=== PATIENT | female | born 1975 | race Caucasian/White ===

== ENCOUNTER → 2022-09-03 13:35 | Outpatient (POV) | payer MEDICAID, SELFPAY ==
[2022-09-03 14:10] VITALS: BP 132/81; PULSE 92; RESP 18; O2SAT 96; BMI 32.5
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
== END | disposition home or self-care (01) ==
PROVIDERS: PCP Nurse Practitioner Family; Visit Provider Nurse Practitioner Family
DX: M51.36 Other intervertebral disc degeneration, lumbar region (principal); M47.816 Spondylosis without myelopathy or radiculopathy, lumbar region; M25.551 Pain in right hip; M25.552 Pain in left hip; M25.572 Pain in left ankle and joints of left foot
CPT/HCPCS: 99202; G0463

== ENCOUNTER 2022-09-11 14:29 | Day surgery (SDC) | payer MEDICAID, SELFPAY ==
[2022-09-11 14:50] VITALS: BP 161/99; PULSE 88; RESP 20; TEMP 36.8; O2SAT 97; BMI 33.6
[2022-09-11 15:02] VITALS: BP 147/92; BP 177/106; PULSE 93; PULSE 96; RESP 18; RESP 20; O2SAT 98
--- NOTE | 2022-09-11 15:27 | EXP.PAIN.PRO ---
Procedure Date: 09/11/22 Time: 15:15 Anesthesiologist:: Hunter Arriaga CRNA Complications:: None Pre-procedure Diagnosis:: Chronic left ankle pain following ORIF. Post-procedure Diagnosis:: Same. Indications for Procedure:: This patient is a very pleasant 47-year-old female that comes our clinic today for sympathetic nerve block lumbar left 4 5. 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 Patient has chronic left ankle pain. She describes it as constant, sharp, stabbing. Patient does take gabapentin. Procedure Details:: Procedure: Lumbar epidural steroid injection under fluoroscopy Informed consent was obtained and the risks and benefits of the procedure were explained to the patient. The patient was taken to the procedure room and noninvasive monitors placed, including noninvasive blood pressure cuff and pulse oximeter. The back was viewed using C-arm Fluoroscopy and prepped using Chloraprep as a cleansing solution and the L4-L5 interspace was palpated. Skin and subcutaneous tissues were anesthetized using lidocaine 1.5% and a 25-gauge needle. After this, an 18-gauge Touhy epidural needle was placed into the L4-L5 interspace and advanced using fluoroscopic guidance and loss of resistance to air until the epidural space was encountered. After confirmation of needle placement in the epidural space, with dye, a solution containing 1% lidocaine, 3 mL and Depo-Medrol 40 mg were incrementally injected into the lumbar epidural space. The patient tolerated the procedure well with no complications. The patient was observed in the Pain Clinic and then discharged home neurologically intact. Plan and Disposition:: Patient was discharged without incident.
== END 2022-09-11 15:15 | disposition home or self-care (01) ==
LOC: SC.PAINP 14:39
PROVIDERS: PCP Nurse Practitioner Family; Visit Provider Nurse Anesthetist, Certified Registered
DX: M25.572 Pain in left ankle and joints of left foot (principal); M51.36 Other intervertebral disc degeneration, lumbar region; M47.816 Spondylosis without myelopathy or radiculopathy, lumbar region; M25.551 Pain in right hip; M25.552 Pain in left hip
CPT/HCPCS: 62323; J1030

== ENCOUNTER → 2022-10-06 13:47 | Outpatient (POV) | payer MEDICAID, SELFPAY ==
[2022-10-06 14:01] VITALS: BP 140/99; PULSE 104; RESP 20; BMI 32.6
--- NOTE | 2022-10-06 14:06 | A.OFFVIS_ITS ---
[facility] Pain Management SOAP Note Subjective:: Patient is a pleasant 47-year-old female who presents today following a lumbar epidural steroid injection at L4-L5 on 09/11/2022. We are currently treating the patient for low back pain, bilateral hip pain, left ankle pain, degenerative disc disease of lumbar spine with lumbar radiculopathy symptoms, lumbar facet arthropathy. Today she rates her pain a 7 out of 10. Patient states that following this epidural injection she did get approximately 70% relief however it only lasted 3 days. Patient denies any new trauma or injury. Patient denies any change location or type of pain she experiences. Patient was previously prescribed tizanidine 4 mg at night and states this did seem to provide additional improvement. She is requesting a refill at today's visit. Patient is currently prescribed gabapentin 300 mg 3 times a day from Dr. Rica Monterroso's office. Patient denies any side effects from this medication. Patient states she is scheduled to go to this month for her neurosurgery consult. Her Ender is [id number]. It is been reviewed and appropriate. Review of Systems: General: No recent weight changes, no fever, no sleep disturbances Respiratory: No cough, no shortness of air, no recurring pulmonary infections Cardiovascular/peripheral vascular: No chest pain, no palpitations, no edema, no shortness of breath Gastrointestinal: No new onset incontinence, normal bowel movements reported Genitourinary: No new onset incontinence Musculoskeletal: Low back pain, left ankle pain Psychiatric: [Normal mood/affect] Neurological: [Denies weakness in extremities], [denies balance issues] Objective:: Physical Exam: General: Alert and oriented x3, no acute distress, pleasant and cooperative Lungs: Respirations even and unlabored, symmetrical chest expansion Eyes: PERRL Musculoskeletal: Flexion and extension of lumbar [spine] somewhat guarded secondary to pain, [antalgic gait noted] Neurological: Speech clear, no gross sensory deficit Assessment:: Degenerative disc disease of lumbar spine with lumbar radiculopathy symptoms, lumbar facet arthropathy, low back pain, bilateral hip pain, left ankle pain Plan:: Patient continues to experience significant pain in her low back as well as her left ankle. I will refill the patient's tizanidine 4 mg at bedtime and provide a 1 month supply of this medication. I will also prescribe the patient a compounding cream at today's visit. Patient will return to clinic in 1 month for reevaluation of symptoms, medication refill and follow-up. Patient has been instructed to contact the clinic with any concerns before the next appointment. Dr. Bernard has reviewed this note and agrees with this plan of care. This note was dictated using voice recognition software and make contain errors or omissions. [facility] Disclaimer: The information contained in this section may have been updated after the patient was seen, as this information can be updated by other users. Medical History Chronic pain Endometriosis HLD (hyperlipidemia) HTN (hypertension) Tubal Surgical History H/O removal of cyst History of ankle surgery Family History (Updated 09/11/22 @ 15:04 by Yesy Vazquez RN) Other No significant family history Social History (Updated 09/11/22 @ 15:05 by Yesy Vazquez RN) Smoking Status: Current every day smoker alcohol intake: never current occupational status: other Travel in the last 8 weeks: None
== END | disposition home or self-care (01) ==
PROVIDERS: PCP Nurse Practitioner Family; Visit Provider Nurse Practitioner Family
DX: M51.16 Intervertebral disc disorders with radiculopathy, lumbar region (principal); M47.26 Other spondylosis with radiculopathy, lumbar region; M25.551 Pain in right hip; M25.552 Pain in left hip; M79.672 Pain in left foot; F17.210 Nicotine dependence, cigarettes, uncomplicated
CPT/HCPCS: 99212; G0463

== ENCOUNTER → 2022-11-05 13:38 | Outpatient (POV) | payer MEDICAID, SELFPAY ==
[2022-11-05 13:50] VITALS: BP 140/101; PULSE 111; RESP 19; O2SAT 96; BMI 32.5
--- NOTE | 2022-11-05 14:02 | EXP.PAIN.SOA ---
[facility] Pain Management SOAP Note Subjective:: Patient is a pleasant 47-year-old female who presents today for follow-up. We are currently treating the patient for low back pain, bilateral hip pain, left ankle pain, degenerative disc disease of lumbar spine with lumbar radiculopathy symptoms, lumbar facet arthropathy. Today the patient rates her pain a 9 out of 10. Patient continues to state her pain is primarily in her low back with radiating symptoms into her legs and left ankle pain. Patient states her pain seems to have changed and moved higher up on her lumbar spine. Patient denies any new trauma or injury. She describes this as a achy, throbbing sensation that is worse with increased activity or range of motion. Patient states she has not had imaging of her lumbar spine for probably over a year. Patient states occasionally she does have worsening anxiety related to the closed-end spaces of the MRI machine. Patient has had multiple injections in the past with her last lumbar epidural providing 70% relief however only lasting 3 days. Patient is currently prescribed tizanidine 4 mg at night and states this does provide significant improvement however she has been out of this medicine for a little bit. She is requesting a refill at today's visit. Patient states she also did go to the neurosurgeon at who was not recommending any surgery but exercise. Patient is currently managed with gabapentin 300 mg 3 times a day from her primary care doctor and compounding cream from our office. Patient denies any side effects from these medications. Her Ender is [id number]. Its been reviewed and appropriate. Review of Systems: General: No recent weight changes, no fever, no sleep disturbances Respiratory: No cough, no shortness of air, no recurring pulmonary infections Cardiovascular/peripheral vascular: No chest pain, no palpitations, no edema, no shortness of breath Gastrointestinal: No new onset incontinence, normal bowel movements reported Genitourinary: No new onset incontinence Musculoskeletal: Low back pain Psychiatric: [Normal mood/affect] Neurological: [Denies weakness in extremities], [denies balance issues] Objective:: Physical Exam: General: Alert and oriented x3, no acute distress, pleasant and cooperative Lungs: Respirations even and unlabored, symmetrical chest expansion Eyes: PERRL Musculoskeletal: Flexion and extension of lumbar [spine] somewhat guarded secondary to pain, [antalgic gait noted] Neurological: Speech clear, no gross sensory deficit ORT score updated with minimal risk of 1 Assessment:: Degenerative disc disease of lumbar spine with lumbar radiculopathy symptoms, lumbar facet arthropathy, low back pain, bilateral hip pain, left ankle pain Plan:: Patient continues to experience significant pain in her low back with radiating symptoms into her lower extremities. Patient did have limited range of motion of her lumbar spine. Due to the patient stating that she feels like her back pain has changed in location I have discussed ordering updated imaging to see if there are any changes from her prior MRI. I will refill the patient's tizanidine 4 mg at bedtime and provide a 3-month supply of this medication. We will schedule the patient for a CT without contrast of her lumbar spine and she will follow-up in clinic afterwards for reevaluation of symptoms and plan of care. Patient has been instructed to contact the clinic with any concerns before the next appointment. Dr. Bernard has reviewed this note and agrees with this plan of care. This note was dictated using voice recognition software and make contain errors or omissions. [facility] Disclaimer: The information contained in this section may have been updated after the patient was seen, as this information can be updated by other users. Medical History Chronic pain Endometriosis HLD (hyperlipidemia) HTN (hypertension) Tubal pregna
== END | disposition home or self-care (01) ==
PROVIDERS: PCP Nurse Practitioner Family; Visit Provider Nurse Practitioner Family
DX: M51.16 Intervertebral disc disorders with radiculopathy, lumbar region (principal); M47.26 Other spondylosis with radiculopathy, lumbar region; M25.551 Pain in right hip; M25.552 Pain in left hip; M25.572 Pain in left ankle and joints of left foot
CPT/HCPCS: 99212; G0463

== ENCOUNTER → 2022-11-27 10:02 | Outpatient (POV) | payer MEDICAID, SELFPAY ==
[2022-11-27 10:10] VITALS: BP 138/98; PULSE 113; RESP 19; O2SAT 97; BMI 32.3
--- NOTE | 2022-11-27 11:18 | EXP.PAIN.SOA ---
[facility] Pain Management SOAP Note Subjective:: This patient is a very pleasant 47-year-old female returns our clinic today after being denied CT scan lumbar spine. Patient complaining today of low back pain that she describes as constant, dull, aching. She also complains of bilateral hip and leg radicular symptoms at times. Patient rates her pain 7/10. Patient received lumbar epidural steroid injection on 09/11/2022. She reports some significant relief 80 to 90% lasting 2 to 3 weeks after this injection. However, after this time her symptoms returned in their entirety. Patient has difficulty with standing for any length of time. Ambulating for any length of time. Sitting for any length of time. She has difficulty with flexion, extension, left and right rotation. Upon examination she has some midline low lumbar point tenderness. No tenderness off the midline left or right. We have also treated the patient in the past regarding CRPS symptoms of her left ankle secondary to multiple surgeries at the site. However, she does report the gabapentin 3 mg 1 p.o. 3 times daily from her PCP does help with that significantly. Patient reports having physical therapy in the past which made her symptoms worse. She continues taking NSAIDs as well as acetaminophen at times. Also takes gabapentin 300 mg 1 p.o. 3 times daily. She reports the gabapentin does help with pain in her lower legs. Essentially, she has not had much success with conservative treatments. I recommend repeating the lumbar epidural steroid injection at the L4-5 level. She wishes to proceed. Objective:: Patient is awake alert [place] x3. In no acute distress. Flexion-extension lumbar spine somewhat guarded secondary to pain. Deep tendon reflexes upper lower extremities normal. Motor strength upper and lower extremities normal. There is no gross sensory deficit. Gait is normal Assessment:: Degenerative disc disease lumbar spine multilevels. Lumbar radiculopathy. Multilevel lumbar disc bulge. Plan:: Discussed in detail with the patient regarding repeating the lumbar epidural steroid injection. She wishes to proceed. [facility] Disclaimer: The information contained in this section may have been updated after the patient was seen, as this information can be updated by other users. Medical History Chronic pain Endometriosis HLD (hyperlipidemia) HTN (hypertension) Tubal Surgical History H/O removal of cyst History of ankle surgery Family History (Updated 09/11/22 @ 15:04 by Yesy Vazquez RN) Other No significant family history Social History (Updated 09/11/22 @ 15:05 by Yesy Vazquez RN) Smoking Status: Current every day smoker alcohol intake: never substance use type: denies use current occupational status: disabled Travel in the last 8 weeks: None
--- NOTE | 2022-11-27 11:34 | EXP.PAIN.SOA ---
[facility] Pain Management SOAP Note Subjective:: This patient is a pleasant 41-year-old [facility] Disclaimer: The information contained in this section may have been updated after the patient was seen, as this information can be updated by other users. Medical History Chronic pain Endometriosis HLD (hyperlipidemia) HTN (hypertension) Tubal Surgical History H/O removal of cyst History of ankle surgery Family History (Updated 09/11/22 @ 15:04 by Yesy Vazquez RN) Other No significant family history Social History (Updated 11/27/22 @ 11:23 by Hunter Arriaga CRNA) Smoking Status: Current every day smoker alcohol intake: never substance use type: denies use current occupational status: disabled Travel in the last 8 weeks: None
== END ==
PROVIDERS: PCP Nurse Practitioner Family; Visit Provider Nurse Anesthetist, Certified Registered
DX: M51.16 Intervertebral disc disorders with radiculopathy, lumbar region (principal)
CPT/HCPCS: 99212; G0463

== ENCOUNTER → 2022-12-15 08:44 | Outpatient (POV) | payer MEDICAID, SELFPAY ==
[2022-12-15 09:08] VITALS: BP 141/98; PULSE 82; RESP 20; TEMP 36.2; O2SAT 95; BMI 32.3
--- NOTE | 2022-12-15 09:43 | A.OFFVIS_ITS ---
[facility] Pain Management SOAP Note Subjective:: This patient is a very pleasant 47-year-old female that comes our clinic today for follow-up visit following denial from insurance regarding lumbar epidural steroid injection. Patient has a continuous low back pain she describes as constant, dull, aching. She rates pain 8/10. Patient also complained of bilateral hip and leg radicular symptoms. She has documented degenerative disc lumbar spine multilevels. Multilevel lumbar disc bulge. She describes her bilateral hip and leg radicular symptoms to the feet at times. Patient has tried physical therapy in the past. Patient reports physical therapy increased her pain significantly. She has tried health care facility administrator with a similar result. She also participates in home exercise program including stretches. Patient takes NSAIDs when able. Essentially, patient has tried and failed multiple conservative treatments. Objective:: Patient is awake alert [place] x3. In no acute distress. Flexion-extension lumbar spine guarded secondary to pain. Deep tendon reflexes upper and lower ex tremities normal. Motor strength upper and lower extremities normal. There is no gross sensory deficit. Gait is normal. Assessment:: Degenerative disc disease lumbar spine multilevels. Lumbar radiculopathy. Lumbar disc bulge multilevel Plan:: We will plan lumbar epidural steroid injection at the L4-5 level. [facility] Disclaimer: The information contained in this section may have been updated after the patient was seen, as this information can be updated by other users. Medical History Chronic pain Endometriosis HLD (hyperlipidemia) HTN (hypertension) Tubal Surgical History H/O removal of cyst History of ankle surgery Family History (Updated 09/11/22 @ 15:04 by Yesy Vazquez RN) Other No significant family history Social History (Updated 11/27/22 @ 11:23 by Hunter Arriaga CRNA) Smoking Status: Current every day smoker alcohol intake: never substance use type: denies use current occupational status: other Travel in the last 8 weeks: None
== END ==
PROVIDERS: PCP Nurse Practitioner Family; Visit Provider Nurse Anesthetist, Certified Registered
DX: M51.16 Intervertebral disc disorders with radiculopathy, lumbar region (principal); Z72.0 Tobacco use
CPT/HCPCS: 99212; G0463

== ENCOUNTER 2022-12-29 11:35 | Day surgery (SDC) | payer MEDICAID, SELFPAY ==
[2022-12-29 11:46] VITALS: BP 158/110; PULSE 103; RESP 18; TEMP 36.7; O2SAT 95; BMI 32.3
[2022-12-29 11:54] VITALS: BP 176/100; PULSE 103; RESP 19; O2SAT 97
[2022-12-29 11:55] VITALS: BP 176/100; PULSE 103; RESP 18; O2SAT 97
[2022-12-29 12:00] VITALS: BP 161/91; PULSE 97; RESP 18; O2SAT 95
--- NOTE | 2022-12-29 12:00 | P.PCN_ITS ---
Procedure Date: 12/29/22 Time: 11:40 Anesthesiologist:: Hunter Arriaga CRNA Complications:: None Pre-procedure Diagnosis:: Degenerative disc disease lumbar spine multilevels. Lumbar radiculopathy Post-procedure Diagnosis:: Same. Indications for Procedure:: Is a very pleasant 47-year-old female that comes our clinic today for lumbar epidural steroid injection at the L4-5 level. Patient had a previous lumbar epidural steroid injection with minimal relief. Patient reports 3 days of signi ficant relief however, following 3 days it began to wear off quickly. She complains of low back pain as well as bilateral hip and leg radicular symptoms. She rates her pain 05/03 Procedure Details:: Procedure: Lumbar epidural steroid injection under fluoroscopy Informed consent was obtained and the risks and benefits of the procedure were explained to the patient. The patient was taken to the procedure room and noninvasive monitors placed, including noninvasive blood pressure cuff and pulse oximeter. The back was viewed using C-arm Fluoroscopy and prepped using Chloraprep as a cleansing solution and the L4-L5 interspace was palpated. Skin and subcutaneous tissues were anesthetized using lidocaine 1.5% and a 25-gauge needle. After this, an 18-gauge Touhy epidural needle was placed into the L4-L5 interspace and advanced using fluoroscopic guidance and loss of resistance to air until the epidural space was encountered. After confirmation of needle placement in the epidural space, with dye, a solution containing normal saline, 3 mL and Depo-Medrol 80 mg were incrementally injected into the lumbar epidural space. The patient tolerated the procedure well with no complications. The patient was observed in the Pain Clinic and then discharged home neurologically intact. Plan and Disposition:: Patient was discharged without incident.
== END 2022-12-29 12:00 | disposition home or self-care (01) ==
PROVIDERS: PCP Nurse Practitioner Family; Visit Provider Nurse Anesthetist, Certified Registered
DX: M51.16 Intervertebral disc disorders with radiculopathy, lumbar region (principal); Z72.0 Tobacco use
CPT/HCPCS: 62323; J1040

== ENCOUNTER → 2023-01-18 10:23 | Outpatient (POV) | payer MEDICAID, SELFPAY ==
[2023-01-18 10:44] VITALS: BP 146/85; PULSE 86; RESP 18; O2SAT 98; BMI 32.3
--- NOTE | 2023-01-18 10:48 | EXP.PAIN.SOA ---
[facility] Pain Management SOAP Note Subjective:: Patient is a pleasant 47-year-old female who presents today for follow-up of lumbar epidural steroid injection at L4-L5 on 12/29/2022.? We are currently treating the patient for low back pain, bilateral hip pain, left ankle pain, degenerative disc disease of lumbar spine with lumbar radiculopathy symptoms, lumbar facet arthropathy.? Today the patient rates her pain a 9 out of 10.? She states she did have more than 50% relief following this injection however it only lasted approximately 1 week. Patient states she was able to increase her activity with decreased pain symptoms and did feel that her function was improved. She is back to her baseline during today's visit. Patient denies any new trauma or injury.? She describes this as a achy, throbbing sensation that is worse with increased activity and does cause decreased range of motion.? She does state her pain interferes with her ability to perform activities of daily living such as cooking and cleaning. Patient is currently prescribed tizanidine 4 mg at night and is requesting a refill.? She has been to neurosurgeon at who was not recommending any surgery.? Patient is currently managed with gabapentin 300 mg 3 times a day from her primary care doctor and compounding cream from our office.? Patient denies any side effects from these medications.? Her Ender is [id number]. Its been reviewed and appropriate. Review of Systems: General: No recent weight changes, no fever, no sleep disturbances Respiratory: No cough, no shortness of air, no recurring pulmonary infections Cardiovascular/peripheral vascular: No chest pain, no palpitations,? no edema, no shortness of breath Gastrointestinal: No new onset incontinence, normal bowel movements reported Genitourinary: No new onset incontinence Musculoskeletal: Low back pain Psychiatric: [Normal mood/affect] Neurological: [Denies weakness in extremities], [denies balance issues] Objective:: Physical Exam: General: Alert and oriented x3, no acute distress, pleasant and cooperative Lungs: Respirations even and unlabored, symmetrical chest expansion Eyes: PERRL Musculoskeletal: Flexion and extension of lumbar [spine] somewhat guarded secondary to pain, [antalgic gait noted] Neurological: Speech clear, no gross sensory deficit [facility] Lumbar spine MRI 07/07/2022 Findings:Conus is seen at approximately L1 level.? Schmorl's node involving superior endplate of L1 with mild compression deformity and endplate change.? Contrast-enhancement of the superior aspect of L1 extending into anterior aspect of T12-L1 disc.? Overall appearance is stable.? There is contrast enhancement on the left of the L2-3 facets and surrounding soft tissue.? There is also contrast enhancement in the adjacent to the L5 spinous process.? There is contrast enhancement in the left sacral sachin, medial left iliac bone and adjacent to the left sacroiliac joint in this region.? T12-L1: There is no disc protrusion no significant canal stenosis or neuroforaminal narrowing seen.? L1-2 there is facet arthropathy.? No significant canal stenosis or neuroforaminal narrowing.? L2-3 facet arthropathy with mild left neuroforaminal narrowing.? L3-4: There is an annular disc bulge with facet arthropathy and mild left neuroforaminal narrowing.? L4-5: There is annual disc bulge with facet arthropathy and mild bilateral neuroforaminal narrowing.? L5-S1 there is an annual disc bulge with facet arthropathy and mild left neuroforaminal narrowing. Impression: Stable abnormal appearance to T12-L1 with contrast enhancement as compared to prior exam.? Since this is stable as Schmorl's node with reactive endplate changes is favored but and indolent discitis/osteomyelitis is not excluded.? Additional follow-up MRI may be helpful.? Several areas of contrast-enhancement as described of uncertain etiology may be degenerative or inflammatory.? There may also be evaluated at the ti
== END | disposition home or self-care (01) ==
PROVIDERS: PCP Nurse Practitioner Family; Visit Provider Nurse Practitioner Family
DX: M51.16 Intervertebral disc disorders with radiculopathy, lumbar region (principal); M47.26 Other spondylosis with radiculopathy, lumbar region; M25.551 Pain in right hip; M25.552 Pain in left hip; M25.572 Pain in left ankle and joints of left foot
CPT/HCPCS: 99212; G0463

== ENCOUNTER → 2023-02-03 13:22 | Outpatient (POV) | payer MEDICAID, SELFPAY ==
[2023-02-03 13:59] VITALS: BP 126/91; PULSE 105; RESP 20; BMI 35.6
--- NOTE | 2023-02-03 14:20 | EXP.PAIN.SOA ---
[facility] Pain Management SOAP Note Subjective:: Patient is a pleasant 47-year-old female who presents today for follow-up of lumbar epidural denial. We are currently treating the patient for low back pain, bilateral hip pain, left ankle pain, degenerative disc disease of lumbar spine with lumbar radiculopathy symptoms, lumbar facet arthropathy. Today she rates her pain a 9 out of 10. Patient denies any new trauma or injury. She does state that since her last visit she has experienced more low back pain along the right side that goes into her buttocks and posterior thigh. She does states she has some numbness with this. She states that she cannot tolerate prolonged sitting, standing, walking due to her pain. Previously she was prescribed tizanidine 4 mg at night and she states it has helped. She is requesting a refill at today's visit. She has been to neurosurgery at who stated she was not a surgical candidate. Patient is managed with gabapentin 300 mg 3 times a day from her primary care doctor. Patient denies any side effects from this medication. We have also prescribed compounding cream. Her Ender is [id number]. Its been reviewed and appropriate. Review of Systems: General: No recent weight changes, no fever, no sleep disturbances Respiratory: No cough, no shortness of air, no recurring pulmonary infections Cardiovascular/peripheral vascular: No chest pain, no palpitations, no edema, no shortness of breath Gastrointestinal: No new onset incontinence, normal bowel movements reported Genitourinary: No new onset incontinence Musculoskeletal: Low back pain, right buttocks pain, right thigh pain Psychiatric: [Normal mood/affect] Neurological: [Denies weakness in extremities], [denies balance issues] Objective:: Physical Exam: General: Alert and oriented x3, no acute distress, pleasant and cooperative Lungs: Respirations even and unlabored, symmetrical chest expansion Eyes: PERRL Musculoskeletal: Flexion and extension of lumbar [spine] somewhat guarded secondary to pain, [antalgic gait noted] point tenderness noted at right SI with positive right Emeterio's, Gabbie's, Gaenslen's, compression and distraction exam Neurological: Speech clear, no gross sensory deficit Assessment:: Low back pain, bilateral hip pain, left ankle pain, degenerative disc disease of lumbar spine with lumbar radiculopathy symptoms, lumbar facet arthropathy, sacroiliitis Plan:: Patient is experiencing pain in her low back along the right side with radiating symptoms into her buttocks and thigh. Pain did range of motion of her lumbar spine along with point tenderness at her right SI with a positive right Emeterio's, Gabbie's, Gaenslen's, compression and distraction exam. I have discussed with the patient that she may benefit from a right SI injection in the future. I will order the patient prednisone 20 mg twice daily for 5 days and send in a refill on her tizanidine 4 mg at bedtime with a 1 month supply. I will also order physical therapy at today's visit along with x-rays of her right SI and right hip. Patient will follow-up in our office in 1 month for reevaluation of symptoms and plan of care. Patient has been instructed to contact the clinic with any concerns before the next appointment. Dr. Bernard has reviewed this note and agrees with this plan of care. This note was dictated using voice recognition software and make contain errors or omissions. [facility] Disclaimer: The information contained in this section may have been updated after the patient was seen, as this information can be updated by other users. Medical History Chronic pain Endometriosis HLD (hyperlipidemia) HTN (hypertension) Tubal Surgical History H/O removal of cyst History of ankle surgery Family History Other No significa
== END | disposition home or self-care (01) ==
PROVIDERS: Visit Provider Nurse Practitioner Family
DX: M51.16 Intervertebral disc disorders with radiculopathy, lumbar region (principal); M47.26 Other spondylosis with radiculopathy, lumbar region; M46.1 Sacroiliitis, not elsewhere classified; M25.551 Pain in right hip; M25.552 Pain in left hip
CPT/HCPCS: 99212; G0463

== ENCOUNTER → 2023-02-03 14:14 | Outpatient (CLI) | payer MEDICAID, SELFPAY ==
--- NOTE | 2023-02-03 14:21 | XR_ITS ---
FINAL REPORT CLINICAL HISTORY: Sacroiliac pain COMPARISON: None FINDINGS: SACROILIAC JOINTS SERIES Two views were obtained. There is no acute fracture or dislocation. Mild degenerative change with mild irregularity of the bilateral SI joints. The visualized bony structures are well aligned. No soft tissue abnormality is seen. IMPRESSION: Degenerative change with no acute bony abnormality. Reviewed, Interpreted and Dictated by Domingo Hale III, MD Transcribed by Anayeli Santana Authenticated and . [facility]
--- NOTE | 2023-02-03 14:21 | XR_ITS ---
FINAL REPORT CLINICAL HISTORY: Right hip pain COMPARISON: None FINDINGS: RIGHT HIP Two views of the right hip with an AP view of the pelvis demonstrate no acute fracture or dislocation. There is mild degenerative change of the right hip. The visualized bony structures are well aligned. No soft tissue abnormality is seen. IMPRESSION: Degenerative change with no acute bony abnormality. Reviewed, Interpreted and Dictated by Domingo Hale III, MD Transcribed by Anayeli Santana Authenticated and [facility]
== END ==
PROVIDERS: PCP Nurse Practitioner Family; Visit Provider Nurse Practitioner Family
DX: M54.50 Low back pain, unspecified (principal); M53.3 Sacrococcygeal disorders, not elsewhere classified
CPT/HCPCS: 72202; 73502

== ENCOUNTER → 2023-02-17 14:46 | Outpatient (POV) | payer MEDICAID, SELFPAY ==
--- NOTE | 2023-02-17 14:53 | EXP.PAIN.SOA ---
[place] Pain Management SOAP Note Subjective:: Patient is a pleasant 47-year-old female who presents today for follow-up of x-ray imaging of her SI joints and right hip.? We are currently treating the patient for low back pain, bilateral hip pain, left ankle pain, degenerative disc disease of lumbar spine with lumbar radiculopathy symptoms, lumbar facet arthropathy, sacroiliitis.? Today she rates her pain a 8 out of 10.? Patient denies any new trauma or injury.? She states she continues to have pain in her low back and buttocks along with her right hip. She does believe this is more related to arthritis. She cannot tolerate prolonged sitting, standing, walking due to her pain.? She does state that she is scheduled to start physical therapy on February 24. P patient has started taking the tizanidine 4 mg at bedtime and states it is doing well. She states she does not need any refills at this time. In the past she went to neurosurgery at who stated she was not a surgical candidate.? She is managed with gabapentin 300 mg 3 times a day from her primary care doctor.? Patient denies any side effects from this medication. Her Ender is [id number].? Its been reviewed and appropriate. Review of Systems: General: No recent weight changes, no fever, no sleep disturbances Respiratory: No cough, no shortness of air, no recurring pulmonary infections Cardiovascular/peripheral vascular: No chest pain, no palpitations,? no edema, no shortness of breath Gastrointestinal: No new onset incontinence, normal bowel movements reported Genitourinary: No new onset incontinence Musculoskeletal: Low back pain, right buttocks pain, right hip pain Psychiatric: [Normal mood/affect] Neurological: [Denies weakness in extremities], [denies balance issues] Objective:: Physical Exam: General: Alert and oriented x3, no acute distress, pleasant and cooperative Lungs: Respirations even and unlabored, symmetrical chest expansion Eyes: PERRL Musculoskeletal: Flexion and extension of lumbar [spine] somewhat guarded secondary to pain, [antalgic gait noted] Neurological: Speech clear, no gross sensory deficit FINAL REPORT CLINICAL HISTORY: Sacroiliac pain COMPARISON: None FINDINGS: SACROILIAC JOINTS SERIES? Two views were obtained.? There is no acute fracture or dislocation.? Mild degenerative change with mild irregularity of the bilateral SI joints.? The visualized bony structures are well aligned. No soft tissue abnormality is seen. IMPRESSION: Degenerative change with no acute bony abnormality. Reviewed, Interpreted and Dictated by Domingo Hale III, MD Transcribed by Anayeli Santana Authenticated and [facility] FINAL REPORT CLINICAL HISTORY: Right hip pain COMPARISON: None FINDINGS: RIGHT HIP? Two views of the right hip with an AP view of the pelvis demonstrate no acute fracture or dislocation.? There is mild degenerative change of the right hip.? The visualized bony structures are well aligned. No soft tissue abnormality is seen. IMPRESSION: Degenerative change with no acute bony abnormality. Reviewed, Interpreted and Dictated by Domingo Hale III, MD Transcribed by Anayeli Santana Authenticated and [facility] Assessment:: Degenerative disc disease of lumbar spine with lumbar radiculopathy symptoms, lumbar facet arthropathy, low back pain, bilateral hip pain, left ankle pain sacroiliitis Plan:: Patient continues to experience significant pain in her low back with limited range of motion. I have discussed with the patient that she may benefit from meloxicam daily to help with arthritis symptoms. Patient does state that she already has this medication from a previous orthopedic doctor however she did not try it. I have counseled the patient that if she does try this medication to take it with food to minim
[2023-02-17 14:55] VITALS: BP 122/91; PULSE 94; RESP 20; BMI 35.7
== END ==
PROVIDERS: PCP Nurse Practitioner Family; Visit Provider Nurse Practitioner Family
DX: M51.16 Intervertebral disc disorders with radiculopathy, lumbar region (principal); M47.26 Other spondylosis with radiculopathy, lumbar region; M25.551 Pain in right hip; M25.552 Pain in left hip; M25.572 Pain in left ankle and joints of left foot; M46.1 Sacroiliitis, not elsewhere classified
CPT/HCPCS: 99212; G0463

== ENCOUNTER → 2023-03-18 14:07 | Outpatient (POV) | payer MEDICAID, SELFPAY ==
--- NOTE | 2023-03-18 14:14 | EXP.PAIN.SOA ---
[facility] Pain Management SOAP Note Subjective:: Patient is a pleasant 47-year-old female who presents today for follow-up of x-ray imaging of her SI joints and right hip.? We are currently treating the patient for low back pain, bilateral hip pain, left ankle pain, degenerative disc disease of lumbar spine with lumbar radiculopathy symptoms, lumbar facet arthropathy, sacroiliitis.? Today she rates her pain a 8 out of 10.? Patient denies any new trauma or injury.? She states her pain continues around her low back and right hip and still thinks it is related to arthritis. She cannot tolerate prolonged sitting, standing, walking due to her pain.? She has started physical therapy since the beginning of February and states she has not noticed any additional improvement however she has not noticed any worsening pain either. She was prescribed meloxicam at her last visit however she states she has still not tried this medication. She does take tizanidine at bedtime and states it does help additionally. She is managed with gabapentin 300 mg 3 times a day from her primary care doctor.? Patient denies any side effects from this medication. Her Ender is [id number].? Its been reviewed and appropriate. Review of Systems: General: No recent weight changes, no fever, no sleep disturbances Respiratory: No cough, no shortness of air, no recurring pulmonary infections Cardiovascular/peripheral vascular: No chest pain, no palpitations,? no edema, no shortness of breath Gastrointestinal: No new onset incontinence, normal bowel movements reported Genitourinary: No new onset incontinence Musculoskeletal: Low back pain,right hip pain Psychiatric: [Normal mood/affect] Neurological: [Denies weakness in extremities], [denies balance issues] Objective:: Physical Exam: General: Alert and oriented x3, no acute distress, pleasant and cooperative Lungs: Respirations even and unlabored, symmetrical chest expansion Eyes: PERRL Musculoskeletal: Flexion and extension of right hip somewhat guarded secondary to pain, [antalgic gait noted] Neurological: Speech clear, no gross sensory deficit Assessment:: Low back pain, bilateral hip pain, left ankle pain, degenerative disc disease of lumbar spine with lumbar radiculopathy symptoms, lumbar facet arthropathy, sacroiliitis Plan:: Patient is experiencing significant pain in her right hip with limited range of motion. I have discussed with the patient that she may benefit from a right hip intra-articular injection. Risk and benefits were discussed with the patient and she would like to proceed forward with this plan of care. Patient does not need any refills on her tizanidine at this time. Patient will be scheduled for a right intra-articular hip injection. Patient has been instructed to contact the clinic with any concerns before the next appointment. Dr. Bernard has reviewed this note and agrees with this plan of care. This note was dictated using voice recognition software and make contain errors or omissions. [facility] Disclaimer: The information contained in this section may have been updated after the patient was seen, as this information can be updated by other users. Medical History Chronic pain Endometriosis HLD (hyperlipidemia) HTN (hypertension) Tubal Surgical History H/O removal of cyst History of ankle surgery Family History Other No significant family history Social History Smoking Status: Current every day smoker alcohol intake: never substance use type: denies use current occupational status: other Travel in the last 8 weeks: None
[2023-03-18 14:16] VITALS: BP 135/95; PULSE 107; RESP 20; O2SAT 97; BMI 35.7
== END ==
PROVIDERS: PCP Nurse Practitioner Family; Visit Provider Nurse Practitioner Family
DX: M51.16 Intervertebral disc disorders with radiculopathy, lumbar region (principal); M47.26 Other spondylosis with radiculopathy, lumbar region; M46.1 Sacroiliitis, not elsewhere classified; M25.551 Pain in right hip; M25.552 Pain in left hip; M25.572 Pain in left ankle and joints of left foot
CPT/HCPCS: 99212; G0463

== ENCOUNTER 2023-03-30 10:42 | Day surgery (SDC) | payer MEDICAID, SELFPAY ==
[2023-03-30 10:51] VITALS: BP 135/94; PULSE 94; RESP 18; TEMP 36.6; O2SAT 97; BMI 35.7
[2023-03-30 11:00] VITALS: BP 139/91; PULSE 96; RESP 18; O2SAT 97
--- NOTE | 2023-03-30 11:03 | EXP.PAIN.PRO ---
Procedure Date: 03/30/23 Time: 10:50 Anesthesiologist:: Hunter Arriaga CRNA Complications:: None Pre-procedure Diagnosis:: Osteoarthritis right hip. Chronic right hip pain. Post-procedure Diagnosis:: Same. Indications for Procedure:: Very pleasant 47-year-old female comes our clinic today for intra-articular right hip injection. Patient has anterior hip pain she describes as constant, dull, aching. Patient has difficulty transitioning from sitting to standing. She has difficulty with abduction. Procedure Details:: Details of the procedure were explained to the patient. The patient was taken to procedure room placed in the supine position. The area over the right hip was cleaned using chlorhexidine as a cleansing solution. Using fluoroscopy guidance a 3 and half inch 22-gauge spinal needle was used to access the right hip joint without difficulty. After negative aspiration 3 cc of 1% lidocaine +3 cc of 0.25% Marcaine and 40 mg of Depo-Medrol was injected. Needle was withdrawn. Band-Aid applied. Patient tolerated procedure without difficulty. There are no complications. Plan and Disposition:: Patient was discharged without incident.
== END 2023-03-30 11:00 | disposition home or self-care (01) ==
PROVIDERS: PCP Nurse Practitioner Family; Visit Provider Nurse Anesthetist, Certified Registered
DX: M16.11 Unilateral primary osteoarthritis, right hip (principal); M25.551 Pain in right hip; G89.29 Other chronic pain
CPT/HCPCS: 20610; 77002; J1040

== ENCOUNTER → 2023-04-14 13:02 | Outpatient (POV) | payer MEDICAID, SELFPAY ==
--- NOTE | 2023-04-14 13:07 | EXP.PAIN.SOA ---
[facility] Pain Management SOAP Note Subjective:: Patient is a pleasant 48-year-old female who presents today for follow-up of right hip intra-articular injection on 03/30/2023. We are currently treating the patient for degenerative disc disease of lumbar spine with lumbar radiculopathy symptoms, lumbar facet arthropathy, low back pain, sacroiliitis, bilateral hip pain, left ankle pain. Today she states that she has had 80 to 90% improvement with this last injection however it only lasted approximately 6 days. Patient does rate her pain today an 8 out of 10 and states she is back to her baseline. Patient does state that her pain in her hip continues to be an achy sensation that is worse with increased activity. It does affect her ability to perform activities of daily living such as cooking and cleaning or even simple ambulation. Patient is interested in repeating her injection. Patient is currently managed with gabapentin 300 mg 3 times a day from her primary care doctor. Patient denies any side effects from this medication and is requesting that we take over this prescription if possible. Patient does state that she sees our office more frequently than she sees her primary care doctor. Patient is currently prescribed tizanidine 4 mg at bedtime and has been in the past prescribed meloxicam 15 mg a day. Patient is requesting refills of the both of these medications. Her Ender is [id number]. Its been reviewed and appropriate. Review of Systems: General: No recent weight changes, no fever, no sleep disturbances Respiratory: No cough, no shortness of air, no recurring pulmonary infections Cardiovascular/peripheral vascular: No chest pain, no palpitations, no edema, no shortness of breath Gastrointestinal: No new onset incontinence, normal bowel movements reported Genitourinary: No new onset incontinence Musculoskeletal: Right hip pain Psychiatric: [Normal mood/affect] Neurological: [Denies weakness in extremities], [denies balance issues] Objective:: Physical Exam: General: Alert and oriented x3, no acute distress, pleasant and cooperative Lungs: Respirations even and unlabored, symmetrical chest expansion Eyes: PERRL Musculoskeletal: Flexion and extension of right hip somewhat guarded secondary to pain, [antalgic gait noted] Neurological: Speech clear, no gross sensory deficit Assessment:: Degenerative disc disease of lumbar spine with lumbar radiculopathy symptoms, lumbar facet arthropathy, low back pain, sacroiliitis, bilateral hip pain, left ankle pain Plan:: Patient continues to experience significant pain in her right hip however she has gotten 80 to 90% improvement with her last intra-articular hip injection. Patient did have limited range of motion during today's exam and I have recommended that we repeat her prior injection. Risk and benefits were discussed with the patient and she would like to proceed forward with this plan of care. I will send in refills of her meloxicam 15 mg a day and tizanidine 4 mg changing it to twice daily and provide a 1 month supply of these medications. I have discussed with the patient that she needs to contact her primary care doctor and have them send over something in writing to let us know if they want us to take over her gabapentin 300 mg 3 times a day prescription. We will discuss this at her future visits. I have also discussed with the patient that it may be beneficial to get additional updated imaging such as an MRI of her right hip as well as send her for referral to an orthopedic doctor for possible surgical intervention. Patient will be scheduled for a right hip intra-articular injection. Patient has been instructed to contact the clinic with any concerns before the next appointment. Dr. Bernard has reviewed this note and agrees with this plan of care. This note was dictated using voice recognition software and make contain errors or omissions. [facility] Disclaimer: The information contained in this section may
[2023-04-14 13:13] VITALS: BP 139/93; PULSE 108; RESP 18; O2SAT 97; BMI 35.7
== END | disposition home or self-care (01) ==
PROVIDERS: PCP Nurse Practitioner Family; Visit Provider Nurse Practitioner Family
DX: M51.16 Intervertebral disc disorders with radiculopathy, lumbar region (principal); M47.26 Other spondylosis with radiculopathy, lumbar region; M46.1 Sacroiliitis, not elsewhere classified; M25.551 Pain in right hip; M25.552 Pain in left hip; M25.572 Pain in left ankle and joints of left foot
CPT/HCPCS: 99212; G0463

== ENCOUNTER 2023-05-04 10:24 | Day surgery (SDC) | payer MEDICAID, SELFPAY ==
[2023-05-04 10:36] VITALS: BP 125/78; PULSE 104; RESP 18; TEMP 36.6; O2SAT 96; BMI 36.3
[2023-05-04 10:42] VITALS: BP 157/100; PULSE 105; RESP 19; O2SAT 97
[2023-05-04 10:43] VITALS: BP 157/100; PULSE 105; RESP 18; O2SAT 97
[2023-05-04 10:48] VITALS: BP 121/85; PULSE 103; RESP 18; O2SAT 96
--- NOTE | 2023-05-04 10:50 | EXP.PAIN.PRO ---
Procedure Date: 05/04/23 Time: 10:40 Anesthesiologist:: Hunter Arriaga CRNA Complications:: None Pre-procedure Diagnosis:: Osteoarthritis right hip. Chronic right hip pain. Post-procedure Diagnosis:: Same. Indications for Procedure:: Patient is a very pleasant 48-year-old female that comes our clinic today for right intra-articular hip injection. Patient had the right hip injected in the recent past. She reports 6 days of complete relief. After which time the pain did return. She describes her right hip pain as constant, dull, aching. She rates pain 7/10. We will try a second injection to the right hip joint. Procedure Details:: Details of the procedure were explained to the patient. The patient was taken to procedure room placed in the supine position. The area over the right hip was cleaned using chlorhexidine as a cleansing solution. Using fluoroscopy guidance a 3 and half inch 22-gauge spinal needle was used to access the right hip joint without difficulty. After negative aspiration 3 cc of 1% lidocaine +3 cc of 0.25% Marcaine and 40 mg of Depo-Medrol was injected. Needle was withdrawn. Band-Aid applied. Patient tolerated procedure without difficulty. There are no complications. Plan and Disposition:: Patient was discharged without incident.
== END 2023-05-04 10:48 | disposition home or self-care (01) ==
PROVIDERS: PCP Nurse Practitioner Family; Visit Provider Nurse Anesthetist, Certified Registered
DX: M16.11 Unilateral primary osteoarthritis, right hip (principal); M25.551 Pain in right hip; G89.29 Other chronic pain
CPT/HCPCS: 20610; 77002; J1040

== ENCOUNTER → 2023-05-19 13:21 | Outpatient (POV) | payer MEDICAID, SELFPAY ==
[2023-05-19 13:28] VITALS: BP 135/92; PULSE 92; RESP 20; BMI 25.1
--- NOTE | 2023-05-19 13:55 | EXP.PAIN.SOA ---
[facility] Pain Management SOAP Note Subjective:: Patient is a pleasant 48-year-old female who presents today for follow-up of right intra-articular hip injection on 05/04/2023. We are currently treating the patient for degenerative disc disease of the lumbar spine with lumbar radiculopathy symptoms, lumbar facet arthropathy, low back pain, sacroiliitis, bilateral hip pain, left ankle pain. Today she rates her pain a 7 out of 10. Patient denies any new trauma or injury. Patient denies any change to location or type of pain she experiences. She does state that she has had at least 90% improvement following her hip injection and that her pain today is more involving her low back. Patient does describe this as a achy, throbbing sensation that is worse with increased activity. She does state that currently it is still tolerable and she does not feel like she needs an injection at this time. She does state that her hip pain has improved and that she has had much less pain in that area. She states she has been able to increase her activity. She did previously have a hip injection that did give upwards of 90% improvement however it only lasted 6 days. She states she is very impressed that this is still continuing to provide relief at this time. Patient is currently managed with gabapentin 300 mg 3 times a day from her primary care doctor. She is also prescribed tizanidine 4 mg at bedtime and meloxicam 15 mg a day from our office. At this time she states she does not need refills. Her Ender is [id number]. Its been reviewed and appropriate. Review of Systems: General: No recent weight changes, no fever, no sleep disturbances Respiratory: No cough, no shortness of air, no recurring pulmonary infections Cardiovascular/peripheral vascular: No chest pain, no palpitations, no edema, no shortness of breath Gastrointestinal: No new onset incontinence, normal bowel movements reported Genitourinary: No new onset incontinence Musculoskeletal: Low back pain Psychiatric: [Normal mood/affect] Neurological: [Denies weakness in extremities], [denies balance issues] Objective:: Physical Exam: General: Alert and oriented x3, no acute distress, pleasant and cooperative Lungs: Respirations even and unlabored, symmetrical chest expansion Eyes: PERRL Musculoskeletal: Flexion and extension of lumbar [spine] somewhat guarded secondary to pain, [antalgic gait noted] Neurological: Speech clear, no gross sensory deficit Assessment:: Degenerative disc disease of lumbar spine with lumbar radiculopathy symptoms, lumbar facet arthropathy, low back pain, sacroiliitis, bilateral hip pain, left ankle pain Plan:: Patient has had significant improvement following her right hip injection and does not require any additional injective therapy at this time. Patient will return to clinic in 1 month for reevaluation of symptoms and plan of care. Patient has been instructed to contact the clinic with any concerns before the next appointment. Dr. Bernard has reviewed this note and agrees with this plan of care. This note was dictated using voice recognition software and make contain errors or omissions. [facility] Disclaimer: The information contained in this section may have been updated after the patient was seen, as this information can be updated by other users. Medical History Chronic pain Endometriosis HLD (hyperlipidemia) HTN (hypertension) Tubal Surgical History H/O removal of cyst History of ankle surgery Family History Other No significant family history Social History Smoking Status: Current every day smoker alcohol intake: never substance use type: denies use current occupational status: other Travel in the last 8 weeks: None
== END ==
PROVIDERS: PCP Nurse Practitioner Family; Visit Provider Nurse Practitioner Family
DX: M51.16 Intervertebral disc disorders with radiculopathy, lumbar region (principal); M47.26 Other spondylosis with radiculopathy, lumbar region; M46.1 Sacroiliitis, not elsewhere classified; M25.552 Pain in left hip; M25.551 Pain in right hip; M25.572 Pain in left ankle and joints of left foot
CPT/HCPCS: 99212; G0463

== ENCOUNTER → 2023-06-17 14:31 | Outpatient (POV) | payer MEDICAID, SELFPAY ==
--- NOTE | 2023-06-17 14:32 | EXP.PAIN.SOA ---
[facility] Pain Management SOAP Note Subjective:: Patient is a pleasant 48-year-old female who presents today for 1 month follow-up. We are currently treating the patient for degenerative disc disease of the lumbar spine with lumbar radiculopathy symptoms, lumbar facet arthropathy, low back pain, sacroiliitis, bilateral hip pain, left ankle pain. Today she rates her pain a 8 out of 10. She denies any new trauma or injury or any change location or type of pain she experiences. She states her pain is more prominent all along her low back and describes it as an aching, throbbing sensation that is worse with certain activities such as bending, twisting or lifting. She states the pain does make it difficult to perform activities of daily living such as cooking or cleaning. Patient denies having any radiating symptoms into her legs. She also states that her hip is back to its previous baseline. Patient had a right hip intra-articular injection in April that did provide at least 90% improvement. She does state that the pain however is more tolerable than what it was and its not as bad. She is currently managed with gabapentin 300 mg 3 times a day from her primary care doctor. She is also prescribed tizanidine 4 mg twice daily and meloxicam 15 mg a day from our office. She denies any side effects from this medication. She states that she does not not need refills on the meloxicam however the tizanidine she does. Her Ender is [id number]. Its been reviewed and appropriate. Review of Systems: General: No recent weight changes, no fever, no sleep disturbances Respiratory: No cough, no shortness of air, no recurring pulmonary infections Cardiovascular/peripheral vascular: No chest pain, no palpitations, no edema, no shortness of breath Gastrointestinal: No new onset incontinence, normal bowel movements reported Genitourinary: No new onset incontinence Musculoskeletal: Low back pain Psychiatric: [Normal mood/affect] Neurological: [Denies weakness in extremities], [denies balance issues] Objective:: Physical Exam: General: Alert and oriented x3, no acute distress, pleasant and cooperative Lungs: Respirations even and unlabored, symmetrical chest expansion Eyes: PERRL Musculoskeletal: Flexion and extension of lumbar [spine] somewhat guarded secondary to pain, [antalgic gait noted] positive Kemps test Neurological: Speech clear, no gross sensory deficit Assessment:: Degenerative disc disease of lumbar spine with lumbar radiculopathy symptoms, lumbar facet arthropathy, lumbar spondylosis, low back pain, sacroiliitis, bilateral hip pain, left ankle pain Plan:: Patient is experiencing worsening pain in her low back with limited range of motion. Patient did have a positive Kemps test during today's visit. I have discussed with the patient that she may benefit from a medial branch block of her lumbar spine. Risk and benefits were explained to the patient and she would like to proceed forward with this plan of care. I will send in refills of her tizanidine 4 mg twice daily and provide a 2-month supply of this medication. Patient will be scheduled for a lumbar medial branch block bilaterally L4-L5 and L5-S1. Patient has been instructed to contact the clinic with any concerns before the next appointment. Dr. Bernard has reviewed this note and agrees with this plan of care. This note was dictated using voice recognition software and make contain errors or omissions. [facility] Disclaimer: The information contained in this section may have been updated after the patient was seen, as this information can be updated by other users. Medical History Chronic pain Endometriosis HLD (hyperlipidemia) HTN (hypertension) Tubal Surgical History H/O removal of cyst History of ankle surgery Family History (Reviewed 05/04/23 @ 10:36 by Manan Gonzales
[2023-06-17 14:46] VITALS: BP 119/89; PULSE 91; RESP 18; O2SAT 96; BMI 36.3
== END | disposition home or self-care (01) ==
PROVIDERS: Visit Provider Nurse Practitioner Family
DX: M51.16 Intervertebral disc disorders with radiculopathy, lumbar region (principal); M47.26 Other spondylosis with radiculopathy, lumbar region; M46.1 Sacroiliitis, not elsewhere classified; M25.551 Pain in right hip; M25.552 Pain in left hip; M25.572 Pain in left ankle and joints of left foot
CPT/HCPCS: 99212; G0463

== ENCOUNTER → 2023-07-22 14:30 | Outpatient (POV) | payer MEDICAID, SELFPAY ==
--- NOTE | 2023-07-22 14:45 | EXP.PAIN.SOA ---
[facility] Pain Management SOAP Note Subjective:: Patient is a pleasant 48-year-old female who presents today for follow-up of lumbar medial branch block denial and medication refill. We are currently treating the patient for degenerative disc disease of lumbar spine with lumbar radiculopathy symptoms, lumbar facet arthropathy, lumbar spondylosis, sacroiliitis, bilateral hip pain, left ankle pain. Today she rates her pain an 8 out of 10. Patient denies any new trauma or injury. She states she continues to have pain in her low back that is made worse with certain movements such as bending, twisting or lifting. She does state this is an aching, throbbing sensation that is worse with increased activity and does affect her ability perform activities of daily living. Patient denies any symptoms radiating into her legs. Patient's denial was based off of not having at least 6 weeks of physical therapy. Patient did go to physical therapy approximately 4 months ago for several visits however she was not making any improvement and was released by physical therapy. Patient has continued to do at home exercising and stretching for longer than 12 weeks with minimal relief. Patient has tried oral medications such as Tylenol and ibuprofen along with heat and ice and topicals with minimal relief. Patient is currently managed with tizanidine 4 mg twice a day meloxicam 15 mg daily from our office. She does state that these medications do help some. She does not need refills on her tizanidine however she does on her meloxicam today. She is also prescribed gabapentin 300 mg 3 times a day from an outside provider. Her Ender is [id number]. Its been reviewed and appropriate. Review of Systems: General: No recent weight changes, no fever, no sleep disturbances Respiratory: No cough, no shortness of air, no recurring pulmonary infections Cardiovascular/peripheral vascular: No chest pain, no palpitations, no edema, no shortness of breath Gastrointestinal: No new onset incontinence, normal bowel movements reported Genitourinary: No new onset incontinence Musculoskeletal: Low back pain Psychiatric: [Normal mood/affect] Neurological: [Denies weakness in extremities], [denies balance issues] Objective:: Physical Exam: General: Alert and oriented x3, no acute distress, pleasant and cooperative Lungs: Respirations even and unlabored, symmetrical chest expansion Eyes: PERRL Musculoskeletal: Flexion and extension of lumbar [spine] somewhat guarded secondary to pain, [antalgic gait noted] positive Kemps test Neurological: Speech clear, no gross sensory deficit Assessment:: Degenerative disc disease of lumbar spine with lumbar radiculopathy symptoms, lumbar facet arthropathy, lumbar spondylosis, sacroiliitis, bilateral hip pain, left ankle pain Plan:: Patient continues to experience significant pain in her low back with limited range of motion. Patient did have a positive Kemps test again during today's visit. I have discussed with the patient that I do believe she would still benefit from a lumbar medial branch block. Risk and benefits were discussed with the patient and she would like to proceed forward with this plan of care. Patient is not on any blood thinners. Patient has tried and failed conservative therapy such as oral medications, heat and ice, topicals, recent physical therapy that she was released from due to not having any change to her symptoms or improvement, and at home exercising and stretching for longer than 12 weeks. I will also refill the patient's meloxicam 15 mg daily and provide a 3-month supply of this medication. Patient will be resubmitted to insurance for the lumbar medial branch block bilaterally L4-L5 and L5-S1. Patient has been instructed to contact the clinic with any concerns before the next appointment. Dr. Bernard has reviewed this note and agrees with this plan of care. This note was dictated using voice recognition software and make contain errors or omission
[2023-07-22 14:55] VITALS: BP 123/85; PULSE 92; RESP 18; O2SAT 94; BMI 35.7
== END | disposition home or self-care (01) ==
PROVIDERS: PCP Nurse Practitioner Family; Visit Provider Nurse Practitioner Family
DX: M51.16 Intervertebral disc disorders with radiculopathy, lumbar region (principal); M47.26 Other spondylosis with radiculopathy, lumbar region; M46.1 Sacroiliitis, not elsewhere classified; M25.551 Pain in right hip; M25.552 Pain in left hip; M25.572 Pain in left ankle and joints of left foot
CPT/HCPCS: 99212; G0463

== ENCOUNTER 2023-08-10 10:40 | Day surgery (SDC) | payer MEDICAID, SELFPAY ==
[2023-08-10 10:49] VITALS: BP 154/103; PULSE 90
[2023-08-10 10:52] VITALS: BP 161/104; PULSE 101; RESP 20; TEMP 36.5; O2SAT 94; BMI 35.7
--- NOTE | 2023-08-10 11:33 | P.PCN_ITS ---
Procedure Date: 08/10/23 Time: 11:20 Anesthesiologist:: Hunter Arriaga CRNA Complications:: None Pre-procedure Diagnosis:: Degenerative disc lumbar spine multilevels. Lumbar radiculopathy. Lumbar spondylosis. Lumbar facet arthropathy. Post-procedure Diagnosis:: Same. Indications for Procedure:: Very pleasant 48-year-old female comes our clinic today for medial branch blocks/facet injection bilaterally L4-5, L5-S1. Patient reports low back pain she describes as constant, dull, aching. Patient has difficulty standing and or sitting for any length of time. Patient has difficulty with flexion, extension, left and right rotation. She rates her pain 8/10. Procedure Details:: Informed consent was obtained and the risk and benefits of the procedure was explained to the patient. Patient was taken to the procedure room where noninvasive monitors were placed, including noninvasive blood pressure cuff as well as pulse oximeter. The area over the lumbar spine was cleansed using chlorhexidine as a cleansing solution. I anesthetized the skin and subcutaneous tissues with 1% Lidocaine. I placed 22-gauge spinal needles into the facet joint/ medial branches of L4-L5, and L5-S1 bilaterally. Needle placement was confirmed with fluoroscopy. After confirmation of needle placement, each site was injected with 1 mL of 1% lidocaine and 0.25 % Marcaine and 10 mg of Depo- Medrol. A total of 80 mg of depo medrol was used for bilateral medial branch blocks of L4-L5, and L5-S1 bilaterally. Patient tolerated the procedure without difficulty. There were no complications. Plan and Disposition:: Patient was discharged without incident.
[2023-08-10 11:43] VITALS: BP 181/98; PULSE 98; RESP 18; O2SAT 98
[2023-08-10 11:45] VITALS: BP 181/98; PULSE 98; RESP 18; O2SAT 98
== END 2023-08-10 11:50 | disposition home or self-care (01) ==
PROVIDERS: PCP Nurse Practitioner Family; Visit Provider Nurse Anesthetist, Certified Registered
DX: M47.896 Other spondylosis, lumbar region (principal); M51.16 Intervertebral disc disorders with radiculopathy, lumbar region
CPT/HCPCS: 64493; 64494; J1040

== ENCOUNTER → 2023-09-03 10:32 | Outpatient (POV) | payer MEDICAID, SELFPAY ==
--- NOTE | 2023-09-03 11:11 | A.OFFVIS_ITS ---
[facility] Pain Management SOAP Note Subjective:: This patient is a very pleasant 48-year-old female comes our clinic today for follow-up visit after receiving medial branch blocks/facet injections lumbar L4- 5, L5-S1 bilaterally. Patient reports 80 to 90% improvement terms of her overall low back pain lasting 2 to 3 days. After which time her pain has returned for the most part. Patient describes her low back pain as constant, dull, aching. Patient has increased pain with flexion, extension, left and right rotation. Patient has degenerative disc lumbar spine multiple levels. With lumbar radiculopathy symptoms. Lumbar spondylosis. Multilevel lumbar facet arthropathy. She rates her pain 6/10 today. Patient reports tizanidine 4 mg 1 p.o. nightly has helped with sleep. Objective:: Patient is awake alert [place] x3. In no acute distress. Flexion-extension cervical lumbar spine guarded secondary to pain. Deep tendon reflexes upper and lower extremities normal. Motor strength upper lower extremities normal. There is no gross sensory deficit. Gait is normal. Assessment:: Degenerative disc lumbar spine multilevels. Lumbar radiculopathy. Lumbar spondylosis. Lumbar multi facet arthropathy Plan:: I will schedule the patient for repeat L4-5, L5-S1 bilateral medial branch block/facet injection. I briefly discussed with the patient regarding lumbar facet ablation. Answered her questions. She wishes to proceed with the second round of medial branch blocks/facet blocks L4-5, L5-S1. [facility] Disclaimer: The information contained in this section may have been updated after the patient was seen, as this information can be updated by other users. Medical History Chronic pain Endometriosis HLD (hyperlipidemia) HTN (hypertension) Tubal Surgical History H/O removal of cyst History of ankle surgery Family History Other No significant family history Social History (Updated 08/10/23 @ 10:52 by Rupal Hinojosa RN) Smoking Status: Current every day smoker alcohol intake: never substance use type: denies use current occupational status: other Travel in the last 8 weeks: None
[2023-09-03 11:22] VITALS: BP 151/99; PULSE 85; RESP 18; O2SAT 94; BMI 35.7
== END | disposition home or self-care (01) ==
PROVIDERS: Visit Provider Nurse Anesthetist, Certified Registered
DX: M51.16 Intervertebral disc disorders with radiculopathy, lumbar region (principal); M47.896 Other spondylosis, lumbar region
CPT/HCPCS: 99212; G0463

== ENCOUNTER 2023-10-12 10:09 | Day surgery (SDC) | payer MEDICAID, SELFPAY ==
[2023-10-12 10:18] VITALS: BP 131/89; PULSE 98; RESP 18; TEMP 36.4; O2SAT 96; BMI 36.3
[2023-10-12 10:23] VITALS: BP 160/100; PULSE 96; RESP 18; O2SAT 94
[2023-10-12 10:24] VITALS: BP 160/100; PULSE 104; RESP 18; O2SAT 94
--- NOTE | 2023-10-12 10:29 | P.PCN_ITS ---
Procedure Date: 10/12/23 Time: 10:20 Anesthesiologist:: Hunter Arriaga CRNA Complications:: None Pre-procedure Diagnosis:: Degenerative disc lumbar spine multilevels. Lumbar radiculopathy. Lumbar spondylosis. Multilevel lumbar facet arthropathy. Post-procedure Diagnosis:: Same. Indications for Procedure:: Patient is a pleasant 48-year-old female comes our clinic today for lumbar medial branch block L4-5, L5-S1 bilaterally. Patient reports low back pain that she describes as constant, dull, aching. Also bilateral hip radicular symptoms. She rates her pain 7/10. Patient reports having difficulty with flexion, extension, left and right rotation. Procedure Details:: Informed consent was obtained and the risk and benefits of the procedure was explained to the patient. Patient was taken to the procedure room where noninvasive monitors were placed, including noninvasive blood pressure cuff as well as pulse oximeter. The area over the lumbar spine was cleansed using chlorhexidine as a cleansing solution. I anesthetized the skin and subcutaneous tissues with 1% Lidocaine. I placed 22-gauge spinal needles into the facet joint/ medial branches of L4-L5, and L5-S1] bilaterally. Needle placement was confirmed with fluoroscopy. After confirmation of needle placement, each site was injected with 1 mL of 1% lidocaine and 0.25 % Marcaine and 10 mg of Depo- Medrol. A total of 80 mg of depo medrol was used for bilateral medial branch blocks of L4-L5, and L5-S1] bilaterally. Patient tolerated the procedure without difficulty. There were no complications. Plan and Disposition:: Patient was discharged without incident.
[2023-10-12 10:32] VITALS: BP 149/90; PULSE 91; O2SAT 96
== END 2023-10-12 10:30 | disposition home or self-care (01) ==
PROVIDERS: PCP Nurse Practitioner Family; Visit Provider Nurse Anesthetist, Certified Registered
DX: M47.896 Other spondylosis, lumbar region (principal); M51.16 Intervertebral disc disorders with radiculopathy, lumbar region
CPT/HCPCS: 64493; 64494; J1040

== ENCOUNTER → 2023-11-08 10:26 | Outpatient (POV) | payer MEDICAID, SELFPAY ==
--- NOTE | 2023-11-08 10:42 | A.OFFVIS_ITS ---
[facility] Pain Management SOAP Note Subjective:: Patient is a pleasant 48-year-old female who presents today for follow-up of her second lumbar medial branch block bilaterally L4-L5 and L5-S1 on 10/12/2023. We are currently treating the patient for degenerative disc disease of lumbar spine with lumbar radiculopathy symptoms, lumbar spondylosis, lumbar facet arthropathy. Today she rates her pain an 8 out of 10. Patient denies any new trauma or injury. Patient states that she did have at least 60% improvement following this injection lasting 5 days. Patient's previous block did provide approximately 80 to 90% improvement lasting 2 to 3 days. Patient does state that she is back to her baseline. She states her pain is all in her back and does not radiate into her legs. She does state this is a constant dull aching sensation that is worse with certain movements such as bending, twisting or lifting. Patient would like to proceed forward with the lumbar ablation. Patient is currently on tizanidine 4 mg twice daily. Patient is also managed with gabapentin 300 mg 3 times daily and meloxicam 15 mg daily. She does state that she uses Tylenol arthritis as needed. She denies any side effects from these medications.. Her Ender has been reviewed and is appropriate. Review of Systems: General: No recent weight changes, no fever, no sleep disturbances Respiratory: No cough, no shortness of air, no recurring pulmonary infections Cardiovascular/peripheral vascular: No chest pain, no palpitations, no edema, no shortness of breath Gastrointestinal: No new onset incontinence, normal bowel movements reported Genitourinary: No new onset incontinence Musculoskeletal: Low back pain Psychiatric: [Normal mood/affect] Neurological: [Denies weakness in extremities], [denies balance issues] Objective:: Physical Exam: General: Alert and oriented x3, no acute distress, pleasant and cooperative Lungs: Respirations even and unlabored, symmetrical chest expansion Eyes: PERRL Musculoskeletal: Flexion and extension of lumbar [spine] somewhat guarded secondary to pain, [antalgic gait noted] positive Kemps test Neurological: Speech clear, no gross sensory deficit FINAL REPORT CLINICAL HISTORY: LOW BACK PAIN COMPARISON: None FINDINGS: 5 views of the lumbar spine were obtained. There is no evidence of fracture or dislocation. The vertebral alignment is normal. There are degenerative changes present in the lower lumbar spine, with facet osteoarthropathy at the L4-5 and L5-S1 levels, and mild leftward curvature. There is a chronic appearing deformity of the T12 and L1 level, with slight resultant kyphosis, that may be congenital in origin or may have resulted from prior injury. No paraspinous soft tissue abnormalities identified. IMPRESSION: Degenerative change L4-5 and L5-S1. Chronic appearing deformity of the T12 and L1 levels, with slight resultant kyphosis, that may be congenital in origin or have resulted from prior injury. Reviewed, Interpreted and Dictated by Domingo Hale III, MD Transcribed by Clare Mcneil Authenticated and [facility] Assessment:: Degenerative disc disease of lumbar spine with lumbar radiculopathy symptoms, lumbar spondylosis, lumbar facet arthropathy Plan:: Patient is experiencing significant pain in her low back with limited range of motion and a positive Kemps test. Patient did have 2 successful lumbar medial branch blocks of upwards of 80 to 90% improvement. I have discussed with the patient that she may benefit from a lumbar rfa. Risk and benefits were discussed with the patient and she would like to wait at this time. Patient states it has been a little while since she has had updated imaging. I will ord er x-ray and MRI without contrast of her lumbar spine. I will refill the patient's tizanidine 4 mg twice daily and meloxicam 15 mg daily. I have gone back over the restrictions regarding the meloxicam not to take any other NSAIDs while taking this medication but she can use acetaminophen products. Patient will return to clinic in 1 month for reevaluation of symptoms and plan of care. Patient has been instructed to contact the clinic with any concerns before the next appointment. Dr. Bernard has reviewed this note and agrees with this plan of care. This note was dictated using voice recognition software and make contain errors or omissions. [facility] Disclaimer: The information contained in this section may have been updated after the patient was seen, as this information can be updated by other users. Medical History Chronic pain Endometriosis HLD (hyperlipidemia) HTN (hypertension) Tubal Surgical History H/O removal of cyst History of ankle surgery Family History Other No significant family history Social History (Updated 10/12/23 @ 10:19 by Rupal Hinojosa RN) Smoking Status: Current every day smoker alcohol intake: never substance use type: denies use current occupational status: other Travel in the last 8 weeks: None
[2023-11-08 11:28] VITALS: BP 147/103; PULSE 81; RESP 18; O2SAT 96; BMI 35.2
== END | disposition home or self-care (01) ==
PROVIDERS: Visit Provider Nurse Practitioner Family
DX: M51.16 Intervertebral disc disorders with radiculopathy, lumbar region (principal); M47.26 Other spondylosis with radiculopathy, lumbar region
CPT/HCPCS: 99212; G0463

== ENCOUNTER 2023-11-08 10:57 | Outpatient (CLI) | payer MEDICAID, SELFPAY ==
--- NOTE | 2023-11-08 11:03 | XR_ITS ---
FINAL REPORT CLINICAL HISTORY: LOW BACK PAIN COMPARISON: None FINDINGS: 5 views of the lumbar spine were obtained. There is no evidence of fracture or dislocation. The vertebral alignment is normal. There are degenerative changes present in the lower lumbar spine, with facet osteoarthropathy at the L4-5 and L5-S1 levels, and mild leftward curvature. There is a chronic appearing deformity of the T12 and L1 level, with slight resultant kyphosis, that may be congenital in origin or may have resulted from prior injury. No paraspinous soft tissue abnormalities identified. IMPRESSION: Degenerative change L4-5 and L5-S1. Chronic appearing deformity of the T12 and L1 levels, with slight resultant kyphosis, that may be congenital in origin or have resulted from prior injury. Reviewed, Interpreted and Dictated by Domingo Hale III, MD Transcribed by Clare Mcneil Authenticated and [facility]
== END 2023-11-08 23:59 ==
LOC: RAD 11:00
PROVIDERS: PCP Family Medicine; Visit Provider Nurse Practitioner Family
DX: M51.16 Intervertebral disc disorders with radiculopathy, lumbar region (principal)
CPT/HCPCS: 72110

== ENCOUNTER 2023-12-03 09:00 | Outpatient (CLI) | payer MEDICAID, SELFPAY | END 2023-12-03 23:59 | LOC: RAD 09:01 | PROVIDERS: PCP Family Medicine; Visit Provider Nurse Practitioner Family | DX: M54.50 Low back pain, unspecified (principal) ==

== ENCOUNTER → 2023-12-09 13:34 | Outpatient (POV) | payer MEDICAID, SELFPAY ==
--- NOTE | 2023-12-09 14:23 | EXP.PAIN.SOA ---
[facility] Pain Management SOAP Note Subjective:: Patient is a pleasant 48-year-old female who presents today for follow-up of lumbar x-rays. We are currently treating the patient for degenerative disc disease of lumbar spine with lumbar radiculopathy symptoms, lumbar facet arthropathy, lumbar spondylosis. Today she rates her pain a 10 out of 10. Patient denies any new trauma or injury. Patient does state that she has started to have worsening pain they are in her low back. Patient denies that this is a new pain. She states that the last lumbar medial branch block has officially worn off. Patient has had 2 diagnostic lumbar medial branch blocks with the first 1 providing 80 to 90% relief and the second 1 providing at least 60% relief. She states that these did help make her more functional on a day-to-day basis however they were very short-lived and only lasted temporarily. Patient is interested in proceeding forward with the lumbar ablation. Patient does state when she went for her lumbar MRI she was unable to tolerate the positioning and could not complete this imaging. Patient is currently managed with tizanidine 4 mg twice a day and meloxicam 15 mg daily from our office and gabapentin 300 mg 3 times a day from an outside provider. Patient denies any side effects from these medications and states they do help. She states she only takes her meloxicam as needed. Patient is requesting refills on her tizanidine. Her Ender has been reviewed and is appropriate. Review of Systems: General: No recent weight changes, no fever, no sleep disturbances Respiratory: No cough, no shortness of air, no recurring pulmonary infections Cardiovascular/peripheral vascular: No chest pain, no palpitations, no edema, no shortness of breath Gastrointestinal: No new onset incontinence, normal bowel movements reported Genitourinary: No new onset incontinence Musculoskeletal: Low back pain Psychiatric: [Normal mood/affect] Neurological: [Denies weakness in extremities], [denies balance issues] Objective:: Physical Exam: General: Alert and oriented x3, no acute distress, pleasant and cooperative Lungs: Respirations even and unlabored, symmetrical chest expansion Eyes: PERRL Musculoskeletal: Flexion and extension of lumbar [spine] somewhat guarded secondary to pain, [antalgic gait noted] positive Kemps test Neurological: Speech clear, no gross sensory deficit Assessment:: Degenerative disc disease of lumbar spine with lumbar radiculopathy symptoms, lumbar facet arthropathy, lumbar spondylosis Plan:: Patient is experiencing worsening pain in her low back with limited range of motion and a positive Kemps test. Patient has had 2 successful diagnostic medial branch blocks that did provide upwards of 90% relief. I have discussed with the patient that she may benefit from the lumbar RFA. Risk and benefits were discussed with the patient and she would like to proceed forward with this plan of care. Patient is not on any blood thinners. I will also send in a refill of her tizanidine 4 mg twice a day and provide a 1 month supply of this medication. I have discussed with the patient that we will see whether or not if her MRI approval is still within date and we can send in a one-time dose of medication to help allow her to withstand the positioning for the MRI. We will follow-up with this at future visits. Patient will be scheduled for a lumbar RFA bilaterally L4-L5 and L5-S1 under fluoroscopy. Patient has been instructed to contact the clinic with any concerns before the next appointment. Dr. Bernard has reviewed this note and agrees with this plan of care. This note was dictated using voice recognition software and make contain errors or omissions. [facility] Disclaimer: The information contained in this section may have been updated after the patient was seen, as this information can be updated by other users. Medical History Chronic pain Endometriosis HLD (hyperlipidemia) HTN (hypertension) Tubal Surgical History H/O removal of cyst History of ankle surgery Family History Other No significant family history Social History (Updated 10/12/23 @ 10:19 by Rupal Hinojosa RN) Smoking Status: Current every day smoker alcohol intake: never substance use type: denies use current occupational status: other Travel in the last 8 weeks: None
[2023-12-09 14:35] VITALS: BP 138/88; PULSE 91; RESP 18; O2SAT 95; BMI 36.3
== END | disposition home or self-care (01) ==
PROVIDERS: PCP Family Medicine; Visit Provider Nurse Practitioner Family
DX: M51.16 Intervertebral disc disorders with radiculopathy, lumbar region (principal); M47.26 Other spondylosis with radiculopathy, lumbar region
CPT/HCPCS: 99212; G0463

== ENCOUNTER 2023-12-28 10:26 | Day surgery (SDC) | payer MEDICAID, SELFPAY ==
[2023-12-28 11:06] VITALS: BP 126/78; PULSE 91; RESP 18; TEMP 36.6; O2SAT 95; BMI 36.3
[2023-12-28 11:45] VITALS: BP 143/93; PULSE 88; RESP 18; O2SAT 95
--- NOTE | 2023-12-28 12:07 | P.PCN_ITS ---
Procedure Date: 12/28/23 Time: 11:20 Anesthesiologist:: Hunter Arriaga CRNA Complications:: None Pre-procedure Diagnosis:: Degenerative disc lumbar spine multilevels. Lumbar radiculopathy. Lumbar spondylosis. Multilevel lumbar facet arthropathy. Post-procedure Diagnosis:: Same. Indications for Procedure:: Patient is a very pleasant 48-year-old female comes our clinic today for lumbar radiofrequency ablation L4-5, L5-S1. Patient has significant improvement terms of her overall low back pain with previous blocks at the same levels. She rates her pain today 6/10. Procedure Details:: Informed consent was obtained and the risk and benefits of the procedure was explained to the patient. Patient was placed prone on the procedure table. The patient was prepped and draped in sterile fashion. C-arm fluoroscopy was used to view the lumbar spine. The skin and subcutaneous tissues were anesthetized using lidocaine. I placed 20-gauge RF needles into the facet joints of L3-L4, L4-L5 and L5-S1 on the left side. We underwent sensory stimulation. There is good sensory stimulation at 0.8 V. We underwent motor stimulation. There is no motor stimulation at 2 V. We then anesthetized these levels with lidocaine and Depo- Medrol. I used a total of 40 mg Depo-Medrol for all 3 levels. I then burned all 3 levels of L3-L4, L4-5 and L5-S1 on the left side for 4 minutes at 80 ?C. Patient tolerated the procedure well with no complication. Plan and Disposition:: Patient was discharged without incident.
[2023-12-28] MEDS: BUPIVACAINE 0.25% 10ML INJ 25 MG IJ (14:26)
[2023-12-28] MEDS: methylPREDNISolone ACETATE 80MG/ML VIAL 80 MG (14:27)
[2023-12-28] MEDS: LIDOCAINE 1% 5ML PF VIAL 15 ML (14:27)
== END 2023-12-28 11:45 | disposition home or self-care (01) ==
LOC: SC.PAINP 10:28
PROVIDERS: PCP Family Medicine; Visit Provider Nurse Anesthetist, Certified Registered
DX: M47.816 Spondylosis without myelopathy or radiculopathy, lumbar region (principal); M51.16 Intervertebral disc disorders with radiculopathy, lumbar region
CPT/HCPCS: 64635; 64636; J1040

== ENCOUNTER 2024-01-12 11:35 | Outpatient (POV) | payer MEDICAID, SELFPAY ==
[2024-01-12 11:43] VITALS: BP 149/100; PULSE 88; RESP 18; O2SAT 95; BMI 36.3
--- NOTE | 2024-01-12 11:52 | A.OFFVIS_ITS ---
[facility] Pain Management SOAP Note Subjective:: Patient is a pleasant 48-year-old female who presents today for follow-up of lumbar RFA on 12/28/2023. Patient states her pain today is a 9 out of 10. She denies any new injury or trauma. She does state that she had 2 weeks of improvement at at least 80% however she feels like she is going back towards her baseline today. She states she is having more severe pain that is an aching, throbbing sensation into her right hip around her low back and does go into her buttocks. Patient denies any radiating symptoms into her lower extremities. She does state the pain interferes with her ability perform activities of daily living such as cooking or cleaning. She states that frequently she has to change positions due to the worsening pain. She is interested in any help we may be able to provide. She is prescribed tizanidine 4 mg and meloxicam 15 mg daily from our office and gabapentin from an outside provider. She is requesting refills. Patient did previously try and do a lumbar MRI but was unable to tolerate the prolonged positioning due to her worsening pain. Her Ender has been reviewed and is appropriate. Review of Systems: General: No recent weight changes, no fever, no sleep disturbances Respiratory: No cough, no shortness of air, no recurring pulmonary infections Cardiovascular/peripheral vascular: No chest pain, no palpitations, no edema, no shortness of breath Gastrointestinal: No new onset incontinence, normal bowel movements reported Genitourinary: No new onset incontinence Musculoskeletal: Low back pain, right buttocks pain, right hip pain Psychiatric: [Normal mood/affect] Neurological: [Denies weakness in extremities], [denies balance issues] Objective:: Physical Exam: General: Alert and oriented x3, no acute distress, pleasant and cooperative Lungs: Respirations even and unlabored, symmetrical chest expansion Eyes: PERRL Musculoskeletal: Flexion and extension of lumbar [spine] somewhat guarded secondary to pain, [antalgic gait noted] point tenderness along right SI with positive right Emeterio's, Gabbie's, Gaenslen's, compression and distraction exam Neurological: Speech clear, no gross sensory deficit Plan:: Patient is experiencing worsening pain in her right hip and into her buttocks. Patient did have extreme point tenderness along her right SI and a positive right Emeterio's, Gabbie's, Gaenslen's, compression and distraction exam. I discussed with patient that she may benefit from a right SI injection. Risk and benefits were discussed with patient and she would like to proceed forward with this plan of care. I have counseled the patient as well due to her continued pain in her low back I would like to reorder the MRI without contrast of her lumbar spine and I will send in a one-time dose of diazepam 2 mg to be given prior to this procedure to help with the prolonged positioning and pain. Patient is agreeable to this plan of care. I will refill the patient's tizanidine and meloxicam and provide a 3-month supply of these medications. Patient will be scheduled for right SI injection under fluoroscopy. Patient does also mention that she has a family history of severe osteoporosis and denies having any recent DEXA scan. I will go ahead and order this additional testing at today's visit for evaluation. Patient has been instructed to contact the clinic with any concerns before the next appointment. Dr. Bernard has reviewed this note and agrees with this plan of care. This note was dictated using voice recognition software and make contain errors or omissions. [facility] Disclaimer: The information contained in this section may have been updated after the patient was seen, as this information can be updated by other users. Medical History Tubal Chronic pain Endometriosis HLD (hyperlipidemia) HTN (hypertension) Surgical History History of ankle surgery H/O removal of cyst Family History Other No significant family history Social History Smoking Status: Current every day smoker alcohol intake: never substance use type: denies use current occupational status: other Travel in the last 8 weeks: None
== END 2024-01-12 23:59 | disposition home or self-care (01) ==
PROVIDERS: Visit Provider Nurse Practitioner Family
DX: M46.1 Sacroiliitis, not elsewhere classified (principal); M25.551 Pain in right hip; M79.18 Myalgia, other site; M54.50 Low back pain, unspecified
CPT/HCPCS: 99212; G0463

== ENCOUNTER 2024-01-27 16:52 | Outpatient (CLI) | payer MEDICAID, SELFPAY | END 2024-01-27 23:59 | LOC: RAD 16:52 | PROVIDERS: PCP Family Medicine; Visit Provider Nurse Practitioner Family | DX: M54.50 Low back pain, unspecified (principal) ==

== ENCOUNTER 2024-02-01 09:56 | Day surgery (SDC) | payer MEDICAID, SELFPAY ==
[2024-02-01 10:20] VITALS: BP 149/87; BP 160/80; PULSE 74; PULSE 94; PULSE 99; RESP 16; RESP 19; TEMP 36.5; O2SAT 100; O2SAT 95; BMI 36.3
[2024-02-01] MEDS: methylPREDNISolone ACETATE 80MG/ML VIAL 80 MG (10:20)
[2024-02-01] MEDS: LIDOCAINE 1% 5ML PF VIAL 5 ML (10:20)
[2024-02-01] MEDS: BUPIVACAINE 0.25% 10ML INJ 25 MG IJ (10:20)
[2024-02-01 10:27] VITALS: BP 137/88; PULSE 84; RESP 18; O2SAT 100
--- NOTE | 2024-02-01 10:34 | EXP.PAIN.PRO ---
Procedure Date: 02/01/24 Time: 10:20 Anesthesiologist:: Hunter Arriaga CRNA Complications:: None Pre-procedure Diagnosis:: Right sacroiliitis. Post-procedure Diagnosis:: Same. Indications for Procedure:: Patient is a very pleasant 48-year-old female comes our clinic today for right sacroiliac joint injection. She has had previous injections at the same site with significant improvement. She rates her pain today 7/10. Patient reports low lumbar back pain off the midline to the right. Right posterior hip pain. Pain intensifies with ambulation and or sitting for any length of time. She also reports difficulty transitioning from sitting to standing. Procedure Details:: Procedure: Right sacroliliac joint injection under fluoroscopy Informed consent was obtained and the risk and benefits of the procedure were explained to the patient.~ The patient was taken to the procedure room and noninvasive monitors were placed including noninvasive blood pressure cuff and pulse oximeter.~ The patient was placed prone on the procedure table.~ The~ right hip was cleansed using Betadine as a cleansing solution.~ C-arm fluorosocpy was used to view the right SI joint.~ The skin and subcutaneous tissues were anesthetized using Lidocaine 1.5% and a 25-gauge needle.~ After this, a 22-gauge spinal needle was inserted under fluoroscopic guidance into the inferior aspect of the right SI joint.~ Omnipaque dye was injected and a good spread was seen throughout the joint.~ After this, approximately 5 mL of bupivacaine 0.25% and Depo-Medrol 40 mg was incrementally injected into the sacroiliac joint.~ The patient tolerated the procedure well with no complications.~ The patient was observed in the Pain Clinic, then discharged home neurologically intact.~ Plan and Disposition:: Patient was discharged without incident.
== END 2024-02-01 10:27 | disposition home or self-care (01) ==
PROVIDERS: PCP Family Medicine; Visit Provider Nurse Anesthetist, Certified Registered
DX: M46.1 Sacroiliitis, not elsewhere classified (principal)
CPT/HCPCS: 27096; G0260; J1010

== ENCOUNTER 2024-02-16 15:22 | Outpatient (POV) | payer MEDICAID, SELFPAY ==
[2024-02-16 15:29] VITALS: BP 167/88; PULSE 118; RESP 16; O2SAT 96; BMI 36.3
--- NOTE | 2024-02-16 15:40 | A.OFFVIS_ITS ---
[facility] Pain Management SOAP Note Subjective:: Patient is a pleasant 48-year-old female who presents today for follow-up right SI injection on 02/01/2024. Today she rates her pain a 8 out of 10. Patient does state that she has had 80% improvement following this injection and feels like it still helping. Patient does state a lot of her pain today is more her chronic back pain and not necessarily in her hips. Patient denies any new trauma or injury. She does state that she did attempt to try and do the MRI imaging however she still could not tolerate the positioning due to the curvature of her spine. Patient does state that she did go ahead and cancel her DEXA scan as well due to the fear that it would require her to lay flat. Justice armenta does state that her primary care provider has told her to be on vitamin D and that she has started taking a medicine with vitamin C and D in combination. Patient at her last visit was given a 3-month supply of her tizanidine 4 mg and meloxicam 15 mg daily from our office. She does not need refills until March. Patient is on gabapentin from an outside provider. Her Ender has been reviewed and is appropriate. Review of Systems: General: No recent weight changes, no fever, no sleep disturbances Respiratory: No cough, no shortness of air, no recurring pulmonary infections Cardiovascular/peripheral vascular: No chest pain, no palpitations, no edema, no shortness of breath Gastrointestinal: No new onset incontinence, normal bowel movements reported Genitourinary: No new onset incontinence Musculoskeletal: Chronic low back pain Psychiatric: [Normal mood/affect] Neurological: [Denies weakness in extremities], [denies balance issues] Objective:: Physical Exam: General: Alert and oriented x3, no acute distress, pleasant and cooperative Lungs: Respirations even and unlabored, symmetrical chest expansion Eyes: PERRL Musculoskeletal: Flexion and extension of lumbar [spine] somewhat guarded secondary to pain, [antalgic gait noted] Neurological: Speech clear, no gross sensory deficit Assessment:: Degenerative disc disease of lumbar spine with lumbar radiculopathy symptoms, right-sided sacroiliitis Plan:: Patient has had significant improvement following her right SI injection and does not require any additional injection therapy at this time. I have discussed with the patient that we will follow-up with her in 2 months for ree valuation of symptoms and medication refill. Patient has been instructed to contact the clinic with any concerns before the next appointment. Dr. Bernard has reviewed this note and agrees with this plan of care. This note was dictated using voice recognition software and make contain errors or omissions. [facility] Disclaimer: The information contained in this section may have been updated after the patient was seen, as this information can be updated by other users. Medical History Tubal Chronic pain Endometriosis HLD (hyperlipidemia) HTN (hypertension) Surgical History History of ankle surgery H/O removal of cyst Family History Other No significant family history Social History Smoking Status: Current every day smoker alcohol intake: never substance use type: denies use current occupational status: other Travel in the last 8 weeks: None
== END 2024-02-16 23:59 | disposition home or self-care (01) ==
LOC: SC.PAIN 15:22
PROVIDERS: Visit Provider Nurse Practitioner Family
DX: M51.16 Intervertebral disc disorders with radiculopathy, lumbar region (principal); M46.1 Sacroiliitis, not elsewhere classified
CPT/HCPCS: 99212; G0463

== ENCOUNTER 2024-04-17 13:25 | Outpatient (POV) | payer MEDICAID, SELFPAY ==
[2024-04-17 13:30] VITALS: BP 127/91; PULSE 86; RESP 18; TEMP 36.6; O2SAT 98; BMI 35.9
--- NOTE | 2024-04-17 13:52 | EXP.PAIN.SOA ---
[facility] Pain Management SOAP Note Subjective:: Patient is a pleasant 49-year-old female who presents today for medication refill and follow-up. Today she rates her pain a 9 out of 10. Patient states her pain is throughout the her low back and right hip however she does have a little bit of pain on the left as well. Patient denies any new trauma or injury. She does describe this as an aching, throbbing sensation that does not radiate down into her legs. Patient does state that it has been a while since her last injection and that she is interested in repeat injection because these do help provide increased function with decreased pain. Patient states that her pain now is interfering with her ability perform activities of daily living such as cooking and cleaning. Patient is currently managed with tizanidine 4 mg and meloxicam 15 mg daily from our office. She denies any side effects from these medications. She does state that she is scheduled to see Dr. Kiko Dee tomorrow regarding her left ankle. She states she continues to have chronic pain in this area as well. Her Ender has been reviewed and is appropriate. Review of Systems: General: No recent weight changes, no fever, no sleep disturbances Respiratory: No cough, no shortness of air, no recurring pulmonary infections Cardiovascular/peripheral vascular: No chest pain, no palpitations, no edema, no shortness of breath Gastrointestinal: No new onset incontinence, normal bowel movements reported Genitourinary: No new onset incontinence Musculoskeletal: Low back pain, bilateral hip pain Psychiatric: [Normal mood/affect] Neurological: [Denies weakness in extremities], [denies balance issues] Objective:: Physical Exam: General: Alert and oriented x3, no acute distress, pleasant and cooperative Lungs: Respirations even and unlabored, symmetrical chest expansion Eyes: PERRL Musculoskeletal: Flexion and extension of lumbar [spine] somewhat guarded secondary to pain, [antalgic gait noted] point tenderness along bilateral SIs with positive bilateral Emeterio's, Gabbie's, Gaenslen's, compression and distraction exam Neurological: Speech clear, no gross sensory deficit Assessment:: Degenerative disc disease of lumbar spine with lumbar radiculopathy symptoms, sacroiliitis Plan:: Patient is experiencing worsening pain in her bilateral hips and low back with limited range of motion. Patient did have point tenderness along her bilateral SIs with positive bilateral Emeterio's, Gabbie's, Gaenslen's, compression and distraction exam. Patient has had previous right SI injection with her last one at the beginning of January that provided 80% relief and has worked up until the last week or so. Patient did have improved function with decreased pain following these injections. I have reviewed over the risk and benefits of repeat SI injection and she would like to proceed forward with this plan of care. I will also refill the patient's tizanidine and meloxicam and provide a 3-month supply of these medications. Patient will be scheduled for bilateral SI injections under fluoroscopy. Patient has tried and failed conservative treatment including continued at home stretching exercise between injections. Patient has been instructed to contact the clinic with any concerns before the next appointment. Dr. Bernard has reviewed this note and agrees with this plan of care. This note was dictated using voice recognition software and make contain errors or omissions. [facility] Disclaimer: The information contained in this section may have been updated after the patient was seen, as this information can be updated by other users. Medical History Tubal Chronic pain Endometriosis HLD (hyperlipidemia) HTN (hypertension) Surgical History History of ankle surgery H/O removal of cyst Family History Other No significant family history Social History Smoking Status: Current every day smoker alcohol intake: never substance use type: denies use current occupational status: other Travel in the last 8 weeks: None
== END 2024-04-17 23:59 | disposition home or self-care (01) ==
PROVIDERS: Visit Provider Nurse Practitioner Family
DX: M46.1 Sacroiliitis, not elsewhere classified (principal); M51.36 Other intervertebral disc degeneration, lumbar region; M54.16 Radiculopathy, lumbar region
CPT/HCPCS: 99212; G0463

== ENCOUNTER 2024-05-09 10:29 | Day surgery (SDC) | payer MEDICAID, SELFPAY ==
--- OUTSIDE RECORDS SUMMARY | 2024-05-09 10:32 | XMS_ITS | Summary of Care ---
Author Name Unknown Organization [facility] Address [address] [place] [address]- Encounter 01/10/20 - 01/22/20 [facility] [address] [place] [address] Encounter Diagnosis Trimalleolar Fracture of Left Ankle s/p Open Reduction with Internal Fixation NWB LLE(Discharge Diagnosis) - 01/10/20 Discharge Disposition: Discharged to Home or Self Care Attending Physician: Maco Sadler M.D. Admitting Physician: Maco Sadler M.D. Allergies, Adverse Reactions, Alerts Substance Reaction Severity Status penicillin Active sulfa drugs Rash Active Medications [facility] oral capsule 1 cap, Cap, Oral, Daily, 15 cap, 0 Refill(s), Dispense: 15 day, Stop date 02/06/20 7:58:00 EDT, Route to Pharmacy Electronically, [facility] Start Date: 01/22/20 Stop Date: 02/06/20 Status: Ordered cyclobenzaprine 10 mg oral tablet 10 mg = 1 tab, Tab, Oral, BID PRN, 42 tab, 0 Refill(s), Dispense: 21 day, Spasm, Stop date 207:57:00 EDT, Route to Pharmacy Electronically, [facility] Start Date: 01/22/20 Stop Date: 02/12/20 Status: Ordered docusate sodium 100 mg oral capsule 100 mg = 1 cap, Cap, Oral, Daily, 30 cap, 0 Refill(s), Route to Pharmacy Electronically, [facility] Start Date: 01/22/20 Status: Ordered Lexapro 10 mg oral tablet 10 mg = 1 tab, Tab, Oral, Daily, 30 tab, 0 Refill(s), Route to Pharmacy Electronically, [facility] Start Date: 01/22/20 Stop Date: 02/21/20 Status: Ordered Lovenox 40 mg/0.4 mL injectable solution 40 mg = 0.4 mL, Soln-Inj, Subcutaneous, Daily, 8.4 mL, 0 Refill(s), Dispense: 21 day, Stop date 02/12/20 7:58:00 EDT, Route to Pharmacy Electronically, [facility] Start Date: 01/22/20 Stop Date: 02/12/20 Status: Ordered metFORMIN 500 mg oral tablet 500 mg = 1 tab, Tab, Oral, BIDmeals, 60 tab, 0 Refill(s), Route to Pharmacy Electronically, [facility] Start Date: 01/22/20 Status: Ordered oxyCODONE 5 mg oral tablet 5 mg = 1 tab, Tab, Oral, TID PRN, 60 tab, 0 Refill(s), Dispense: 20 day, PAIN (Scale 7-10), Stop date 02/11/20 7:58:00 EDT, Route to Pharmacy Electronically, [facility] Start Date: 01/22/20 Stop Date: 02/11/20 Status: Ordered spironolactone 100 mg oral tablet 100 mg = 1 tab, Tab, Oral, Daily, 30 tab, 0 Refill(s), Route to Pharmacy Electronically, [facility] Start Date: 01/22/20 Status: Ordered Xanax 0.25 mg oral tablet 0.25 mg = 1 tab, Tab, Oral, BID PRN, 28 tab, 0 Refill(s), Dispense: 14 day, Anxiety, Stop date 02/05/20 7:57:00 EDT, Route to Pharmacy Electronically, [facility] Start Date: 01/22/20 Stop Date: 02/05/20 Status: Ordered Problem List Condition Effective Dates Status Health Status Inform ant Impaired mobility(Confirmed) Active Self -care deficit(Confirmed) Active Results Laboratory List Name Date Automated Diff [facility] 01/18/20 Basic Metabolic Panel [facility] 01/18/20 Complete Blood Count w/Auto Diff [facility] 12/24 04/13 Automated Diff [facility] 01/15/20 Basic Metabolic Panel [facility] 01/15/20 Complete Blood Count w/Auto Diff [facility] 12/24 01/11 Urinalysis Complete w/Rflx Culture [facility] Automated Diff [facility] 01/11/20 Basic Metabolic Panel [facility] 01/11/20 Complete Blood Count w/Auto Diff [facility] 12/23 07/14 LABORATORY Most recent to oldest [Reference Range]: 1 2 3 4 WBC HSL [4.5-11.5 x10(3)/mcL] 12.2 x10(3)/mcL *HI* (01/18/20 7:12 AM) 12.6 x10(3)/mcL *HI* (01/15/20 6:40 AM) 12.2 x10(3)/mcL *HI* (01/11/20 6:54 AM) RBC HSL [3.70-5.20 x10(6)/mcL] 4.63 x10(6)/mcL (01/18/20 7:12 AM) 4.40 x10(6)/mcL (01/15/20 6:40 AM) 4.52 x10(6)/mcL (01/11/20 6:54 AM) Hemoglobin HSL [12.0-15.7 gm/dL] 14.7 gm/dL (01/18/20 7:12 AM) 14.0 gm/dL (01/15/20 6:40 AM) 14.3 gm/dL (01/11/20 6:54 AM) Hematocrit HSL [35.0-46.0 %] 47.4 % *HI* (01/18/20 7:12 AM) 45.1 % (01/15/20 6:40 AM) 46.2 % *HI* (01/11/20 6:54 AM) MCV HSL [78.6-102.2 fL] 102.4 fL *HI* (01/18/20 7:12 AM) 102.5 fL *HI* (01/15/20 6:40 AM) 102.2 fL (01/11/20 6:54 AM) MCH HSL [26.0-34.0 pg] 31.7 pg (01/18/20 7:12 AM) 31.8 pg (01/15/20 6:40 AM) 31.6 pg (01/11/20 6:54 AM) MCHC HSL [31.8-35.1 gm/dL] 31.0 gm/dL *LOW* (01/18/20 7:12 AM) 31.0 gm/dL *LOW* (01/15/20 6:40 AM) 31.0 gm/dL *LOW* (01/11/20 6:54 AM) Platelet HSL [150-450 x10(3)/mcL] 443 x10(3)/mcL (01/18/20 7:12 AM) 400 x10(3)/mcL (01/15/20 6:40 AM) 395 x10(3)/mcL (01/11/20 6:54 AM) RDW-CV% HSL [11.7-14.4 %] 13.0 % (01/18/20 7:12 AM) 13.0 % (01/15/20 6:40 AM) 13.0 % (01/11/20 6:54 AM) RDW-SD HSL [36.4-46.3 fL] 48.6 fL *HI* (01/18/20 7:12 AM) 48.6 fL *HI* (01/18/20 7:12 AM) 48.3 fL *HI* (01/15/20 6:40 AM) 48.3 fL *HI* (01/15/20 6:40 AM) MPV HSL 10.6 *NA* (01/18/20 7:12 AM) 10.5 *NA* (01/15/20 6:40 AM) 10.3 *NA* (01/11/20 6:54 AM) Neutrophil Auto HSL [39.6-77.8 %] 62.7 % (01/18/20 7:12 AM) 60.5 % (01/15/20 6:40 AM) 56.6 % (01/11/20 6:54 AM) Lymphocyte Auto HSL [17.5-52.8 %] 24.1 % (01/18/20 7:12 AM) 26.1 % (01/15/20 6:40 AM) 29.3 % (01/11/20 6:54 AM) Monocyte Auto HSL [3.0-10.4 %] 10.5 % *HI* (01/18/20 7:12 AM) 11.1 % *HI* (01/15/20 6:40 AM) 11.0 % *HI* (3/19/20 6:54 AM) Eosinophil Auto HSL [0.0-7.0 %] 1.5 % (01/18/20 7:12 AM) 1.0 % (01/15/20 6:40 AM) 2.0 % (01/11/20 6:54 AM) Basophil Auto HSL [0.0-0.9 %] 0.6 % (01/18/20 7:12 AM) 0.6 % (01/15/20 6:40 AM) 0.5 % (01/11/20 6:54 AM) Immature Gran Auto HSL [0.0-0.5 %] 0.6 % *HI* (01/18/20 7:12 AM) 0.7 % *HI* (01/15/20 6:40 AM) 0.6 % *HI* (01/11/20 6:54 AM) Neutrophil Absolute HSL [1.60-6.90 x10(3)/mcL] 7.67 x10(3)/mcL *HI* (01/18/20 7:12 AM) 7.65 x10(3)/mcL *HI* (01/15/20 6:40 AM) 6.89 x10(3)/mcL (01/11/20 6:54 AM) Lymphocyte Absolute HSL [0.9-2.8 x10(3)/mcL] 2.9 x10(3)/mcL *HI* (01/18/20 7:12 AM) 3.3 x10(3)/mcL *HI* (01/15/20 6:40 AM) 3.6 x10(3)/mcL *HI* (01/11/20 6:54 AM) Monocyte Absolute HSL [<=1.00 x10(3)/mcL] 1.28 x10(3)/mcL *HI* (01/18/20 7:12 AM) 1.41 x10(3)/mcL *HI* (01/15/20 6:40 AM) 1.34 x10(3)/mcL *HI* (01/11/20 6:54 AM) Eosinophil Absolute HSL [0.00-0.40 x10(3)/mcL] 0.18 x10(3)/mcL (01/18/20 7:12 AM) 0.13 x10(3)/mcL (01/15/20 6:40 AM) 0.24 x10(3)/mcL (01/11/20 6:54 AM) Basophil Absolute HSL [0.00-0.05 x10(3)/mcL] 0.07 x10(3)/mcL *HI* (01/18/20 7:12 AM) 0.07 x10(3)/mcL *HI* (01/15/20 6:40 AM) 0.06 x10(3)/mcL *HI* (01/11/20 6:54 AM) Immature Gran Absolute HSL [0.00-0.04 x10(3)/mcL] 0.07 x10(3)/mcL *HI* (01/18/20 7:12 AM) 0.09 x10(3)/mcL *HI* (01/15/20 6:40 AM) 0.07 x10(3)/mcL *HI* (01/11/20 6:54 AM) Color UR HSL [yellow] red *ABN* (01/11/20 1:30 PM) Appearance UR HSL sl.cloudy *NA* (01/11/20 1:30 PM) Specific [place] UR HSL [1.010-1.040] 1.010 (01/11/20 1:30 PM) pH UR HSL [5] 5 (01/11/20 1:30 PM) Glucose UR HSL norm *NA* (01/11/20 1:30 PM) Bilirubin UR HSL neg *NA* (01/11/20 1:30 PM) Ketones UR HSL [Neg] 5 *ABN* (01/11/20 1:30 PM) Blood UR HSL [Neg unit/L] 250 unit/L *ABN* (01/11/20 1:30 PM) Protein UR HSL [Neg mg/dL] 100 mg/dL *ABN* (01/11/20 1:30 PM) Urobilinogen UR HSL norm *NA* (01/11/20 1:30 PM) Nitrite UR HSL pos *NA* (01/11/20 1:30 PM) Leukocyte Esterase UR HSL [Neg mg/dL] 100 mg/dL *ABN* (01/11/20 1:30 PM) Squamous Epithelials UR HSL None Seen *NA* (01/11/20 1:30 PM) Bacteria UR HSL 1+ /HPF *ABN* (01/11/20 1:30 PM) WBC UR HSL [None Seen] None Seen (01/11/20 1:30 PM) RBC UR HSL [None Seen] >100 *ABN* (01/11/20 1:30 PM) Specimen Source UR HSL Clean Catch (01/11/20 1:30 PM) Estimated Creatinine Clearance 91.21 mL/min (01/18/20 9:51 AM) 89.78 mL/min (01/15/20 8:53 AM) 83.28 mL/min (01/11/20 10:59 AM) Creatinine Level 0.63 mg/dL (01/18/20 7:12 AM) 0.64 mg/dL (01/15/20 6:40 AM) 0.69 mg/dL (01/11/20 6:54 AM) Sodium HSL [138-146 mmol/L] 139 mmol/L (01/18/20 7:12 AM) 138 mmol/L (01/15/20 6:40 AM) 138 mmol/L (01/11/20 6:54 AM) Potassium HSL [3.6-5.1 mmol/L] 3.5 mmol/L *LOW* (01/18/20 7:12 AM) 3.7 mmol/L (01/15/20 6:40 AM) 3.8 mmol/L (01/11/20 6:54 AM) Chloride HSL [101-111 mmol/L] 100 mmol/L *LOW* (01/18/20 7:12 AM) 102 mmol/L (01/15/20 6:40 AM) 101 mmol/L (01/11/20 6:54 AM) Carbon Dioxide HSL [22.0-32.0 mmol/L] 28.0 mmol/L (01/18/20 7:12 AM) 29.0 mmol/L (01/15/20 6:40 AM) 28.0 mmol/L (01/11/20 6:54 AM) Anion Gap HSL [8-16 mmol/L] 14 mmol/L (01/18/20 7:12 AM) 11 mmol/L (01/15/20 6:40 AM) 13 mmol/L (01/11/20 6:54 AM) Glucose HSL [74-118 mg/dL] 92 mg/dL (01/18/20 7:12 AM) 87 mg/dL (01/15/20 6:40 AM) 111 mg/dL (01/11/20 6:54 AM) BUN HSL [8.0-26.0 mg/dL] 11.0 mg/dL (01/18/20 7:12 AM) 13.0 mg/dL (01/15/20 6:40 AM) 11.0 mg/dL (01/11/20 6:54 AM) Creatinine HSL [0.44-1.00 mg/dL] 0.63 mg/dL (01/18/20 7:12 AM) 0.64 mg/dL (01/15/20 6:40 AM) 0.69 mg/dL (01/11/20 6:54 AM) eGFR-AA HSL 206 *NA* (01/18/20 7:12 AM) 202 *NA* (01/15/20 6:40 AM) 185 *NA* (01/11/20 6:54 AM) eGFR-Non AA HSL 170 *NA* (01/18/20 7:12 AM) 167 *NA* (01/15/20 6:40 AM) 153 *NA* (01/11/20 6:54 AM) BUN/Creat Ratio HSL [5.0-20.0 ratio] 17.5 ratio (01/18/20 7:12 AM) 20.3 ratio *HI* (01/15/20 6:40 AM) 15.9 ratio (01/11/20 6:54 AM) Calcium Total HSL [8.9-10.3 mg/dL] 9.3 mg/dL (01/18/20 7:12 AM) 8.9 mg/dL (01/15/20 6:40 AM) 9.0 mg/dL (01/11/20 6:54 AM) Orders for Microbiology Reports Name Date Culture Urine HSL 01/12/20 Microbiology Reports TEST:Culture Urine HSL STATUS:Auth (Verified) BODY SITE: SOURCE:Urine, Clean Catch COLLECTED DATE/TIME:01/11/20 1:30 PM FINAL REPORT Dresher count: 50,000 - 100,000 cfu/ml Mixed maricruz (multiple species present) Recommend recollectionif clinically indicated Vital Signs Most recent to oldest [Reference Range]: 1 2 3 Temperature Oral F [96.4-99.1 DegF] 98.4 DegF (01/22/20 10:00 AM) 98.3 DegF (01/21/20 7:14 PM) 98 DegF (01/21/20 6:32 AM) Apical Heart Rate [60-100 bpm] 114 bpm *HI* (01/22/20 10:58 AM) Peripheral Pulse Rate [60-100 bpm] 125 bpm *HI* (01/22/20 10:00 AM) 100 bpm (01/21/20 7:14 PM) 98 bpm (01/21/20 6:32 AM) Respiratory Rate [14-20 br/min] 20 br/min (01/22/20 10:00 AM) 20 br/min (01/21/20 7:14 PM) 18 br/min (01/21/20 6:32 AM) Blood Pressure [90-140/60-90 mmHg] 129/79mmHg (01/22/20 10:10 AM) 120/77mmHg (01/22/20 10:00 AM) 135/84mmHg (01/21/20 7:14 PM) Extremity used to obtain blood pressure Left Arm (01/21/20 6:32 AM) Right Arm (01/20/20 5:28 AM) Right Arm (01/19/20 7:03 PM) Cuff Size. Extra Long (01/21/20 6:32 AM) Medium (01/20/20 5:28 AM) Medium (01/19/20 7:03 PM) Temperature Oral 36.6 DegC 1 (01/20/20 5:28 AM) 36.4 DegC 2 (01/19/20 6:30 AM) 36.5 DegC 3 (01/18/20 5:52 AM) 1Result Comment: Charted by SYSTEM secondary to charting of Temperature Oral F in [employer]. Rule: CARETRACKER_CALCULATIONS 2Result Comment: Charted by SYSTEM secondary to charting of Temperature Oral F in [employer]. Rule: CARETRACKER_CALCULATIONS 3Result Comment: Charted by SYSTEM secondary to charting of Temperature Oral F in [employer]. Rule: CARETRACKER_CALCULATIONS
[2024-05-09 10:45] VITALS: BP 119/89; PULSE 91; RESP 18; TEMP 36.8; O2SAT 97; BMI 36.3
[2024-05-09] MEDS: methylPREDNISolone ACETATE 80MG/ML VIAL 80 MG (10:49)
[2024-05-09] MEDS: BUPIVACAINE 0.25% 10ML INJ 25 MG IJ (10:49)
[2024-05-09] MEDS: LIDOCAINE 1% 5ML PF VIAL 5 ML (10:50)
[2024-05-09 10:53] VITALS: BP 141/86; PULSE 88; RESP 18; O2SAT 98
--- NOTE | 2024-05-09 10:57 | P.PCN_ITS ---
Procedure Date: 05/09/24 Time: 10:40 Anesthesiologist:: Hunter Arriaga CRNA Complications:: None Pre-procedure Diagnosis:: Bilateral sacroiliitis. Post-procedure Diagnosis:: Same Indications for Procedure:: Patient is a pleasant 49-year-old female comes to clinic today for bilateral sacroiliac joint injections cortisone. Patient describes low back pain as constant, dull, aching. Upon examination patient has extreme point tenderness over the bilateral sacroiliac joints. Patient rates her pain 8/10. Procedure Details:: Procedure: Bilateral sacroiliac joint injections under fluoroscopy Informed consent was obtained and the risks and benefits of the procedure were explained to the patient.~ The patient was taken to the procedure room and noninvasive monitors were placed including a noninvasive blood pressure cuff and pulse oximeter.~ The patient was placed prone on the procedure table. Both hips were cleansed using Betadine as a cleansing solution. C-arm fluoroscopy was used to view the right sacroiliac joint.~ The skin and subcutaneous tissues were anesthetized using lidocaine 1.5% and a 25-gauge needle.~ After this, a 22-gauge spinal needle was inserted under fluoroscopic guidance into the inferior aspect of the right sacroiliac joint.~ Omnipaque dye was injected and good spread was seen throughout the joint.~ After this, approximately 5 mL of bupivacaine, 0.25% and Depo-Medrol, 40 mg was incrementally injected into the right sacroiliac joint. We then moved to the left sacroiliac joint.~ The skin and subcutaneous tissues were anesthetized using lidocaine 1.5% and a 25-gauge needle.~ After this, a 22- gauge spinal needle was inserted under fluoroscopic guidance into the inferior aspect of the left sacroiliac joint.~ Omnipaque dye was injected and good spread was seen throughout the joint. After this, approximately 5 mL of bupivacaine, 0.25% and Depo-Medrol, 40 mg was incrementally injected into the left sacroiliac joint.~ The patient tolerated the procedure well with no complications. The patient was observed in the Pain Clinic and then was discharged home neurologically intact. Plan and Disposition:: Patient was discharged without incident.
== END 2024-05-09 10:55 | disposition home or self-care (01) ==
PROVIDERS: PCP Nurse Practitioner Family; Visit Provider Nurse Anesthetist, Certified Registered
DX: M46.1 Sacroiliitis, not elsewhere classified (principal)
CPT/HCPCS: 27096; G0260; J1010

== ENCOUNTER 2024-05-25 13:56 | Outpatient (POV) | payer MEDICAID, SELFPAY ==
[2024-05-25 14:25] VITALS: BP 144/99; PULSE 102; RESP 16; O2SAT 96; BMI 36.3
--- NOTE | 2024-05-25 14:42 | EXP.PAIN.SOA ---
[facility] Disclaimer: The information contained in this section may have been updated after the patient was seen, as this information can be updated by other users. Medical History (Updated 05/25/24 @ 14:44 by Jennifer Dee APRN) Tubal Chronic pain Endometriosis HLD (hyperlipidemia) HTN (hypertension) Surgical History History of ankle surgery H/O removal of cyst Family History Other No significant family history Social History Smoking Status: Current every day smoker alcohol intake: never substance use type: denies use current occupational status: unemployed Travel in the last 8 weeks: None PM Subjective & Objective Subjective Subjective:: Patient is a pleasant 49-year-old female who presents today for follow-up of bilateral SI injections on 05/09/2024. Today she rates her pain an 8 out of 10. Patient denies any new trauma or injury. She does state that these injections did help significantly of upwards of 80% however only lasted about 6 days. Today she states that she still is experiencing pain in her bilateral hips and feels like it just keeps going between the 2 areas. Patient does state that the pain remains fairly constant and does have tenderness along her hips with just touching. Patient is currently managed with tizanidine 4 mg twice a day and meloxicam 15 mg daily from our office. She denies any side effects from this medication. Patient states she is unsure if she needs any refills. She is prescribed gabapentin from an outside provider. Her Ender has been reviewed and is appropriate. Review of Systems: General: No recent weight changes, no fever, no sleep disturbances Respiratory: No cough, no shortness of air, no recurring pulmonary infections Cardiovascular/peripheral vascular: No chest pain, no palpitations, no edema, no shortness of breath Gastrointestinal: No new onset incontinence, normal bowel movements reported Genitourinary: No new onset incontinence Musculoskeletal: Bilateral hip pain Psychiatric: [Normal mood/affect] Neurological: [Denies weakness in extremities], [denies balance issues] Pain at rest (0-10 scale): 8 Objective Objective:: Physical Exam: General: Alert and oriented x3, no acute distress, pleasant and cooperative Lungs: Respirations even and unlabored, symmetrical chest expansion Eyes: PERRL Musculoskeletal: Flexion and extension of lumbar [spine] somewhat guarded secondary to pain, [antalgic gait noted] point tenderness along bilateral greater trochanteric bursa's Neurological: Speech clear, no gross sensory deficit Has patient had previous pain injection?: Yes Percent improvement in pain since last injection: 80% Conservative treatment options previously tried: NSAIDS Length of treatment: Longer than 6 weeks and Home exercise plan Length of treatment: Longer than 6 weeks Meds Home Medications and Allergies Home Medications ?Medication ?Instructions ?Recorded ?Confirmed ?Type gabapentin 300 mg capsule 300 mg PO TID Pain 09/03/22 05/25/24 History hydroxyzine HCl 25 mg tablet 50 mg PO DAILY . 09/03/22 05/25/24 History metformin 500 mg tablet 500 mg PO BID PCOS 09/03/22 05/25/24 History sertraline 50 mg tablet 50 mg PO DAILY MOOD 09/03/22 05/25/24 History spironolactone 100 mg tablet 100 mg PO DAILY Fluid 09/03/22 05/25/24 History diazepam 2 mg tablet 2 mg PO ONCE pain #1 tab 01/13/24 05/25/24 Rx meloxicam 15 mg tablet 15 mg PO DAILY Pain #30 tabs 04/17/24 05/25/24 Rx tizanidine 4 mg tablet (Zanaflex) 4 mg PO BID spasms #60 tabs 04/17/24 05/25/24 Rx New Prescriptions to Start Prescriptions: Allergies Allergy/AdvReac Type Severity Reaction Status Date / Time Penicillins Allergy Verified 02/01/24 10:21 Sulfa (Sulfonamide Allergy Verified 02/01/24 10:21 Antibiotics) Assessment and Plan *Assessment and plan (1) Greater trochanteric bursitis of both hips: Status: Acute Category: Medical Code(s): M70.61 - Trochanteric bursitis, right hip; M70.62 - Trochanteric bursitis, left hip Plan Patient is having worsening pain into her bilateral hips with point tenderness along her greater trochanteric bursa's. I did discuss with the patient in future she may benefit from bursa injections. We will follow-up with her regarding this at future visits. I will order the patient a compounded cream. Patient's tizanidine and meloxicam prescriptions will be verified that she does not need refills at this time. She will return to clinic in 1 month for reevaluation of symptoms and plan of care. Patient has been instructed to contact the clinic with any concerns before the next appointment. Dr. Bernard has reviewed this note and agrees with this plan of care. This note was dictated using voice recognition software and make contain errors or omissions. All injections are used with Lidocaine or Bupivacaine and Depo Medrol.
== END 2024-05-25 23:59 | disposition home or self-care (01) ==
PROVIDERS: PCP Family Medicine; Visit Provider Nurse Practitioner Family
DX: M70.61 Trochanteric bursitis, right hip (principal); M70.62 Trochanteric bursitis, left hip; F17.210 Nicotine dependence, cigarettes, uncomplicated; Z79.899 Other long term (current) drug therapy
CPT/HCPCS: 99212; G0463

== ENCOUNTER 2024-07-27 10:24 | Outpatient (POV) | payer MEDICAID, SELFPAY ==
[2024-07-27 10:42] VITALS: BP 135/86; PULSE 101; RESP 16; O2SAT 95; BMI 35.7
--- NOTE | 2024-07-27 10:43 | EXP.PAIN.SOA ---
[facility] Disclaimer: The information contained in this section may have been updated after the patient was seen, as this information can be updated by other users. Medical History (Updated 05/25/24 @ 14:44 by Jennifer Dee APRN) Tubal Chronic pain Endometriosis HLD (hyperlipidemia) HTN (hypertension) Surgical History History of ankle surgery H/O removal of cyst Family History Other No significant family history Social History Smoking Status: Current every day smoker alcohol intake: never substance use type: denies use current occupational status: unemployed Travel in the last 8 weeks: None PM Subjective & Objective Subjective Subjective:: Patient is a pleasant 49-year-old female who presents today for follow-up. Today she rates her pain a 9 out of 10. She denies any new trauma or injury. She does feel like she is having a lot more pain in her bilateral hips. Patient did also have this pain at her last visit and we did discuss possible injections. She does state today that she would like to proceed forward with those. She states she is having more more difficulty sleeping due to the pain. Patient is a side sleeper and states she frequently flips [id number] due to not being able to sleep for prolonged period on 1 hip versus the other due to the pain. She states it does affect her ability perform activities of daily living such as cooking and cleaning. Patient is currently managed with tizanidine 4 mg twice a day and meloxicam 15 mg daily from our office as well as gabapentin from her PCP. She denies any side effects from this medication and states she does not need refills. Her Ender has been reviewed and is appropriate. Review of Systems: General: No recent weight changes, no fever, no sleep disturbances Respiratory: No cough, no shortness of air, no recurring pulmonary infections Cardiovascular/peripheral vascular: No chest pain, no palpitations, no edema, no shortness of breath Gastrointestinal: No new onset incontinence, normal bowel movements reported Genitourinary: No new onset incontinence Musculoskeletal: Bilateral hip pain Psychiatric: [Normal mood/affect] Neurological: [Denies weakness in extremities], [denies balance issues] Pain at rest (0-10 scale): 9 Objective Objective:: Physical Exam: General: Alert and oriented x3, no acute distress, pleasant and cooperative Lungs: Respirations even and unlabored, symmetrical chest expansion Eyes: PERRL Musculoskeletal: Flexion and extension of lumbar [spine] somewhat guarded secondary to pain, [antalgic gait noted] point tenderness along bilateral greater trochanteric bursa's Neurological: Speech clear, no gross sensory deficit Has patient had previous pain injection?: No Conservative treatment options previously tried: Home exercise plan Length of treatment: Longer than 12 weeks Meds Home Medications and Allergies Home Medications ?Medication ?Instructions ?Recorded ?Confirmed ?Type gabapentin 300 mg capsule 300 mg PO TID Pain 09/03/22 07/27/24 History hydroxyzine HCl 25 mg tablet 50 mg PO DAILY . 09/03/22 07/27/24 History metformin 500 mg tablet 500 mg PO BID PCOS 09/03/22 07/27/24 History sertraline 50 mg tablet 50 mg PO DAILY MOOD 09/03/22 07/27/24 History spironolactone 100 mg tablet 100 mg PO DAILY Fluid 09/03/22 07/27/24 History diazepam 2 mg tablet 2 mg PO ONCE pain #1 tab 01/13/24 07/27/24 Rx meloxicam 15 mg tablet 15 mg PO DAILY Pain #30 tabs 04/17/24 07/27/24 Rx tizanidine 4 mg tablet (Zanaflex) 4 mg PO BID spasms #60 tabs 07/05/24 07/27/24 Rx New Prescriptions to Start Prescriptions: Allergies Allergy/AdvReac Type Severity Reaction Status Date / Time Penicillins Allergy Verified 02/01/24 10:21 Sulfa (Sulfonamide Allergy Verified 02/01/24 10:21 Antibiotics) Assessment and Plan *Assessment and plan (1) Greater trochanteric bursitis of both hips: Status: Acute Category: Medical Code(s): M70.61 - Trochanteric bursitis, right hip; M70.62 - Trochanteric bursitis, left hip Plan Patient continues to have significant pain along her bilateral hips with point tenderness along her bilateral greater trochanteric bursa's. I did discuss over the risk and benefits of the bursa injections and she would like to proceed forward with this plan of care. Patient has tried and failed conservative therapy including continued at home stretching exercise for longer than 12 weeks. Patient will be scheduled for bilateral greater trochanteric bursa injections under fluoroscopy. Patient has been instructed to contact the clinic with any concerns before the next appointment. Dr. Bernard has reviewed this note and agrees with this plan of care. This note was dictated using voice recognition software and make contain errors or omissions. All injections are used with Lidocaine or Bupivacaine and Depo Medrol.
== END 2024-07-27 23:59 | disposition home or self-care (01) ==
LOC: SC.PAIN 10:25
PROVIDERS: PCP Nurse Practitioner Family; Visit Provider Nurse Practitioner Family
DX: M70.62 Trochanteric bursitis, left hip (principal); M70.61 Trochanteric bursitis, right hip; F17.210 Nicotine dependence, cigarettes, uncomplicated; Z73.89 Other problems related to life management difficulty
CPT/HCPCS: 99212; G0463

== ENCOUNTER 2024-08-22 11:39 | Day surgery (SDC) | payer MEDICAID, SELFPAY ==
[2024-08-22 11:54] VITALS: BMI 35.9
[2024-08-22] MEDS: BUPIVACAINE 0.25% 10ML INJ 25 MG IJ (12:16)
[2024-08-22] MEDS: LIDOCAINE 1% 5ML PF VIAL 5 ML (12:16)
[2024-08-22] MEDS: methylPREDNISolone ACETATE 80MG/ML VIAL 80 MG (12:16)
[2024-08-22 12:17] VITALS: BP 146/90; PULSE 99; RESP 18; O2SAT 97
[2024-08-22 12:20] VITALS: BP 146/90; PULSE 99; RESP 18; O2SAT 97
[2024-08-22 12:28] VITALS: BP 151/109; PULSE 96; RESP 16; O2SAT 97
--- NOTE | 2024-08-22 12:31 | P.PCN_ITS ---
Procedure Date: 08/22/24 Time: 12:15 Anesthesiologist:: Hunter Arriaga CRNA Complications:: None Pre-procedure Diagnosis:: Bilateral trochanteric bursitis. Post-procedure Diagnosis:: Same. Indications for Procedure:: Patient is a very pleasant 49-year-old female who comes our clinic today for bilateral trochanteric bursa injections of cortisone and local anesthetic. Patient describes lateral hip pain bilaterally as sharp, stabbing, dull, constant. She reports having extreme difficulty lying on her left or right side when attempting to sleep. Upon examination she has extreme point tenderness over the bilateral trochanteric bursa. She rates her pain 8/10. Procedure Details:: Procedure: Bilateral trochanteric bursa joint injections under fluoroscopy Informed consent was obtained and the risks and benefits of the procedure were explained to the patient.~ The patient was taken to the procedure room and noninvasive monitors were placed including a noninvasive blood pressure cuff and pulse oximeter.~ The patient was placed prone on the procedure table. Both hips were cleansed using Betadine as a cleansing solution. C-arm fluoroscopy was used to view the right trochanteric bursa joint.~ The skin and subcutaneous tissues were anesthetized using lidocaine 1.5% and a 25-gauge needle.~ After this, a 22- gauge spinal needle was inserted under fluoroscopic guidance into the inferior aspect of the right trochanteric bursa.~ Omnipaque dye was injected and good spread was seen throughout the joint.~ After this, approximately 5 mL of bupivacaine, 0.25% and Depo-Medrol, 40 mg was incrementally injected into the right sacroiliac joint. We then moved to the left trochanteric bursa joint.~ The skin and subcutaneous tissues were anesthetized using lidocaine 1.5% and a 25-gauge needle.~ After this, a 22-gauge spinal needle was inserted under fluoroscopic guidance into the inferior aspect of the left trochanteric bursa joint.~ Omnipaque dye was injected and good spread was seen throughout the joint. After this, approximately 5 mL of bupivacaine, 0.25% and Depo-Medrol, 40 mg was incrementally injected into the left sacroiliac joint.~ The patient tolerated the procedure well with no complications. The patient was observed in the Pain Clinic and then was discharged home neurologically intact. Plan and Disposition:: Patient was discharged without incident.
== END 2024-08-22 12:28 | disposition home or self-care (01) ==
LOC: SC.PAINP 11:40
PROVIDERS: PCP Nurse Practitioner Family; Visit Provider Nurse Anesthetist, Certified Registered
DX: M70.61 Trochanteric bursitis, right hip (principal); M70.62 Trochanteric bursitis, left hip
CPT/HCPCS: 20610; J1010

== ENCOUNTER 2024-09-28 11:27 | Outpatient (POV) | payer MEDICAID, SELFPAY ==
--- NOTE | 2024-09-28 12:06 | A.OFFVIS_ITS ---
[facility] Disclaimer: The information contained in this section may have been updated after the patient was seen, as this information can be updated by other users. Medical History Tubal Chronic pain Endometriosis HLD (hyperlipidemia) HTN (hypertension) Surgical History History of ankle surgery H/O removal of cyst Family History Other No significant family history Social History Smoking Status: Current every day smoker alcohol intake: never substance use type: denies use current occupational status: other Travel in the last 8 weeks: None PM Subjective & Objective Subjective Subjective:: Patient is a pleasant 49-year-old female who presents today for follow-up of bilateral trochanteric bursa injections on 08/22/2024. She does rate her pain today an 8 out of 10. She does state that she did have at least 60% improvement following this injection however it only lasted 1 week. Patient does states she is back to her baseline. Patient denies any new trauma or injury or falls. Patient is currently managed with tizanidine 4 mg twice a day and meloxicam 15 mg daily from our office and gabapentin from her PCP. She denies any side effects from these medications. Her Ender has been reviewed and is ap propriate. Review of Systems: General: No recent weight changes, no fever, no sleep disturbances Respiratory: No cough, no shortness of air, no recurring pulmonary infections Cardiovascular/peripheral vascular: No chest pain, no palpitations, no edema, no shortness of breath Gastrointestinal: No new onset incontinence, normal bowel movements reported Genitourinary: No new onset incontinence Musculoskeletal: Low back pain, hip pain Psychiatric: [Normal mood/affect] Neurological: [Denies weakness in extremities], [denies balance issues] Pain at rest (0-10 scale): 8 Objective Objective:: Physical Exam: General: Alert and oriented x3, no acute distress, pleasant and cooperative Lungs: Respirations even and unlabored, symmetrical chest expansion Eyes: PERRL Musculoskeletal: Flexion and extension of lumbar [spine] somewhat guarded secondary to pain, [antalgic gait noted] Neurological: Speech clear, no gross sensory deficit Has patient had previous pain injection?: Yes Percent improvement in pain since last injection: 60% Conservative treatment options previously tried: Home exercise plan Length of treatment: Longer than 6 weeks Meds Home Medications and Allergies Home Medications ?Medication ?Instructions ?Recorded ?Confirmed ?Type gabapentin 300 mg capsule 300 mg PO TID Pain 09/03/22 08/22/24 History hydroxyzine HCl 25 mg tablet 50 mg PO DAILY . 09/03/22 08/22/24 History metformin 500 mg tablet 500 mg PO BID PCOS 09/03/22 08/22/24 History sertraline 50 mg tablet 50 mg PO DAILY MOOD 09/03/22 08/22/24 History spironolactone 100 mg tablet 100 mg PO DAILY Fluid 09/03/22 08/22/24 History diazepam 2 mg tablet 2 mg PO ONCE pain #1 tab 01/13/24 08/22/24 Rx meloxicam 15 mg tablet 15 mg PO DAILY Pain #30 tabs 04/17/24 08/22/24 Rx tizanidine 4 mg tablet (Zanaflex) 4 mg PO BID spasms #60 tabs 07/05/24 08/22/24 Rx New Prescriptions to Start Prescriptions: Allergies Allergy/AdvReac Type Severity Reaction Status Date / Time Penicillins Allergy Verified 02/01/24 10:21 Sulfa (Sulfonamide Allergy Verified 02/01/24 10:21 Antibiotics) Assessment and Plan *Assessment and plan (1) Greater trochanteric bursitis of both hips: Status: Acute Category: Medical Code(s): M70.61 - Trochanteric bursitis, right hip; M70.62 - Trochanteric bursitis, left hip (2) Facet arthropathy, lumbar: Status: Acute Category: Medical Code(s): M47.816 - Spondylosis without myelopathy or radiculopathy, lumbar region (3) Degenerative joint disease (DJD) of lumbar spine: Status: Acute Category: Medical Code(s): M47.816 - Spondylosis without myelopathy or radiculopathy, lumbar region Plan I will refill the patient's meloxicam and tizanidine and provide a 3-month supply of this medication. Patient will return to clinic in 3 months for reevaluation of symptoms and plan of care. Patient has been instructed to contact the clinic with any concerns before the next appointment. Dr. Bernard has reviewed this note and agrees with this plan of care. This note was dictated using voice recognition software and make contain errors or omissions. All injections are used with Lidocaine or Bupivacaine and Depo Medrol.
[2024-09-28 12:16] VITALS: BP 129/76; PULSE 103; RESP 18; O2SAT 95; BMI 35.9
== END 2024-09-28 23:59 | disposition home or self-care (01) ==
PROVIDERS: PCP Nurse Practitioner Family; Visit Provider Nurse Practitioner Family
DX: M70.62 Trochanteric bursitis, left hip (principal); M70.61 Trochanteric bursitis, right hip; M47.816 Spondylosis without myelopathy or radiculopathy, lumbar region; F17.210 Nicotine dependence, cigarettes, uncomplicated
CPT/HCPCS: 99212; G0463

== ENCOUNTER 2024-12-06 09:32 | Outpatient (POV) | payer MEDICAID, SELFPAY ==
[2024-12-06 09:48] VITALS: BP 130/89; PULSE 98; RESP 16; O2SAT 94; BMI 34.3
--- NOTE | 2024-12-06 09:50 | A.OFFVIS_ITS ---
[facility] Disclaimer: The information contained in this section may have been updated after the patient was seen, as this information can be updated by other users. Medical History (Updated 12/06/24 @ 09:51 by Jennifer Dee APRN) Tubal Chronic pain Endometriosis HLD (hyperlipidemia) HTN (hypertension) Surgical History History of ankle surgery H/O removal of cyst Family History Other No significant family history Social History Smoking Status: Current every day smoker alcohol intake: never substance use type: denies use current occupational status: other Travel in the last 8 weeks: None PM Subjective & Objective Subjective Subjective:: Patient is a pleasant 49-year-old female who presents today for worsening pain in her low back and hips. She does rated a 9 out of 10. Patient denies any new fall or injury. She states that she is just having a worsening aching, throbbing sensation into her low back and hip area that does go around into her buttocks. Patient denies any radiating symptoms to her legs. She does state the pain is interfering with her ability perform activities of daily living such as cooking and cleaning. Patient is interested in additional injection therapy as this has provided significant improved function. Patient is also managed with 4 mg tizanidine twice a day and meloxicam 15 mg daily. She is requesting refills on the tizanidine. Patient is prescribed gabapentin from her PCP. Her Ender has been reviewed and is appropriate. Review of Systems: General: No recent weight changes, no fever, no sleep disturbances Respiratory: No cough, no shortness of air, no recurring pulmonary infections Cardiovascular/peripheral vascular: No chest pain, no palpitations, no edema, no shortness of breath Gastrointestinal: No new onset incontinence, normal bowel movements reported Genitourinary: No new onset incontinence Musculoskeletal: Low back pain, bilateral hip pain Psychiatric: [Normal mood/affect] Neurological: [Denies weakness in extremities], [denies balance issues] Pain at rest (0-10 scale): 9 Objective Objective:: Physical Exam: General: Alert and oriented x3, no acute distress, pleasant and cooperative Lungs: Respirations even and unlabored, symmetrical chest expansion Eyes: PERRL Musculoskeletal: Flexion and extension of lumbar [spine] somewhat guarded secondary to pain, [antalgic gait noted] point tenderness along bilateral SIs with positive bilateral Emeterio's, Gabbie's, Gaenslen's, compression and distraction exam Neurological: Speech clear, no gross sensory deficit Has patient had previous pain injection?: No Conservative treatment options previously tried: Home exercise plan Length of treatment: Longer than 12 weeks Meds Home Medications and Allergies Home Medications ?Medication ?Instructions ?Recorded ?Confirmed ?Type gabapentin 300 mg capsule 300 mg PO TID Pain 09/03/22 09/28/24 History hydroxyzine HCl 25 mg tablet 50 mg PO DAILY . 09/03/22 09/28/24 History metformin 500 mg tablet 500 mg PO BID PCOS 09/03/22 09/28/24 History sertraline 50 mg tablet 50 mg PO DAILY MOOD 09/03/22 09/28/24 History spironolactone 100 mg tablet 100 mg PO DAILY Fluid 09/03/22 09/28/24 History diazepam 2 mg tablet 2 mg PO ONCE pain #1 tab 01/13/24 09/28/24 Rx meloxicam 15 mg tablet 15 mg PO DAILY Pain #30 tabs 09/28/24 Rx tizanidine 4 mg tablet (Zanaflex) 4 mg PO BID spasms #60 tabs 09/28/24 Rx New Prescriptions to Start Prescriptions: Allergies Allergy/AdvReac Type Severity Reaction Status Date / Time Penicillins Allergy Verified 02/01/24 10:21 Sulfa (Sulfonamide Allergy Verified 02/01/24 10:21 Antibiotics) Assessment and Plan *Assessment and plan (1) Bilateral sacroiliitis: Status: Acute Category: Medical Code(s): M46.1 - Sacroiliitis, not elsewhere classified Plan Patient is experiencing worsening pain along the low back and bilateral hips. They did have limited range of motion of the lumbar spine along with point tenderness along bilateral SI joints and a positive bilateral Emeterio's, Gabbie's, Gaenslen's, compression and distraction exam. I did discuss with the patient that I do believe they would benefit from bilateral SI injections. Risk and benefits were discussed with the patient and they would like to proceed forward with this option. Patient has tried and failed conservative therapy including continued at home stretching exercise for longer than 12 weeks. Patient has had this pain for longer than 6 months however has more of a flareup. More recently. Patient does have a longstanding history of prior SI injections with her last 1 in April 2024. This injection did provide 80% improvement and has allowed her to have increased function without requiring additional injections in her SI joints until now. Patient will be scheduled for bilateral SI injections under fluoroscopy. I will also refill her tizanidine and send in a 90-day supply. Patient has been instructed to contact the clinic with any concerns before the next appointment. Dr. Bernard has reviewed this note and agrees with this plan of care. This note was dictated using voice recognition software and make contain errors or omissions. All injections are used with Lidocaine or Bupivacaine and Depo Medrol.
== END 2024-12-06 23:59 | disposition home or self-care (01) ==
PROVIDERS: PCP Nurse Practitioner Family; Visit Provider Nurse Practitioner Family
DX: M46.1 Sacroiliitis, not elsewhere classified (principal); F17.200 Nicotine dependence, unspecified, uncomplicated; Z73.89 Other problems related to life management difficulty
CPT/HCPCS: 99212; G0463

== ENCOUNTER 2025-01-02 10:57 | Day surgery (SDC) | payer MEDICAID, SELFPAY ==
[2025-01-02 10:59] VITALS: BP 138/96; PULSE 86; RESP 16; TEMP 36.8; O2SAT 95; BMI 36.3
[2025-01-02 11:28] VITALS: BP 133/98; PULSE 67; RESP 16; O2SAT 96
--- NOTE | 2025-01-02 11:54 | P.PCN_ITS ---
Procedure Date: 01/02/25 Time: 11:30 Anesthesiologist:: Hunter Arriaga CRNA Complications:: None Pre-procedure Diagnosis:: Bilateral sacroiliitis Post-procedure Diagnosis:: Same Indications for Procedure:: Patient is a very pleasant 49-year-old female who comes our clinic today for bilateral sacroiliac joint injections cortisone local anesthetic. Patient describes low lumbar back pain as constant, dull, aching. Patient describes bilateral posterior hip pain. Also, pain transitioning from sitting to standing. She rates her pain 7/10. Procedure Details:: Procedure: Bilateral sacroiliac joint injections under fluoroscopy Informed consent was obtained and the risks and benefits of the procedure were explained to the patient.~ The patient was taken to the procedure room and noninvasive monitors were placed including a noninvasive blood pressure cuff and pulse oximeter.~ The patient was placed prone on the procedure table. Both hips were cleansed using Betadine as a cleansing solution. C-arm fluoroscopy was used to view the right sacroiliac joint.~ The skin and subcutaneous tissues were anesthetized using lidocaine 1.5% and a 25-gauge needle.~ After this, a 22-gauge spinal needle was inserted under fluoroscopic guidance into the inferior aspect of the right sacroiliac joint.~ Omnipaque dye was injected and good spread was seen throughout the joint.~ After this, approximately 5 mL of bupivacaine, 0.25% and Depo-Medrol, 40 mg was incrementally injected into the right sacroiliac joint. We then moved to the left sacroiliac joint.~ The skin and subcutaneous tissues were anesthetized using lidocaine 1.5% and a 25-gauge needle.~ After this, a 22- gauge spinal needle was inserted under fluoroscopic guidance into the inferior aspect of the left sacroiliac joint.~ Omnipaque dye was injected and good spread was seen throughout the joint. After this, approximately 5 mL of bupivacaine, 0.25% and Depo-Medrol, 40 mg was incrementally injected into the left sacroiliac joint.~ The patient tolerated the procedure well with no complications. The patient was observed in the Pain Clinic and then was discharged home neurologically intact. Plan and Disposition:: Patient was discharged without incident.
[2025-01-02] MEDS: BUPIVACAINE 0.25% 10ML INJ 25 MG IJ (13:07)
[2025-01-02] MEDS: LIDOCAINE 1% 5ML PF VIAL 5 ML (13:09)
[2025-01-02] MEDS: methylPREDNISolone ACETATE 80MG/ML VIAL 80 MG (13:09)
== END 2025-01-02 11:28 | disposition home or self-care (01) ==
LOC: SC.PAINP 10:58
PROVIDERS: PCP Nurse Practitioner Family; Visit Provider Nurse Anesthetist, Certified Registered
DX: M46.1 Sacroiliitis, not elsewhere classified (principal)
CPT/HCPCS: 27096; G0260; J1010

== ENCOUNTER 2025-01-25 13:19 | Outpatient (POV) | payer MEDICAID, SELFPAY ==
--- NOTE | 2025-01-25 14:09 | XR_ITS ---
FINAL REPORT CLINICAL HISTORY: Chronic low back pain COMPARISON: 11/08/2023 FINDINGS: Three views of the lumbosacral spine were obtained. No fracture is identified. There is exaggeration of the lumbar lordosis. There is focal kyphosis at the T12-L1 level with partial ankylosis of the anterior disc space, similar to the prior study. IMPRESSION: No fracture or significant degenerative change. Stable abnormal curvature as above. Reviewed, Interpreted and Dictated by Tyesha Alba MD Transcribed by Anayeli Santana Authenticated and [facility]
--- NOTE | 2025-01-25 14:33 | A.OFFVIS_ITS ---
[facility] Disclaimer: The information contained in this section may have been updated after the patient was seen, as this information can be updated by other users. Medical History (Updated 01/25/25 @ 14:36 by Jennifer Dee APRN) Tubal Chronic pain Endometriosis HLD (hyperlipidemia) HTN (hypertension) Surgical History History of ankle surgery H/O removal of cyst Family History Other No significant family history Social History Smoking Status: Current every day smoker alcohol intake: never substance use type: denies use current occupational status: other Travel in the last 8 weeks: None PM Subjective & Objective Subjective Subjective:: Patient is a pleasant 49-year-old female who presents today for follow-up of bilateral SI injections on 01/02/2025. She does rate her pain today a 9 out of 10. Patient states that she has not had any new injuries or falls. She has had 80% relief following this injection but it only lasted 6 days. Patient states that some of her pain today is more related to around her mid back. She states that yesterday she felt like a knot was even present but she did apply some cream and it did ease down. Patient does continue to have just chronic pain all over in her back and that the injections have been helpful but often are very temporary. Patient has saw a orthospine doctor in the past with Dr. Johnson however he was stating there was no additional surgical intervention that could be done. Patient does state that she continues to have the chronic pain and is unsure specifically what is going on. We have attempted to do multiple MRIs however due to the positioning and the curvature of her back she is not able to complete these. Patient states the pain is constant and does interfere with her ability perform activities of daily living such as cooking and cleaning. Patient is currently managed with tizanidine 4 mg twice a day and meloxicam 15 mg daily. She denies any side effects from these medications. She is prescribed gabapentin from her PCP. Her Ender has been reviewed and is appropriate. Review of Systems: General: No recent weight changes, no fever, no sleep disturbances Respiratory: No cough, no shortness of air, no recurring pulmonary infections Cardiovascular/peripheral vascular: No chest pain, no palpitations, no edema, no shortness of breath Gastrointestinal: No new onset incontinence, normal bowel movements reported Genitourinary: No new onset incontinence Musculoskeletal: Chronic back pain Psychiatric: [Normal mood/affect] Neurological: [Denies weakness in extremities], [denies balance issues] Pain at rest (0-10 scale): 9 Objective Objective:: Physical Exam: General: Alert and oriented x3, no acute distress, pleasant and cooperative Lungs: Respirations even and unlabored, symmetrical chest expansion Eyes: PERRL Musculoskeletal: Flexion and extension of lumbar [spine] somewhat guarded secondary to pain, [antalgic gait noted] Neurological: Speech clear, no gross sensory deficit Has patient had previous pain injection?: Yes Percent improvement in pain since last injection: 80% Conservative treatment options previously tried: Home exercise plan Length of treatment: Longer than 12 weeks Meds Home Medications and Allergies Home Medications ?Medication ?Instructions ?Recorded ?Confirmed ?Type gabapentin 300 mg capsule 300 mg PO TID Pain 09/03/22 01/02/25 History hydroxyzine HCl 25 mg tablet 50 mg PO DAILY . 09/03/22 01/02/25 History metformin 500 mg tablet 500 mg PO BID PCOS 09/03/22 01/02/25 History sertraline 50 mg tablet 50 mg PO DAILY MOOD 09/03/22 01/02/25 History spironolactone 100 mg tablet 100 mg PO DAILY Fluid 09/03/22 01/02/25 History diazepam 2 mg tablet 2 mg PO ONCE pain #1 tab 01/13/24 01/02/25 Rx meloxicam 15 mg tablet 15 mg PO DAILY Pain #30 tabs 09/28/24 01/02/25 Rx tizanidine 4 mg tablet (Zanaflex) 4 mg PO BID spasms #180 tabs 12/06/24 01/02/25 Rx New Prescriptions to Start Prescriptions: Allergies Allergy/AdvReac Type Severity Reaction Status Date / Time Penicillins Allergy Verified 02/01/24 10:21 Sulfa (Sulfonamide Allergy Verified 02/01/24 10:21 Antibiotics) Assessment and Plan *Assessment and plan (1) Chronic back pain: Status: Acute Category: Medical Code(s): M54.9 - Dorsalgia, unspecified; G89.29 - Other chronic pain (2) Degenerative joint disease (DJD) of lumbar spine: Status: Acute Category: Medical Code(s): M47.816 - Spondylosis without myelopathy or radiculopathy, lumbar region (3) Bilateral sacroiliitis: Status: Acute Category: Medical Code(s): M46.1 - Sacroiliitis, not elsewhere classified Plan Patient did have significant improvement following her SI injections however it was still very temporary. I did discuss with the patient due to her chronic back pain that she may be a beneficial candidate of a intrathecal pain pump trial. Risk and benefits and educational handouts were given during today's visit. She would like to proceed forward with this plan of care. I will order the patient a psychological evaluation and if she is deemed an appropriate candidate we will proceed forward with the trial at a later date. I will also order updated x-ray with CT without contrast to follow. We did discuss that we will plan on sending a referral to [facility] once we complete the CT to see additional options. Patient agrees with this plan of care. Patient will return to clinic in 1 month. Patient has been instructed to contact the clinic with any concerns before the next appointment. Dr. Bernard has reviewed this note and agrees with this plan of care. This note was dictated using voice recognition software and make contain errors or omissions. All injections are used with Lidocaine, Bupivacaine and Depo Medrol. Occasionally urine drug screen is needed to verify patient's compliance with our office pain contract. This is ordered based off specific treatments related to chronic pain with the potential to abuse certain medications.
[2025-01-25 14:44] VITALS: BP 164/87; PULSE 88; RESP 18; O2SAT 95; BMI 38.0
== END 2025-01-25 23:59 | disposition home or self-care (01) ==
PROVIDERS: PCP Nurse Practitioner Family; Visit Provider Nurse Practitioner Family
DX: M47.816 Spondylosis without myelopathy or radiculopathy, lumbar region (principal); M54.9 Dorsalgia, unspecified; G89.29 Other chronic pain; M46.1 Sacroiliitis, not elsewhere classified; F17.200 Nicotine dependence, unspecified, uncomplicated; Z73.89 Other problems related to life management difficulty
CPT/HCPCS: 72100; 99212; G0463

== ENCOUNTER 2025-02-21 10:46 | Outpatient (CLI) | payer MEDICAID, SELFPAY ==
--- NOTE | 2025-02-21 10:50 | CT_ITS ---
FINAL REPORT TECHNIQUE: Axial images were obtained of the lumbar spine by computed tomography. Coronal and sagittal reconstruction process performed. This study was performed with techniques to keep radiation doses as low as reasonably achievable (ALARA). Individualized dose reduction techniques using automated exposure control or adjustment of mA and/or kV according to the patient's size were employed. CLINICAL HISTORY: BACK PAIN, c/o low back pain COMPARISON: None FINDINGS: CT LUMBAR SPINE: There is moderate loss of height of the superior endplate of L1, with approximately 50% compression of the L1 vertebral body. There is an indentation in the superior endplate, that has an appearance suggestive of a Schmorl's node. There is loss of height produces accentuation of the thoracolumbar kyphosis. There is another small indentation into the inferior endplate of the T11 vertebral body. Disc spaces are well-preserved. There is no malalignment. Moderate facet hypertrophy is noted at the L5-S1 level. IMPRESSION: Moderate loss of height of the superior endplate of L1, with approximately 50% compression of the L1 vertebral body. This results in accentuation of the thoracolumbar kyphosis. Moderate facet hypertrophy of the L5-S1 level. Reviewed, Interpreted and Dictated by Jovi Quintero MD Transcribed by Clare Mcneil Authenticated and [facility]
--- OUTSIDE RECORDS SUMMARY | 2025-02-21 10:50 | XMS_ITS | Data Portability ---
Author Organization [facility] telehealth Address [address] [place] [address] Assessment Encounter Date Assessment Date Assessment LastModified by Organization Details LastModified Time 07/27/2024 07/27/2024 49 yo presents for having symptoms of menopause. Symptoms include hot flashes and night sweats. She has a history of PCOS and endometriosis. She states that the last month she had 2 cycles, and before that she didn't have a cycle for two months. She reports that when she has her periods she has clotting. She states that she has osteoporosis in her back. She also has hypertension, and currently takes medication for it. ULS reveals transmural anterior fibroid on the uterus. Both ovaries are normal in location, small in size, and mildly polycystic in appearance. No tenderness is noted. Hard stool was seen in the colon. Spec exam reveals vaginal discharge, culture was collected. It is suspected that pt has IBS-C. Dietary restrictions were discussed with pt. HRT was discussed. Pt states that she is interested in starting hormones. HRT and A1C BW will be done today. Transdermal cream dosage will be designed based on BW results. Pt will receive DEXA scan referral. She will RTC for HRT f/u, and will continue refills with Lesly over telehealth. [email or web address] Not available 07/27/2024 13:51:02 Plan of Treatment Reminders Order Date Submit Date Provider Last Modified By Organization Details Last Modified Time Details Appointments None recorde d. Lab HbA1c (hemogl obin A1c), blood 024 07/27/20 24 [facility]), [address] [place], [address], 5 05:00:37 lh + FSH, serum 07/27/20 [facility] ([facility]), [address] [place], [address], 4 02:29:36 estradi ol, serum 07/27/20 [facility] ([facility]), [address] [place] [address], [address], 4 02:29:36 dhea-darling lfate, serum 07/27/20 24 [facility] ([facility]), [address] [place] [address], [address], 4 02:29:36 testost erone, total, serum 07/27/20 [facility] ([facility]), [address] [place] [address], [address], 4 02:29:35 Referral None recorde d. Procedures None recorde d. Surgeries None recorde d. Imaging None recorde d. Medication Orders None recorde d. Patient TargetsNo targets recorded. Patient InstructionsNo instructions recorded. Reason for Referral None Reported. Results Created Date Observation Date Name Description Value Unit Range Abnormal Flag Note LastModifiedBy Organization Detail LastModifiedTime 07/27/20 24 07/28/2024 FSH AND LH luteinizing hormone 24.60 mIU/m L LH Refer ence Range Men: 1.7 - 8.6 Women : Folli cular phase 2.4 - 12.6 Ovula tion phase 14.0 - 95.6 Lutea l phase 1.0 - 11.4 Postm enopa use 7.7 - 58.5 Not Available [facility] ([facility]) [address], [place], [address], 08/01/2024 07:22:49 07/27/20 24 07/28/2024 FSH AND LH FSH 36.90 mIU/m L FSH Refer ence Range Men: 1.5 - 12.4 Women : Folli cular phase 3.5 - 12.5 Ovula tion phase 4.7 - 21.5 Lutea l phase 1.7 - 7.7 Postm enopa use 25.8 - 134.8 Not Available [facility] ([facility]) [address] [place] [address] [address], [place], [address], 08/01/2024 07:22:49 07/27/20 24 07/28/2024 TESTO STERO NE TOTAL testosterone total SEE BELOW NG/dL 8.00-4 8.00 The resul t is outsi de of the repor table range for this metho dolog y. Pleas e refer to Testo stero ne , Total by LC/MS for the resul t. Not Available [facility]) [address] [place] [address] [address], [place], [address], 08/01/2024 07:22:49 07/27/20 24 08/01/2024 TESTO STERO NE, TOTAL BY LC/MS testosterone , total by lc/MS 18.9 NG/dL 5.0-55 .0 Preme nopau fran 5-55 ng/dL (Grea ter than 18 years ) Postm enopa usal 6-30 ng/dL This test was devel oped and its perfo rmanc e jon cteri stics were deter mined by [facility]. It has not been clear ed or appro [place] by the FDA. The labor atory is regul ated under CLIA as quali fied to perfo rm high- compl exity testi ng. This test is used for clini so purpo ses and shoul d not be regar ded as inves tigat ional or for resea rc. Not Available [facility] ([facility]) [address] [place] [address], [place], [address], 08/01/2024 07:22:50 07/27/20 24 07/28/2024 ESTRA DIOL estradiol 13 pg/mL Estra diol Refer ence Range Healt hy women Folli cular phase 12.4 - 233 Ovula tion phase 41.0 - 398 Lutea l phase 22.3 - 341 Postm enopa use <5 - 138 Healt hy pregn ant women 1st trime ster 154 - 3243 2nd trime ster 1561 - 36331 3rd trime ster 8525 - >3000 0 Not Available [facility] ([facility]) [address] [place] [address] [address], [place], [address], 08/01/2024 07:22:50 07/27/20 24 08/01/2024 ESTRA DIOL test cancelled Test Cancel led Speci men not recei [place] in lab Not Available [email or web address] ([facility]) [address] [place] [address] [address], [place], [address], 08/01/2024 07:22:50 07/27/20 24 07/28/2024 DHEA- SULFA TE DHEA-sulfate 95 ug/dL 35-256 Not Available [facility] ([facility]) [facility], [place], [address], 08/01/2024 07:22:51 Result Notes None recorded. Procedures Surgical History Date Name Laterality Status Provider Name and Address Organization Details Recorded Time 07/27/20 24 Non-OB ULS completed Capri Nelson MD [address], [place], [address], [facility] 07/27/2024 13:38:06 10/25/19 23 Colonoscopy completed [facility] 07/27/2024 13:05:05 10/25/19 20 procedure on ankle completed [facility] 07/27/2024 13:11:44 10/25/19 16 Date of Last Pap Smear completed [facility] 07/27/2024 13:04:56 10/25/19 16 Date of Last Mammogram completed [facility] 07/27/2024 13:05:00 10/25/19 00 right salpingectomy completed [facility] 07/27/2024 13:11:04 Laparoscopy completed [facility] 07/27/2024 13:10:36 Imaging Results None recorded. Procedure Notes None recorded. Medical Equipment None Reported. Allergies Allergen ID Allergen Name Allergen Category Reaction Reaction Severity Criticality Documentation Date Start Date Code Code System Note Provider Name and Address Organization Details Recorded Time 5449 Substance with sulfonami de structure and antibacte rial mechanism of action (substanc e) medicatio n Not available Not available Not available 07/27/2024 [address] 8003 SNOMED [facility] 4 13:02:58 Medications Name Sig Start Date Stop Date Status Note LastModified by Organization Details LastModified Time atorvastatin 20 mg tablet Take 1 tablet every day by oral route. active Not Available Not Available No t Available metoprolol succinate ER 50 mg tablet,extende d release 24 hr Take 1 tablet every day by oral route. active Not Available Not Available No t Available meloxicam 15 mg tablet Take 1 tablet every day by oral route. active Not Available Not Available No t Available sertraline 100 mg tablet Take 1 tablet every day by oral route. active Not Available Not Available No t Available gabapentin 300 mg capsule Take 1 capsule 3 times a day by oral route. active Not Available Not Available No t Available tizanidine 4 mg capsule Take 1 capsule every 6 hours by oral route. active Not Available Not Available No t Available loperamide active Not Available Not Av ailable Not Available Vitamin D3 active Not Available Not Av ailable Not Available Vitals Date Recorded Body weight Body mass index (BMI) Body height Systolic blood pressure Diastolic blood pressure Provider Name and Address Organization Details Last Updated DateTime 07/27/2024 49710.47 g 36.2 kg/m2 149.86 cm 130 mm[Hg] 80 mm[Hg] [facility] 13:10:04 Social History Question Answer Notes LastModified by Organizat ion Details LastModified Time Tobacco Smoking Status Current Every Day Smoker 1 pack a day [facility] 07/27/2024 13:05:58 What Is Your Level Of Alcohol Consumption? Heavy [email or web address] Information not available 07/27/2024 Do You Or Have You Ever Used E-cigarettes Or Vape? Former User Of Electronic Cigarettes [email or web address] Information not available 07/27/2024 What Is Your Relationship Status? [email or web address] Information not available 07/27/2024 Are You Sexually Active? No Information not available 07/27/2024 Do You Use Any Illicit Or Recreational Drugs? No [email or web address] Information not available 07/27/2024 Do You Or Have You Ever Used Any Other Forms Of Tobacco Or Nicotine? Yes Information not available 07/27/2024 Sex: Female Functional Status None recorded. Mental Status None recorded. Family History Nothing Reported. Medical History No medical history recorded. Gynecological History Statement/Question Response Abnormal Pap N Date of Last Mammogram 10/25/2015 Are your periods regular? N HPV Vaccine N Date of Last Pap Smear 10/25/2015 Age at Menarche 16 Colonoscopy 10/25/2022 Hormone Replacement Therapy N Obstetrics History GPAL:G 1 P 0 0 1 0 Type Value Living 0 Ectopics 1 Total 1 Past Encounters Encounter ID Performer Location Encounter Start Date Encounter Closed Date Diagnosis/Indication Diagnosis SNOMED-CT Code Diagnosis ICD10 Code Diagnosis Note [id number] MD CAPRI De Santiago MD [address] [address] 07/27/2024 12:45:22 07/27/2024 13:51:50 Menopausal symptom 81570332 N95.1 Dyspareunia 79940393 N94 .19 Subserous leiomyoma of uterus 42753561 D25.2 Vaginal discharge 813084 006 N89.8 High hemog lobin A1c level 269721078 R73.09 Irritable bowel syndrome characterized by constipation 285623393 K58.1 Health Concerns Section Related Observation LastModified by Organization Detai ls LastModified Time None Recorded Concern Status LastModified by Organization Details LastModified Time None Recorded Advance Directives Directive None Recorded Payers Encounter Date Sequence Insurance Name Policy Number Policy Mcgill Covered Member ID Mcgill Member ID Guarantor Name 07/27/2024 1 [facility] Marie Short [id number] Marie Kaycee Short Notes Date Note Type Note Provider Name and Address Organization Details Recorded Time 07/27/2024 text/html Pt is here for having symptoms of menopause. Symptoms include hot flashes and night sweats. She has a history of PCOS and endometriosis. She states that the last month she had 2 cycles, and before that she didn't have a cycle for two months. She reports that when she has her periods she has clotting. Capri Nelson MD [address] [facility] [address], [place], [address], [facility] 07/27/2024 13:51:22 OBGyn Episode No OBEpisode recorded.
--- OUTSIDE RECORDS SUMMARY | 2025-02-21 10:51 | XMS_ITS | Data Portability ---
Author Organization [facility] [place] [facility] ADMIN Address [address] [place] [address] Assessment No assessment recorded. Plan of Treatment Reminders Order Date Submit Date Provider Last Modified By Organization Details Last Modified Time Details Appointments FOLLOW UP 30 2024 12:00P M ANSHUL GONZALEZ NP Not available Not available Not available Lab gabapenti n, quantitat mickey, urine 2024 025 [facility] (Laboratory), [address] [place], [address], 01/24/2025 16:17:32 drug screen, urine 2024 025 [email or web address] [facility] (Laboratory), [address] [place], [address], 01/25/2025 07:37:52 vitamin D, 25-hydrox y, total, serum 2023 024 [email or web address] [facility] (Laboratory), [place], [address], 08/30/2024 14:17:03 CMP, serum or plasma 2023 024 [facility] (Laboratory), [address] [place], [address], 06/30/2024 14:19:24 CBC w/ auto diff 2023 024 [facility] (Laboratory), [address] [place], [address], 06/30/2024 13:20:55 TSH, serum or plasma 2023 024 [facility] (Laboratory), [address] [place], [address], 06/30/2024 14:18:22 lipid panel, serum 2023 024 [facility] (Laboratory), [address] [place], [address], 06/30/2024 14:19:27 vitamin B12 + folate, serum or blood [email or web address] (Laboratory), [address] [place], [address], 08/30/2024 14:17:48 gastroint estinal pathogens panel, PCR, stool [address] (Laboratory), [address] [place], [address], 06/28/2024 07:36:56 Referral physical therapist referral 2023 024 [place] [id number] [facility] [address] [place] [address], [address], 10/09/2024 11:48:08 physical therapist referral 2023 024 [place] [id number] [facility] [address] [place] [address], [address], 10/09/2024 11:48:07 physical therapist referral 2023 024 [place] [address] [facility] [address] [place] [address], [address], 10/09/2024 11:48:06 Procedures None recorded. Surgeries None recorded. Imaging DEXA [email or web address] [place] [address] Centralized Scheduling, [address] [place], [address], 09/25/2024 10:01:05 MAMMO, screening , digital, bilateral [address] Centralized Scheduling, [address] [place], [address], 07/14/2024 07:23:42 XR, toe(s), 2 or more view [address] Centralized Scheduling, [address] [place], [address], 04/19/2024 07:31:01 XR, foot, 2 view [address] Centralized Scheduling, [address] [place], [address], 04/26/2024 07:30:52 Medication Orders gabapenti n 300 mg capsule 2024 025 [facility], [address] [place] [address], [address], 01/18/2025 15:44:13 metoprolo l succinate ER 50 mg tablet,ex tended release 24 hr 2023 024 [facility], [address] [place], [address], 09/11/2024 12:27:44 gabapenti n 300 mg capsule 2023 024 [facility], [address] [place] [address], [address], 06/30/2024 11:52:33 sertralin e 100 mg tablet 2023 024 [facility], [address] [place], [address], 06/14/2024 09:50:12 Patient TargetsNo targets recorded. Patient InstructionsNo instructions recorded. Reason for Referral Physical Therapist Referral for Pain of bilateral hip joints Referring Physician: Anshul Gonzalez [facility], Encounter Date: 09/08/2024 Physical Therapist Referral for Low back pain Referring Physician: Anshul Gonzalez [facility], Encounter Date: 09/08/2024 Physical Therapist Referral for Thoracic back pain Referring Physician: Anshul Gonzalez [facility], Encounter Date: 09/08/2024 Results Created Date Observation Date Name Description Value Unit Range Abnormal Flag Note LastModifiedBy Organization Detail LastModifiedTime 03/28/20 24 03/28/2024 GABAP ENTIN , URINE note Unles s other schneider noted testi ng perfo rmed at: [facility] [address] [place] [address] [phone] Jan rossi MD CLIA: [id number] Not Available [facility] (Lab Registration) [address] [place], [address], 03/30/2024 11:19:36 03/28/20 24 03/30/2024 GABAP ENTIN , URINE gabapentin, urine 110.3 ug/mL Perfo rmed at: [facility] [address] [place], [place] [id number] Lab Direc tor: Janina moran [facility] , Phone : [phone] Not Available [facility] (Lab Registration) [address] [place], [address], 03/30/2024 11:19:36 03/28/20 24 03/28/2024 drug scree n, urine Amphetamines : negati ve Not Available [place] [address] [place], [address], 03/28/2024 11:05:20 03/28/20 24 03/28/2024 drug scree n, urine Cannabinoids : negati ve Not Available [place] [address] [place], [address], 03/28/2024 11:05:20 03/28/20 24 03/28/2024 drug scree n, urine Cocaine: negati ve Not Available [address] [place], [address], 03/28/2024 11:05:20 03/28/20 24 03/28/2024 drug scree n, urine Opiates: negati ve Not Available [address] [place], [address], 03/28/2024 11:05:20 03/28/20 24 03/28/2024 drug scree n, urine Phenocyclidi ne: negati ve Not Available [address] [place], [address], 03/28/2024 11:05:20 03/28/20 24 03/28/2024 drug scree n, urine Barbiturates : negati ve Not Available [address] [place], [address], 03/28/2024 11:05:20 03/28/20 24 03/28/2024 drug scree n, urine Benzodiazepi luan: negati ve Not Available [address] [place], [address], 03/28/2024 11:05:20 03/28/20 24 03/28/2024 drug scree n, urine Ethanol: negati ve Not Available [address] [place], [address], 03/28/2024 11:05:20 03/28/20 24 03/28/2024 drug scree n, urine Hallucinogen s: negati ve Not Available [address] [place], [address], 03/28/2024 11:05:20 03/28/20 24 03/28/2024 drug scree n, urine Inhalants: negati ve Not Available [address] [place], [address], 03/28/2024 11:05:20 03/28/20 24 03/28/2024 drug scree n, urine Anabolic Steroids: negati ve Not Available [address] [place], [address], 03/28/2024 11:05:20 03/28/20 24 03/28/2024 drug scree n, urine Other: negati ve Not Available [address] [place], [address], 03/28/2024 11:05:20 06/30/20 24 06/30/2024 CBC AUTO W DIFF WBC 10.1 10 4.5-11 .5 Not Available [facility] (Lab Registration) [address] [place], [address], 06/30/2024 13:20:55 06/30/20 24 06/30/2024 CBC AUTO W DIFF RBC 3.95 10 4.25-5 .57 low Not Available [facility] (Lab Registration) [address] [place], [address], 06/30/2024 13:20:55 06/30/20 24 06/30/2024 CBC AUTO W DIFF HGB 14.1 g/dL 12.0-1 5.7 Not Available [facility] (Lab Registration) [address] [place], [address], 06/30/2024 13:20:55 06/30/20 24 06/30/2024 CBC AUTO W DIFF HCT 42.0 % 36.0-4 7.0 Not Available [facility] (Lab Registration) [address] [place], [address], 06/30/2024 13:20:55 06/30/20 24 06/30/2024 CBC AUTO W DIFF MCV 106.3 fL 80-95 high Not Available [facility] (Lab Registration) [address] [place], [address], 06/30/2024 13:20:55 06/30/20 24 06/30/2024 CBC AUTO W DIFF MCH 35.7 pg 27.0-3 4.0 high Not Available [facility] (Lab Registration) [address] [place], [address], 06/30/2024 13:20:55 06/30/20 24 06/30/2024 CBC AUTO W DIFF MCHC 33.6 g/dL 32.0-3 6.0 Not Available [facility] (Lab Registration) [address] [place], [address], 06/30/2024 13:20:55 06/30/20 24 06/30/2024 CBC AUTO W DIFF platelet count 253 10 150-45 0 Not Available [facility] (Lab Registration) [address] [place], [address], 06/30/2024 13:20:55 06/30/20 24 06/30/2024 CBC AUTO W DIFF RDW 13.6 % 12.3-1 5.1 Not Available [facility] (Lab Registration) [address] [place], [address], 06/30/2024 13:20:55 06/30/20 24 06/30/2024 CBC AUTO W DIFF MPV 10.4 fL 7.4-10 .4 Not Available [facility] (Lab Registration) [address] [place], [address], 06/30/2024 13:20:55 06/30/20 24 06/30/2024 CBC AUTO W DIFF granulocyte% 68.7 % 40-75 Not Available [facility] (Lab Registration) [address] [place], [address], 06/30/2024 13:20:55 06/30/20 24 06/30/2024 CBC AUTO W DIFF lymphocyte% 21.4 % 15-57 Not Available [facility] (Lab Registration) [address] [place], [address], 06/30/2024 13:20:55 06/30/20 24 06/30/2024 CBC AUTO W DIFF monocyte% 7.7 % 4.0-12 .0 Not Available [facility] (Lab Registration) [address] [place], [address], 06/30/2024 13:20:55 06/30/20 24 06/30/2024 CBC AUTO W DIFF eosinophil% 1.1 % 0.0-4. 0 Not Available [facility] (Lab Registration) [address] [place], [address], 06/30/2024 13:20:55 06/30/20 24 06/30/2024 CBC AUTO W DIFF basophil% 0.5 % 0.0-1. 0 Not Available [facility] (Lab Registration) [address] [place], [address], 06/30/2024 13:20:55 06/30/20 24 06/30/2024 CBC AUTO W DIFF immature granulocytes % 0.6 % 0.0-0. 8 Not Available [facility] (Lab Registration) [address] [place], [address], 06/30/2024 13:20:55 06/30/20 24 06/30/2024 CBC AUTO W DIFF granulocyte# 6.95 10 Not Available [facility] (Lab Registration) [address] [place], [address], 06/30/2024 13:20:55 06/30/20 24 06/30/2024 CBC AUTO W DIFF lymphocyte# 2.17 10 Not Available [facility] (Lab Registration) [address] [place], [address], 06/30/2024 13:20:55 06/30/20 24 06/30/2024 CBC AUTO W DIFF monocyte# 0.78 10 Not Available [facility] (Lab Registration) [address] [place], [address], 06/30/2024 13:20:55 06/30/20 24 06/30/2024 CBC AUTO W DIFF eosinophil# 0.11 10 Not Available [facility] (Lab Registration) [address] [place], [address], 06/30/2024 13:20:55 06/30/20 24 06/30/2024 CBC AUTO W DIFF basophil# 0.05 10 Not Available [facility] (Lab Registration) [address] [place], [address], 06/30/2024 13:20:55 06/30/20 24 06/30/2024 CBC AUTO W DIFF immature granulocytes # 0.06 10 Not Available [facility] (Lab Registration) [address] [place], [address], 06/30/2024 13:20:55 06/30/20 24 06/30/2024 CBC AUTO W DIFF manual differential NO Not Available [facility] (Lab Registration) [address] [place], [address], 06/30/2024 13:20:55 06/30/20 24 06/30/2024 CBC AUTO W DIFF note Unles s other schneider noted testi ng perfo rmed at: [facility] [address] [place] [address] [phone] Jan rossi MD CLIA: [id number] Not Available [facility] (Lab Registration) [address] [place], [address], 06/30/2024 13:20:55 06/30/20 24 06/30/2024 THYRO ID STIMU LATIN G HORMO NE thyroid stimulating hormone 1.08 mIU/m L 0.34-4 .80 Not Available [facility] (Lab Registration) [address] [place], [address], 06/30/2024 14:18:22 06/30/20 24 06/30/2024 THYRO ID STIMU LATIN G HORMO NE note Moshe s other schneider noted testi ng perfo rmed at: [facility] [address] [place] [address] [phone] Jan rossi MD CLIA: [id number] Not Available [facility] (Lab Registration) [address], [place], [address], 06/30/2024 14:18:22 06/30/20 24 06/30/2024 VITAM IN D TOTAL (D2+D 3) vitamin D25 (D2+D3) 22.6 NG/mL 30-100 low Not Available [facility] (Lab Registration) [address] [place], [address], 06/30/2024 14:18:24 06/30/20 24 06/30/2024 VITAM IN D TOTAL (D2+D 3) note Moshe rossi other schneider noted testi ng perfo rmed at: [facility] [address] [place] [address] [phone] Jan rossi MD CLIA: [id number] Not Available [facility] (Lab Registration) [address] [place], [address], 06/30/2024 14:18:24 06/30/20 24 06/30/2024 VITAM IN B12 vitamin B12 222 pg/mL 193-98 6 Not Available [facility] (Lab Registration) [address] [place], [address], 06/30/2024 14:18:25 06/30/20 24 06/30/2024 VITAM IN B12 folate (folic acid), serum 11.7 NG/mL 8.6-58 .9 Not Available [facility] (Lab Registration) [address] [place], [address], 06/30/2024 14:18:25 06/30/20 24 06/30/2024 VITAM IN B12 note Unles s other schneider noted testi ng perfo rmed at: [facility] [address] [place] [address] [phone] Jan rossi MD CLIA: [id number] Not Available [facility] (Lab Registration) [address] [place], [address], 06/30/2024 14:18:25 06/30/20 24 06/30/2024 COMP METAB OLIC PANEL sodium 139 mmol/ L 136-14 5 Not Available [facility] (Lab Registration) [address] [place], [address], 06/30/2024 14:19:24 06/30/20 24 06/30/2024 COMP METAB OLIC PANEL potassium 4.2 mmol/ L 3.5-5. 1 Not Available [facility] (Lab Registration) [address] [place], [address], 06/30/2024 14:19:24 06/30/20 24 06/30/2024 COMP METAB OLIC PANEL chloride 102 mmol/ L 98-107 Not Available [facility] (Lab Registration) [address] [place], [address], 06/30/2024 14:19:24 06/30/20 24 06/30/2024 COMP METAB OLIC PANEL carbon dioxide 29 mmol/ L 21-32 Not Available [facility] (Lab Registration) [address] [place], [address], 06/30/2024 14:19:24 06/30/20 24 06/30/2024 COMP METAB OLIC PANEL anion gap 8.0 Not Available [facility] (Lab Registration) [address] [place], [address], 06/30/2024 14:19:24 06/30/20 24 06/30/2024 COMP METAB OLIC PANEL glucose 103 mg/dL 70-110 Not Available [facility] (Lab Registration) [address] [place], [address], 06/30/2024 14:19:24 06/30/20 24 06/30/2024 COMP METAB OLIC PANEL blood urea nitrogen 9 mg/dL 7-18 Not Available [facility] (Lab Registration) [address] [place], [address], 06/30/2024 14:19:24 06/30/20 24 06/30/2024 COMP METAB OLIC PANEL creatinine 0.7 mg/dL 0.6-1. 0 Not Available [facility] (Lab Registration) [address] [place], [address], 06/30/2024 14:19:24 06/30/20 24 06/30/2024 COMP METAB OLIC PANEL BUN/creatini ne ratio 12.9 ratio 9-21 Not Available [facility] (Lab Registration) [address] [place], [address], 06/30/2024 14:19:24 06/30/20 24 06/30/2024 COMP METAB OLIC PANEL estimated glom filtration rate 107 mL/mi n >60- Not Available [facility] (Lab Registration) [address] [place], [address], 06/30/2024 14:19:24 06/30/20 24 06/30/2024 COMP METAB OLIC PANEL total protein 7.2 g/dL 6.4-8. 2 Not Available [facility] (Lab Registration) [address] [place], [address], 06/30/2024 14:19:24 06/30/20 24 06/30/2024 COMP METAB OLIC PANEL albumin 3.3 g/dL 3.4-5. 0 low Not Available [facility] (Lab Registration) [address] [place], [address], 06/30/2024 14:19:24 06/30/20 24 06/30/2024 COMP METAB OLIC PANEL calcium 9.0 mg/dL 8.5-10 .1 Not Available [facility] (Lab Registration) [address] [place], [address], 06/30/2024 14:19:24 06/30/20 24 06/30/2024 COMP METAB OLIC PANEL corrected calcium 9.6 mg/dL 8.5-10 .1 Not Available [facility] (Lab Registration) [address] [place], [address], 06/30/2024 14:19:24 06/30/20 24 06/30/2024 COMP METAB OLIC PANEL bilirubin total 0.4 mg/dL 0.4-1. 5 Not Available [facility] (Lab Registration) [address] [place], [address], 06/30/2024 14:19:24 06/30/20 24 06/30/2024 COMP METAB OLIC PANEL AST (SGOT) 32 U/L 15-37 Not Available [facility] (Lab Registration) [address] [place], [address], 06/30/2024 14:19:24 06/30/20 24 06/30/2024 COMP METAB OLIC PANEL ALT (SGPT) 42 U/L 12-78 Not Available [facility] (Lab Registration) [address] [place], [address], 06/30/2024 14:19:24 06/30/20 24 06/30/2024 COMP METAB OLIC PANEL alk phosphatase 84 U/L 50-120 Not Available [facility] (Lab Registration) [address] [place], [address], 06/30/2024 14:19:24 06/30/20 24 06/30/2024 COMP METAB OLIC PANEL note Unles s other schneider noted testi ng perfo rmed at: [facility] [address] [place] [address] [phone] Jan rossi MD CLIA: [id number] Not Available [facility] (Lab Registration) [address] [place], [address], 06/30/2024 14:19:24 06/30/20 24 06/30/2024 LIPID PANEL triglyceride 223 mg/dL 20-200 high The Natio nal [employer] t[employer] am (NCEP ) has set the follo wing guide lines for Fasti ng Trigl yceri chavez: LEEANN L: <150 mg/dL BORDE RLINE HIGH: 150 - 199 mg/dL HIGH: 200 - 499 mg/dL VERY HIGH: > or =500 mg/dL Not Available [facility] (Lab Registration) [address] [place], [address], 06/30/2024 14:19:27 06/30/20 24 06/30/2024 LIPID PANEL cholesterol 178 mg/dL 0-200 The Natio nal [employer]ca t[employer]gr am (NCEP ) has set the follo wing guide lines for Fasti ng Khushboo stero l: CONRAD ABLE: <200 mg/dL BORDE RLINE HIGH: 200 - 239 mg/dL HIGH: > or =240 mg/dL Not Available [facility] (Lab Registration) [address] [place], [address], 06/30/2024 14:19:27 06/30/20 24 06/30/2024 LIPID PANEL HDL cholesterol 67 mg/dL 60- The Natio nal [employer] l [employer]ca t[employer]gr am (NCEP ) has set the follo wing guide lines for Fasti ng HDL Khushboo stero l: LOW HDL: <40 mg/dL LEEANN L: 40 - 60 mg/dL CONRAD ABLE: >60 mg/dL Not Available [facility] (Lab Registration) [address] [place], [address], 06/30/2024 14:19:27 06/30/20 24 06/30/2024 LIPID PANEL LDL calculated 66 mg/dL 100- low The Natio nal [employer]ca t[employer]gr am (NCEP ) has set the follo wing guide lines for Fasti ng LDL Khushboo stero l: OPTIM AL: < 100 mg/dL LOW RISK: 100 - 129 mg/dL BORDE RLINE HIGH: 130 - 159 mg/dL HIGH: 160 - 189 mg/dL VERY HIGH: > or = 190 mg/dL Not Available [facility] (Lab Registration) [address], [place], [address], 06/30/2024 14:19:27 06/30/20 24 06/30/2024 LIPID PANEL chol/HDL ratio 3 ratio -5 Not Available [facility] (Lab Registration) [address], [place], [address], 06/30/2024 14:19:27 06/30/20 24 06/30/2024 LIPID PANEL note Unles s other schneider noted testi ng perfo rmed at: [facility] [address] [place] [address] [phone] Jan rossi MD CLIA: [id number] Not Available [facility] (Lab Registration) [address], [place], [address], 06/30/2024 14:19:27 09/27/20 24 09/27/2024 GASTR OINTE LEILA L PANEL BY PCR specimen consistency NON-FO RMED STL Not Available [facility] (Lab Registration) [address], [place], [address], 09/27/2024 11:51:59 09/27/20 24 09/27/2024 GASTR OINTE LEILA L PANEL BY PCR campylobacte r NOT DETECT ED not detect ed Not Available [facility] (Lab Registration) [address], [place], [address], 09/27/2024 11:51:59 09/27/20 24 09/27/2024 GASTR OINTE LEILA L PANEL BY PCR clostridium diff. toxin A/B NOT DETECT ED not detect ed Not Available [facility] (Lab Registration) [address], [place], [address], 09/27/2024 11:51:59 09/27/20 24 09/27/2024 GASTR OINTE LEILA L PANEL BY PCR plesiomonas shigelloides NOT DETECT ED not detect ed Not Available [facility] (Lab Registration) [address], [place], [address], 09/27/2024 11:51:59 09/27/20 24 09/27/2024 GASTR OINTE LEILA L PANEL BY PCR salmonella NOT DETECT ED not detect ed Not Available [facility] (Lab Registration) [address], [place], [address], 09/27/2024 11:51:59 09/27/20 24 09/27/2024 GASTR OINTE LEILA L PANEL BY PCR vibrio NOT DETECT ED not detect ed Not Available [facility] (Lab Registration) [address], [place], [address], 09/27/2024 11:51:59 09/27/20 24 09/27/2024 GASTR OINTE LEILA L PANEL BY PCR vibrio cholerae NOT DETECT ED not detect ed Not Available [facility] (Lab Registration) [address], [place], [address], 09/27/2024 11:51:59 09/27/20 24 09/27/2024 GASTR OINTE LEILA L PANEL BY PCR yersinia enterocoliti ca NOT DETECT ED not detect ed Not Available [facility] (Lab Registration) [address], [place], [address], 09/27/2024 11:51:59 09/27/20 24 09/27/2024 GASTR OINTE LEILA L PANEL BY PCR enteroaggreg ative E. coli NOT DETECT ED not detect ed Not Available [facility] (Lab Registration) [address] [place], [address], 09/27/2024 11:51:59 09/27/20 24 09/27/2024 GASTR OINTE LEILA L PANEL BY PCR enteropathog enic E. coli NOT DETECT ED not detect ed Not Available [facility] (Lab Registration) [address], [place], [address], 09/27/2024 11:51:59 09/27/20 24 09/27/2024 GASTR OINTE LEILA L PANEL BY PCR enterotoxige terence E. coli NOT DETECT ED not detect ed Not Available [facility] (Lab Registration) [address], [place], [address], 09/27/2024 11:51:59 09/27/20 24 09/27/2024 GASTR OINTE LEILA L PANEL BY PCR shiga-like toxin-produc E coli NOT DETECT ED not detect ed Not Available [facility] (Lab Registration) [address], [place], [address], 09/27/2024 11:51:59 09/27/20 24 09/27/2024 GASTR OINTE LEILA L PANEL BY PCR E. coli 0157 NOT APPLIC ABLE not detect ed Not Available [facility] (Lab Registration) [address], [place], [address], 09/27/2024 11:51:59 09/27/20 24 09/27/2024 GASTR OINTE LEILA L PANEL BY PCR shigella/ent eroinvasive E coli NOT DETECT ED not detect ed Not Available [facility] (Lab Registration) [address], [place], [address], 09/27/2024 11:51:59 09/27/20 24 09/27/2024 GASTR OINTE LEILA L PANEL BY PCR cryptosporid ium NOT DETECT ED not detect ed Not Available [facility] (Lab Registration) [address], [place], [address], 09/27/2024 11:51:59 09/27/20 24 09/27/2024 GASTR OINTE LEILA L PANEL BY PCR cyclospora cayetanensis NOT DETECT ED not detect ed Not Available [facility] (Lab Registration) [address], [place], [address], 09/27/2024 11:51:59 09/27/20 24 09/27/2024 GASTR OINTE LEILA L PANEL BY PCR entamoeba histolytica NOT DETECT ED not detect ed Not Available [facility] (Lab Registration) [address], [place], [address], 09/27/2024 11:51:59 09/27/20 24 09/27/2024 GASTR OINTE LEILA L PANEL BY PCR giardia lamblia NOT DETECT ED not detect ed Not Available [facility] (Lab Registration) [address], [place], [address], 09/27/2024 11:51:59 09/27/20 24 09/27/2024 GASTR OINTE LEILA L PANEL BY PCR adenovirus F 40/41 NOT DETECT ED not detect ed Not Available [facility] (Lab Registration) [address], [place], [address], 09/27/2024 11:51:59 09/27/20 24 09/27/2024 GASTR OINTE LEILA L PANEL BY PCR astrovirus NOT DETECT ED not detect ed Not Available [facility] [facility] (Lab Registration) [address], [place], [address], 09/27/2024 11:51:59 09/27/20 24 09/27/2024 GASTR OINTE LEILA L PANEL BY PCR norovirus GI/gii DETECT ED not detect ed delta If a posit mickey Norov irus resul t is incon siste nt with clini so prese ntati on, the posit mickey Norov irus resul t shoul d be confi rmed using anoth er metho d. It has been deter mined the overa ll risk of false posit mickey Norov irus repor shanice by the BIOFI RE GI Panel may be misty us for patie nts at great est risk. False posit mickey resul ts are typic ally assoc iated with unnec essar y treat ment and reduc ed likel ihood of ident ifyin g the true cause of the patie nt's disea se. Not Available [facility] (Lab Registration) [address], [place], [address], 09/27/2024 11:51:59 09/27/20 24 09/27/2024 GASTR OINTE LEILA L PANEL BY PCR rotavirus A NOT DETECT ED not detect ed Not Available [facility] (Lab Registration) [address] [place], [address], 09/27/2024 11:51:59 09/27/20 24 09/27/2024 GASTR OINTE LEILA L PANEL BY PCR sapovirus NOT DETECT ED not detect ed Not Available [facility] (Lab Registration) [address] [place], [address], 09/27/2024 11:51:59 09/27/20 24 09/27/2024 GASTR OINTE LEILA L PANEL BY PCR note Unles s other schneider noted testi ng perfo rmed at: [facility] [address] [place] [address] [phone] Jan rossi MD CLIA: [id number] Not Available [facility] (Lab Registration) [address] [place], [address], 09/27/2024 11:51:59 01/19/20 25 01/18/2025 URINE DRUG SCREE N - EXL MAX amphetamine/ metamphetami ne NEGATI VE negati ve Not Available [facility] (Lab Registration) [address] [place], [address], 01/18/2025 16:08:46 01/19/20 25 01/18/2025 URINE DRUG SCREE N - EXL MAX barbiturates NEGATI VE negati ve Not Available [facility] (Lab Registration) [address] [place], [address], 01/18/2025 16:08:46 01/19/20 25 01/18/2025 URINE DRUG SCREE N - EXL MAX benzodiazeph alexandra NEGATI VE negati ve Not Available [facility] (Lab Registration) [address] [place], [address], 01/18/2025 16:08:46 01/19/20 25 01/18/2025 URINE DRUG SCREE N - EXL MAX buprenophine NEGATI VE negati ve Not Available [facility] (Lab Registration) [address] [place], [address], 01/18/2025 16:08:46 01/19/20 25 01/18/2025 URINE DRUG SCREE N - EXL MAX cocaine metabolite NEGATI VE negati ve Not Available [facility] (Lab Registration) [address] [place], [address], 01/18/2025 16:08:46 01/19/20 25 01/18/2025 URINE DRUG SCREE N - EXL MAX methadone NEGATI VE negati ve Not Available [facility] (Lab Registration) [address] [place], [address], 01/18/2025 16:08:46 01/19/20 25 01/18/2025 URINE DRUG SCREE N - EXL MAX opiates NEGATI VE negati ve Not Available [facility] (Lab Registration) [address] [place], [address], 01/18/2025 16:08:46 01/19/20 25 01/18/2025 URINE DRUG SCREE N - EXL MAX oxycodone NEGATI VE negati ve Not Available [facility] (Lab Registration) [address] [place], [address], 01/18/2025 16:08:46 01/19/20 25 01/18/2025 URINE DRUG SCREE N - EXL MAX cannabinoids NEGATI VE negati ve Not Available [facility] (Lab Registration) [address] [place], [address], 01/18/2025 16:08:46 01/19/20 25 01/18/2025 URINE DRUG SCREE N - EXL MAX pcp NEGATI VE negati ve Not Available [facility] (Lab Registration) [address] [place], [address], 01/18/2025 16:08:46 01/19/20 25 01/18/2025 URINE DRUG SCREE N - EXL MAX fentanyl, urine NEGATI VE negati ve Not Available [facility] (Lab Registration) [address], [address], 01/18/2025 16:08:46 01/19/20 25 01/18/2025 URINE DRUG SCREE N - EXL MAX tricyclic antidepressa nts NEGATI VE negati ve Not Available [facility] (Lab Registration) [address] [place], [address], 01/18/2025 16:08:46 01/19/20 25 01/18/2025 URINE DRUG SCREE N - EXL MAX internal control PASS PASS Not Available [facility] (Lab Registration) [address] [place], [address], 01/18/2025 16:08:46 01/19/20 25 01/18/2025 URINE DRUG SCREE N - EXL MAX note Unles s other schneider noted testi ng perfo rmed at: [facility] [address] [place] [address] [phone] Jan rossi MD CLIA: [id number] Not Available [facility] (Lab Registration) [address] [place], [address], 01/18/2025 16:08:46 01/19/20 25 01/18/2025 GABAP ENTIN , URINE note Unles s other schneider noted testi ng perfo rmed at: [facility] [place] [address] [phone] Jan rossi MD CLIA: [id number] Not Available [facility] (Lab Registration) [address] [place], [address], 01/24/2025 16:17:32 01/19/20 25 01/24/2025 GABAP ENTIN , URINE gabapentin, urine >800.0 ug/mL Perfo rmed at: [facility] [address] [address] Lab Direc tor: Janina Domo moran [facility] , Phone : [phone] Not Available [facility] (Lab Registration) [address] [place], [address], 01/24/2025 16:17:32 04/13/20 24 04/13/2024 XR, foot, 3 or more view [facility] 9 [facility] [place] [address] Phone: Fax: Name: KAYLEE KIRK Exam Date: : [birth year] Age 49 years Gender : F Access ion: [id number] Physic pito: AMBURG EY, TAFFAN Y Facili ty: [facility] Facili ty HSV: Outpat ient Exam: FOOT LT 3V LEFT FOOT HISTOR Y: Foot pain FINDIN GS: Three views show no eviden ce of an acute, displa luis carlos fractu re or disloc ation of the visual ized bony lulú ecture . There are degene rative change s which are greate st near the ankle. IMPRES LEO: No acute bony abnorm ality Films review ed , interp reted and dictat ed by Dr.Pop shaw Transc ribed by Severo Richmond PA-C. Dictat ed By: IRWIN LORENZ Transc ribed By: IRWIN LORENZ Transc ribed On: 1:21 PM Electr onical ly signed by: IRWIN LORENZ Thank you for referr ing KAYLEE KIRK A to [facility]. Legall y authen ticate d by POPE IRWIN Benoit DO 04-13 13:21: 28 CC'ed Logic: Orderi ng Provid er: AMBURG EY TAFFAN Y CC Provid er: IRMA ERICKSON Attend ing Provid er: AMBURG EY TAFFAN Y Referr ing Provid er: AMBURG EY TAFFAN Y Admitt ing Provid er: AMBURG EY TAFFAN Y [email or web address] [facility] (Radiology) [address] [place], [address], 04/13/2024 16:50:01 04/13/20 24 04/13/2024 toe(s ) [facility] [place] [address] Phone: Fax: Name: ANNIEKATICHRISTOS Wray Exam Date: : [birth year] Age 49 years Gender : F Access ion: [id number] Physic pito: AMBURG EY, TAFFAN Y Facili ty: [facility] Facili ty HSV: Outpat ient Exam: TOE(S) 3 VIEWS LT LEFT TOES HISTOR Y:Toe pain FINDIN GS: 2 views show no eviden ce of an acute, displa luis carlos fractu re or disloc ation of the visual ized bony lulú ecture . The joint spaces appear normal . IMPRES LEO: No acute bony abnorm ality Films review ed , interp reted and dictat ed by Dr.Pop shaw Transc ribed by Severo Richmond PA-C. Dictat ed By: IRWIN LORENZ Transc ribed By: IRWIN LORENZ Transc ribed On: 1:21 PM Electr onical ly signed by: IRWIN LORENZ Thank you for referr ing [facility] Legall y authen ticate d by POPE IRWIN Benoit DO 04-13 13:21: 49 CC'ed Logic: Orderi ng Provid er: AMBURG EY TAFFAN Y CC Provid er: IRMA DRE Attend ing Provid er: AMBURG EY TAFFAN Y Referr ing Provid er: AMBURG EY TAFFAN Y Admitt ing Provid er: AMBURG EY TAFFAN Y [email or web address] [facility] (Radiology) [address] [place], [address], 04/13/2024 16:50:01 09/14/20 24 09/14/2024 [facility] 9 [place] [address] Phone: Fax: Name: KAYLEE KIRK Exam Date: 2023 : [birth year] Age 49 years Gender : F Access ion: [id number] Physic pito: AMBURG EY, TAFFAN Y Facili ty: [facility] Facili ty HSV: Outpat ient Exam: DE DEXA AXIAL EXAMIN ATION: DUAL X-RAY ABSORP TIOMET RY (DXA) FOR BONE MINERA L DENSIT Y. CLINIC AL INDICA TION: 49 years old, Female . Unknow n menopa use status . Z13.82 0. TECHNI QUE: An axial (e.g., hips, spine) and/or append icular (e.g., radius ) exam was perfor med, as approp riate, using [employer] y densit ometer . Images are obtain ed for bone minera l densit y measur ement and are not obtain ed for diagno stic purpos es. [id number] 1 COMPAR JAKE: None. FINDIN GS: Scan qualit y: Good. LUMBAR SPINE (L1-L4 ): BMD (in g/cm*2 ): 1.712. Z-scor e: 4.1. LEFT FEMORA L NECK: BMD (in g/cm*2 ): 0.969. Z-scor e: -0.2. LEFT TOTAL HIP: BMD (in g/cm*2 ): 0.951. Z-scor e: -0.4. RIGHT FEMORA L NECK: BMD (in g/cm*2 ): 0.899. Z-scor e: -0.7. RIGHT TOTAL HIP: BMD (in g/cm*2 ): 0.927. Z-scor e: -0.6. FRAX 10-YEA R PROBAB ILITY OF FRACTU RE: 10-yea r fractu re risk is perfor med using the [facility] elmarcy FRAX calcul ator based on patien t-repo rted risk factor s. Major osteop orotic fractu re: 3.0%. Hip fractu re: 0.3%. IMPRES LEO: Bone minera l densit y is within expect ed range for age. RECOMM ENDATI ONS: 1. All patien ts should optimi ze their calciu m and vitami n D intake . 2. Patien ts with diagno sis of osteop orosis or at high risk for fractu re should have regula r bone minera l densit y tests. For patien ts eligib le for Medica re, routin e testin g is allowe d once every 2 years. The testin g freque ncy can be increa sed to one year for patien ts who have rapidl y progre ssing diseas e, those who are receiv ing or discon tinuin g medica l therap y to restor e bone mass or have additi onal risk factor s. Electr onical ly signed by: Otoniel Sadler DO 2023 03:54 PM EST RP Workst ation: [id number] Legall y authen ticate d by GILL HUSSEIN DO 2023-10 14:11: 37 Dictat ed By: Otoniel Sadler Transc ribed By: Transc ribed On: 2023 2:11 PM Electr onical ly signed by: Otoniel Sadler 2023 Thank you for referr KAYLEE Mishra to [facility] Legall y authen ticate d by GILL HUSSEIN DO 2023-10 14:11: 37 CC'ed Logic: Orderi ng Provid er: AMBURG EY TAFFAN Y CC Provid er: AM[facility] EY TAFFAN Y Attend ing Provid er: AMBURG EY TAFFAN Y Referr ing Provid er: AMBURG EY TAFFAN Y Admitt ing Provid er: AMBURG EY TAFFAN Y [email or web address] [facility] (Radiology) [address] [place], [address], 09/15/2024 15:22:35 01/27/20 25 01/25/2025 XR, lumba r spine No observ ation record ed. [facility] [address], [place], [address], 01/28/2025 13:21:32 Result Notes None recorded. Problems Name Problem SNOMED Code Status Onset Date Resolution Date Notes Provider Name and Address Organization Details Recorded Time Essential hypertensi on 54981967 Active 2022 Not Available [facility] 15:39:14 Diarrhea of presumed infectious origin 40645178 Active 2022 Ajith Vigil null, [place] - [facility] - [place] & [place] 4 11:04:16 Chronic pain 81797971 Active 2022 Ajith Vigil null, [place] - [facility] - [place] & [place] 4 11:04:13 Irritable bowel syndrome 36422565 Active 2022 Ajith Vigil null, [place] - [facility] - [place] & [place] 4 11:04:21 Mixed anxiety and depressive disorder 965743787 Active 2022 Ajith Vigil [place], [place] - [facility] - [place] & [place] 4 11:04:23 Osteoarthr itis of multiple joints 061279684 Active 2022 Ajith Vigil [place], [place] - [facility] - [place] & [place] 4 11:04:25 Hyperglyce belkis 47969772 Active 2023 Ajith Vigil null, [place] - [facility] - [place] & [place] 4 11:04:18 Vitamin D deficiency 74247344 Active 2023 Ajith Vigil null, [place] - [facility] - [place] & [place] 4 11:04:29 Taking high risk medication 4855409414494 07 Active 2023 Ajith Vigil null, [place] - [facility] & [place] 11:04:27 Problem Notes None recorded. Procedures Surgical History Date Name Laterality Status Provider Name and Address Organization Details Recorded Time 08/28/20 24 Most Recent Bone Density completed Di Leónsimon [place] - [facility] & [place] 01/18/2025 15:20:51 07/21/20 23 Colonoscopy completed Estephania Mark [place] - [facility] & [place] 07/23/2023 16:12:35 07/17/20 23 Date of Last Colonoscopy completed Aspen Urbina [place] - [facility] & [place] 09/28/2023 06:54:12 12/24/19 20 arthroplasty of left ankle completed Mayra Thomason [place] - [facility] & [place] 05/31/2024 14:24:23 excision of cyst completed Mayra Calix [place] - [facility] & [place] 05/31/2024 14:22:36 Imaging Results Imaging Date Name Status LastModified by Organiz ation Details LastModified Time 04/13/2024 XR, foot, 3 or more view completed [email or web address] (Radiology) [address] [place], [address], 04/13/2024 16:50:01 04/13/2024 toe(s) 3 views lt completed [email or web address] (Radiology) [address] [place], [address], 04/13/2024 16:50:01 09/14/2024 DEXA, axial skeleton completed [email or web address] (Radiology) [place], [address], 09/15/2024 15:22:35 01/25/2025 XR, lumbar spine completed [facility] [address], [place], [address], 01/28/2025 13:21:32 Procedure Notes None recorded. Medical Equipment None Reported. Allergies Allergen ID Allergen Name Allergen Category Reaction Reaction Severity Criticality Documentation Date Start Date Code Code System Note Provider Name and Address Organization Details Recorded Time 38880 Substance with sulfonami de structure and antibacte rial mechanism of action (substanc e) medicatio n hives moderate Not available 01/25/2023 69343 8003 SNOMED Ajith monet [place] [facility] & [place] 3 12:13:51 86125 penicilli n G Not available Not available Not available Not available 07/29/2023 7980 RxNorm Aspen monet [place] [facility] & [place] 3 08:40:54 Medications Name Sig Start Date Stop Date Status Note LastModified by Organization Details LastModified Time Prescriptio n - Renewal active Not Available Not Available Not Available amantadine HCl 100 mg tablet 06/14 completed Not Available Not Available Not Available cyclobenzap rine 10 mg tablet 09/30 completed Not Available Not Available Not Available metformin 500 mg tablet 03/28 completed Not Available Not Available Not Available atorvastati n 20 mg tablet TAKE 1 TABLET BY MOUTH ONCE DAILY active Not Available Not Available No t Available atorvastati n 10 mg tablet 03/28 completed Not Available Not Available Not Available ibuprofen 800 mg tablet 06/14 completed Not Available Not Available Not Available tizanidine 4 mg tablet TAKE 1 TABLET BY MOUTH TWICE DAILY FOR SPASMS active Not Available Not Available No t Available metoprolol succinate ER 50 mg tablet,exte nded release 24 hr Take 1 tablet every day by oral route for 90 days. 2023 active Not Available Not Available Not Avai lable meloxicam 15 mg tablet TAKE 1 TABLET BY MOUTH ONCE DAILY FOR PAIN active Not Available Not Available No t Available prednisone 20 mg tablet TAKE 3 TABLETS BY MOUTH ONCE DAILY FOR 7 DAYS, THEN TAKE 2 TABLETS ONCE DAILY FOR 7 DAYS, THEN TAKE 1 TABLET ONCE DAILY FOR 7 DAYS 01/18 completed Not Available Not Available Not Available spironolact one 100 mg tablet TAKE 1 TABLET BY MOUTH ONCE DAILY 06/30 completed Not Available Not Available Not Available sertraline 100 mg tablet TAKE 1 TABLET BY MOUTH ONCE DAILY FOR 90 DAYS active Not Available Not Available No t Available Kenalog 40 mg/mL suspension for injection Take 40 mg by injection route. 11/17 completed Not Available Not Available Not Available cyclopentol ate 1 % eye drops 04/04 completed Not Available Not Available Not Available meloxicam 7.5 mg tablet 03/28 completed Not Available Not Available Not Available prednisolon e acetate 1 % eye drops,suspe nsion INSTILL ONE DROP INTO BOTH EYES FOUR TIMES A DAY FOR 7 DAYS, THEN TAPER TO ONE DROP TWICE A DAY FOR 7 DAYS 09/30 completed Not Available Not Available Not Available diazepam 2 mg tablet 03/28 completed Not Available Not Available Not Available Gentle Laxative (bisacodyl) 5 mg tablet,ricarda yed release TAKE 2 TABLETS BY MOUTH DIRECTED FOR 1 DAY FOR BOWEL PREP 08/25 completed Not Available Not Available Not Available nicotine 21 mg/24 hr daily transdermal patch APPLY 1 PATCH TOPICALLY DIRECTED ONCE DAILY 06/30 completed Not Available Not Available Not Available gabapentin 300 mg capsule TAKE 1 CAPSULE BY MOUTH THREE TIMES DAILY active Not Available Not Available No t Available hydroxyzine HCl 25 mg tablet 03/28 completed Not Available Not Available Not Available dexamethaso ne sodium phosphate 4 mg/mL injection solution Inject 1 mL twice a day by intramusc ular route. 11/17 completed Not Available Not Available Not Available polyethylen e glycol 3350 17 gram/dose oral powder MIX 10 CAPFULS IN 32 OUNCES OF GATORADE AND DRINK AT 4PM THE DAY BEFORE PROCEDURE , THEN REPEAT AT 4AM ON THE MORNING OF THE PROCEDURE 09/30 completed Not Available Not Available Not Available methylpredn isolone 4 mg tablets in a dose pack Take 1 dose pk every day by oral route for 6 days. 01/25 completed Not Available Not Available Not Available cefdinir 300 mg capsule Take 1 capsule every 12 hours by oral route for 10 days. 01/25 completed Not Available Not Available Not Available sertraline 50 mg tablet TAKE 1 TABLET BY MOUTH ONCE DAILY 06/30 completed Not Available Not Available Not Available dicyclomine 10 mg capsule TAKE 1 CAPSULE BY MOUTH THREE TIMES DAILY 09/30 completed Not Available Not Available Not Available diazepam 5 mg tablet TAKE ONE TABLET BY MOUTH 30 MINUTES PRIOR TO MRI REPEAT NEEDED 01/25 completed Not Available Not Available Not Available Durezol 0.05 % eye drops INSTILL 1 DROP INTO LEFT EYE 4 TIMES DAILY FOR 7 DAYS THEN 1 THREE TIMES DAILY FOR 7 DAYS THEN 1 TWICE DAILY FOR 7 DAYS THEN 1 ONCE DAILY FOR 7 DAYS THEN STOP 09/30 completed Not Available Not Available Not Available Vitals Date Recorded Body height Body mass index (BMI) Body weight Body temperature Oxygen saturation Oxygen saturation in Arterial blood by Pulse oximetry Heart rate Respiratory rate Systolic blood pressure Diastolic blood pressure Provider Name and Address Organization Details Last Updated DateTime 4 149.86 cm 36 kg/m2 21647.4 4 g 97.9 [degF] 98 % 98 % 89 /min 18 /min 133 mm[Hg] 87 mm[Hg] Yossi Herrera greg CALDERON [facility] & [place] 4 15:19:45 Date Recorded Body height Body mass index (BMI) Body weight Body temperature Oxygen saturation Oxygen saturation in Arterial blood by Pulse oximetry Heart rate Respiratory rate Systolic blood pressure Diastolic blood pressure Provider Name and Address Organization Details Last Updated DateTime 4 149.86 cm 35.5 kg/m2 32979.2 6 g 97.2 [degF] 97 % 97 % 89 /min 18 /min 148 mm[Hg] 102 mm[Hg] Ajith CALDERON [facility] 4 09:45:51 Date Recorded Body height Body mass index (BMI) Body weight Body temperature Oxygen saturation Oxygen saturation in Arterial blood by Pulse oximetry Heart rate Respiratory rate Systolic blood pressure Diastolic blood pressure Provider Name and Address Organization Details Last Updated DateTime 4 149.86 cm 34.9 kg/m2 51918.4 8 g 98.1 [degF] 97 % 97 % 74 /min 18 /min 128 mm[Hg] 84 mm[Hg] Ajith CALDERON [facility] & [place] 4 11:37:57 Date Recorded Body height Body mass index (BMI) Body weight Body temperature Oxygen saturation Oxygen saturation in Arterial blood by Pulse oximetry Heart rate Respiratory rate Systolic blood pressure Diastolic blood pressure Provider Name and Address Organization Details Last Updated DateTime 4 149.86 cm 36.4 kg/m2 00118.6 3 g 98.1 [degF] 98 % 98 % 91 /min 18 /min 127 mm[Hg] 87 mm[Hg] Ajith Vigil [facility] & [place] 4 15:34:54 Date Recorded Body height Body mass index (BMI) Body weight Body temperature Oxygen saturation Oxygen saturation in Arterial blood by Pulse oximetry Heart rate Respiratory rate Systolic blood pressure Diastolic blood pressure Provider Name and Address Organization Details Last Updated DateTime 5 149.86 cm 38.1 kg/m2 72659.5 2 g 98.4 [degF] 98 % 98 % 101 /min 16 /min 141 mm[Hg] 88 mm[Hg] Di Hoyos [facility] & [place] 5 15:20:27 Social History Question Answer Notes LastModified by Organizat ion Details LastModified Time Tobacco Smoking Status Current Every Day Smoker Aspen monet, [facility] & [place] 07/29/2023 08:30:16 Do You Have An Advance Directive? No [email or web address] Information not available 07/29/2023 What Is Your Level Of Alcohol Consumption? Moderate [email or web address] Information not available 07/29/2023 If You Are , What Was Your Level Of Alcohol Consumption Prior To ? Occasional [email or web address] Information not available 03/28/2024 Do You Wear A Helmet When Biking? Yes [email or web address] Information not available 03/28/2024 Are You Blind Or Do You Have Difficulty Seeing? No [email or web address] Information not available 07/29/2023 What Is Your Level Of Caffeine Consumption? None [email or web address] Information not available 03/28/2024 In The 14 Days Before Symptom Onset, Have You Had Close Contact With A Laboratory-confir med COVID-19 While That Case Was Ill? No [email or web address] Information not available 03/28/2024 In The 14 Days Before Symptom Onset, Have You Had Close Contact With A Person Who Is Under Investigation For COVID-19 While That Person Was Ill? No [email or web address] Information not available 03/28/2024 Have You Been To An Area Known To Be High Risk For COVID-19? No [email or web address] Information not available 03/28/2024 Are You Currently Employed? No Information not available 03/28/2024 Are You Deaf Or Do You Have Serious Difficulty Hearing? No [email or web address] Information not available 03/28/2024 What Type Of Diet Are You Following? REGULAR [email or web address] Information not available 04/12/2024 Have You Processed Blood Or Body Fluids From An Ebola Virus Disease Patient Without Appropriate PPE? No [email or web address] Information not available 03/28/2024 Do You Reside In Or Have You Traveled To An Area Where Ebola Virus Transmission Is Active? No [email or web address] Information not available 03/28/2024 Have There Been Any Changes To Your Family Or Social Situation? No [email or web address] Information no t available 09/08/2024 What Is The Fluoride Status Of Your Home? Unknown [email or web address] Information not available 03/28/2024 Are There Any Guns Present In Your Home? No [email or web address] Information not available 03/28/2024 Have You Recently Or Are You Planning To Travel To An Area With Zika Virus? No [email or web address] Information not available 03/28/2024 Do You Use Insect Repellent Routinely? Yes [email or web address] Information not available 03/28/2024 Do You Feel Safe At Home? Yes [email or web address] Information not available 03/28/2024 Do You Have A Medical Power Of Sliver Lapper? No [email or web address] Information not available 03/28/2024 What Was The Date Of Your Most Recent Tobacco Screening? 11/23/2024 [email or web address] Information not available 01/18/2025 Do You Have Any Pets? No Information not available 03/28/2024 Do You Use Your Seat Belt Or Car Seat Routinely? Yes Information not available 03/28/2024 Do You Have Smoke And Carbon Monoxide Detectors In Your Home? Yes [email or web address] Information not available 03/28/2024 Are You Passively Exposed To Smoke? No [email or web address] Information no t available 07/29/2023 Do You Or Have You Ever Used Smokeless Tobacco? Never Used Smokeless Tobacco [email or web address] Information not available 09/28/2023 How Much Tobacco Do You Smoke? 1 PPD [email or web address] Information not available 07/29/2023 Do You Feel Stressed (tense, Restless, Nervous, Or Anxious, Or Unable To Sleep At Night)? [id number] [email or web address] Information not available 07/29/2023 Do You Use Any Illicit Or Recreational Drugs? No [email or web address] Information not available 07/29/2023 Do You Use Sunscreen Routinely? Yes [email or web address] Information not available 03/28/2024 Has Tobacco Cessation Counseling Been Provided? No [email or web address] Information not available 03/28/2024 How Many Years Have You Smoked Tobacco? 29 Information not available 05/31/2024 Are You Currently In School? No [email or web address] Information not available 03/28/2024 Do You Or Have You Ever Used Any Other Forms Of Tobacco Or Nicotine? No [email or web address] Information not available 03/28/2024 Sex: Female Functional Status Question Answer Note LastModified by Organizat ion Details LastModified Time Do you have difficulty walking or climbing stairs? No Information not available 03/28/2024 Do you have transportation difficulties? No [email or web address] Information not available 03/28/2024 Are you able to walk? YESWOREST Information not available 03/28/2024 Do you have difficulty doing errands alone? No [email or web address] Information not available 03/28/2024 Are you able to care for yourself? Yes [email or web address] Information n ot available 03/28/2024 Do you have difficulty dressing or bathing? No [email or web address] Information not available 03/28/2024 What is your exercise level? Occasional Information not available 05/31/2024 Mental Status Question Answer Note LastModified by Organization D etails LastModified Time Do you have difficulty concentrating, remembering or making decisions? No [email or web address] Information no t available 03/28/2024 Family History Relationship Description Onset Age of this Age Resolved Age Notes LastModified by Organization Details LastModified Time Father Disorder of endocrine system pt. added direct ly (11/16) CHART_MERGE Not available 04/23/2023 15:39:14 Father Myocardial infarction pt. added direct ly (11/16) CHART_MERGE Not available 04/23/2023 15:39:14 Father Heart disease pt. added direct ly (11/16) CHART_MERGE Not available 04/23/2023 15:39:14 Father Hypertensive disorder pt. added direct ly (11/16) CHART_MERGE Not available 04/23/2023 15:39:14 Father Sleep disorder pt. added direct ly (11/16) CHART_MERGE Not available 04/23/2023 15:39:14 Father Cerebrovascu lar accident [email or web address] Not available 04/2024 14:30:35 Father Hyperlipidem ia [email or web address] Not available 01/18 15:02:19 Father Diabetes mellitus [email or web address] Not available 01/18 15:02:19 Mother Osteoporosis pt. added direct ly (11/16) CHART_MERGE Not available 04/23/2023 15:39:14 Mother Sleep disorder pt. added direct ly (11/16) CHART_MERGE Not available 04/23/2023 15:39:14 Mother Adenomatous polyp of colon [email or web address] Not available 01/18 15:02:19 Mother Asthma [email or web address] Not available 01/18/2025 15:02:19 Sister Malignant tumor of colon [email or web address] Not available 01/18 15:02:19 Maternal Grandmother Myocardial infarction [email or web address] Not available 05/31 14:25:53 Maternal Grandmother Heart disease [email or web address] Not available 2023 14:29:26 Paternal Grandmother Hypertensive disorder [email or web address] Not available 2023 14:29:35 Medical History Condition Response Anxiety Disorder Y Other Y Obesity Y Vision or Eye Problems Y Arthritis Y Back Problems Y Depression Y GI Problems Y Acne Y Osteoporosis/Osteopenia Y Endometriosis Y High Cholesterol Y Spine Problems Y Psychiatric/Mental Health Condition Y Hypertension Y Gynecological History Statement/Question Response Abnormal Pap N Flow Heavy Date of Last Colonoscopy 07/17/2023 Most Recent Bone Density 08/28/2024 Date of LMP 10/11/2024 Sexually Active? N Menses Monthly Y Duration of Flow (days) 6 Current Control Method None Age at Menarche 14 Obstetrics History GPAL:G 0 P 0 0 0 0 Immunizations Vaccine Type Date Status Note Provider Nam e and Address Organization Details Recorded Time COVID-19, mRNA, LNP-S, PF, 30 mcg/0.3 mL dose 07/02/2021 siva monet [place] - [facility] - [place] 07/29/2023 08:29:46 COVID-19, mRNA, LNP-S, PF, 30 mcg/0.3 mL dose 07/23/2021 completed [facility] - [facility] - [place] 07/29/2023 08:29:46 Past Encounters Encounter ID Performer Location Encounter Start Date Encounter Closed Date Diagnosis/Indication Diagnosis SNOMED-CT Code Diagnosis ICD10 Code Diagnosis Note [id number] Rica [place]N [facility] [address] [address] 08/10/2022 14:01:33 08/10/2022 16:46:14 Pain of right shoulder joint [id number] 0878062 M25.511 kenalog and decadron given in clinic todayice and heat therapymon itor for worsening symptomsfo llow up in 2 weeks if no improvemen t in symptoms Neuropathy 912670661 G62 .9 [id number] [facility] [address] [address] 11/17/2022 11:27:24 11/17/2022 14:03:43 Acute otitis media with effusion 379508257 H65.191 J01.00 R05.1 take medication medication as prescribed increase water intaketyle nol PRNmonitor for worsening symptoms [id number] [facility] [address] [address] 01/25/2023 12:06:31 01/25/2023 12:30:31 Pain of toe of left foot 9767616289 39675 M79.675 S90.122A ordering xrayice therapyele vate Neuropathy 362636165 G62 .9 UDS today and Ender reviewed. [id number] Rica Monterroso APRN [facility] [address] [facility] [place] [address] 04/20/2023 10:31:13 04/23/2023 09:41:26 Diarrhea 38020528 R19.7 Z80.0 encouraged to keep a food diary to avoid triggering foodsincre ase water intaketake dicyclomin e as prescribed monitor for worsening symptomsfo llow up PRNreferra l made for colonoscop y blood drawn in the right AC by Kisha Buck CMA, patient tolerated well. Chronic pain syndrome 37 7312712 G89.4 M41.9 M19.072 paperwork filled out for antoni martell appts with pain management monitor for worsening symptoms Essential hypertension 90116758 I10 Prediabetes 771788496 R7 3.03 Endocrine/ metabolic screening 323330302 Z13.228 Hyperlipid emia screening 717408209 Z13.220 [id number] Radha Frost NP [facility] [address] [address] 06/30/2023 12:26:32 06/30/2023 13:10:10 Diarrhea of presumed infectious origin 20407377 A09 Hx of diarrhea with worsening symptoms over the past 1 year. Currently averages 7 bowel movements per day, worse after eating. Recently prescribed dicyclomin e however this caused increased abdominal pain therefore patient discontinu ed. Recommend x-ray abdomen KUB to rule out underlying stool burden. Recommend stool studies to further evaluate. No prior colonoscop y. Recommend colonoscop y with random colon biopsies to rule out underlying colitis, polyps, other. Pt is scheduled for Colon 07/21 @ 10:30 AM Family his tory of cancer of colon 932482638 Z80.0 Patient's sister diagnosed colon cancer in her 50's. recommend colonoscop y to rule out colorectal cancer, polyps, other. Family his tory of polyp of colon 516923126 Z83.71 patient's mother with history multiple colon polyps. Plan for colonoscop y as above. [id number] Radha Frost NP [facility] [address] [address] 08/25/2023 12:54:58 08/25/2023 13:31:16 History of polyp of colon 878013178 Z86.010 Multiple polyps resected on colonoscop y 07/21/2023 pathology consistent with tubulovill ous adenoma, tubular adenoma as well as serrated adenoma negative for high grade dysplasia. 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 Family his tory of cancer of colon 860448028 Z80.0 Patient's sister diagnosed colon cancer in her 50's. Irritable bowel syndrome 73326816 K58.9 Continues to experience multiple episodes of diarrhea daily with urgency and episodes of incontinen ce. Worse after eating. Stool studies completed 07/07/2023 positive for norovirus. Colonoscop y negative random colon biopsies 07/21/2023 . Abdominal x-ray 06/30/23 noted moderate retained stool. Patient did feel better following bowel preparatio n for colonoscop y. Recommend trial of Linzess 72 mcg, 145 mcg 290 mcg for treatment of constipati on overflow diarrhea. Samples 8 days each provided patient clinic today. Will send prescripti on based on response to simple medication . [id number] Dre Malone MD [address] [place] [address] 09/30/2023 11:30:54 09/30/2023 12:18:59 Chronic pain 08779650 G89.29 Ender reviewed. Patient is seen. We will continue gabapentin t.i.d. return to clinic in 3 months. continue management with pain management for back and ankle issues. We will refill gabapentin . See back in 3 months. Essential hypertension 11265545 I10 Check blood work blood pressure by my check 136/86. Continue present meds. Osteoarthr itis of multiple joints 118119840 M15.9 Patient is seen by pain management . She would like rheumatolo gy opinion about her arthritis. Patient does have significan t kyphosis of her spine. Mixed anxi ety and depressive disorder 907263264 F41.8 Patient's symptoms are stable continue present meds. [id number] Dre Malone MD [address] [place] [address] 12/30/2023 11:31:44 12/30/2023 12:14:38 Taking high risk medication 6841759652 28381 Z91.89 general urine drug screen is negative. Gabapentin screen sent to the lab. Prescribe gabapentin . Ender reviewed.S ee back in 3 months. Hyperlipidemia 88964066 E78.5 Patient is back on atorvastat in we will check labs. Refill atorvastat in Essential hypertension 64843466 I10 Check blood work blood pressure by my check 136/86. Continue present meds. Vitamin D deficiency 347 92923 E55.9 patient is taking over-the-c ounter supplement we will recheck level. Hyperglycemia 08804515 R 73.9 Patient does have history of elevated blood sugar. She has been on metformin in the past. Check hemoglobin A1c today. Chronic pain 91269178 G8 9.29 Ender reviewed patient just had ablation done we will refill gabapentin . [id number] Dre Malone MD [address] [place] [address] 03/28/2024 10:54:46 03/29/2024 09:07:06 Long-term drug therapy 003651786 Z79.899 urine drug screen negative. urine sent testing Essential hypertension 11768342 I10 patient is self referred to Cardiology elevations in blood pressure. She would she is scheduled for stress testing she be treated cardiology pressure Mixed anxi ety and depressive disorder 549677566 F41.8 Patient's symptoms are stable continue present meds. continue present meds refills Osteoarthr itis of multiple joints 921594246 M15.9 symptoms are controlled no changes Hyperlipidemia 53320347 E78.5 recent blood work showed total cholestero l 189, LDL 111 continue present meds no side effects Chronic pain 99093039 G8 9.29 aspirin available patient is due refill prescripti on [id number] Floyd Robles MD [address] [place] [address] 04/05/2024 11:00:31 04/05/2024 11:15:00 Injury of head 83041493 S09.90XA patient has been told to monitor her injury. There appears to be no focal neurologic al deficit. Swelling has largely resolved. [id number] ANSHUL GONZALEZ NP [address] [place] [address] 04/12/2024 15:09:12 04/13/2024 08:21:07 Injury of great toe 359395183 S99.922A RICEawaiti ng xraysf/u if symptoms persist or worsen [id number] ANSHUL GONZALEZ NP [address] [place] [address] 06/30/2024 11:27:24 06/30/2024 12:23:38 Adult health examination 990938718 Z00.00 Patient presented to office today for their Annual Wellness Visit. Education was provided on healthy nutrition, including a diet rich in fruits and vegetables , minimizing simple carbohydra haleigh, salt, and saturated fats. Encouraged regular cardiovasc ular exercise such as walking at least 30 minutes daily, 5 times per week. Emphasized preventive health measures and educated pt on fall prevention and community- based lifestyle interventi ons to help reduce health risks and promote healthy living. Screening for malignant neoplasm of breast 493620777 Z12.39 Mixed hyperlipidemia 267 658349 E78.2 Continue statin therapy, reinforced healthy lifestyle Essential hypertension 65331907 I10 educated on goal of less than 130/90advi sed low sodium diet, healthy lifestyle including exercise as ablecontin ue current medication regimenER if any symptoms such as chest pain, shortness of breath Vitamin D deficiency 347 41210 E55.9 Neuropathy 834237895 G62 .9 risk versus benefit discussed, refill provided todayneeds updated CSAUDS completed March4review frances turk [id number] Floyd Roblse MD [facility] [address] [place] [address] 06/14/2024 09:27:53 06/15/2024 08:13:43 Mixed anxiety and depressive disorder 987374846 F41.8 denies SI/HIincre ase Sertraline from 50 to100 mgpatient will make appointmen t with PTIverchao gil seeking help if thoughts to arise Diarrhea 25255261 R19.7 recommend GI panelbland dietavoid triggershy geoff [id number] ANSHUL GONZALEZ, JARED [facility] [address] [place] [address] 09/08/2024 15:23:54 09/08/2024 16:01:02 Essential hypertension 15954697 I10 educated on goal of less than 130/90advi sed low sodium diet, healthy lifestyle including exercise as ablecontin ue current medication regimen, controlled , refill providedER if any symptoms such as chest pain, shortness of breath Screening for osteoporosis 846407778 Z13.820 Pain of mu ltiple joints 45529440 M25.50 orders placed for physical therapy, continue with pain management as recommende d, see what other options are available for her. Pain of bi lateral hip joints 2518007703 9862165 M25.551 M25.552 Low back pain 566923046 M54.50 Normal bowel and bladder function Thoracic back pain 89766 8004 M54.6 [id number] Floyd Robles MD [facility] [address] [place] [address] 01/18/2025 15:02:02 01/18/2025 15:27:09 Long-term current use of drug therapy 466162739 Z79.899 Neuropathy 319058695 G62 .9 patient has a long history of neuropathy . Will refill her gabapentin . Health Concerns Section Related Observation LastModified by Organization Detai ls LastModified Time None Recorded Concern Status LastModified by Organization Details LastModified Time None Recorded Advance Directives Directive N: Payers Encounter Date Sequence Insurance Name Policy Number Policy Mcgill Covered Member ID Mcgill Member ID Guarantor Name 04/12/2024 1 [employer] [place] ([place] Q$G Marie Short [id number] Marie Short 06/14/2024 1 [employer] [place]$G Marie Short [id number] Marie Short 06/30/2024 1 [employer] [place]$G Marie Short [id number] Marie Short 09/08/2024 1 [employer] [place]$G Marie Short [id number] Marie Short 01/18/2025 1 [employer] [place] Q$G Marie Short [id number] Marie Short Notes Date Note Type Note Provider Name and Address Organization Details Recorded Time 04/12/2024 text/html 49-year-old joann rg who presents with left great toe bruising, injury. She dropped frozen pork chops on her foot on Wednesday. Has used ice. Continues to be symptomatic. Has blood underneath toenail but also draining at out where skin meets the toenail. Denies any throbbing, swelling. ANSHUL GONZALEZ NP [address] [facility], [place], [address], [place] [facility] - [place] 04/12/2024 15:43:08 06/14/2024 text/html 49-year-old femarvind rg who presents with complaints of depression. She has been on sertraline 50 mg for several years. She denies any SI/HI. This has depression around finances and normal life stuff. Also complains of constantly having to go to the bathroom for bowel movements, will go up to 15 times per day. Just this morning she has already gone for times, always very soft, loose liquidy and has to de la rosa to the bathroom when it comes. Initially started approximately 1 year ago after her colonoscopy but no improvement. Denies any blood in stool or abdominal pain. Reports she has not worked in 3 years due to 1st having an ankle fracture requiring 2 surgeries. Also chronic back pain. She is seeing pain clinic for injections. ANSHUL GONZALEZ NP [address] [place], [address], [facility] & [place] 06/14/2024 09:55:00 06/30/2024 text/html Patient presents for annual visit.Any falls, fractures surgeries: deniesSpecialist: deniesColonoscopy: 2021 Had 7 polyps removedAnxiety/Depr ession screening: controlled with current sertraline therapy. Denies any SI/HI.Mammogram: NeedsImmunizations: declines vaccines todaysmokes a half a pack per day, occasional alcohol use, daily caffeine use.History of hyperlipidemia. Currently on statin therapy without side effect.History of hypertension. Currently on metoprolol therapy denies any chest pain, shortness of breath, swelling.History of multiple joint pain and neuropathy. Currently on tizanidine, meloxicam and gabapentin therapy. ANSHUL GONZALEZ NP [address] [place], [address], [facility] & [place] 07/03/2024 12:54:05 09/08/2024 text/html 49-year-old fema arcenio who presents for follow-up. Needs refill on her metoprolol today. Also requests to have DEXA scan completed.followed by pain management in [place], multiple injections, spine, hips, without improvement,helps for 3 days then pain returns; seen by Dr. Johnson as well and not much more he could do For her chronic pain. Wishes to have physical therapy. Denies any changes in bowel or bladder habits ANSHUL GONZALEZ NP [address] [facility], [place], [address], [facility] & [place] 09/12/2024 16:11:24 01/18/2025 text/html Patient presents today for medication follow-up. She denies any new issues Floyd Robles MD [address] [place] [address], [place], [address], [facility] - [place] - [place] & [place] 01/18/2025 15:44:19 OBGyn Episode No OBEpisode recorded.
== END 2025-02-21 23:59 | disposition home or self-care (01) ==
LOC: RAD 10:47
PROVIDERS: PCP Nurse Practitioner Family; Visit Provider Nurse Practitioner Family
DX: M54.9 Dorsalgia, unspecified (principal)
CPT/HCPCS: 72131

== ENCOUNTER 2025-02-22 14:30 | Outpatient (POV) | payer MEDICAID, SELFPAY ==
--- OUTSIDE RECORDS SUMMARY | 2025-02-22 14:32 | XMS_ITS | Data Portability ---
Author Organization [facility] telehealth Address [address] [place] [address] Assessment Encounter Date Assessment Date Assessment LastModified [...] obin A1c), blood 024 07/27/20 24 [facility]O [facility]), [address] [place], [address], 5 05:00:37 lh + FSH, serum 07/27/20 [facility] ([facility]), [address] [place], [address], 4 02:29:36 estradi ol, serum 07/27/20 [facility] ([facility]), [address] [place] [address], [address], 4 02:29:36 dhea-darling lfate, serum 07/27/20 24 [facility] ([facility]), [address] [place] [address], [address], 4 02:29:36 testost erone, total, serum 07/27/20 [facility] ([facility]), [address] [place] [address], [address], 4 02:29:35 Referral None recorde d. Procedures [...] enopa use 7.7 - 58.[address] [facility] ([facility]) [address] [facility] [address], [place], [address], 08/01/2024 07:22:49 07/27/20 24 07/28/2024 FSH AND LH FSH 36.90 mIU/m L FSH Refer ence Range Men: 1.5 - 12.4 Women : Folli cular phase 3.5 - 12.5 Ovula tion phase 4.7 - 21.5 Lutea l phase 1.7 - 7.7 Postm enopa use 25.8 - 134.8 Not Available [facility] ([facility]) [address] [place] [address] [address], [place], [address], 08/01/2024 07:22:49 07/27/20 24 07/28/2024 TESTO STERO NE TOTAL testosterone total SEE BELOW NG/dL 8.00-4 8.00 The resul t is outsi de of the repor table range for this metho dolog y. Pleas e refer to Testo stero ne , Total by LC/MS for the resul t. Not Available [facility] ([facility]) [address] [place] [address] [address], [place], [address], 08/01/2024 07:22:49 07/27/20 24 08/01/2024 TESTO STERO [...] ional or for resea rc. Not Available [facility] ([facility]) [address] [place] [address], [place], [address], 08/01/2024 07:22:50 07/27/20 24 07/28/2024 ESTRA DIOL estradiol 13 pg/mL Estra diol Refer ence Range Healt hy women Folli cular phase 12.4 - 233 Ovula tion phase 41.0 - 398 Lutea l phase 22.3 - 341 Postm enopa use <5 - 138 Healt hy pregn ant women 1st trime ster 154 - 3243 2nd trime ster 1561 - 23772 3rd trime ster 8525 - >3000 0 Not Available [facility] ([facility]) [address] [place] [address] [address], [place], [address], 08/01/2024 07:22:50 07/27/20 24 08/01/2024 ESTRA DIOL test cancelled Test Cancel led Speci men not recei [place] in lab Not Available [facility] ([facility]) [address] [place] [address] [address], [place], [address], 08/01/2024 07:22:50 07/27/20 24 07/28/2024 DHEA- SULFA TE DHEA-sulfate 95 ug/dL 35-256 Not Available [facility] ([facility]) [facility] [address], [place], [address], 08/01/2024 07:22:51 Result Notes None recorded. Procedures Surgical History Date Name Laterality Status Provider Name and Address Organization Details Recorded Time 07/27/20 24 Non-OB ULS completed Capri Nelson MD [address], [place], [address], [facility] 07/27/2024 13:38:06 10/25/19 [...] Not available Not available Not available 07/27/2024 85896 8003 SNOMED [facility] 4 [...] Address Organization Details Last Updated DateTime 07/27/2024 85309.47 g 36.2 kg/m2 149.86 cm 130 mm[Hg] 80 mm[Hg] [facility] 13:10:04 Social History Question Answer Notes LastModified by Organizat ion Details LastModified Time Tobacco Smoking Status Current Every Day Smoker 1 pack a day [facility] 07/27/2024 13:05:58 What Is Your Level Of Alcohol Consumption? Heavy [email or web address] Information not available 07/27/2024 Do You Or Have You Ever Used E-cigarettes Or Vape? Former User Of Electronic Cigarettes [email or web address] Information not available 07/27/2024 What Is Your Relationship Status? [email or web address] Information not available 07/27/2024 Are You Sexually Active? No [email or web address] Information not available 07/27/2024 Do You Use Any Illicit Or Recreational Drugs? No Information not available 07/27/2024 Do You Or [...] SNOMED-CT Code Diagnosis ICD10 Code Diagnosis Note [id number] MD CAPRI De Santiago MD [address] [address] 07/27/2024 12:45:22 07/27/2024 13:51:50 Menopausal symptom 19790408 N95.1 Dyspareunia 42841876 N94 .19 Subserous leiomyoma of uterus 30951011 D25.2 Vaginal discharge 457847 006 N89.8 High hemog lobin A1c level 557987029 R73.09 Irritable bowel syndrome characterized by constipation 934454491 K58.1 Health Concerns Section Related Observation LastModified by Organization Detai ls LastModified Time None Recorded Concern Status LastModified by Organization Details LastModified Time None Recorded Advance Directives Directive None Recorded Payers Encounter Date Sequence Insurance Name Policy Number Policy Mcgill Covered Member ID Mcgill Member ID Guarantor Name 07/27/2024 1 [facility] ([facility]) Marie Short [id number] Marie Kaycee Short Notes Date Note Type [...] has clotting. Capri Nelson MD [address] [facility] [address], [place], [address], [facility] 07/27/2024 13:51:22 OBGyn Episode No OBEpisode recorded.
--- OUTSIDE RECORDS SUMMARY | 2025-02-22 14:32 | XMS_ITS | Continuity of Care Document ---
Author Organization [facility] Address [address] [place] [address] Assessment No assessment recorded. Plan of Treatment Reminders Order Date Submit Date Provider Last Modified By Organization Details Last Modified Time Details Appointments FOLLOW UP 30 2024 12:00P M ANSHUL GONZALEZ NP Not available Not available Not available Lab gabapenti n, quantitat mickey, urine 2024 025 [facility] (Laboratory), [address] [place] [address] [place], [address], 01/24/2025 16:17:32 drug screen, urine 2024 025 [facility] (Laboratory), [address] [place] [address] [place], [address], 01/25/2025 07:37:52 Referral None recorded. Procedures None recorded. Surgeries None recorded. Imaging None recorded. Medication Orders gabapenti n 300 mg capsule 2024 025 [facility] [facility], [place], [address], 01/18/2025 15:44:13 Patient TargetsNo targets recorded. Patient InstructionsNo instructions recorded. Reason for Referral None Reported. Results Created Date Observation Date Name Description Value Unit Range Abnormal Flag Note LastModifiedBy Organization Detail LastModifiedTime 01/27/2001/25/2025 XR, lumba r spine No observ ation record ed. [facility] [address], [place], [address], 01/28/2025 13:21:32 Result Notes None recorded. Problems Name Problem SNOMED Code Status Onset Date Resolution Date Notes Provider Name and Address Organization Details Recorded Time Essential hypertensi on 61363961 Active 2022 Not Available [facility] 3 15:39:14 Diarrhea of presumed infectious origin 02452649 Active 2022 Ajith Vigil null, [place] - [facility] - [place] & [place] 4 11:04:16 Chronic pain 59387535 Active 2022 Ajith Vigil [place], [place] [facility] [place] 4 11:04:13 Irritable bowel syndrome 99846489 Active 2022 Ajith Vigil [place], [place] [facility] [place] 4 11:04:21 Mixed anxiety and depressive disorder 423604418 Active 2022 Ajith Vigil [place], [place] [facility] [place] 4 11:04:23 Osteoarthr itis of multiple joints 390483530 Active 2022 Ajith Vigil [place], [place] [facility] [place] 4 11:04:25 Hyperglyce belkis 92792380 Active 2023 Ajith Vigil null, [place] [facility] [place] 4 11:04:18 Vitamin D deficiency 45942778 Active 2023 Ajith Vigil null, [place] [facility] [place] 4 11:04:29 Taking high risk medication 3173114202592 07 Active 2023 Ajith Vigil null, [place] [facility] [place] 4 11:04:27 Problem Notes None recorded. Procedures Surgical History Date Name Laterality Status Provider Name and Address Organization Details Recorded Time 08/28/20 24 Most Recent Bone Density completed Di Hoyos [place] [facility] [place] & [place] 01/18/2025 15:20:51 07/21/20 23 Colonoscopy completed Estephania Flores [place] - [facility] [place] & [place] 07/23/2023 16:12:35 07/17/20 23 Date of Last Colonoscopy completed [facility]en [facility] & [place] 09/28/2023 06:54:12 12/24/19 arthroplasty of left ankle completed Mayra CALDERON [facility] & [place] 05/31/2024 14:24:23 excision of cyst completed Mayra CALDERON [facility] & [place] 05/31/2024 14:22:36 Imaging Results None recorded. Procedure Notes None recorded. Medical Equipment None Reported. Allergies Allergen ID Allergen Name Allergen Category Reaction Reaction Severity Criticality Documentation Date Start Date Code Code System Note Provider Name and Address Organization Details Recorded Time 09348 Substance with sulfonami de structure and antibacte rial mechanism of action (substanc e) medicatio n hives moderate Not available 01/25/2023 17500 8003 SNOMED [facility] [place] 12:13:51 65154 penicilli n G Not available Not available Not available Not available 07/29/2023 7980 RxNorm Aspen monet [facility] & [place] 08:40:54 Medications Name Sig Start Date Stop [...] Updated DateTime 5 149.86 cm 38.1 kg/m2 48401.5 2 g 98.4 [degF] 98 % 98 % 101 /min 16 /min 141 mm[Hg] 88 mm[Hg] Di Leónsimon [facility] & [place] 5 15:20:27 Social History Question Answer Notes LastModified by Organizat ion Details LastModified Time Tobacco Smoking Status Current Every Day Smoker [facility] [place] 07/29/2023 08:30:16 Do You Have An Advance Directive? No [email or web address] Information not available 07/29/2023 What Is Your Level Of Alcohol Consumption? Moderate [email or web address] Information not available 07/29/2023 If You Are , What Was Your Level Of Alcohol Consumption Prior To ? Occasional [email or web address] Information not available 03/28/2024 Do You Wear A Helmet When Biking? Yes [email or web address] Information not available 03/28/2024 Are You Blind Or Do You Have Difficulty Seeing? No [email or web address] Information not available 07/29/2023 What Is Your Level Of Caffeine Consumption? None [email or web address] Information not available 03/28/2024 In The 14 Days Before Symptom Onset, Have You Had Close Contact With A Laboratory-confir med COVID-19 While That Case Was Ill? No [email or web address] Information not available 03/28/2024 In The 14 Days Before Symptom Onset, Have You Had Close Contact With A Person Who Is Under Investigation For COVID-19 While That Person Was Ill? No [email or web address] Information not available 03/28/2024 Have You Been To An Area Known To Be High Risk For COVID-19? No [email or web address] Information not available 03/28/2024 Are You Currently Employed? No [email or web address] Information not available 03/28/2024 Are You Deaf Or Do You Have Serious Difficulty Hearing? No [email or web address] Information not available 03/28/2024 What Type Of Diet Are You Following? REGULAR [email or web address] Information not available 04/12/2024 Have You Processed Blood Or Body Fluids From An Ebola Virus Disease Patient Without Appropriate PPE? No [email or web address] Information not available 03/28/2024 Do You Reside In Or Have You Traveled To An Area Where Ebola Virus Transmission Is Active? No [email or web address] Information not available 03/28/2024 Have There Been Any Changes To Your Family Or Social Situation? No [email or web address] Information no t available 09/08/2024 What Is The Fluoride Status Of Your Home? Unknown [email or web address] Information not available 03/28/2024 Are There Any Guns Present In Your Home? No [email or web address] Information not available 03/28/2024 Have You Recently Or Are You Planning To Travel To An Area With Zika Virus? No Information not available 03/28/2024 Do You Use Insect Repellent Routinely? Yes [email or web address] Information not available 03/28/2024 Do You Feel Safe At Home? Yes [email or web address] Information not available 03/28/2024 Do You Have A Medical Power Of Ob Gyn Physician Assistant? No [email or web address] Information not available 03/28/2024 What Was The Date Of Your Most Recent Tobacco Screening? 11/23/2024 [email or web address] Information not available 01/18/2025 Do You Have Any Pets? No [email or web address] Information not available 03/28/2024 Do You Use Your Seat Belt Or Car Seat Routinely? Yes [email or web address] Information not available 03/28/2024 Do You Have Smoke And Carbon Monoxide Detectors In Your Home? Yes [email or web address] Information not available 03/28/2024 Are You Passively Exposed To Smoke? No Information no t available 07/29/2023 Do You Or Have You Ever Used Smokeless Tobacco? Never Used Smokeless Tobacco [email or web address] Information not available 09/28/2023 How Much Tobacco Do You Smoke? 1 PPD [email or web address] Information not available 07/29/2023 Do You Feel Stressed (tense, Restless, Nervous, Or Anxious, Or Unable To Sleep At Night)? [id number] [email or web address] Information not available 07/29/2023 Do You Use Any Illicit Or Recreational Drugs? No [email or web address] Information not available 07/29/2023 Do You Use Sunscreen Routinely? Yes [email or web address] Information not available 03/28/2024 Has Tobacco Cessation Counseling Been Provided? No Information not available 03/28/2024 How Many Years Have You Smoked Tobacco? 29 Information not available 05/31/2024 Are You Currently In School? No [email or web address] Information not available 03/28/2024 Do You Or Have You Ever Used Any Other Forms Of Tobacco Or Nicotine? No [email or web address] Information not available 03/28/2024 Sex: Female Functional Status Question Answer Note LastModified by Organizat ion Details LastModified Time Do you have difficulty walking or climbing stairs? No [email or web address] Information not available 03/28/2024 Do you have transportation difficulties? No [email or web address] Information not available 03/28/2024 Are you able to walk? YESWOREST Information not available 03/28/2024 Do you have difficulty doing errands alone? No [email or web address] Information not available 03/28/2024 Are you able to care for yourself? Yes Information n ot available 03/28/2024 Do you have difficulty dressing or bathing? No [email or web address] Information not available 03/28/2024 What is your exercise level? Occasional Information not available 05/31/2024 Mental Status Question Answer Note LastModified by Organization D etails LastModified Time Do you have difficulty concentrating, remembering or making decisions? No [email or web address] Information no t available 03/28/2024 Family History [...] Medical History Condition Response Anxiety Disorder Y Obesity Y Other Y Vision or Eye Problems Y Arthritis Y Back Problems Y GI Problems Y Depression Y Acne Y Osteoporosis/Osteopenia Y Endometriosis Y [...] LNP-S, PF, 30 mcg/0.3 mL dose 07/02/2021 completed Aspen monet [place] - [facility] & [place] 07/29/2023 08:29:46 COVID-19, mRNA, LNP-S, PF, 30 mcg/0.3 mL dose 07/23/2021 completed Aspen monet [place] - [facility] & [place] 07/29/2023 08:29:46 Past Encounters Encounter ID Performer Location Encounter Start Date Encounter Closed Date Diagnosis/Indication Diagnosis SNOMED-CT Code Diagnosis ICD10 Code Diagnosis Note [id number] Floyd Robles MD [facility] [address] [facility] [place] [id number] 01/18/2025 15:02:02 01/18/2025 15:27:09 Long-term current use of drug therapy 399060257 Z79.899 Neuropathy 802297789 G62 .9 patient has a long history of neuropathy . Will refill her gabapentin . Health Concerns Section Related Observation LastModified by Organization Detai ls LastModified Time None Recorded Concern Status LastModified by Organization Details LastModified Time None Recorded Payers Encounter Date Sequence Insurance Name Policy Number Policy Mcgill Covered Member ID Mcgill Member ID Guarantor Name 01/18/2025 1 [employer] [place] [id number] Marie Short [id number] Marie Short Notes Date Note Type Note Provider Name and Address Organization Details Recorded Time 01/18/2025 text/html Patient presents today for medication follow-up. She denies any new issues Floyd Robles MD [address] [facility], [place], [address], [facility] - [facility] & [place] 01/18/2025 15:44:19 OBGyn Episode No OBEpisode recorded.
--- OUTSIDE RECORDS SUMMARY | 2025-02-22 14:32 | XMS_ITS | Data Portability ---
Author Organization [facility] [place] [facility] ADMIN Address [address] [place] [address] Assessment No assessment recorded. Plan of Treatment Reminders Order Date Submit Date Provider Last Modified By Organization Details Last Modified Time Details Appointments FOLLOW UP 30 2024 12:00P M ANSHUL GONZALEZ NP Not available Not available Not available Lab gabapenti n, quantitat imckey, urine 2024 025 [facility] (Laboratory), [address] [place], [address], 01/24/2025 16:17:32 drug screen, urine 2024 025 [email or web address] [facility] (Laboratory), [address] [place], [address], 01/25/2025 07:37:52 vitamin D, 25-hydrox y, total, serum 2023 024 [email or web address] [facility] (Laboratory), [place], [address], 08/30/2024 14:17:03 CMP, serum or plasma 2023 024 [facility] (Laboratory), [address] [place], [address], 06/30/2024 14:19:24 CBC w/ auto diff 2023 024 [facility] (Laboratory), [address] [place], [address], 06/30/2024 13:20:55 TSH, serum or plasma 2023 024 [facility] (Laboratory), [address] [place], [address], 06/30/2024 14:18:22 lipid panel, serum 2023 024 [facility] (Laboratory), [address] [place], [address], 06/30/2024 14:19:27 vitamin B12 + folate, serum or blood [email or web address] (Laboratory), [address] [place], [address], 08/30/2024 14:17:48 gastroint estinal pathogens panel, PCR, stool [address] (Laboratory), [address] [place], [address], 06/28/2024 07:36:56 Referral physical therapist referral 2023 024 [facility] [address] [facility] [address] [place] [address], [address], 10/09/2024 11:48:08 physical therapist referral 2023 024 [facility] [address] [facility] [address] [place] [address], [address], 10/09/2024 11:48:07 physical therapist referral 2023 024 [place] [address] [facility] [address] [place] [address], [address], 10/09/2024 11:48:06 Procedures None recorded. Surgeries None recorded. Imaging DEXA [email or web address] [place] [address] Centralized Scheduling, [address] [place], [address], 09/25/2024 10:01:05 MAMMO, screening , digital, bilateral [address] Centralized Scheduling, [address] [place], [address], 07/14/2024 07:23:42 XR, toe(s), 2 or more view [address] Centralized Scheduling, [address] [place], [address], 04/19/2024 07:31:01 XR, foot, 2 view [address] Centralized Scheduling, [address] [place], [address], 04/26/2024 07:30:52 Medication Orders gabapenti n 300 mg capsule 2024 025 [facility], [address] [place] [address], [address], 01/18/2025 15:44:13 metoprolo l succinate ER 50 mg tablet,ex tended release 24 hr 2023 024 [facility], [address] [place], [address], 09/11/2024 12:27:44 gabapenti n 300 mg capsule 2023 024 [facility], [address] [place] [address], [address], 06/30/2024 11:52:33 sertralin e 100 mg tablet 2023 024 [facility], [address] [place], [address], 06/14/2024 09:50:12 Patient TargetsNo targets recorded. Patient InstructionsNo instructions recorded. Reason for Referral Physical Therapist Referral for Pain of bilateral hip joints Referring Physician: Anshul Gonzalez [facility], Encounter Date: 09/08/2024 Physical Therapist Referral for Low back pain Referring Physician: Anshul Gonzalez [facility], Encounter Date: 09/08/2024 Physical Therapist Referral for Thoracic back pain Referring Physician: Anshul Gonzalez [facility], Encounter Date: 09/08/2024 Results Created Date Observation Date Name Description Value Unit Range Abnormal Flag Note LastModifiedBy Organization Detail LastModifiedTime 03/28/20 24 03/28/2024 GABAP ENTIN , URINE note Unles s other schneider noted testi ng perfo rmed at: [facility] [address] [place] [address] [phone] Jan rossi MD CLIA: [id number] Not Available [facility] (Lab Registration) [address] [place], [address], 03/30/2024 11:19:36 03/28/20 24 03/30/2024 GABAP ENTIN , URINE gabapentin, urine 110.3 ug/mL Perfo rmed at: [facility] [address] [place], [place] [id number] Lab Direc tor: Janina moran [facility] , Phone : [phone] Not Available [facility] (Lab Registration) [address] [place], [address], 03/30/2024 11:19:36 03/28/20 24 03/28/2024 drug scree n, urine Amphetamines : negati ve Not Available [facility] [address] [place], [address], 03/28/2024 11:05:20 03/28/20 24 03/28/2024 drug scree n, urine Cannabinoids : negati ve Not Available [facility] [address] [place], [address], 03/28/2024 11:05:20 03/28/20 24 03/28/2024 drug scree n, urine Cocaine: negati ve Not Available [address] [place], [address], 03/28/2024 11:05:20 03/28/20 24 03/28/2024 drug scree n, urine Opiates: negati ve Not Available [address] [place], [address], 03/28/2024 11:05:20 03/28/20 24 03/28/2024 drug scree n, urine Phenocyclidi ne: negati ve Not Available [address] [place], [address], 03/28/2024 11:05:20 03/28/20 24 03/28/2024 drug scree n, urine Barbiturates : negati ve Not Available [address] [place], [address], 03/28/2024 11:05:20 03/28/20 24 03/28/2024 drug scree n, urine Benzodiazepi luan: negati ve Not Available [address] [place], [address], 03/28/2024 11:05:20 03/28/20 24 03/28/2024 drug scree n, urine Ethanol: negati ve Not Available [address] [place], [address], 03/28/2024 11:05:20 03/28/20 24 03/28/2024 drug scree n, urine Hallucinogen s: negati ve Not Available [address] [place], [address], 03/28/2024 11:05:20 03/28/20 24 03/28/2024 drug scree n, urine Inhalants: negati ve Not Available [address] [place], [address], 03/28/2024 11:05:20 03/28/20 24 03/28/2024 drug scree n, urine Anabolic Steroids: negati ve Not Available [address] [place], [address], 03/28/2024 11:05:20 03/28/20 24 03/28/2024 drug scree n, urine Other: negati ve Not Available [address] [place], [address], 03/28/2024 11:05:20 06/30/20 24 06/30/2024 CBC AUTO W DIFF WBC 10.1 10 4.5-11 .5 Not Available [facility] (Lab Registration) [address] [place], [address], 06/30/2024 13:20:55 06/30/20 24 06/30/2024 CBC AUTO W DIFF RBC 3.95 10 4.25-5 .57 low Not Available [facility] (Lab Registration) [address] [place], [address], 06/30/2024 13:20:55 06/30/20 24 06/30/2024 CBC AUTO W DIFF HGB 14.1 g/dL 12.0-1 5.7 Not Available [facility] (Lab Registration) [address] [place], [address], 06/30/2024 13:20:55 06/30/20 24 06/30/2024 CBC AUTO W DIFF HCT 42.0 % 36.0-4 7.0 Not Available [facility] (Lab Registration) [address] [place], [address], 06/30/2024 13:20:55 06/30/20 24 06/30/2024 CBC AUTO W DIFF MCV 106.3 fL 80-95 high Not Available [facility] (Lab Registration) [address] [place], [address], 06/30/2024 13:20:55 06/30/20 24 06/30/2024 CBC AUTO W DIFF MCH 35.7 pg 27.0-3 4.0 high Not Available [facility] (Lab Registration) [address] [place], [address], 06/30/2024 13:20:55 06/30/20 24 06/30/2024 CBC AUTO W DIFF MCHC 33.6 g/dL 32.0-3 6.0 Not Available [facility] (Lab Registration) [address] [place], [address], 06/30/2024 13:20:55 06/30/20 24 06/30/2024 CBC AUTO W DIFF platelet count 253 10 150-45 0 Not Available [facility] (Lab Registration) [address] [place], [address], 06/30/2024 13:20:55 06/30/20 24 06/30/2024 CBC AUTO W DIFF RDW 13.6 % 12.3-1 5.1 Not Available [facility] (Lab Registration) [address] [place], [address], 06/30/2024 13:20:55 06/30/20 24 06/30/2024 CBC AUTO W DIFF MPV 10.4 fL 7.4-10 .4 Not Available [facility] (Lab Registration) [address] [place], [address], 06/30/2024 13:20:55 06/30/20 24 06/30/2024 CBC AUTO W DIFF granulocyte% 68.7 % 40-75 Not Available [facility] (Lab Registration) [address] [place], [address], 06/30/2024 13:20:55 06/30/20 24 06/30/2024 CBC AUTO W DIFF lymphocyte% 21.4 % 15-57 Not Available [facility] (Lab Registration) [address] [place], [address], 06/30/2024 13:20:55 06/30/20 24 06/30/2024 CBC AUTO W DIFF monocyte% 7.7 % 4.0-12 .0 Not Available [facility] (Lab Registration) [address] [place], [address], 06/30/2024 13:20:55 06/30/20 24 06/30/2024 CBC AUTO W DIFF eosinophil% 1.1 % 0.0-4. 0 Not Available [facility] (Lab Registration) [address] [place], [address], 06/30/2024 13:20:55 06/30/20 24 06/30/2024 CBC AUTO W DIFF basophil% 0.5 % 0.0-1. 0 Not Available [facility] (Lab Registration) [address] [place], [address], 06/30/2024 13:20:55 06/30/20 24 06/30/2024 CBC AUTO W DIFF immature granulocytes % 0.6 % 0.0-0. 8 Not Available [facility] (Lab Registration) [address] [place], [address], 06/30/2024 13:20:55 06/30/20 24 06/30/2024 CBC AUTO W DIFF granulocyte# 6.95 10 Not Available [facility] (Lab Registration) [address] [place], [address], 06/30/2024 13:20:55 06/30/20 24 06/30/2024 CBC AUTO W DIFF lymphocyte# 2.17 10 Not Available [facility] (Lab Registration) [address] [place], [address], 06/30/2024 13:20:55 06/30/20 24 06/30/2024 CBC AUTO W DIFF monocyte# 0.78 10 Not Available [facility] (Lab Registration) [address] [place], [address], 06/30/2024 13:20:55 06/30/20 24 06/30/2024 CBC AUTO W DIFF eosinophil# 0.11 10 Not Available [facility] (Lab Registration) [address] [place], [address], 06/30/2024 13:20:55 06/30/20 24 06/30/2024 CBC AUTO W DIFF basophil# 0.05 10 Not Available [facility] (Lab Registration) [address] [place], [address], 06/30/2024 13:20:55 06/30/20 24 06/30/2024 CBC AUTO W DIFF immature granulocytes # 0.06 10 Not Available [facility] (Lab Registration) [address] [place], [address], 06/30/2024 13:20:55 06/30/20 24 06/30/2024 CBC AUTO W DIFF manual differential NO Not Available [facility] (Lab Registration) [address] [place], [address], 06/30/2024 13:20:55 06/30/20 24 06/30/2024 CBC AUTO W DIFF note Unles s other schneider noted testi ng perfo rmed at: [facility] [address] [place] [address] [phone] Jan rossi MD CLIA: [id number] Not Available [facility] (Lab Registration) [address] [place], [address], 06/30/2024 13:20:55 06/30/20 24 06/30/2024 THYRO ID STIMU LATIN G HORMO NE thyroid stimulating hormone 1.08 mIU/m L 0.34-4 .80 Not Available [facility] (Lab Registration) [address] [place], [address], 06/30/2024 14:18:22 06/30/20 24 06/30/2024 THYRO ID STIMU LATIN G HORMO NE note Moshe s other schneider noted testi ng perfo rmed at: [facility] [address] [place] [address] [phone] Jan rossi MD CLIA: [id number] Not Available [facility] (Lab Registration) [address], [place], [address], 06/30/2024 14:18:22 06/30/20 24 06/30/2024 VITAM IN D TOTAL (D2+D 3) vitamin D25 (D2+D3) 22.6 NG/mL 30-100 low Not Available [facility] (Lab Registration) [address] [place], [address], 06/30/2024 14:18:24 06/30/20 24 06/30/2024 VITAM IN D TOTAL (D2+D 3) note Moshe rossi other schneider noted testi ng perfo rmed at: [facility] [address] [place] [address] [phone] Jan rossi MD CLIA: [id number] Not Available [facility] (Lab Registration) [address] [place], [address], 06/30/2024 14:18:24 06/30/20 24 06/30/2024 VITAM IN B12 vitamin B12 222 pg/mL 193-98 6 Not Available [facility] (Lab Registration) [address] [place], [address], 06/30/2024 14:18:25 06/30/20 24 06/30/2024 VITAM IN B12 folate (folic acid), serum 11.7 NG/mL 8.6-58 .9 Not Available [facility] (Lab Registration) [address] [place], [address], 06/30/2024 14:18:25 06/30/20 24 06/30/2024 VITAM IN B12 note Unles s other schneider noted testi ng perfo rmed at: [facility] [address] [place] [address] [phone] Jan rossi MD CLIA: [id number] Not Available [facility] (Lab Registration) [address] [place], [address], 06/30/2024 14:18:25 06/30/20 24 06/30/2024 COMP METAB OLIC PANEL sodium 139 mmol/ L 136-14 5 Not Available [facility] (Lab Registration) [address] [place], [address], 06/30/2024 14:19:24 06/30/20 24 06/30/2024 COMP METAB OLIC PANEL potassium 4.2 mmol/ L 3.5-5. 1 Not Available [facility] (Lab Registration) [address] [place], [address], 06/30/2024 14:19:24 06/30/20 24 06/30/2024 COMP METAB OLIC PANEL chloride 102 mmol/ L 98-107 Not Available [facility] (Lab Registration) [address] [place], [address], 06/30/2024 14:19:24 06/30/20 24 06/30/2024 COMP METAB OLIC PANEL carbon dioxide 29 mmol/ L 21-32 Not Available [facility] (Lab Registration) [address] [place], [address], 06/30/2024 14:19:24 06/30/20 24 06/30/2024 COMP METAB OLIC PANEL anion gap 8.0 Not Available [facility] (Lab Registration) [address] [place], [address], 06/30/2024 14:19:24 06/30/20 24 06/30/2024 COMP METAB OLIC PANEL glucose 103 mg/dL 70-110 Not Available [facility] (Lab Registration) [address] [place], [address], 06/30/2024 14:19:24 06/30/20 24 06/30/2024 COMP METAB OLIC PANEL blood urea nitrogen 9 mg/dL 7-18 Not Available [facility] (Lab Registration) [address] [place], [address], 06/30/2024 14:19:24 06/30/20 24 06/30/2024 COMP METAB OLIC PANEL creatinine 0.7 mg/dL 0.6-1. 0 Not Available [facility] (Lab Registration) [address] [place], [address], 06/30/2024 14:19:24 06/30/20 24 06/30/2024 COMP METAB OLIC PANEL BUN/creatini ne ratio 12.9 ratio 9-21 Not Available [facility] (Lab Registration) [address] [place], [address], 06/30/2024 14:19:24 06/30/20 24 06/30/2024 COMP METAB OLIC PANEL estimated glom filtration rate 107 mL/mi n >60- Not Available [facility] (Lab Registration) [address] [place], [address], 06/30/2024 14:19:24 06/30/20 24 06/30/2024 COMP METAB OLIC PANEL total protein 7.2 g/dL 6.4-8. 2 Not Available [facility] (Lab Registration) [address] [place], [address], 06/30/2024 14:19:24 06/30/20 24 06/30/2024 COMP METAB OLIC PANEL albumin 3.3 g/dL 3.4-5. 0 low Not Available [facility] (Lab Registration) [address] [place], [address], 06/30/2024 14:19:24 06/30/20 24 06/30/2024 COMP METAB OLIC PANEL calcium 9.0 mg/dL 8.5-10 .1 Not Available [facility] (Lab Registration) [address] [place], [address], 06/30/2024 14:19:24 06/30/20 24 06/30/2024 COMP METAB OLIC PANEL corrected calcium 9.6 mg/dL 8.5-10 .1 Not Available [facility] (Lab Registration) [address] [place], [address], 06/30/2024 14:19:24 06/30/20 24 06/30/2024 COMP METAB OLIC PANEL bilirubin total 0.4 mg/dL 0.4-1. 5 Not Available [facility] (Lab Registration) [address] [place], [address], 06/30/2024 14:19:24 06/30/20 24 06/30/2024 COMP METAB OLIC PANEL AST (SGOT) 32 U/L 15-37 Not Available [facility] (Lab Registration) [address] [place], [address], 06/30/2024 14:19:24 06/30/20 24 06/30/2024 COMP METAB OLIC PANEL ALT (SGPT) 42 U/L 12-78 Not Available [facility] (Lab Registration) [address] [place], [address], 06/30/2024 14:19:24 06/30/20 24 06/30/2024 COMP METAB OLIC PANEL alk phosphatase 84 U/L 50-120 Not Available [facility] (Lab Registration) [address] [place], [address], 06/30/2024 14:19:24 06/30/20 24 06/30/2024 COMP METAB OLIC PANEL note Unles s other schneider noted testi ng perfo rmed at: [facility] [address] [place] [address] [phone] Jan rossi MD CLIA: [id number] Not Available [facility] (Lab Registration) [address] [place], [address], 06/30/2024 14:19:24 06/30/20 24 06/30/2024 LIPID PANEL triglyceride 223 mg/dL 20-200 high The Natio nal [employer] t[employer] am (NCEP ) has set the follo wing guide lines for Fasti ng Trigl yceri chavez: LEEANN L: <150 mg/dL BORDE RLINE HIGH: 150 - 199 mg/dL HIGH: 200 - 499 mg/dL VERY HIGH: > or =500 mg/dL Not Available [facility] (Lab Registration) [address] [place], [address], 06/30/2024 14:19:27 06/30/20 24 06/30/2024 LIPID PANEL cholesterol 178 mg/dL 0-200 The Natio nal [employer]ca t[employer] am (NCEP ) has set the follo wing guide lines for Fasti ng Khushboo stero l: CONRAD ABLE: <200 mg/dL BORDE RLINE HIGH: 200 - 239 mg/dL HIGH: > or =240 mg/dL Not Available [facility] (Lab Registration) [address] [place], [address], 06/30/2024 14:19:27 06/30/20 24 06/30/2024 LIPID PANEL HDL cholesterol 67 mg/dL 60- The Natio nal [employer]ca t[employer]gr am (NCEP ) has set the follo wing guide lines for Fasti ng HDL Khushboo stero l: LOW HDL: <40 mg/dL LEEANN L: 40 - 60 mg/dL CONRAD ABLE: >60 mg/dL Not Available [facility] (Lab Registration) [address] [place], [address], 06/30/2024 14:19:27 06/30/20 24 06/30/2024 LIPID PANEL [...] > or = 190 mg/dL Not Available [facility] (Lab Registration) [address], [place], [address], 06/30/2024 14:19:27 06/30/20 24 06/30/2024 LIPID PANEL chol/HDL ratio 3 ratio -5 Not Available [facility] (Lab Registration) [address], [place], [address], 06/30/2024 14:19:27 06/30/20 24 06/30/2024 LIPID PANEL note Unles s other schneider noted testi ng perfo rmed at: [facility] [address] [place] [address] [phone] Jan rossi MD CLIA: [id number] Not Available [facility] (Lab Registration) [address], [place], [address], 06/30/2024 14:19:27 09/27/20 24 09/27/2024 GASTR OINTE LEILA L PANEL BY PCR specimen consistency NON-FO RMED STL Not Available [facility] (Lab Registration) [address], [place], [address], 09/27/2024 11:51:59 09/27/20 24 09/27/2024 GASTR OINTE LEILA L PANEL BY PCR campylobacte r NOT DETECT ED not detect ed Not Available [facility] (Lab Registration) [address], [place], [address], 09/27/2024 11:51:59 09/27/20 24 09/27/2024 GASTR OINTE LEILA L PANEL BY PCR clostridium diff. toxin A/B NOT DETECT ED not detect ed Not Available [facility] (Lab Registration) [address], [place], [address], 09/27/2024 11:51:59 09/27/20 24 09/27/2024 GASTR OINTE LEILA L PANEL BY PCR plesiomonas shigelloides NOT DETECT ED not detect ed Not Available [facility] (Lab Registration) [address], [place], [address], 09/27/2024 11:51:59 09/27/20 24 09/27/2024 GASTR OINTE LEILA L PANEL BY PCR salmonella NOT DETECT ED not detect ed Not Available [facility] (Lab Registration) [address], [place], [address], 09/27/2024 11:51:59 09/27/20 24 09/27/2024 GASTR OINTE LEILA L PANEL BY PCR vibrio NOT DETECT ED not detect ed Not Available [facility] (Lab Registration) [address], [place], [address], 09/27/2024 11:51:59 09/27/20 24 09/27/2024 GASTR OINTE LEILA L PANEL BY PCR vibrio cholerae NOT DETECT ED not detect ed Not Available [facility] (Lab Registration) [address], [place], [address], 09/27/2024 11:51:59 09/27/20 24 09/27/2024 GASTR OINTE LEILA L PANEL BY PCR yersinia enterocoliti ca NOT DETECT ED not detect ed Not Available [facility] (Lab Registration) [address], [place], [address], 09/27/2024 11:51:59 09/27/20 24 09/27/2024 GASTR OINTE LEILA L PANEL BY PCR enteroaggreg ative E. coli NOT DETECT ED not detect ed Not Available [facility] (Lab Registration) [address] [place], [address], 09/27/2024 11:51:59 09/27/20 24 09/27/2024 GASTR OINTE LEILA L PANEL BY PCR enteropathog enic E. coli NOT DETECT ED not detect ed Not Available [facility] (Lab Registration) [address], [place], [address], 09/27/2024 11:51:59 09/27/20 24 09/27/2024 GASTR OINTE LEILA L PANEL BY PCR enterotoxige terence E. coli NOT DETECT ED not detect ed Not Available [facility] (Lab Registration) [address], [place], [address], 09/27/2024 11:51:59 09/27/20 24 09/27/2024 GASTR OINTE LEILA L PANEL BY PCR shiga-like toxin-produc E coli NOT DETECT ED not detect ed Not Available [facility] (Lab Registration) [address], [place], [address], 09/27/2024 11:51:59 09/27/20 24 09/27/2024 GASTR OINTE LEILA L PANEL BY PCR E. coli 0157 NOT APPLIC ABLE not detect ed Not Available [facility] (Lab Registration) [address], [place], [address], 09/27/2024 11:51:59 09/27/20 24 09/27/2024 GASTR OINTE LEILA L PANEL BY PCR shigella/ent eroinvasive E coli NOT DETECT ED not detect ed Not Available [facility] (Lab Registration) [address], [place], [address], 09/27/2024 11:51:59 09/27/20 24 09/27/2024 GASTR OINTE LEILA L PANEL BY PCR cryptosporid ium NOT DETECT ED not detect ed Not Available [facility] (Lab Registration) [address], [place], [address], 09/27/2024 11:51:59 09/27/20 24 09/27/2024 GASTR OINTE LEILA L PANEL BY PCR cyclospora cayetanensis NOT DETECT ED not detect ed Not Available [facility] (Lab Registration) [address], [place], [address], 09/27/2024 11:51:59 09/27/20 24 09/27/2024 GASTR OINTE LEILA L PANEL BY PCR entamoeba histolytica NOT DETECT ED not detect ed Not Available [facility] (Lab Registration) [address], [place], [address], 09/27/2024 11:51:59 09/27/20 24 09/27/2024 GASTR OINTE LEILA L PANEL BY PCR giardia lamblia NOT DETECT ED not detect ed Not Available [facility] (Lab Registration) [address], [place], [address], 09/27/2024 11:51:59 09/27/20 24 09/27/2024 GASTR OINTE LEILA L PANEL BY PCR adenovirus F 40/41 NOT DETECT ED not detect ed Not Available [facility] (Lab Registration) [address], [place], [address], 09/27/2024 11:51:59 09/27/20 24 09/27/2024 GASTR OINTE LEILA L PANEL BY PCR astrovirus NOT DETECT ED not detect ed Not Available [facility] (Lab Registration) [address], [place], [address], 09/27/2024 11:51:59 09/27/20 24 09/27/2024 GASTR OINTE [...] the patie nt's disea se. Not Available [facility] (Lab Registration) [address], [place], [address], 09/27/2024 11:51:59 09/27/20 24 09/27/2024 GASTR OINTE LEILA L PANEL BY PCR rotavirus A NOT DETECT ED not detect ed Not Available [facility] (Lab Registration) [address] [place], [address], 09/27/2024 11:51:59 09/27/20 24 09/27/2024 GASTR OINTE LEILA L PANEL BY PCR sapovirus NOT DETECT ED not detect ed Not Available [facility] (Lab Registration) [address] [place], [address], 09/27/2024 11:51:59 09/27/20 24 09/27/2024 GASTR OINTE LEILA L PANEL BY PCR note Unles s other schneider noted testi ng perfo rmed at: [facility] [address] [place] [address] [phone] Jan rossi MD CLIA: [id number] Not Available [facility] (Lab Registration) [address] [place], [address], 09/27/2024 11:51:59 01/19/20 25 01/18/2025 URINE DRUG SCREE N - EXL MAX amphetamine/ metamphetami ne NEGATI VE negati ve Not Available [facility] (Lab Registration) [address] [place], [address], 01/18/2025 16:08:46 01/19/20 25 01/18/2025 URINE DRUG SCREE N - EXL MAX barbiturates NEGATI VE negati ve Not Available [facility] (Lab Registration) [address] [place], [address], 01/18/2025 16:08:46 01/19/20 25 01/18/2025 URINE DRUG SCREE N - EXL MAX benzodiazeph alexandra NEGATI VE negati ve Not Available [facility] (Lab Registration) [address] [place], [address], 01/18/2025 16:08:46 01/19/20 25 01/18/2025 URINE DRUG SCREE N - EXL MAX buprenophine NEGATI VE negati ve Not Available [facility] (Lab Registration) [address] [place], [address], 01/18/2025 16:08:46 01/19/20 25 01/18/2025 URINE DRUG SCREE N - EXL MAX cocaine metabolite NEGATI VE negati ve Not Available [facility] (Lab Registration) [address] [place], [address], 01/18/2025 16:08:46 01/19/20 25 01/18/2025 URINE DRUG SCREE N - EXL MAX methadone NEGATI VE negati ve Not Available [facility] (Lab Registration) [address] [place], [address], 01/18/2025 16:08:46 01/19/20 25 01/18/2025 URINE DRUG SCREE N - EXL MAX opiates NEGATI VE negati ve Not Available [facility] (Lab Registration) [address] [place], [address], 01/18/2025 16:08:46 01/19/20 25 01/18/2025 URINE DRUG SCREE N - EXL MAX oxycodone NEGATI VE negati ve Not Available [facility] (Lab Registration) [address] [place], [address], 01/18/2025 16:08:46 01/19/20 25 01/18/2025 URINE DRUG SCREE N - EXL MAX cannabinoids NEGATI VE negati ve Not Available [facility] (Lab Registration) [address] [place], [address], 01/18/2025 16:08:46 01/19/20 25 01/18/2025 URINE DRUG SCREE N - EXL MAX pcp NEGATI VE negati ve Not Available [facility] (Lab Registration) [address] [place], [address], 01/18/2025 16:08:46 01/19/20 25 01/18/2025 URINE DRUG SCREE N - EXL MAX fentanyl, urine NEGATI VE negati ve Not Available [facility] (Lab Registration) [address] [place], [address], 01/18/2025 16:08:46 01/19/20 25 01/18/2025 URINE DRUG SCREE N - EXL MAX tricyclic antidepressa nts NEGATI VE negati ve Not Available [facility] (Lab Registration) [address] [place], [address], 01/18/2025 16:08:46 01/19/20 25 01/18/2025 URINE DRUG SCREE N - EXL MAX internal control PASS PASS Not Available [facility] (Lab Registration) [address] [place], [address], 01/18/2025 16:08:46 01/19/20 25 01/18/2025 URINE DRUG SCREE N - EXL MAX note Unles s other schneider noted testi ng perfo rmed at: [facility] [address] [place] [address] [phone] Jan rossi MD CLIA: [id number] Not Available [facility] (Lab Registration) [address] [place], [address], 01/18/2025 16:08:46 01/19/20 25 01/18/2025 GABAP ENTIN , URINE note Unles s other schneider noted testi ng perfo rmed at: [facility] [place] [address] [phone] Jan rossi MD CLIA: [id number] Not Available [facility] (Lab Registration) [address] [place], [address], 01/24/2025 16:17:32 01/19/20 25 01/24/2025 GABAP ENTIN , URINE gabapentin, urine >800.0 ug/mL Perfo rmed at: [facility] [address] [address] Lab Direc tor: Janina Domo moran [facility] , Phone : [phone] Not Available [facility] (Lab Registration) [address] [place], [address], 01/24/2025 16:17:32 04/13/20 24 04/13/2024 XR, foot, 3 or more view [facility] [address] [facility] [place] [address] Phone: Fax: Name: KAYLEE KIRK Exam Date: : [birth year] Age 49 years Gender : F Access ion: [id number] Physic pito: AMBURG EY, TAFFAN Y Facili ty: [facility] Facili ty HSV: Outpat ient [...] for referr ing KAYLEE KIRK A to [facility]. Legall y authen ticate d by POPE IRWIN Benoit DO 04-13 13:21: 28 CC'ed Logic: Orderi ng Provid er: AMBURG EY TAFFAN Y CC Provid er: IRMA ERICKSON Attend ing Provid er: AMBURG EY TAFFAN Y Referr ing Provid er: AMBURG EY TAFFAN Y Admitt ing Provid er: AMBURG EY TAFFAN Y [email or web address] [facility] (Radiology) [address] [place], [address], 04/13/2024 16:50:01 04/13/20 24 04/13/2024 toe(s ) [facility] [place] [address] Phone: Fax: Name: ANNIEKATICHRISTOS Wray Exam Date: : [birth year] Age 49 years Gender : F Access ion: [id number] Physic pito: AMBURG EY, TAFFAN Y Facili ty: [facility] Facili ty HSV: Outpat ient [...] for referr ing [facility] Legall y authen ticate d by POPE IRWIN Benoit DO 04-13 13:21: 49 CC'ed Logic: Orderi ng Provid er: AMBURG EY TAFFAN Y CC Provid er: IRMA DRE Attend ing Provid er: AMBURG EY TAFFAN Y Referr ing Provid er: AMBURG EY TAFFAN Y Admitt ing Provid er: AMBURG EY TAFFAN Y [email or web address] [facility] (Radiology) [address] [place], [address], 04/13/2024 16:50:01 09/14/20 24 09/14/2024 [facility] [address] [facility] [place] [address] Phone: Fax: Name: KAYLEE KIRK Exam Date: 2023 : [birth year] Age 49 years Gender : F Access ion: [id number] Physic pito: AMBURG EY, TAFFAN Y Facili ty: [facility] Facili ty HSV: Outpat ient Exam: DE DEXA AXIAL EXAMIN ATION: DUAL X-RAY ABSORP TIOMET RY (DXA) FOR BONE MINERA L DENSIT Y. CLINIC AL INDICA TION: 49 years old, Female . Unknow n menopa use status . Z13.82 0. TECHNI QUE: An axial (e.g., hips, spine) and/or append icular (e.g., radius ) exam was perfor med, as approp riate, using Pain Doctor Lunar Prodig y densit ometer . Images [...] perfor med using the [facility] elmarcy FRAX calcul ator based on patien [...] ing Provid er: AMBURG EY TAFFAN Y [email or web address] [facility] (Radiology) [address] , [place], [address], 09/15/2024 15:22:35 01/27/20 25 01/25/2025 XR, lumba r spine No observ ation record ed. [facility] [address], [place], [address], 01/28/2025 13:21:32 Result Notes None recorded. Problems Name Problem SNOMED Code Status Onset Date Resolution Date Notes Provider Name and Address Organization Details Recorded Time Essential hypertensi on 67397276 Active 2022 Not Available [facility] 3 15:39:14 Diarrhea of presumed infectious origin 58776074 Active 2022 Ajith Vigil null, [place] - [facility] [place] 4 11:04:16 Chronic pain 92253838 Active 2022 Ajith Vigil null, [place] [facility] [place] 4 11:04:13 Irritable bowel syndrome 79290479 Active 2022 Ajith Vigil [place], [place] [facility] [place] 4 11:04:21 Mixed anxiety and depressive disorder 636297476 Active 2022 Ajith Vigil [place] [facility] [place] 4 11:04:23 Osteoarthr itis of multiple joints 275855683 Active 2022 Ajith Vigil [place], [place] [facility] [place] 4 11:04:25 Hyperglyce belkis 69278705 Active 2023 Ajith Vigil [place], [place] [facility] [place] 4 11:04:18 Vitamin D deficiency 04226429 Active 2023 Ajith Vigil [place], [place] [facility] [place] 4 11:04:29 Taking high risk medication 3179321380970 07 Active 2023 Ajith Vigil null, [place] - [facility] & [place] 11:04:27 Problem Notes None recorded. Procedures Surgical History Date Name Laterality Status Provider Name and Address Organization Details Recorded Time 08/28/20 24 Most Recent Bone Density completed Di Leónsimon CT - [facility] & [place] 01/18/2025 15:20:51 07/21/20 23 Colonoscopy completed Estephania Mark CT - [facility] & [place] 07/23/2023 16:12:35 07/17/20 23 Date of Last Colonoscopy completed Aspen Urbina CT - [facility] & [place] 09/28/2023 06:54:12 12/24/19 20 arthroplasty of left ankle completed Mayra Thomason CT - [facility] & [place] 05/31/2024 14:24:23 excision of cyst completed Mayra Calix CT - [facility] & [place] 05/31/2024 14:22:36 Imaging Results Imaging Date Name Status LastModified by Organiz ation Details LastModified Time 04/13/2024 XR, foot, 3 or more view completed [email or web address] (Radiology) [address] [place], [address], 04/13/2024 16:50:01 04/13/2024 toe(s) 3 views lt completed [email or web address] (Radiology) [address] [place], [address], 04/13/2024 16:50:01 09/14/2024 DEXA, axial skeleton completed [email or web address] (Radiology) [place], [address], 09/15/2024 15:22:35 01/25/2025 XR, lumbar spine completed [facility] [address], [place], [address], 01/28/2025 13:21:32 Procedure Notes None recorded. Medical Equipment None Reported. Allergies Allergen ID Allergen Name Allergen Category Reaction Reaction Severity Criticality Documentation Date Start Date Code Code System Note Provider Name and Address Organization Details Recorded Time 66471 Substance with sulfonami de structure and antibacte rial mechanism of action (substanc e) medicatio n hives moderate Not available 01/25/2023 71279 8003 SNOMED Ajith monet [place] [facility] & [place] 3 12:13:51 32299 penicilli n G Not available Not available Not available Not available 07/29/2023 7980 RxNorm Aspen monet [place] [facility] & [place] 3 08:40:54 Medications Name Sig Start Date [...] Updated DateTime 4 149.86 cm 36 kg/m2 72993.4 4 g 97.9 [degF] 98 % 98 % 89 /min 18 /min 133 mm[Hg] 87 mm[Hg] Yossi Herrera greg CALDERON [facility] & [place] 4 15:19:45 Date Recorded Body height Body mass index (BMI) Body weight Body temperature Oxygen saturation Oxygen saturation in Arterial blood by Pulse oximetry Heart rate Respiratory rate Systolic blood pressure Diastolic blood pressure Provider Name and Address Organization Details Last Updated DateTime 4 149.86 cm 35.5 kg/m2 27065.2 6 g 97.2 [degF] 97 % 97 % 89 /min 18 /min 148 mm[Hg] 102 mm[Hg] Ajith CALDERON [facility] 4 09:45:51 Date Recorded Body height Body mass index (BMI) Body weight Body temperature Oxygen saturation Oxygen saturation in Arterial blood by Pulse oximetry Heart rate Respiratory rate Systolic blood pressure Diastolic blood pressure Provider Name and Address Organization Details Last Updated DateTime 4 149.86 cm 34.9 kg/m2 28184.4 8 g 98.1 [degF] 97 % 97 % 74 /min 18 /min 128 mm[Hg] 84 mm[Hg] Ajith CALDERON [facility] & [place] 4 11:37:57 Date Recorded Body height Body mass index (BMI) Body weight Body temperature Oxygen saturation Oxygen saturation in Arterial blood by Pulse oximetry Heart rate Respiratory rate Systolic blood pressure Diastolic blood pressure Provider Name and Address Organization Details Last Updated DateTime 4 149.86 cm 36.4 kg/m2 47321.6 3 g 98.1 [degF] 98 % 98 % 91 /min 18 /min 127 mm[Hg] 87 mm[Hg] Ajith Vigil [facility] & [place] 4 15:34:54 Date Recorded Body height Body mass index (BMI) Body weight Body temperature Oxygen saturation Oxygen saturation in Arterial blood by Pulse oximetry Heart rate Respiratory rate Systolic blood pressure Diastolic blood pressure Provider Name and Address Organization Details Last Updated DateTime 5 149.86 cm 38.1 kg/m2 13169.5 2 g 98.4 [degF] 98 % 98 % 101 /min 16 /min 141 mm[Hg] 88 mm[Hg] Di Hoyos [facility] & [place] 5 15:20:27 Social History Question Answer Notes LastModified by Organizat ion Details LastModified Time Tobacco Smoking Status Current Every Day Smoker Aspen monet, [facility] & [place] 07/29/2023 08:30:16 Do You Have An Advance Directive? No [email or web address] Information not available 07/29/2023 What Is Your Level Of Alcohol Consumption? Moderate [email or web address] Information not available 07/29/2023 If You Are , What Was Your Level Of Alcohol Consumption Prior To ? Occasional [email or web address] Information not available 03/28/2024 Do You Wear A Helmet When Biking? Yes [email or web address] Information not available 03/28/2024 Are You Blind Or Do You Have Difficulty Seeing? No [email or web address] Information not available 07/29/2023 What Is Your Level Of Caffeine Consumption? None [email or web address] Information not available 03/28/2024 In The 14 Days Before Symptom Onset, Have You Had Close Contact With A Laboratory-confir med COVID-19 While That Case Was Ill? No Information not available 03/28/2024 In The 14 Days Before Symptom Onset, Have You Had Close Contact With A Person Who Is Under Investigation For COVID-19 While That Person Was Ill? No [email or web address] Information not available 03/28/2024 Have You Been To An Area Known To Be High Risk For COVID-19? No Information not available 03/28/2024 Are You Currently Employed? No [email or web address] Information not available 03/28/2024 Are You Deaf Or Do You Have Serious Difficulty Hearing? No [email or web address] Information not available 03/28/2024 What Type Of Diet Are You Following? REGULAR [email or web address] Information not available 04/12/2024 Have You Processed Blood Or Body Fluids From An Ebola Virus Disease Patient Without Appropriate PPE? No Information not available 03/28/2024 Do You Reside In Or Have You Traveled To An Area Where Ebola Virus Transmission Is Active? No [email or web address] Information not available 03/28/2024 Have There Been Any Changes To Your Family Or Social Situation? No [email or web address] Information no t available 09/08/2024 What Is The Fluoride Status Of Your Home? Unknown [email or web address] Information not available 03/28/2024 Are There Any Guns Present In Your Home? No [email or web address] Information not available 03/28/2024 Have You Recently Or Are You Planning To Travel To An Area With Zika Virus? No [email or web address] Information not available 03/28/2024 Do You Use Insect Repellent Routinely? Yes [email or web address] Information not available 03/28/2024 Do You Feel Safe At Home? Yes [email or web address] Information not available 03/28/2024 Do You Have A Medical Power Of Taker Off Braker Machine? No [email or web address] Information not available 03/28/2024 What Was The Date Of Your Most Recent Tobacco Screening? 11/23/2024 [email or web address] Information not available 01/18/2025 Do You Have Any Pets? No Information not available 03/28/2024 Do You Use Your Seat Belt Or Car Seat Routinely? Yes [email or web address] Information not available 03/28/2024 Do You Have Smoke And Carbon Monoxide Detectors In Your Home? Yes [email or web address] Information not available 03/28/2024 Are You Passively Exposed To Smoke? No [email or web address] Information no t available 07/29/2023 Do You Or Have You Ever Used Smokeless Tobacco? Never Used Smokeless Tobacco [email or web address] Information not available 09/28/2023 How Much Tobacco Do You Smoke? 1 PPD [email or web address] Information not available 07/29/2023 Do You Feel Stressed (tense, Restless, Nervous, Or Anxious, Or Unable To Sleep At Night)? [id number] [email or web address] Information not available 07/29/2023 Do You Use Any Illicit Or Recreational Drugs? No Information not available 07/29/2023 Do You Use Sunscreen Routinely? Yes [email or web address] Information not available 03/28/2024 Has Tobacco Cessation Counseling Been Provided? No [email or web address] Information not available 03/28/2024 How Many Years Have You Smoked Tobacco? 29 Information not available 05/31/2024 Are You Currently In School? No [email or web address] Information not available 03/28/2024 Do You Or Have You Ever Used Any Other Forms Of Tobacco Or Nicotine? No [email or web address] Information not available 03/28/2024 Sex: Female Functional Status Question Answer Note LastModified by Organizat ion Details LastModified Time Do you have difficulty walking or climbing stairs? No [email or web address] Information not available 03/28/2024 Do you have transportation difficulties? No [email or web address] Information not available 03/28/2024 Are you able to walk? YESWOREST [email or web address] Information not available 03/28/2024 Do you have difficulty doing errands alone? No Information not available 03/28/2024 Are you able to care for yourself? Yes [email or web address] Information n ot available 03/28/2024 Do you have difficulty dressing or bathing? No [email or web address] Information not available 03/28/2024 What is your exercise level? Occasional Information not available 05/31/2024 Mental Status Question Answer Note LastModified by Organization D etails LastModified Time Do you have difficulty concentrating, remembering or making decisions? No [email or web address] Information no t available 03/28/2024 Family History [...] available 2023 14:29:35 Medical History Condition Response Other Y Depression Y GI Problems Y Acne Y Osteoporosis/Osteopenia Y Spine Problems Y Anxiety Disorder Y Obesity Y Vision or Eye Problems Y Arthritis Y Back Problems Y Endometriosis Y High Cholesterol Y Psychiatric/Mental Health Condition Y Hypertension Y [...] 07/02/2021 siva monet [place] - [facility] [place] [facility] [place] 07/29/2023 08:29:46 COVID-19, mRNA, LNP-S, PF, 30 mcg/0.3 mL dose 07/23/2021 completed [place] - [facility] [place] [facility] [place] 07/29/2023 08:29:46 Past Encounters Encounter ID Performer Location Encounter Start Date Encounter Closed Date Diagnosis/Indication Diagnosis SNOMED-CT Code Diagnosis ICD10 Code Diagnosis Note [id number] [facility] [address] [address] 08/10/2022 14:01:33 08/10/2022 16:46:14 Pain of right shoulder joint 6827500851 7688532 M25.511 kenalog and decadron given in clinic todayice and heat therapymon itor for worsening symptomsfo llow up in 2 weeks if no improvemen t in symptoms Neuropathy 610710411 G62 .9 [id number] [facility] [address] [address] 11/17/2022 11:27:24 11/17/2022 14:03:43 Acute otitis media with effusion 007532279 H65.191 J01.00 R05.1 take medication medication as prescribed increase water intaketyle nol PRNmonitor for worsening symptoms [id number] [facility] [address] [address] 01/25/2023 12:06:31 01/25/2023 12:30:31 Pain of toe of left foot 4336134781 03013 M79.675 S90.122A ordering xrayice therapyele vate Neuropathy 046705126 G62 .9 UDS today and Ender reviewed. [id number] Rica Monterroso APRN [facility] [address] [facility] [place] [address] 04/20/2023 10:31:13 04/23/2023 09:41:26 Diarrhea 12252715 R19.7 Z80.0 encouraged to keep a food diary to avoid triggering foodsincre ase water intaketake dicyclomin e as prescribed monitor for worsening symptomsfo llow up PRNreferra l made for colonoscop y blood drawn in the right AC by Kisha Buck CMA, patient tolerated well. Chronic pain syndrome 37 4150463 G89.4 M41.9 M19.072 paperwork filled out for antoni martell appts with pain management monitor for worsening symptoms Essential hypertension 52600879 I10 Prediabetes 677964225 R7 3.03 Endocrine/ metabolic screening 613649594 Z13.228 Hyperlipid emia screening 386001707 Z13.220 [id number] Radha Frost NP [facility] [address] [address] 06/30/2023 12:26:32 06/30/2023 13:10:10 Diarrhea of presumed infectious origin 47164819 A09 Hx of diarrhea with worsening symptoms [...] Family his tory of cancer of colon 299081392 Z80.0 Patient's sister diagnosed colon cancer in her 50's. recommend colonoscop y to rule out colorectal cancer, polyps, other. Family his tory of polyp of colon 300952530 Z83.71 patient's mother with history multiple colon polyps. Plan for colonoscop y as above. [id number] Radha Frost NP [facility] [address] [address] 08/25/2023 12:54:58 08/25/2023 13:31:16 History of polyp of colon 305982717 Z86.010 Multiple polyps resected on colonoscop y 07/21/2023 pathology consistent with tubulovill ous adenoma, tubular adenoma as well as serrated adenoma negative for high grade dysplasia. 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 Family his tory of cancer of colon 971944258 Z80.0 Patient's sister diagnosed colon cancer in her 50's. Irritable bowel syndrome 99819590 K58.9 Continues to experience multiple episodes of [...] based on response to simple medication . [id number] Dre Malone MD [address] [place] [address] 09/30/2023 11:30:54 09/30/2023 12:18:59 Chronic pain 32186258 G89.29 Ender reviewed. Patient is seen. We will continue gabapentin t.i.d. return to clinic in 3 months. continue management with pain management for back and ankle issues. We will refill gabapentin . See back in 3 months. Essential hypertension 73449765 I10 Check blood work blood pressure by my check 136/86. Continue present meds. Osteoarthr itis of multiple joints 174012400 M15.9 Patient is seen by pain management . She would like rheumatolo gy opinion about her arthritis. Patient does have significan t kyphosis of her spine. Mixed anxi ety and depressive disorder 592390520 F41.8 Patient's symptoms are stable continue present meds. [id number] Dre Malone MD [address] [place] [address] 12/30/2023 11:31:44 12/30/2023 12:14:38 Taking high risk medication 7306856866 26382 Z91.89 general urine drug screen is negative. Gabapentin screen sent to the lab. Prescribe gabapentin . Ender reviewed.S ee back in 3 months. Hyperlipidemia 38645272 E78.5 Patient is back on atorvastat in we will check labs. Refill atorvastat in Essential hypertension 92733496 I10 Check blood work blood pressure by my check 136/86. Continue present meds. Vitamin D deficiency 347 85942 E55.9 patient is taking over-the-c ounter supplement we will recheck level. Hyperglycemia 55026490 R 73.9 Patient does have history of elevated blood sugar. She has been on metformin in the past. Check hemoglobin A1c today. Chronic pain 95089221 G8 9.29 Ender reviewed patient just had ablation done we will refill gabapentin . [id number] Dre Malone MD [address] [place] [address] 03/28/2024 10:54:46 03/29/2024 09:07:06 Long-term drug therapy 299024591 Z79.899 urine drug screen negative. urine sent testing Essential hypertension 41073029 I10 patient is self referred to Cardiology elevations in blood pressure. She would she is scheduled for stress testing she be treated cardiology pressure Mixed anxi ety and depressive disorder 138996524 F41.8 Patient's symptoms are stable continue present meds. continue present meds refills Osteoarthr itis of multiple joints 176478824 M15.9 symptoms are controlled no changes Hyperlipidemia 64636509 E78.5 recent blood work showed total cholestero l 189, LDL 111 continue present meds no side effects Chronic pain 44824210 G8 9.29 aspirin available patient is due refill prescripti on [id number] Floyd Robles MD [address] [place] [address] 04/05/2024 11:00:31 04/05/2024 11:15:00 Injury of head 60827942 S09.90XA patient has been told to monitor her injury. There appears to be no focal neurologic al deficit. Swelling has largely resolved. [id number] ANSHUL GONZALEZ NP [address] [place] [address] 04/12/2024 15:09:12 04/13/2024 08:21:07 Injury of great toe 364984710 S99.922A RICEawaiti ng xraysf/u if symptoms persist or worsen [id number] ANSHUL GONZALEZ NP [address] [place] [address] 06/30/2024 11:27:24 06/30/2024 12:23:38 Adult health examination 431008486 Z00.00 Patient presented to office today for [...] living. Screening for malignant neoplasm of breast 782895689 Z12.39 Mixed hyperlipidemia 267 744817 E78.2 Continue statin therapy, reinforced healthy lifestyle Essential hypertension 24491448 I10 educated on goal of less than 130/90advi sed low sodium diet, healthy lifestyle including exercise as ablecontin ue current medication regimenER if any symptoms such as chest pain, shortness of breath Vitamin D deficiency 347 73676 E55.9 Neuropathy 403907209 G62 .9 risk versus benefit discussed, refill provided todayneeds updated CSAUDS completed March4review frances turk [id number] Floyd Robles MD [facility] [address] [place] [address] 06/14/2024 09:27:53 06/15/2024 08:13:43 Mixed anxiety and depressive disorder 288436672 F41.8 denies SI/HIincre ase Sertraline from 50 to100 mgpatient will make appointmen t with PTIverchao gil seeking help if thoughts to arise Diarrhea [id number] R19.7 recommend GI panelbland dietavoid triggershy geoff [id number] ANSHUL GONZALEZ, JARED [facility] [address] [facility] [place] [phone] 09/08/2024 15:23:54 09/08/2024 16:01:02 Essential hypertension [id number] I10 educated on goal of less than 130/90advi sed low sodium diet, healthy lifestyle including exercise as ablecontin ue current medication regimen, controlled , refill providedER if any symptoms such as chest pain, shortness of breath Screening for osteoporosis [id number] Z13.820 Pain of mu ltiple joints [id number] M25.50 orders placed for physical therapy, continue with pain management as recommende d, see what other options are available for her. Pain of bi lateral hip joints [id number] M25.551 M25.552 Low back pain [id number] M54.50 Normal bowel and bladder function Thoracic back pain [id number] M54.6 [id number] Floyd Robles MD [facility] [address] [facility] [place] [phone] 01/18/2025 15:02:02 01/18/2025 15:27:09 Long-term current use of drug therapy [id number] Z79.899 Neuropathy [id number] G62 .9 patient has a long history [...] [employer] [place] Q$G Marie Short [id number] Marie Short 06/14/2024 1 [employer] [place] Q$G Marie Short [id number] Marie Short 06/30/2024 1 [employer] [place] Q$G Marie Short [id number] Marie Short 09/08/2024 1 [employer] [place] Q$G Marie Short [id number] Marie Short 01/18/2025 1 [employer] [place] Q$G Marie Short [id number] Marie Short Notes Date Note Type Note [...] any throbbing, swelling. ANSHUL GONZALEZ NP 22 [facility], [place], [address], [place] - [facility] - [place] & [place] 04/12/2024 15:43:08 06/14/2024 text/html 49-year-old femarvind rg [...] clinic for injections. ANSHUL GONZALEZ NP [address] [place], [address], [facility] & [place] 06/14/2024 09:55:00 06/30/2024 text/html Patient presents for [...] and gabapentin therapy. ANSHUL GONZALEZ NP [address] [place], [address], [facility] & [place] 07/03/2024 12:54:05 09/08/2024 text/html 49-year-old fema arcenio who presents for follow-up. Needs refill on her metoprolol today. Also requests to have DEXA scan completed.followed by pain management in [place], multiple injections, spine, hips, without improvement,helps for 3 days then pain returns; seen by Dr. Johnson as well and not much more he could do For her chronic pain. Wishes to have physical therapy. Denies any changes in bowel or bladder habits ANSHUL GONZALEZ NP 22 [facility], [place], [address], [facility] & [place] 09/12/2024 16:11:24 01/18/2025 text/html Patient presents today for medication follow-up. She denies any new issues Floyd Robles MD [address] [place] [address], [place], [address], [facility] - [place] - [place] & [place] 01/18/2025 15:44:19 OBGyn Episode No OBEpisode recorded.
[2025-02-22 15:33] VITALS: BP 140/83; PULSE 102; RESP 14; O2SAT 96; BMI 36.3
--- NOTE | 2025-02-22 16:02 | A.OFFVIS_ITS ---
[facility] Disclaimer: The information contained in this section may have been updated after the patient was seen, as this information can be updated by other users. Medical History Tubal Chronic pain Endometriosis HLD (hyperlipidemia) HTN (hypertension) Surgical History History of ankle surgery H/O removal of cyst Family History Other No significant family history Social History Smoking Status: Current every day smoker alcohol intake: never substance use type: denies use current occupational status: other Travel in the last 8 weeks?: None PM Subjective & Objective Subjective Subjective:: Patient is a pleasant 49-year-old female who presents today for follow-up of her lumbar CT. Patient rates her pain today a 8 out of 10. Patient denies any new injury or trauma. Patient does state that she still has the chronic back pain but also has more pain in and around her hips. Patient states that the pain is very bothersome and is affecting her ability perform activities of daily living such as cooking and cleaning. Patient does state that she has still been thinking about the pump trial and that she is scheduled to meet with the psychological evaluation group tomorrow. Patient is currently managed with tizanidine 4 mg twice a day and meloxicam 15 mg daily from our office. Patient is on gabapentin from her PCP. Her Ender has been reviewed and is appropriate. Review of Systems: General: No recent weight changes, no fever, no sleep disturbances Respiratory: No cough, no shortness of air, no recurring pulmonary infections Cardiovascular/peripheral vascular: No chest pain, no palpitations, no edema, no shortness of breath Gastrointestinal: No new onset incontinence, normal bowel movements reported Genitourinary: No new onset incontinence Musculoskeletal: Low back pain, bilateral hip pain Psychiatric: [Normal mood/affect] Neurological: [Denies weakness in extremities], [denies balance issues] Pain at rest (0-10 scale): 8 Objective Objective:: Physical Exam: General: Alert and oriented x3, no acute distress, pleasant and cooperative Lungs: Respirations even and unlabored, symmetrical chest expansion Eyes: PERRL Musculoskeletal: Flexion and extension of lumbar [spine] somewhat guarded secondary to pain, [antalgic gait noted] point tenderness along bilateral greater trochanteric bursa's Neurological: Speech clear, no gross sensory deficit Has patient had previous pain injection?: No Conservative treatment options previously tried: Home exercise plan Length of treatment: Longer than 12 weeks Meds Home Medications and Allergies Home Medications ?Medication ?Instructions ?Recorded ?Confirmed ?Type gabapentin 300 mg capsule 300 mg PO TID Pain 09/03/22 02/22/25 History hydroxyzine HCl 25 mg tablet 50 mg PO DAILY . 09/03/22 02/22/25 History metformin 500 mg tablet 500 mg PO BID PCOS 09/03/22 02/22/25 History sertraline 50 mg tablet 50 mg PO DAILY MOOD 09/03/22 02/22/25 History spironolactone 100 mg tablet 100 mg PO DAILY Fluid 09/03/22 02/22/25 History diazepam 2 mg tablet 2 mg PO ONCE pain #1 tab 01/13/24 02/22/25 Rx meloxicam 15 mg tablet 15 mg PO DAILY Pain #30 tabs 09/28/24 02/22/25 Rx tizanidine 4 mg tablet (Zanaflex) 4 mg PO BID spasms #180 tabs 12/06/24 02/22/25 Rx New Prescriptions to Start Prescriptions: Allergies Allergy/AdvReac Type Severity Reaction Status Date / Time Penicillins Allergy Verified 02/01/24 10:21 Sulfa (Sulfonamide Allergy Verified 02/01/24 10:21 Antibiotics) Assessment and Plan *Assessment and plan (1) Chronic back pain: Status: Acute Category: Medical Code(s): M54.9 - Dorsalgia, unspecified; G89.29 - Other chronic pain (2) Greater trochanteric bursitis of both hips: Status: Acute Category: Medical Code(s): M70.61 - Trochanteric bursitis, right hip; M70.62 - Trochanteric bursitis, left hip Plan Patient is experiencing worsening pain in her low back and bilateral hips with extreme point tenderness along her greater trochanteric bursa's during today's visit. I did discuss with the patient that she may benefit from repeat bursa injections. Risk and benefits were discussed with the patient and she would like to proceed forward with this option. Patient has tried and failed conservative therapy including oral medications, heat and ice, topicals, at home stretching exercise for longer than 12 weeks. Patient was reviewed over her CT imaging that did show significant curvature of her lumbar spine as well as a compression deformity of L1. I did discuss again with the patient that I do believe that she would really benefit from the intrathecal pump trial. We will follow-up with her in future regarding this. Patient has already been sent for her psychological evaluation and is scheduled to have this done tomorrow. Patient will be scheduled for bilateral bursa injections under fluoroscopy. Patient has had chronic hip pain for longer than 6 months. Patient's last bursa injections were in July 2024 that did provide 60% improvement. Patient has been instructed to contact the clinic with any concerns before the next appointment. Dr. Bernard has reviewed this note and agrees with this plan of care. This note was dictated using voice recognition software and make contain errors or omissions. All injections are used with Lidocaine, Bupivacaine and dexamethasone. Occasionally urine drug screen is needed to verify patient's compliance with our office pain contract. This is ordered based off specific treatments related to chronic pain with the potential to abuse certain medications.
== END 2025-02-22 23:59 | disposition home or self-care (01) ==
LOC: SC.PAIN 14:31
PROVIDERS: PCP Nurse Practitioner Family; Visit Provider Nurse Practitioner Family
DX: M54.9 Dorsalgia, unspecified (principal); G89.29 Other chronic pain; M70.61 Trochanteric bursitis, right hip; M70.62 Trochanteric bursitis, left hip; F17.200 Nicotine dependence, unspecified, uncomplicated; Z73.89 Other problems related to life management difficulty
CPT/HCPCS: 99212; G0463

== ENCOUNTER 2025-03-20 11:33 | Day surgery (SDC) | payer MEDICAID, SELFPAY ==
[2025-03-20 11:37] VITALS: BP 147/91; PULSE 101; RESP 16; TEMP 36.8; O2SAT 96; BMI 36.3
[2025-03-20] MEDS: BUPIVACAINE 0.25% 10ML INJ 25 MG IJ (11:45)
[2025-03-20] MEDS: DEXAMETHASONE 10MG/ML 1ML VIAL 10 MG (11:45)
[2025-03-20 11:46] VITALS: BP 146/90; PULSE 105; RESP 18; O2SAT 97
[2025-03-20] MEDS: LIDOCAINE 1% 5ML PF VIAL 5 ML (11:46)
[2025-03-20 11:48] VITALS: BP 146/90; PULSE 100; RESP 18; O2SAT 97
--- NOTE | 2025-03-20 11:52 | P.PCN_ITS ---
Procedure Date: 03/20/25 Time: 11:30 Anesthesiologist:: Hunter Arriaga CRNA Complications:: None Pre-procedure Diagnosis:: Bilateral trochanteric bursitis Post-procedure Diagnosis:: Same. Indications for Procedure:: Patient is a very pleasant 49-year-old female who comes our clinic today for bilateral trochanteric bursa injection cortisone local anesthetic. Patient describes bilateral lateral hip pain as constant, dull, sharp, stabbing. She rates pain 7/10. She has extreme point tenderness upon evaluation over the bilateral trochanteric bursa areas. Procedure Details:: Procedure: Bilateral trochanteric bursa joint injections under fluoroscopy Informed consent was obtained and the risks and benefits of the procedure were explained to the patient.~ The patient was taken to the procedure room and noninvasive monitors were placed including a noninvasive blood pressure cuff and pulse oximeter.~ The patient was placed prone on the procedure table. Both hips were cleansed using Betadine as a cleansing solution. C-arm fluoroscopy was used to view the right trochanteric bursa joint.~ The skin and subcutaneous tissues were anesthetized using lidocaine 1.5% and a 25-gauge needle.~ After this, a 22- gauge spinal needle was inserted under fluoroscopic guidance into the inferior aspect of the right trochanteric bursa.~ Omnipaque dye was injected and good spread was seen throughout the joint.~ After this, approximately 5 mL of bu pivacaine, 0.25% and Depo-Medrol, 40 mg was incrementally injected into the right sacroiliac joint. We then moved to the left trochanteric bursa joint.~ The skin and subcutaneous tissues were anesthetized using lidocaine 1.5% and a 25-gauge needle.~ After this, a 22-gauge spinal needle was inserted under fluoroscopic guidance into the inferior aspect of the left trochanteric bursa joint.~ Omnipaque dye was injected and good spread was seen throughout the joint. After this, approximately 5 mL of bupivacaine, 0.25% and Depo-Medrol, 40 mg was incrementally injected into the left sacroiliac joint.~ The patient tolerated the procedure well with no complications. The patient was observed in the Pain Clinic and then was discharged home neurologically intact. Plan and Disposition:: Patient was discharged without incident.
[2025-03-20 11:55] VITALS: BP 135/91; PULSE 95; RESP 16; O2SAT 98
== END 2025-03-20 11:55 | disposition home or self-care (01) ==
PROVIDERS: PCP Nurse Practitioner Family; Visit Provider Nurse Anesthetist, Certified Registered
DX: M70.61 Trochanteric bursitis, right hip (principal); M70.62 Trochanteric bursitis, left hip
CPT/HCPCS: 20610; 77002; J1100

== ENCOUNTER 2025-04-09 10:38 | Outpatient (POV) | payer MEDICAID, SELFPAY ==
--- OUTSIDE RECORDS SUMMARY | 2025-04-09 10:49 | XMS_ITS | Encounter Summary ---
Author Organization [facility] Address [address] [place] [address] Care Team Providers Care Welder Plasma Arc Name Role Phone None, None Primary Care Provider [phone] Reason for Referral * Consultation (Routine) - Closed Specialty Diagnoses / Procedures Referred By Glenys barakat Referred To Contact Neurosurgery Diagnoses Other low back pain Radiculopathy, lumbar region Perez Johnson MD [address] [place] [address] Phone: tel: fax: Referral ID Status Reason Start Date Expiration Date V isits Requested Visits Authorized [id number] Closed Specialty Services Required 08/05/2022 02/04/2024 1 1 Encounter Details Date Type Department Care Team (Late st Contact Info) Description 08/05/2022 Community [facility] [address] [place] [address] Perez Johnson MD [address] [phone] Other low back pain (Primary Dx); Radiculopathy, lumbar region Social History Tobacco Use Types Packs/Day Years Used Date Smoking Tobacco: Never Assessed Comments Unknown Sex and Gender Information Value Date Recorded Sex Assigned at Not on file Legal Sex Female 8:37 PM EDT Gender Identity Not on file Sexual Orientation Not on file documented as of this encounter Plan of Treatment Scheduled Referrals Name Type Priority Associated Diagnoses Order Schedule Ambulatory Referral to Neurosurgery Outpatient Referral Routine Other Low Back Pain Radiculopathy, lumbar region Expected: 08/05/2022 (Approximate), Expires: 02/04/2024 documented as of this encounter Visit Diagnoses Diagnosis Other low back pain- Primary Radiculopathy, lumbar region Thoracic or lumbosacral neuritis or radiculitis, unspecified documented in this encounter Care Teams Welder Plasma Arc Relationship Specialty Start Date End Date None, None [address] [id number] PCP - General NONE FOUND 10/13/22 05/18/24 documented as of this encounter
--- OUTSIDE RECORDS SUMMARY | 2025-04-09 10:49 | XMS_ITS | Clinical Summary ---
Author Organization [facility] Address [address] [place] [address] Care Team Providers Care Physical Therapy Technician Name Role Phone Unavailable Primary Care Provider Unavailabl e Allergies Active Allergy Reactions Criticality Noted Date Comments Penicillins Rash Low 04/16/2017 Sulfa Drugs Itching Medium 01/04/2019 Medications gabapentin (Neurontin) 300 MG capsule 09/22/2022 Active spironolactone (Aldactone) 100 MG tablet Take 100 mg by mouth 1 (one) time each day. 04/13/2022 Active sertraline (Zoloft) 50 MG tablet Take 50 mg by mouth 1 (one) time each day. 04/13/2022 Active metFORMIN (Glucophage) 500 MG tablet TAKE 1 TABLET BY MOUTH TWICE DAILY WITH A MEAL 04/13/2022 Active meloxicam (Mobic) 7.5 MG tablet Take 7.5 mg by mouth 1 (one) time each day. 02/12/2022 Active hydrOXYzine HCl (Atarax) 25 MG tablet TAKE 1 TO 2 TABLETS BY MOUTH ONCE DAILY AT BEDTIME 10/06/2022 Active Active Problems No known active problems Immunizations Immunization Administration Dates Next Due PPD Skin Test (TB Skin Test) 05/06/2009 Family History Medical History Relation Name Comments Heart attack Father Hypertension Father Cancer Maternal Grandmother Heart attack Maternal Grandmother Hypertension Maternal Grandmother Back pain/problems Mother Back pain/problems Sister Cancer Sister Relation Name Status Comments Father Maternal Grandmother Mother Sister Social History Tobacco Use Types Packs/Day Years Used Date Smoking Tobacco: Former Cigarettes Smokeless Tobacco: Never Tobacco Cessation:Counseling Given: Not Answered Alcohol Use Standard Drinks/Week Comments Never 0 (1 standard drink = 0.6 oz pur e alcohol) Comments Unknown Sex and Gender Information Value Date Recorded Sex Assigned at Not on file Legal Sex Female 8:37 PM EDT Gender Identity Not on file Sexual Orientation Not on file Last Filed Vital Signs Vital Sign Reading Time Taken Comments Blood Pressure 142/85 10/13/2022 12:25 PM EST Pulse 105 10/13/2022 12:25 PM EST Temperature - - Respiratory Rate - - Oxygen Saturation 96% 10/13/2022 12:25 PM EST Inhaled Oxygen Concentration - - Weight 80.7 kg (178 lb) 10/13/2022 12:25 PM EST Height 154.9 cm (5' 1 ) 10/13/2022 12:25 PM EST Body Mass Index 33.63 10/13/2022 12:25 PM EST Plan of Treatment Health Maintenance Due Date Last Done Comments [facility]-Depression Screening 1975 [facility]-Infant/Child/Adol SDOH Screenings 1975 [facility]- SDOH Screenings 1995 [facility]-Adult SDOH Screenings 1995 [facility]-DTaP,Tdap,and Td Vaccine s (1 - Tdap) 1996 [facility]-Hepatitis B Vaccines (1 of 3 - 19+ 3-dose series) 1996 [facility]-Pap Smear 03/22/2015 03/22/2012 [facility]-Cervical Cancer Screening 03/22/2017 [facility]-HPV/Cotest 03/22/2017 03/22/2012 CT Colonography 2022 Colonoscopy 2022 FIT-DNA 2022 FIT 2022 FOBT 2022 Sigmoidoscopy 2022 [facility]-Colorectal Cancer Screening 2022 RAL-OELTY-93 Vaccine ( season) 2024 07/23/2021, 07/02/2021 [facility]-Influenza Vaccine ([place] n Ended) 2025 [facility]-Zoster Vaccines (1 of 2) 2027 HPV Vaccines Aged Out No longer eligi ble based on patient's age to complete this topic [facility]-HIB Vaccines Aged Out No longer e ligible based on patient's age to complete this topic [facility]-Hepatitis A Vaccines Aged Out No longer eligible based on patient's age to complete this topic [facility]-IPV Vaccines Aged Out No longer e ligible based on patient's age to complete this topic [facility]-Pneumococcal Vaccine: Pediatrics (0 to 5 Years) and At-Risk Patients (6 to 49 Years) Aged Out No longer eligible b ased on patient's age to complete this topic [facility]-Rotavirus Vaccines Aged Out No lo nger eligible based on patient's age to complete this topic Procedures Procedure Name Priority Date/Time Associated Diagnosis Comments CYTO DATA CONVERSION Routine 03/22/2012 12:00 AM EDT from Last 3 Months or Most Recently Relevant to Health Maintenance Results * Cytology (03/22/2012 12:00 AM EDT) 03/22/2012 03/23/2012 10: 25 AM EDT Narrative SUNQUEST - 03/24/2012 3:08 PM EDT [facility] MR #: [id number] [facility] ANNIE BRIAN [place], [place] [address] 1975 (Age: 36) FW Collect Date: 03/22/2012 00:00 Receipt Date: 03/23/2012 10:25 Page 1 DEPARTMENT OF PATHOLOGY AND LABORATORY MEDICINE CYTOPATHOLOGY REPORT Email: [email or web address] [phone] ATTENDING MD/Practitioner: Alma Womack MD Service: [facility] Location: [facility] Reported: 03/24/2012 15:08 Collected: 03/22/2012 00:00 INTERPRETATION A. THIN PREP (CERVICAL/VAGINAL): NEGATIVE FOR INTRAEPITHELIAL LESION OR MALIGNANCY. SATISFACTORY FOR EVALUATION; ENDOCERVICAL/ TRANSFORMATION ZONE COMPONENT PRESENT. Slide scanned and imaged by [employer] Thin[employer] Imaging System with manual review of all selected dorsey. Electronically Signed Out By ROBERTO Vargas (ASCP) ROBERTO Vargas (ASCP) Cervical cytology is a screening test primarily for squamous cancers and precursors and has associated false negative and positive results. New technologies such as liquid based sampling may decrease but will not eliminate all false negative results. Regular screening and follow-up of unexplained clinical signs and symptoms are recommended to minimize false negative results. Please see the ASCCP website (www.asccp.org) for followup recommendations. If HPV testing was requested, correlation with the results is suggested (please call Microbiology at [phone] for results). CLINICAL INFORMATION: Menstrual History: Irregular Date of Last Menstrual Period: {Not Provided} Other Clinical Conditions: If ASCUS and > 24 years of age, HPV/DNA testing requested. Abnormal bleeding SPECIMEN DESCRIPTION: A: THIN PREP (CERVICAL/VAGINAL) THIN PREP PROCESS CELLULAR ENHANCEMENT ICD: F: A; DX IMAGE [id number] SNOMED CODES: A; [id number] In cases where a pathologist has signed out the report, the service has been rendered in part by a resident. The signing pathologist has performed and is responsible for the reported pathologic evaluation. us Rica Crandall MD LAB PATHOLOGY ORDERAB LES Final Result SUNQUEST from Last 3 Months or Most Recently Relevant to Health Maintenance Insurance MEDICAID
--- OUTSIDE RECORDS SUMMARY | 2025-04-09 10:50 | XMS_ITS | Data Portability ---
Author Organization [facility] & [place] [facility] ADMIN Address [address] [place] [address] Assessment No assessment recorded. Plan of Treatment Reminders Order Date Submit Date Provider Last Modified By Organization Details Last Modified Time Details Appointments FOLLOW UP 30 2024 12:00P M ANSHUL GONZALEZ NP Not available Not available Not available Lab gabapenti n, quantitat mickey, urine 2024 025 [facility] (Laboratory), [address] [place], [address], 01/24/2025 16:17:32 drug screen, urine 2024 025 [email or web address] [facility] (Laboratory), [address] [place], [address], 01/25/2025 07:37:52 vitamin D, 25-hydrox y, total, serum 2023 024 [email or web address] [facility] (Laboratory), [place], [address], 08/30/2024 14:17:03 CMP, serum or plasma 2023 024 [facility] (Laboratory), [address] [place], [address], 06/30/2024 14:19:24 CBC w/ auto diff 2023 024 [facility] (Laboratory), [address] [place], [address], 06/30/2024 13:20:55 TSH, serum or plasma 2023 024 [facility] ([facility]atory), [address] [place], [address], 06/30/2024 14:18:22 lipid panel, serum 2023 024 [facility] ([facility]atory), [address] [place], [address], 06/30/2024 14:19:27 vitamin B12 + folate, serum or blood [email or web address] (Laboratory), [address] [place], [address], 08/30/2024 14:17:48 gastroint estinal pathogens panel, PCR, stool [address] (Laboratory), [address] [place], [address], 06/28/2024 07:36:56 Referral physical therapist referral 2023 024 [facility] [address] [place] [address], [address], 10/09/2024 11:48:08 physical therapist referral 2023 024 [facility] [address] [place] [address], [address], 10/09/2024 11:48:07 physical therapist referral 2023 024 [facility] [address] [place] [address], [address], 10/09/2024 11:48:06 Procedures None recorded. Surgeries None recorded. Imaging DEXA [email or web address] [place] [address] Centralized Scheduling, [address] [place], [address], 09/25/2024 10:01:05 MAMMO, screening , digital, bilateral [address] Centralized Scheduling, [address] [place], [address], 07/14/2024 07:23:42 XR, toe(s), 2 or more view [address] Centralized Scheduling, [address] [place], [address], 04/19/2024 07:31:01 XR, foot, 2 view [address] Centralized Scheduling, [address] [place], [address], 04/26/2024 07:30:52 Medication Orders gabapenti n 300 mg capsule 2024 025 [facility], [address] [place] [address], [address], 01/18/2025 15:44:13 metoprolo l succinate ER 50 mg tablet,ex tended release 24 hr 2023 024 [facility], [address] [place], [address], 09/11/2024 12:27:44 gabapenti n 300 mg capsule 2023 024 [facility], [address] [place] [address], [address], 06/30/2024 11:52:33 sertralin e 100 mg tablet 2023 024 [facility], [address] [place], [address], 06/14/2024 09:50:12 Patient TargetsNo targets recorded. Patient InstructionsNo instructions recorded. Reason for Referral Physical Therapist Referral for Pain of bilateral hip joints Referring Physician: Anshul Gonzalez [facility], Encounter Date: 09/08/2024 Physical Therapist Referral for Low back pain Referring Physician: Anshul Gonzalez [facility], Encounter Date: 09/08/2024 Physical Therapist Referral for Thoracic back pain Referring Physician: Anshul Gonzalez [facility], Encounter Date: 09/08/2024 Results Created Date Observation Date Name Description Value Unit Range Abnormal Flag Note LastModifiedBy Organization Detail LastModifiedTime 03/28/20 24 03/28/2024 GABAP ENTIN , URINE note Unles s other schneider noted testi ng perfo rmed at: [facility] [address] [place] [address] [phone] Jan rossi MD CLIA: [id number] Not Available [facility] (Lab Registration) [address] [place], [address], 03/30/2024 11:19:36 03/28/20 24 03/30/2024 GABAP ENTIN , URINE gabapentin, urine 110.3 ug/mL Perfo rmed at: [facility] [address] [place], [place] [id number] Lab Direc tor: Janina moran [facility] , Phone : [phone] Not Available [facility] (Lab Registration) [address] [place], [address], 03/30/2024 11:19:36 03/28/20 24 03/28/2024 drug scree n, urine Amphetamines : negati ve Not Available [facility] [address] [place], [address], 03/28/2024 11:05:20 03/28/20 24 03/28/2024 drug scree n, urine Cannabinoids : negati ve Not Available [facility] [address] [place], [address], 03/28/2024 11:05:20 03/28/20 24 03/28/2024 drug scree n, urine Cocaine: negati ve Not Available [address] [place], [address], 03/28/2024 11:05:20 03/28/20 24 03/28/2024 drug scree n, urine Opiates: negati ve Not Available [address] [place], [address], 03/28/2024 11:05:20 03/28/20 24 03/28/2024 drug scree n, urine Phenocyclidi ne: negati ve Not Available [address] [place], [address], 03/28/2024 11:05:20 03/28/20 24 03/28/2024 drug scree n, urine Barbiturates : negati ve Not Available [address] [place], [address], 03/28/2024 11:05:20 03/28/20 24 03/28/2024 drug scree n, urine Benzodiazepi luan: negati ve Not Available [address] [place], [address], 03/28/2024 11:05:20 03/28/20 24 03/28/2024 drug scree n, urine Ethanol: negati ve Not Available [address] [place], [address], 03/28/2024 11:05:20 03/28/20 24 03/28/2024 drug scree n, urine Hallucinogen s: negati ve Not Available [address] [place], [address], 03/28/2024 11:05:20 03/28/20 24 03/28/2024 drug scree n, urine Inhalants: negati ve Not Available [address] [place], [address], 03/28/2024 11:05:20 03/28/20 24 03/28/2024 drug scree n, urine Anabolic Steroids: negati ve Not Available [address] [place], [address], 03/28/2024 11:05:20 03/28/20 24 03/28/2024 drug scree n, urine Other: negati ve Not Available [address] [place], [address], 03/28/2024 11:05:20 06/30/20 24 06/30/2024 CBC AUTO W DIFF WBC 10.1 10 4.5-11 .5 Not Available [facility] (Lab Registration) [address] [place], [address], 06/30/2024 13:20:55 06/30/20 24 06/30/2024 CBC AUTO W DIFF RBC 3.95 10 4.25-5 .57 low Not Available [facility] (Lab Registration) [address] [place], [address], 06/30/2024 13:20:55 06/30/20 24 06/30/2024 CBC AUTO W DIFF HGB 14.1 g/dL 12.0-1 5.7 Not Available [facility] (Lab Registration) [address] [place], [address], 06/30/2024 13:20:55 06/30/20 24 06/30/2024 CBC AUTO W DIFF HCT 42.0 % 36.0-4 7.0 Not Available [facility] (Lab Registration) [address] [place], [address], 06/30/2024 13:20:55 06/30/20 24 06/30/2024 CBC AUTO W DIFF MCV 106.3 fL 80-95 high Not Available [facility] (Lab Registration) [address] [place], [address], 06/30/2024 13:20:55 06/30/20 24 06/30/2024 CBC AUTO W DIFF MCH 35.7 pg 27.0-3 4.0 high Not Available [facility] (Lab Registration) [address] [place], [address], 06/30/2024 13:20:55 06/30/20 24 06/30/2024 CBC AUTO W DIFF MCHC 33.6 g/dL 32.0-3 6.0 Not Available [facility] (Lab Registration) [address] [place], [address], 06/30/2024 13:20:55 06/30/20 24 06/30/2024 CBC AUTO W DIFF platelet count 253 10 150-45 0 Not Available [facility] (Lab Registration) [address] [place], [address], 06/30/2024 13:20:55 06/30/20 24 06/30/2024 CBC AUTO W DIFF RDW 13.6 % 12.3-1 5.1 Not Available [facility] (Lab Registration) [address] [place], [address], 06/30/2024 13:20:55 06/30/20 24 06/30/2024 CBC AUTO W DIFF MPV 10.4 fL 7.4-10 .4 Not Available [facility] (Lab Registration) [address] [place], [address], 06/30/2024 13:20:55 06/30/20 24 06/30/2024 CBC AUTO W DIFF granulocyte% 68.7 % 40-75 Not Available [facility] (Lab Registration) [address] [place], [address], 06/30/2024 13:20:55 06/30/20 24 06/30/2024 CBC AUTO W DIFF lymphocyte% 21.4 % 15-57 Not Available [facility] (Lab Registration) [address] [place], [address], 06/30/2024 13:20:55 06/30/20 24 06/30/2024 CBC AUTO W DIFF monocyte% 7.7 % 4.0-12 .0 Not Available [facility] (Lab Registration) [address] [place], [address], 06/30/2024 13:20:55 06/30/20 24 06/30/2024 CBC AUTO W DIFF eosinophil% 1.1 % 0.0-4. 0 Not Available [facility] (Lab Registration) [address] [place], [address], 06/30/2024 13:20:55 06/30/20 24 06/30/2024 CBC AUTO W DIFF basophil% 0.5 % 0.0-1. 0 Not Available [facility] (Lab Registration) [address] [place], [address], 06/30/2024 13:20:55 06/30/20 24 06/30/2024 CBC AUTO W DIFF immature granulocytes % 0.6 % 0.0-0. 8 Not Available [facility] (Lab Registration) [address] [place], [address], 06/30/2024 13:20:55 06/30/20 24 06/30/2024 CBC AUTO W DIFF granulocyte# 6.95 10 Not Available [facility] (Lab Registration) [address] [place], [address], 06/30/2024 13:20:55 06/30/20 24 06/30/2024 CBC AUTO W DIFF lymphocyte# 2.17 10 Not Available [facility] (Lab Registration) [address] [place], [address], 06/30/2024 13:20:55 06/30/20 24 06/30/2024 CBC AUTO W DIFF monocyte# 0.78 10 Not Available [facility] (Lab Registration) [address] [place], [address], 06/30/2024 13:20:55 06/30/20 24 06/30/2024 CBC AUTO W DIFF eosinophil# 0.11 10 Not Available [facility] (Lab Registration) [address] [place], [address], 06/30/2024 13:20:55 06/30/20 24 06/30/2024 CBC AUTO W DIFF basophil# 0.05 10 Not Available [facility] (Lab Registration) [address] [place], [address], 06/30/2024 13:20:55 06/30/20 24 06/30/2024 CBC AUTO W DIFF immature granulocytes # 0.06 10 Not Available [facility] (Lab Registration) [address] [place], [address], 06/30/2024 13:20:55 06/30/20 24 06/30/2024 CBC AUTO W DIFF manual differential NO Not Available [facility] (Lab Registration) [address] [place], [address], 06/30/2024 13:20:55 06/30/20 24 06/30/2024 CBC AUTO W DIFF note Unles s other schneider noted testi ng perfo rmed at: [facility] [address] [place] [address] [phone] Jan rossi MD CLIA: [id number] Not Available [facility] (Lab Registration) [address] [place], [address], 06/30/2024 13:20:55 06/30/20 24 06/30/2024 THYRO ID STIMU LATIN G HORMO NE thyroid stimulating hormone 1.08 mIU/m L 0.34-4 .80 Not Available [facility] (Lab Registration) [address] [place], [address], 06/30/2024 14:18:22 06/30/20 24 06/30/2024 THYRO ID STIMU LATIN G HORMO NE note Moshe s other schneider noted testi ng perfo rmed at: [facility] [address] [place] [address] [phone] Jan rossi MD CLIA: [id number] Not Available [facility] (Lab Registration) [address], [place], [address], 06/30/2024 14:18:22 06/30/20 24 06/30/2024 VITAM IN D TOTAL (D2+D 3) vitamin D25 (D2+D3) 22.6 NG/mL 30-100 low Not Available [facility] (Lab Registration) [address] [place], [address], 06/30/2024 14:18:24 06/30/20 24 06/30/2024 VITAM IN D TOTAL (D2+D 3) note Moshe rossi other schneider noted testi ng perfo rmed at: [facility] [address] [place] [address] [phone] Jan rossi MD CLIA: [id number] Not Available [facility] (Lab Registration) [address] [place], [address], 06/30/2024 14:18:24 06/30/20 24 06/30/2024 VITAM IN B12 vitamin B12 222 pg/mL 193-98 6 Not Available [facility] (Lab Registration) [address] [place], [address], 06/30/2024 14:18:25 06/30/20 24 06/30/2024 VITAM IN B12 folate (folic acid), serum 11.7 NG/mL 8.6-58 .9 Not Available [facility] (Lab Registration) [address] [place], [address], 06/30/2024 14:18:25 06/30/20 24 06/30/2024 VITAM IN B12 note Unles s other schneider noted testi ng perfo rmed at: [facility] [address] [place] [address] [phone] Jan rossi MD CLIA: [id number] Not Available [facility] (Lab Registration) [address] [place], [address], 06/30/2024 14:18:25 06/30/20 24 06/30/2024 COMP METAB OLIC PANEL sodium 139 mmol/ L 136-14 5 Not Available [facility] (Lab Registration) [address] [place], [address], 06/30/2024 14:19:24 06/30/20 24 06/30/2024 COMP METAB OLIC PANEL potassium 4.2 mmol/ L 3.5-5. 1 Not Available [facility] (Lab Registration) [address] [place], [address], 06/30/2024 14:19:24 06/30/20 24 06/30/2024 COMP METAB OLIC PANEL chloride 102 mmol/ L 98-107 Not Available [facility] (Lab Registration) [address] [place], [address], 06/30/2024 14:19:24 06/30/20 24 06/30/2024 COMP METAB OLIC PANEL carbon dioxide 29 mmol/ L 21-32 Not Available [facility] (Lab Registration) [address] [place], [address], 06/30/2024 14:19:24 06/30/20 24 06/30/2024 COMP METAB OLIC PANEL anion gap 8.0 Not Available [facility] (Lab Registration) [address] [place], [address], 06/30/2024 14:19:24 06/30/20 24 06/30/2024 COMP METAB OLIC PANEL glucose 103 mg/dL 70-110 Not Available [facility] (Lab Registration) [address] [place], [address], 06/30/2024 14:19:24 06/30/20 24 06/30/2024 COMP METAB OLIC PANEL blood urea nitrogen 9 mg/dL 7-18 Not Available [facility] (Lab Registration) [address] [place], [address], 06/30/2024 14:19:24 06/30/20 24 06/30/2024 COMP METAB OLIC PANEL creatinine 0.7 mg/dL 0.6-1. 0 Not Available [facility] (Lab Registration) [address] [place], [address], 06/30/2024 14:19:24 06/30/20 24 06/30/2024 COMP METAB OLIC PANEL BUN/creatini ne ratio 12.9 ratio 9-21 Not Available [facility] (Lab Registration) [address] [place], [address], 06/30/2024 14:19:24 06/30/20 24 06/30/2024 COMP METAB OLIC PANEL estimated glom filtration rate 107 mL/mi n >60- Not Available [facility] (Lab Registration) [address] [place], [address], 06/30/2024 14:19:24 06/30/20 24 06/30/2024 COMP METAB OLIC PANEL total protein 7.2 g/dL 6.4-8. 2 Not Available [facility] (Lab Registration) [address] [place], [address], 06/30/2024 14:19:24 06/30/20 24 06/30/2024 COMP METAB OLIC PANEL albumin 3.3 g/dL 3.4-5. 0 low Not Available [facility] (Lab Registration) [address] [place], [address], 06/30/2024 14:19:24 06/30/20 24 06/30/2024 COMP METAB OLIC PANEL calcium 9.0 mg/dL 8.5-10 .1 Not Available [facility] (Lab Registration) [address] [place], [address], 06/30/2024 14:19:24 06/30/20 24 06/30/2024 COMP METAB OLIC PANEL corrected calcium 9.6 mg/dL 8.5-10 .1 Not Available [facility] (Lab Registration) [address] [place], [address], 06/30/2024 14:19:24 06/30/20 24 06/30/2024 COMP METAB OLIC PANEL bilirubin total 0.4 mg/dL 0.4-1. 5 Not Available [facility] (Lab Registration) [address] [place], [address], 06/30/2024 14:19:24 06/30/20 24 06/30/2024 COMP METAB OLIC PANEL AST (SGOT) 32 U/L 15-37 Not Available [facility] (Lab Registration) [address] [place], [address], 06/30/2024 14:19:24 06/30/20 24 06/30/2024 COMP METAB OLIC PANEL ALT (SGPT) 42 U/L 12-78 Not Available [facility] (Lab Registration) [address] [place], [address], 06/30/2024 14:19:24 06/30/20 24 06/30/2024 COMP METAB OLIC PANEL alk phosphatase 84 U/L 50-120 Not Available [facility] (Lab Registration) [address] [place], [address], 06/30/2024 14:19:24 06/30/20 24 06/30/2024 COMP METAB OLIC PANEL note Unles s other schneider noted testi ng perfo rmed at: [facility] [address] [place] [address] [phone] Jan rossi MD CLIA: [id number] Not Available [facility] (Lab Registration) [address] [place], [address], 06/30/2024 14:19:24 06/30/20 24 06/30/2024 LIPID PANEL triglyceride 223 mg/dL 20-200 high The Natio nal [employer] t[employer] am (NCEP ) has set the follo wing guide lines for Fasti ng Trigl yceri chavez: LEEANN L: <150 mg/dL BORDE RLINE HIGH: 150 - 199 mg/dL HIGH: 200 - 499 mg/dL VERY HIGH: > or =500 mg/dL Not Available [facility] (Lab Registration) [address] [place], [address], 06/30/2024 14:19:27 06/30/20 24 06/30/2024 LIPID PANEL cholesterol 178 mg/dL 0-200 The Natio nal [employer]ca t[employer]gr am (NCEP ) has set the follo wing guide lines for Fasti ng Khushboo stero l: CONRAD ABLE: <200 mg/dL BORDE RLINE HIGH: 200 - 239 mg/dL HIGH: > or =240 mg/dL Not Available [facility] (Lab Registration) [address] [place], [address], 06/30/2024 14:19:27 06/30/20 24 06/30/2024 LIPID PANEL HDL cholesterol 67 mg/dL 60- The Natio nal [employer] l [employer]ca tion Progr am (NCEP ) has set the follo wing guide lines for Fasti ng HDL Khushboo stero l: LOW HDL: <40 mg/dL LEEANN L: 40 - 60 mg/dL CONRAD ABLE: >60 mg/dL Not Available [facility] (Lab Registration) [address] [place], [address], 06/30/2024 14:19:27 06/30/20 24 06/30/2024 LIPID PANEL [...] > or = 190 mg/dL Not Available [facility] (Lab Registration) [address], [place], [address], 06/30/2024 14:19:27 06/30/20 24 06/30/2024 LIPID PANEL chol/HDL ratio 3 ratio -5 Not Available [facility] (Lab Registration) [address], [place], [address], 06/30/2024 14:19:27 06/30/20 24 06/30/2024 LIPID PANEL note Unles s other schneider noted testi ng perfo rmed at: [facility] [address] [place] [address] [phone] Jan rossi MD CLIA: [id number] Not Available [facility] (Lab Registration) [address], [place], [address], 06/30/2024 14:19:27 09/27/20 24 09/27/2024 GASTR OINTE LEILA L PANEL BY PCR specimen consistency NON-FO RMED STL Not Available [facility] (Lab Registration) [address], [place], [address], 09/27/2024 11:51:59 09/27/20 24 09/27/2024 GASTR OINTE LEILA L PANEL BY PCR campylobacte r NOT DETECT ED not detect ed Not Available [facility] (Lab Registration) [address], [place], [address], 09/27/2024 11:51:59 09/27/20 24 09/27/2024 GASTR OINTE LEILA L PANEL BY PCR clostridium diff. toxin A/B NOT DETECT ED not detect ed Not Available [facility] (Lab Registration) [address], [place], [address], 09/27/2024 11:51:59 09/27/20 24 09/27/2024 GASTR OINTE LEILA L PANEL BY PCR plesiomonas shigelloides NOT DETECT ED not detect ed Not Available [facility] (Lab Registration) [address], [place], [address], 09/27/2024 11:51:59 09/27/20 24 09/27/2024 GASTR OINTE LEILA L PANEL BY PCR salmonella NOT DETECT ED not detect ed Not Available [facility] (Lab Registration) [address], [place], [address], 09/27/2024 11:51:59 09/27/20 24 09/27/2024 GASTR OINTE LEILA L PANEL BY PCR vibrio NOT DETECT ED not detect ed Not Available [facility] (Lab Registration) [address], [place], [address], 09/27/2024 11:51:59 09/27/20 24 09/27/2024 GASTR OINTE LEILA L PANEL BY PCR vibrio cholerae NOT DETECT ED not detect ed Not Available [facility] (Lab Registration) [address], [place], [address], 09/27/2024 11:51:59 09/27/20 24 09/27/2024 GASTR OINTE LEILA L PANEL BY PCR yersinia enterocoliti ca NOT DETECT ED not detect ed Not Available [facility] (Lab Registration) [address], [place], [address], 09/27/2024 11:51:59 09/27/20 24 09/27/2024 GASTR OINTE LEILA L PANEL BY PCR enteroaggreg ative E. coli NOT DETECT ED not detect ed Not Available [facility] (Lab Registration) [address] [place], [address], 09/27/2024 11:51:59 09/27/20 24 09/27/2024 GASTR OINTE LEILA L PANEL BY PCR enteropathog enic E. coli NOT DETECT ED not detect ed Not Available [facility] (Lab Registration) [address], [place], [address], 09/27/2024 11:51:59 09/27/20 24 09/27/2024 GASTR OINTE LEILA L PANEL BY PCR enterotoxige terence E. coli NOT DETECT ED not detect ed Not Available [facility] (Lab Registration) [address], [place], [address], 09/27/2024 11:51:59 09/27/20 24 09/27/2024 GASTR OINTE LEILA L PANEL BY PCR shiga-like toxin-produc E coli NOT DETECT ED not detect ed Not Available [facility] (Lab Registration) [address], [place], [address], 09/27/2024 11:51:59 09/27/20 24 09/27/2024 GASTR OINTE LEILA L PANEL BY PCR E. coli 0157 NOT APPLIC ABLE not detect ed Not Available [facility] (Lab Registration) [address], [place], [address], 09/27/2024 11:51:59 09/27/20 24 09/27/2024 GASTR OINTE LEILA L PANEL BY PCR shigella/ent eroinvasive E coli NOT DETECT ED not detect ed Not Available [facility] (Lab Registration) [address], [place], [address], 09/27/2024 11:51:59 09/27/20 24 09/27/2024 GASTR OINTE LEILA L PANEL BY PCR cryptosporid ium NOT DETECT ED not detect ed Not Available [facility] (Lab Registration) [address], [place], [address], 09/27/2024 11:51:59 09/27/20 24 09/27/2024 GASTR OINTE LEILA L PANEL BY PCR cyclospora cayetanensis NOT DETECT ED not detect ed Not Available [facility] (Lab Registration) [address], [place], [address], 09/27/2024 11:51:59 09/27/20 24 09/27/2024 GASTR OINTE LEILA L PANEL BY PCR entamoeba histolytica NOT DETECT ED not detect ed Not Available [facility] (Lab Registration) [address], [place], [address], 09/27/2024 11:51:59 09/27/20 24 09/27/2024 GASTR OINTE LEILA L PANEL BY PCR giardia lamblia NOT DETECT ED not detect ed Not Available [facility] (Lab Registration) [address], [place], [address], 09/27/2024 11:51:59 09/27/20 24 09/27/2024 GASTR OINTE LEILA L PANEL BY PCR adenovirus F 40/41 NOT DETECT ED not detect ed Not Available [facility] (Lab Registration) [address], [place], [address], 09/27/2024 11:51:59 09/27/20 24 09/27/2024 GASTR OINTE LEILA L PANEL BY PCR astrovirus NOT DETECT ED not detect ed Not Available [facility] (Lab Registration) [address], [place], [address], 09/27/2024 11:51:59 09/27/20 24 09/27/2024 GASTR OINTE [...] the patie nt's disea se. Not Available [facility] (Lab Registration) [address], [place], [address], 09/27/2024 11:51:59 09/27/20 24 09/27/2024 GASTR OINTE LEILA L PANEL BY PCR rotavirus A NOT DETECT ED not detect ed Not Available [facility] (Lab Registration) [address] [place], [address], 09/27/2024 11:51:59 09/27/20 24 09/27/2024 GASTR OINTE LEILA L PANEL BY PCR sapovirus NOT DETECT ED not detect ed Not Available [facility] (Lab Registration) [address] [place], [address], 09/27/2024 11:51:59 09/27/20 24 09/27/2024 GASTR OINTE LEILA L PANEL BY PCR note Unles s other schneider noted testi ng perfo rmed at: [facility] [address] [place] [address] [phone] Jan rossi MD CLIA: [id number] Not Available [facility] (Lab Registration) [address] [place], [address], 09/27/2024 11:51:59 01/19/20 25 01/18/2025 URINE DRUG SCREE N - EXL MAX amphetamine/ metamphetami ne NEGATI VE negati ve Not Available [facility] (Lab Registration) [address] [place], [address], 01/18/2025 16:08:46 01/19/20 25 01/18/2025 URINE DRUG SCREE N - EXL MAX barbiturates NEGATI VE negati ve Not Available [facility] (Lab Registration) [address] [place], [address], 01/18/2025 16:08:46 01/19/20 25 01/18/2025 URINE DRUG SCREE N - EXL MAX benzodiazeph alexandra NEGATI VE negati ve Not Available [facility] (Lab Registration) [address] [place], [address], 01/18/2025 16:08:46 01/19/20 25 01/18/2025 URINE DRUG SCREE N - EXL MAX buprenophine NEGATI VE negati ve Not Available [facility] (Lab Registration) [address] [place], [address], 01/18/2025 16:08:46 01/19/20 25 01/18/2025 URINE DRUG SCREE N - EXL MAX cocaine metabolite NEGATI VE negati ve Not Available [facility] (Lab Registration) [address] [place], [address], 01/18/2025 16:08:46 01/19/20 25 01/18/2025 URINE DRUG SCREE N - EXL MAX methadone NEGATI VE negati ve Not Available [facility] (Lab Registration) [address] [place], [address], 01/18/2025 16:08:46 01/19/20 25 01/18/2025 URINE DRUG SCREE N - EXL MAX opiates NEGATI VE negati ve Not Available [facility] (Lab Registration) [address] [place], [address], 01/18/2025 16:08:46 01/19/20 25 01/18/2025 URINE DRUG SCREE N - EXL MAX oxycodone NEGATI VE negati ve Not Available [facility] (Lab Registration) [address] [place], [address], 01/18/2025 16:08:46 01/19/20 25 01/18/2025 URINE DRUG SCREE N - EXL MAX cannabinoids NEGATI VE negati ve Not Available [facility] (Lab Registration) [address] [place], [address], 01/18/2025 16:08:46 01/19/20 25 01/18/2025 URINE DRUG SCREE N - EXL MAX pcp NEGATI VE negati ve Not Available [facility] (Lab Registration) [address] [place], [address], 01/18/2025 16:08:46 01/19/20 25 01/18/2025 URINE DRUG SCREE N - EXL MAX fentanyl, urine NEGATI VE negati ve Not Available [facility] (Lab Registration) [address] [place], [address], 01/18/2025 16:08:46 01/19/20 25 01/18/2025 URINE DRUG SCREE N - EXL MAX tricyclic antidepressa nts NEGATI VE negati ve Not Available [facility] (Lab Registration) [address] [place], [address], 01/18/2025 16:08:46 01/19/20 25 01/18/2025 URINE DRUG SCREE N - EXL MAX internal control PASS PASS Not Available [facility] (Lab Registration) [address] [place], [address], 01/18/2025 16:08:46 01/19/20 25 01/18/2025 URINE DRUG SCREE N - EXL MAX note Unles s other schneider noted testi ng perfo rmed at: [facility] [address] [employer] [place] [address] [phone] Jan rossi MD CLIA: [id number] Not Available [facility] (Lab Registration) [address] [place], [address], 01/18/2025 16:08:46 01/19/20 25 01/18/2025 GABAP ENTIN , URINE note Unles s other schneider noted testi ng perfo rmed at: [facility] [place] [address] [phone] Jan rossi MD CLIA: [id number] Not Available [facility] (Lab Registration) [address] [place], [address], 01/24/2025 16:17:32 01/19/20 25 01/24/2025 GABAP ENTIN , URINE gabapentin, urine >800.0 ug/mL Perfo rmed at: [facility] [address] [address] Lab Direc tor: Janina Domo moran [facility] , Phone : [phone] Not Available [facility] (Lab Registration) [address] [place], [address], 01/24/2025 16:17:32 04/13/20 24 04/13/2024 XR, foot, 3 or more view [facility] 9 [facility] [place] [address] Phone: Fax: Name: KAYLEE KIRK Exam Date: : [birth year] Age 49 years Gender : F Access ion: [id number] Physic pito: AMBURG EY, TAFFAN Y Facili ty: [facility] Facili ty HSV: Outpat ient Exam: FOOT [...] for referr ing KAYLEE KIRK A to [facility] Hospit al. Legall y authen ticate d by POPE IRWIN Benoit DO 04-13 13:21: 28 CC'ed Logic: Orderi ng Provid er: AMBURG EY TAFFAN Y CC Provid er: IRMA ERICKSON Attend ing Provid er: AMBURG EY TAFFAN Y Referr ing Provid er: AMBURG EY TAFFAN Y Admitt ing Provid er: AMBURG EY TAFFAN Y [email or web address] [facility] (Radiology) [address] [place], [address], 04/13/2024 16:50:01 04/13/20 24 04/13/2024 toe(s ) 3 [facility] [place] [address] Phone: Fax: Name: YELENAKATICHRISTOS Wray Exam Date: : [birth year] Age 49 years Gender : F Access ion: [id number] Physic pito: AMBURG EY, TAFFAN Y Facili ty: [facility] Facili ty HSV: Outpat ient Exam: TOE(S) [...] for referr ing [facility] Legall y authen ticate d by POPE IRWIN Benoit DO 04-13 13:21: 49 CC'ed Logic: Orderi ng Provid er: AMBURG EY TAFFAN Y CC Provid er: IRMA DRE Attend ing Provid er: AMBURG EY TAFFAN Y Referr ing Provid er: AMBURG EY TAFFAN Y Admitt ing Provid er: AMBURG EY TAFFAN Y [email or web address] [facility] (Radiology) [address] [place], [address], 04/13/2024 16:50:01 09/14/20 24 09/14/2024 DEXA, axial skele ton [facility] 9 [facility] [place] [address] Phone: Fax: Name: KAYLEE KIRK Exam Date: 2023 : [birth year] Age 49 years Gender : F Access ion: [id number] Physic pito: AMBURG EY, TAFFAN Y Facili ty: [facility] Facili ty HSV: Outpat ient Exam: DE DEXA AXIAL EXAMIN ATION: DUAL X-RAY ABSORP TIOMET RY (DXA) FOR BONE MINERA L DENSIT Y. CLINIC AL INDICA TION: 49 years old, Female . Unknow n menopa use status . Z13.82 0. TECHNI QUE: An axial (e.g., hips, spine) and/or append icular (e.g., radius ) exam was perfor med, as approp riate, using [employer] y densit ometer . Images [...] perfor med using the [facility] elmarcy FRAX calcul ator based on patien [...] TAFFAN Y Admitt ing Provid er: AMBURG GURDEEP UREÑA Y [email or web address] [facility] (Radiology) [address] [place] [address] [place], [address], 09/15/2024 15:22:35 01/27/20 25 01/25/2025 XR, lumba r spine No observ ation record ed. [facility] [address], [place], [address], 01/28/2025 13:21:32 Result Notes Documentation Provider Name and Address Organization Details Recorded Time Xr, Foot, 3 Or More View : [address] [place] [address] Name: BRIAN KIRK Exam Date: 04/13/2024 : 1975 Age 49 years Gender: F Physician: ANSHUL GONZALEZ Facility: [facility] Facility HSV: Outpatient Exam: FOOT LT 3V LEFT FOOT HISTORY: Foot pain FINDINGS: Three views show no evidence of an acute, displaced fracture or dislocation of the visualized bony architecture. There are degenerative changes which are greatest near the ankle. IMPRESSION: No acute bony abnormality Films reviewed , interpreted and dictated by Transcribed by Severo Richmond PA-C. Dictated By: IRWIN LORENZ Transcribed By: IRWIN LORENZ Transcribed On: 04/13/2024 1:21 PM Electronically signed by: IRWIN LORENZ 04/13/2024 Thank you for referring BRIAN KIRK to [facility]. Legally authenticated by POPE IRWIN Benoit DO 2024-04-13 13:21:28 CC'ed Logic: Ordering Provider: LISA LANDERS CC Provider: IRMA ERICKSON Attending Provider: LISA LANDERS Referring Provider: LISA LANDERS Admitting Provider: LISA monet [facility] [place] 04/13/2024 16:50:01 Dexa, Axial Skeleton : [address] [place] [address] Name: BRIAN KIRK Exam Date: 09/14/2024 : 1975 Age 49 years Gender: F Physician: ANSHUL GONZALEZ Facility: [facility] Facility HSV: Outpatient Exam: DE DEXA AXIAL EXAMINATION: DUAL X-RAY ABSORPTIOMETRY (DXA) FOR BONE MINERAL DENSITY. CLINICAL INDICATION: 49 years old, Female. Unknown menopause status. Z13.820. TECHNIQUE: An axial (e.g., hips, spine) and/or appendicular (e.g., radius) exam was performed, as appropriate, using [employer] densitometer. Images are obtained for bone mineral density measurement and are not obtained for diagnostic purposes. [id number] COMPARISON: None. FINDINGS: Scan quality: Good. LUMBAR SPINE (L1-L4): BMD (in g/cm*2): 1.712. Z-score: 4.1. LEFT FEMORAL NECK: BMD (in g/cm*2): 0.969. Z-score: -0.2. LEFT TOTAL HIP: BMD (in g/cm*2): 0.951. Z-score: -0.4. RIGHT FEMORAL NECK: BMD (in g/cm*2): 0.899. Z-score: -0.7. RIGHT TOTAL HIP: BMD (in g/cm*2): 0.927. Z-score: -0.6. FRAX 10-YEAR PROBABILITY OF FRACTURE: 10-year fracture risk is performed using the [employer] FRAX calculator based on patient-reported risk factors. Major osteoporotic fracture: 3.0%. Hip fracture: 0.3%. IMPRESSION: Bone mineral density is within expected range for age. RECOMMENDATIONS: 1. All patients should optimize their calcium and vitamin D intake. 2. Patients with diagnosis of osteoporosis or at high risk for fracture should have regular bone mineral density tests. For patients eligible for Medicare, routine testing is allowed once every 2 years. The testing frequency can be increased to one year for patients who have rapidly progressing disease, those who are receiving or discontinuing medical therapy to restore bone mass or have additional risk factors. Electronically signed by: Otoniel Sadler DO 09/14/2024 03:54 PM EST RP Legally authenticated by GILL HUSSEIN DO 2024-09-14 14:11:37 Dictated By: Otoniel Sadler Transcribed By: Transcribed On: 09/14/2024 2:11 PM Electronically signed by: Otoniel Sadler 09/14/2024 Thank you for referring BRIAN KIRK to [facility]. Legally authenticated by GILL HUSSEIN DO 2024-09-14 14:11:37 CC'ed Logic: Ordering Provider: LISA LANDERS CC Provider: LISA LANDERS Attending Provider: LISA LANDERS Referring Provider: LISA LANDERS Admitting Provider: LISA [place] [facility] [place] [facility] [place] 09/15/2024 15:22:35 Problems Name Problem SNOMED Code Status Onset Date Resolution Date Notes Provider Name and Address Organization Details Recorded Time Essential hypertensi on 37701445 Active 2022 Not Available [facility] 3 15:39:14 Diarrhea of presumed infectious origin 32160895 Active 2022 Ajith V[place] [facility] [place] [facility] [place] 4 11:04:16 Chronic pain 44699763 Active 2022 Ajith [place] [facility] [place] [facility] [place] 4 11:04:13 Irritable bowel syndrome 34591744 Active 2022 Ajith [place] [facility] [place] 4 11:04:21 Mixed anxiety and depressive disorder 359254759 Active 2022 Ajith [place] [facility] [place] 4 11:04:23 Osteoarthr itis of multiple joints 139140144 Active 2022 Ajith [place] [facility] [place] 4 11:04:25 Hyperglyce belkis 15092225 Active 2023 Ajith [place] [facility] [place] 4 11:04:18 Vitamin D deficiency 04995639 Active 2023 [place] [facility] [place] 4 11:04:29 Taking high risk medication 4208228363451 07 Active 2023 [place] [facility] [place] 4 11:04:27 Problem Notes None recorded. Procedures Surgical History Date Name Laterality Status Provider Name and Address Organization Details Recorded Time 08/28/20 24 Most Recent Bone Density completed Di CALDERON [facility] [place] 01/18/2025 15:20:51 07/21/20 23 Colonoscopy completed Estephania Flores [facility] [place] 07/23/2023 16:12:35 07/17/20 23 Date of Last Colonoscopy completed Aspen CALDERON [facility] [place] 09/28/2023 06:54:12 12/24/19 20 arthroplasty of left ankle completed Mayra Calix [facility] [place] 05/31/2024 14:24:23 excision of cyst completed Mayra CALDERON [facility] [place] 05/31/2024 14:22:36 Imaging Results None recorded. Procedure Notes None recorded. Medical Equipment None Reported. Allergies Allergen ID Allergen Name Allergen Category Reaction Reaction Severity Criticality Documentation Date Start Date Code Code System Note Provider Name and Address Organization Details Recorded Time 67391 Substance with sulfonami de structure and antibacte rial mechanism of action (substanc e) medicatio n hives itching moderate moderate Not available 01/25/2023 63858 8003 SNOMED [place] [facility] [place] 3 12:13:51 10721 penicilli n G Not available rash mild low 07/29/2023 7980 RxNorm [place] [facility] [place] 5 13:57:02 Medications Name Sig Start Date Stop Date [...] Updated DateTime 5 149.86 cm 38.1 kg/m2 49138.5 2 g 98.4 [degF] 98 % 98 % 101 /min 16 /min 141 mm[Hg] 88 mm[Hg] Di Hoyos [place] - [facility] 5 15:20:27 Date Recorded Body height Body mass index (BMI) Body weight Body temperature Oxygen saturation Oxygen saturation in Arterial blood by Pulse oximetry Heart rate Respiratory rate Systolic blood pressure Diastolic blood pressure Provider Name and Address Organization Details Last Updated DateTime 4 149.86 cm 36 kg/m2 80732.4 4 g 97.9 [degF] 98 % 98 % 89 /min 18 /min 133 mm[Hg] 87 mm[Hg] Yossi garza [place] Che[place] ROSEANN [facility] [place] 4 15:19:45 Date Recorded Body height Body mass index (BMI) Body weight Body temperature Oxygen saturation Oxygen saturation in Arterial blood by Pulse oximetry Heart rate Respiratory rate Systolic blood pressure Diastolic blood pressure Provider Name and Address Organization Details Last Updated DateTime 4 149.86 cm 35.5 kg/m2 71303.2 6 g 97.2 [degF] 97 % 97 % 89 /min 18 /min 148 mm[Hg] 102 mm[Hg] Ajith WHITFIELD [facility] [place] 4 09:45:51 Date Recorded Body height Body mass index (BMI) Body weight Body temperature Oxygen saturation Oxygen saturation in Arterial blood by Pulse oximetry Heart rate Respiratory rate Systolic blood pressure Diastolic blood pressure Provider Name and Address Organization Details Last Updated DateTime 4 149.86 cm 34.9 kg/m2 22999.4 8 g 98.1 [degF] 97 % 97 % 74 /min 18 /min 128 mm[Hg] 84 mm[Hg] Ajith WHITFIELD [facility] [place] 4 11:37:57 Date Recorded Body height Body mass index (BMI) Body weight Body temperature Oxygen saturation Oxygen saturation in Arterial blood by Pulse oximetry Heart rate Respiratory rate Systolic blood pressure Diastolic blood pressure Provider Name and Address Organization Details Last Updated DateTime 4 149.86 cm 36.4 kg/m2 31912.6 3 g 98.1 [degF] 98 % 98 % 91 /min 18 /min 127 mm[Hg] 87 mm[Hg] Ajith WHITFIELD [facility] [place] 4 15:34:54 Social History Question Answer Notes LastModified by Organizat ion Details LastModified Time Tobacco Smoking Status Current Every Day Smoker [place] [facility] [place] 07/29/2023 08:30:16 Do You Have An Advance Directive? No Information not available 07/29/2023 If You Are , What Was Your Level Of Alcohol Consumption Prior To ? Occasional [email or web address] Information not available 03/28/2024 Do You Wear A Helmet When Biking? Yes [email or web address] Information not available 03/28/2024 Are You Blind Or Do You Have Difficulty Seeing? No [email or web address] Information not available 07/29/2023 What Is Your Level Of Caffeine Consumption? None Information not available 03/28/2024 In The 14 Days Before Symptom Onset, Have You Had Close Contact With A Laboratory-confir med COVID-19 While That Case Was Ill? No Information not available 03/28/2024 In The 14 Days Before Symptom Onset, Have You Had Close Contact With A Person Who Is Under Investigation For COVID-19 While That Person Was Ill? No [email or web address] Information not available 03/28/2024 Have You Been To An Area Known To Be High Risk For COVID-19? No [email or web address] Information not available 03/28/2024 Are You Deaf Or Do You Have Serious Difficulty Hearing? No [email or web address] Information not available 03/28/2024 What Type Of Diet Are You Following? REGULAR [email or web address] Information not available 04/12/2024 Have You Processed Blood Or Body Fluids From An Ebola Virus Disease Patient Without Appropriate PPE? No Information not available 03/28/2024 Do You Reside In Or Have You Traveled To An Area Where Ebola Virus Transmission Is Active? No [email or web address] Information not available 03/28/2024 Have There Been Any Changes To Your Family Or Social Situation? No [email or web address] Information no t available 09/08/2024 What Is The Fluoride Status Of Your Home? Unknown Information not available 03/28/2024 Are There Any Guns Present In Your Home? No [email or web address] Information not available 03/28/2024 Have You Recently Or Are You Planning To Travel To An Area With Zika Virus? No [email or web address] Information not available 03/28/2024 Do You Use Insect Repellent Routinely? Yes [email or web address] Information not available 03/28/2024 Do You Feel Safe At Home? Yes [email or web address] Information not available 03/28/2024 Do You Have A Medical Power Of Clinical Data Programmer? No [email or web address] Information not available 03/28/2024 What Was The Date Of Your Most Recent Tobacco Screening? 11/23/2024 [email or web address] Information not available 01/18/2025 Do You Have Any Pets? No [email or web address] Information not available 03/28/2024 Do You Use Your Seat Belt Or Car Seat Routinely? Yes [email or web address] Information not available 03/28/2024 Do You Have Smoke And Carbon Monoxide Detectors In Your Home? Yes [email or web address] Information not available 03/28/2024 Are You Passively Exposed To Smoke? No [email or web address] Information no t available 07/29/2023 How Much Tobacco Do You Smoke? 1 PPD [email or web address] Information not available 07/29/2023 Do You Use Sunscreen Routinely? Yes [email or web address] Information not available 03/28/2024 Has Tobacco Cessation Counseling Been Provided? No [email or web address] Information not available 03/28/2024 How Many Years Have You Smoked Tobacco? 29 Information not available 05/31/2024 Do You Have Difficulty Walking Or Climbing Stairs? No [email or web address] Information not available 03/28/2024 Are You Currently In School? No [email or web address] Information not available 03/28/2024 Sex: Female Functional Status Question Answer Note LastModified by Organizat ion Details LastModified Time Do you use any illicit or recreational drugs? No [email or web address] Information not available 07/29/2023 Do you or have you ever used any other forms of tobacco or nicotine? No [email or web address] Information not available 03/28/2024 What is your level of alcohol consumption? Moderate Information not available 07/29/2023 Do you or have you ever used smokeless tobacco? Never used smokeless tobacco [email or web address] Information not available 09/28/2023 Are you currently employed? No [email or web address] Information not available 03/28/2024 Do you have transportation difficulties? No [email or web address] Information not available 03/28/2024 Are you able to walk? YESWOREST [email or web address] Information not available 03/28/2024 Do you have difficulty doing errands alone? No [email or web address] Information not available 03/28/2024 Are you able to care for yourself? Yes [email or web address] Information n ot available 03/28/2024 Do you have difficulty dressing or bathing? No [email or web address] Information not available 03/28/2024 What is your exercise level? Occasional Information not available 05/31/2024 Mental Status Question Answer Note LastModified by Organizat ion Details LastModified Time Do you feel stressed (tense, restless, nervous, or anxious, or unable to sleep at night)? [id number] [email or web address] Information not available 07/29/2023 Do you have difficulty concentrating, remembering or making decisions? No [email or web address] Information no t available 03/28/2024 Family History [...] Mother Asthma [email or web address] Not available 01/18/2025 15:02:19 Mother Osteoarthrit is [email or web address] Not available 2024 13:57:50 Sister Malignant tumor of colon [email or web address] Not available 01/18 15:02:19 Maternal Grandmother Myocardial infarction [email or web address] Not available 05/31 14:25:53 Maternal Grandmother Heart disease [email or web address] Not available 2023 14:29:26 Paternal Grandmother Hypertensive disorder [email or web address] Not available 2023 14:29:35 Medical History Condition Response Other Y GI Problems Y Depression Y Acne Y Osteoporosis/Osteopenia Y Spine Problems [...] Age at Menarche 14 Obstetrics History GPAL:G 1 P 0 0 1 0 Type Value Ectopics 1 Total 1 Immunizations Vaccine Type Date Status Note Provider Nam e and Address Organization Details Recorded Time COVID-19, mRNA, LNP-S, PF, 30 mcg/0.3 mL dose 07/02/2021 completed [place] - LPALEENA [facility] [place] 07/29/2023 08:29:46 COVID-19, mRNA, LNP-S, PF, 30 mcg/0.3 mL dose 07/23/2021 completed [place] [facility] 07/29/2023 08:29:46 Past Encounters Encounter ID Performer Location Encounter Start Date Encounter Closed Date Diagnosis/Indication Diagnosis SNOMED-CT Code Diagnosis ICD10 Code Diagnosis Note [id number] Rica Monterroso APRN [facility] [address] [address] 08/10/2022 14:01:33 08/10/2022 16:46:14 Pain of right shoulder joint 7295984519 7983011 M25.511 kenalog and decadron given in clinic todayice and heat therapymon itor for worsening symptomsfo llow up in 2 weeks if no improvemen t in symptoms Neuropathy 902566497 G62 .9 [id number] Rica Monterroso APRN zzChgRSTEVE [address] [address] 11/17/2022 11:27:24 11/17/2022 14:03:43 Acute otitis media with effusion 647130294 H65.191 J01.00 R05.1 take medication medication as prescribed increase water intaketyle nol PRNmonitor for worsening symptoms [id number] Rica Monterroso APRN zzChYadiel [address] [address] 01/25/2023 12:06:31 01/25/2023 12:30:31 Pain of toe of left foot 4359050775 09392 M79.675 S90.122A ordering xrayice therapyele vate Neuropathy 210830074 G62 .9 UDS today and Ender reviewed. [id number] Rica Monterroso APRN [facility] [address] [place] [address] 04/20/2023 10:31:13 04/23/2023 09:41:26 Diarrhea 59358325 R19.7 Z80.0 encouraged to keep a food diary to avoid triggering foodsincre ase water intaketake dicyclomin e as prescribed monitor for worsening symptomsfo llow up PRNreferra l made for colonoscop y blood drawn in the right AC by Kisha Buck CMA, patient tolerated well. Chronic pain syndrome 37 6607528 G89.4 M41.9 M19.072 paperwork filled out for antoni martell appts with pain management monitor for worsening symptoms Essential hypertension 61701585 I10 Prediabetes 936830154 R7 3.03 Endocrine/ metabolic screening 766350340 Z13.228 Hyperlipid emia screening 058661327 Z13.220 [id number] Radha Frost NP [facility] [address] [place] [id number] 06/30/2023 12:26:32 06/30/2023 13:10:10 Diarrhea of presumed infectious origin 71680635 A09 Hx of diarrhea with worsening symptoms [...] Family his tory of cancer of colon 312183949 Z80.0 Patient's sister diagnosed colon cancer in her 50's. recommend colonoscop y to rule out colorectal cancer, polyps, other. Family his tory of polyp of colon 684314026 Z83.71 patient's mother with history multiple colon polyps. Plan for colonoscop y as above. [id number] Radha Frost NP [facility] [address] [place] [address] [place] [address] 08/25/2023 12:54:58 08/25/2023 13:31:16 History of polyp of colon 638852747 Z86.010 Multiple polyps resected on colonoscop y 07/21/2023 pathology consistent with tubulovill ous adenoma, tubular adenoma as well as serrated adenoma negative for high grade dysplasia. 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 Family his tory of cancer of colon 871494270 Z80.0 Patient's sister diagnosed colon cancer in her 50's. Irritable bowel syndrome 08879777 K58.9 Continues to experience multiple episodes of [...] based on response to simple medication . [id number] Dre Malone MD [facility] [address] [facility] [place] [address] 09/30/2023 11:30:54 09/30/2023 12:18:59 Chronic pain 61237935 G89.29 Ender reviewed. Patient is seen. We will continue gabapentin t.i.d. return to clinic in 3 months. continue management with pain management for back and ankle issues. We will refill gabapentin . See back in 3 months. Essential hypertension 14769949 I10 Check blood work blood pressure by my check 136/86. Continue present meds. Osteoarthr itis of multiple joints 012636056 M15.9 Patient is seen by pain management . She would like rheumatolo gy opinion about her arthritis. Patient does have significan t kyphosis of her spine. Mixed anxi ety and depressive disorder 859363821 F41.8 Patient's symptoms are stable continue present meds. [id number] Dre Malone MD [place] [address] CLIN[facility] [place] [id number] 12/30/2023 11:31:44 12/30/2023 12:14:38 Taking high risk medication 8432459257 00820 Z91.89 general urine drug screen is negative. Gabapentin screen sent to the lab. Prescribe gabapentin . Ender reviewed.S ee back in 3 months. Hyperlipidemia 28512469 E78.5 Patient is back on atorvastat in we will check labs. Refill atorvastat in Essential hypertension 39839479 I10 Check blood work blood pressure by my check 136/86. Continue present meds. Vitamin D deficiency 347 59583 E55.9 patient is taking over-the-c ounter supplement we will recheck level. Hyperglycemia 38823571 R 73.9 Patient does have history of elevated blood sugar. She has been on metformin in the past. Check hemoglobin A1c today. Chronic pain 16805560 G8 9.29 Ender reviewed patient just had ablation done we will refill gabapentin . [id number] Dre Malone MD [facility] [address] [place] [address] 03/28/2024 10:54:46 03/29/2024 09:07:06 Long-term drug therapy 414038626 Z79.899 urine drug screen negative. urine sent testing Essential hypertension 20593257 I10 patient is self referred to Cardiology elevations in blood pressure. She would she is scheduled for stress testing she be treated cardiology pressure Mixed anxi ety and depressive disorder 147754768 F41.8 Patient's symptoms are stable continue present meds. continue present meds refills Osteoarthr itis of multiple joints 891345085 M15.9 symptoms are controlled no changes Hyperlipidemia 68802638 E78.5 recent blood work showed total cholestero l 189, LDL 111 continue present meds no side effects Chronic pain 54386821 G8 9.29 aspirin available patient is due refill prescripti on [id number] Floyd Robles MD [address] [place] [address] 04/05/2024 11:00:31 04/05/2024 11:15:00 Injury of head 16449498 S09.90XA patient has been told to monitor her injury. There appears to be no focal neurologic al deficit. Swelling has largely resolved. [id number] ANSHUL GONZALEZ NP [address] [place] [address] 04/12/2024 15:09:12 04/13/2024 08:21:07 Injury of great toe 899848709 S99.922A RICEawaiti ng xraysf/u if symptoms persist or worsen [id number] ANSHUL GONZALEZ NP [address] [place] [address] 06/30/2024 11:27:24 06/30/2024 12:23:38 Adult health examination 033902607 Z00.00 Patient presented to office today for [...] living. Screening for malignant neoplasm of breast 883221382 Z12.39 Mixed hyperlipidemia 267 675722 E78.2 Continue statin therapy, reinforced healthy lifestyle Essential hypertension 80712656 I10 educated on goal of less than 130/90advi sed low sodium diet, healthy lifestyle including exercise as ablecontin ue current medication regimenER if any symptoms such as chest pain, shortness of breath Vitamin D deficiency 347 76318 E55.9 Neuropathy 761201523 G62 .9 risk versus benefit discussed, refill provided todayneeds updated CSAUDS completed March4review ed ender [id number] Floyd Robles MD [address] [place] [address] 06/14/2024 09:27:53 06/15/2024 08:13:43 Mixed anxiety and depressive disorder 128623569 F41.8 denies SI/HIincre ase Sertraline from 50 to100 mgpatient will make appointmen t with PTAgapito gil seeking help if thoughts to arise Diarrhea 33458526 R19.7 recommend GI panelbland dietavoid triggershy drhakan [id number] ANSHUL GONZALEZ, JARED [address] [place] [address] 09/08/2024 15:23:54 09/08/2024 16:01:02 Essential hypertension 09407742 I10 educated on goal of less than 130/90advi sed low sodium diet, healthy lifestyle including exercise as ablecontin ue current medication regimen, controlled , refill providedER if any symptoms such as chest pain, shortness of breath Screening for osteoporosis 564757342 Z13.820 Pain of mu ltiple joints 55262889 M25.50 orders placed for physical therapy, continue with pain management as recommende d, see what other options are available for her. Pain of bi lateral hip joints [id number] 3747460 M25.551 M25.552 Low back pain 075846444 M54.50 Normal bowel and bladder function Thoracic back pain 77561 8004 M54.6 [id number] Floyd Robles MD [address] [place] [address] 01/18/2025 15:02:02 01/18/2025 15:27:09 Long-term current use of drug therapy 798443345 Z79.899 Neuropathy 440006589 G62 .9 patient has a long history of neuropathy . Will refill her gabapentin . Health Concerns Section Related Observation LastModified by Organization Detai ls LastModified Time None Recorded Concern Status LastModified by Organization Details LastModified Time None Recorded Advance Directives Directive N: Payers Insurance Date Sequence Insurance Name Policy Number Policy Mcgill Covered Member ID Mcgill Member ID Guarantor Name 07/23/2023 1 UNSPECIFIED REMIT PAYOR Brian Kirk 03/27/2025 1 [employer] [id number] ([place]) [id number] Brian Yelena [id number] Brian Kirk 01/13/2022 UNSPECIFIED REMIT PAYOR Brian Kirk Notes Date Note Type Note Provider Name [...] any throbbing, swelling. ANSHUL GONZALEZ NP [address] [place], [address], [facility] [place] 04/12/2024 15:43:08 06/14/2024 text/html 49-year-old joann rg who presents with complaints of depression. [...] clinic for injections. ANSHUL GONZALEZ NP [address] [place], [address], [facility] [place] 06/14/2024 09:55:00 06/30/2024 text/html Patient presents for [...] and gabapentin therapy. ANSHUL GONZALEZ NP [address] [place], [address], [facility] [place] 07/03/2024 12:54:05 09/08/2024 text/html 49-year-old fema arcenio who presents for follow-up. Needs refill on her metoprolol today. Also requests to have DEXA scan completed.followed by pain management in [place], multiple injections, spine, hips, without improvement,helps for 3 days then pain returns; seen by Dr. Johnson as well and not much more he could do For her chronic pain. Wishes to have physical therapy. Denies any changes in bowel or bladder habits ANSHUL GONZALEZ NP [address], [place], [address], [facility] [place] 09/12/2024 16:11:24 01/18/2025 text/html Patient presents today for medication follow-up. She denies any new issues Floyd Robles MD [address], [place], [address], [facility] [place] 01/18/2025 15:44:19 OBGyn Episode No OBEpisode recorded.
--- OUTSIDE RECORDS SUMMARY | 2025-04-09 10:50 | XMS_ITS | Data Portability ---
Author Organization [facility] telehealth Address [address] [place] [address] Assessment Encounter Date Assessment Date Assessment LastModified [...] (hemogl obin A1c), blood 024 07/27/20 24 [facility] ([facility]), [address] [place], [address], 5 05:00:37 lh + FSH, serum 07/27/20 [facility] ([facility]), [address] [place], [address], 4 02:29:36 estradi ol, serum 07/27/20 [facility] ([facility]), [address] [place] [address], [address], 4 02:29:36 dhea-darling lfate, serum 07/27/20 24 [facility] ([facility]), [address] [place] [address], [address], 4 02:29:36 testost erone, total, serum 07/27/20 [facility] ([facility]), [address] [place] [address], [address], 4 02:29:35 Referral None recorde d. Procedures [...] enopa use 7.7 - 58.5 Not Available [facility] ([facility]) [address], [place], [address], 08/01/2024 07:22:49 07/27/20 24 07/28/2024 FSH AND LH FSH 36.90 mIU/m L FSH Refer ence Range Men: 1.5 - 12.4 Women : Folli cular phase 3.5 - 12.5 Ovula tion phase 4.7 - 21.5 Lutea l phase 1.7 - 7.7 Postm enopa use 25.8 - 134.8 Not Available [facility] ([facility]) [address] [place] [address] [address], [place], [address], 08/01/2024 07:22:49 07/27/20 24 07/28/2024 TESTO STERO NE TOTAL testosterone total SEE BELOW NG/dL 8.00-4 8.00 The resul t is outsi de of the repor table range for this metho dolog y. Pleas e refer to Testo stero ne , Total by LC/MS for the resul t. Not Available [facility] ([facility]) [address] [place] [address] [address], [place], [address], 08/01/2024 07:22:49 07/27/20 24 08/01/2024 TESTO STERO [...] ional or for resea rc. Not Available [facility] ([facility]) [address] [place] [address], [place], [address], 08/01/2024 07:22:50 07/27/20 24 07/28/2024 ESTRA DIOL estradiol 13 pg/mL Estra diol Refer ence Range Healt hy women Folli cular phase 12.4 - 233 Ovula tion phase 41.0 - 398 Lutea l phase 22.3 - 341 Postm enopa use <5 - 138 Healt hy pregn ant women 1st trime ster 154 - 3243 2nd trime ster 1561 - 33940 3rd trime ster 8525 - >3000 0 Not Available [facility] ([facility]) [address] [place] [address] [address], [place], [address], 08/01/2024 07:22:50 07/27/20 24 08/01/2024 ESTRA DIOL test cancelled Test Cancel led Speci men not recei [place] in lab Not Available [facility] ([facility]) [address] [place] [address] [address], [place], [address], 08/01/2024 07:22:50 07/27/20 24 07/28/2024 DHEA- SULFA TE DHEA-sulfate 95 ug/dL 35-256 Not Available [facility] ([facility]) [facility] [facility] [facility], [place], [address], 08/01/2024 07:22:51 Result Notes None recorded. Procedures Surgical History Date Name Laterality Status Provider Name and Address Organization Details Recorded Time 07/27/20 24 Non-OB ULS completed Cee Nelson MD [address], [place], [address], [facility] 07/27/2024 13:38:06 10/25/19 [...] Not available Not available Not available 07/27/2024 [id number] 8003 SNOMED [facility] [...] Address Organization Details Last Updated DateTime 07/27/2024 30814.47 g 36.2 kg/m2 149.86 cm 130 mm[Hg] 80 mm[Hg] [facility] 13:10:04 Social History Question Answer Notes LastModified by Organizat [employer] Details LastModified Time Tobacco Smoking Status Current Every Day Smoker 1 pack a day [facility] 07/27/2024 13:05:58 What Is Your Relationship Status? [email or web address] Information not available 07/27/2024 Are You Sexually Active? No [email or web address] Information not available 07/27/2024 Sex: Female Functional Status Question Answer Note LastModified by Organizat ion Details LastModified Time Do you use any illicit or recreational drugs? No Information not available 07/27/2024 Do you or have you ever used any other forms of tobacco or nicotine? Yes Information not available 07/27/2024 What is your level of alcohol consumption? Heavy [email or web address] Information not available 07/27/2024 Do you or have you ever used e-cigarettes or vape? Former user of electronic cigarettes [email or web address] Information not available 07/27/2024 Mental Status None recorded. Family History Nothing [...] SNOMED-CT Code Diagnosis ICD10 Code Diagnosis Note 65088 MD CEE De Santiago MD [address] [place] [id number] 07/27/2024 12:45:22 07/27/2024 13:51:50 Menopausal symptom 19379697 N95.1 Dyspareunia 23693874 N94 .19 Subserous leiomyoma of uterus 94430953 D25.2 Vaginal discharge 484812 006 N89.8 High hemog lobin A1c level 733244213 R73.09 Irritable bowel syndrome characterized by constipation 560202268 K58.1 Health Concerns Section Related Observation LastModified by Organization Detai ls LastModified Time None Recorded Concern Status LastModified by Organization Details LastModified Time None Recorded Advance Directives Directive None Recorded Payers Insurance Date Sequence Insurance Name Policy Number Policy Mcgill Covered Member ID Mcgill Member ID Guarantor Name 07/27/2024 1 [employer] [place] ([place]MO) Marie Short [id number] Marie C Short Notes Date Note Type Note Provider [...] she has her periods she has clotting. Cee Nelson MD [address] , [place], [address], [facility] 07/27/2024 13:51:22 OBGyn Episode No OBEpisode recorded.
--- NOTE | 2025-04-09 10:56 | EXP.PAIN.SOA ---
[facility] Disclaimer: The information contained in this section may have been updated after the patient was seen, as this information can be updated by other users. Medical History Tubal Chronic pain Endometriosis HLD (hyperlipidemia) HTN (hypertension) Surgical History History of ankle surgery H/O removal of cyst Family History Other No significant family history Social History Smoking Status: Current every day smoker tobacco type: cigarettes packs per day: 1 alcohol intake: current alcohol intake frequency: a few times a week (drinks 4 or 5 drinks per night) substance use type: denies use current occupational status: other (Is working on disability) Travel in the last 8 weeks?: None number of children: 0 PM Subjective & Objective Subjective Subjective:: Patient is a pleasant 50-year-old female who presents today for follow-up of her bilateral bursa injection on 03/20/2025. She rates her pain today as 7 out of 10. She denies any new trauma or injury. Patient does state that she had 85% improvement following these injections however felt like it only really provided the full 10 days of relief. Patient does feel like she is going back towards her baseline. Patient does state that she did go and see the psychologist for the pump and that she would still like to proceed forward with the pump trial. Patient does have chronic back pain. Patient is prescribed tizanidine 4 mg twice a day meloxicam 15 mg daily from our office. She denies any side effects. She is prescribed gabapentin from an outside provider. Her Ender has been reviewed and is appropriate. Review of Systems: General: No recent weight changes, no fever, no sleep disturbances Respiratory: No cough, no shortness of air, no recurring pulmonary infections Cardiovascular/peripheral vascular: No chest pain, no palpitations, no edema, no shortness of breath Gastrointestinal: No new onset incontinence, normal bowel movements reported Genitourinary: No new onset incontinence Musculoskeletal: Chronic back pain Psychiatric: [Normal mood/affect] Neurological: [Denies weakness in extremities], [denies balance issues] Pain at rest (0-10 scale): 7 Objective Objective:: Physical Exam: General: Alert and oriented x3, no acute distress, pleasant and cooperative Lungs: Respirations even and unlabored, symmetrical chest expansion Eyes: PERRL Musculoskeletal: Flexion and extension of lumbar [spine] somewhat guarded secondary to pain, [antalgic gait noted] Neurological: Speech clear, no gross sensory deficit Has patient had previous pain injection?: Yes Percent improvement in pain since last injection: 85% Conservative treatment options previously tried: Home exercise plan Length of treatment: Longer than 12 weeks Meds Home Medications and Allergies Home Medications ?Medication ?Instructions ?Recorded ?Confirmed ?Type gabapentin 300 mg capsule 300 mg PO TID Pain 09/03/22 03/20/25 History hydroxyzine HCl 25 mg tablet 50 mg PO DAILY . 09/03/22 03/20/25 History metformin 500 mg tablet 500 mg PO BID PCOS 09/03/22 03/20/25 History sertraline 50 mg tablet 50 mg PO DAILY MOOD 09/03/22 03/20/25 History spironolactone 100 mg tablet 100 mg PO DAILY Fluid 09/03/22 03/20/25 History diazepam 2 mg tablet 2 mg PO ONCE pain #1 tab 01/13/24 03/20/25 Rx meloxicam 15 mg tablet 15 mg PO DAILY Pain #30 tabs 09/28/24 03/20/25 Rx tizanidine 4 mg tablet (Zanaflex) 4 mg PO BID spasms #180 tabs 03/27/25 Rx New Prescriptions to Start Prescriptions: Allergies Allergy/AdvReac Type Severity Reaction Status Date / Time Penicillins Allergy Verified 02/01/24 10:21 Sulfa (Sulfonamide Allergy Verified 02/01/24 10:21 Antibiotics) Assessment and Plan *Assessment and plan (1) Chronic back pain: Status: Acute Category: Medical Code(s): M54.9 - Dorsalgia, unspecified; G89.29 - Other chronic pain (2) Greater trochanteric bursitis of both hips: Status: Acute Category: Medical Code(s): M70.61 - Trochanteric bursitis, right hip; M70.62 - Trochanteric bursitis, left hip (3) Facet arthropathy, lumbar: Status: Acute Category: Medical Code(s): M47.816 - Spondylosis without myelopathy or radiculopathy, lumbar region (4) Degenerative joint disease (DJD) of lumbar spine: Status: Acute Category: Medical Code(s): M47.816 - Spondylosis without myelopathy or radiculopathy, lumbar region Plan I did discuss with the patient that I will send referral to Dr. Earl roca for evaluation of possible back surgery. Patient was reviewed over the pump trial option again regarding risk and benefits and she still would like to proceed forward with this plan of care. I will make sure she has refills on her tizanidine and meloxicam. Patient will return to clinic in 1 month for reevaluation of symptoms and plan of care. Patient has been instructed to contact the clinic with any concerns before the next appointment. Dr. Bernard has reviewed this note and agrees with this plan of care. This note was dictated using voice recognition software and make contain errors or omissions. All injections are used with Lidocaine, Bupivacaine and dexamethasone. Occasionally urine drug screen is needed to verify patient's compliance with our office pain contract. This is ordered based off specific treatments related to chronic pain with the potential to abuse certain medications.
[2025-04-09 12:32] VITALS: BP 137/100; PULSE 101; RESP 18; O2SAT 95; BMI 37.3
== END 2025-04-09 23:59 | disposition home or self-care (01) ==
PROVIDERS: PCP Nurse Practitioner Family; Visit Provider Nurse Practitioner Family
DX: M47.816 Spondylosis without myelopathy or radiculopathy, lumbar region (principal); M70.61 Trochanteric bursitis, right hip; M70.62 Trochanteric bursitis, left hip; Z79.899 Other long term (current) drug therapy
CPT/HCPCS: 99212; G0463

== ENCOUNTER 2025-05-07 11:25 | Outpatient (POV) | payer MEDICAID, SELFPAY ==
--- OUTSIDE RECORDS SUMMARY | 2025-05-07 11:28 | XMS_ITS | Encounter Summary ---
Author Organization [employer] ([place], [place], [place], [place]) Address [address] [place] [address] Care Team Providers Care Tenter Frame Operator Name Role Phone Unavailable Primary Care Provider Unavailabl e Encounter Details Date Type Department Care Team (Late st Contact Info) Description 01/02/2020 Transcribed Document [facility] [place] [address] ProviderFlip MD [address] [place] [address] Social History Tobacco Use Types Packs/Day Years Used Date Smoking Tobacco: Never Assessed Comments Unknown Sex and Gender Information Value Date Recorded Sex Assigned at Female 04/21/2022 6:36 PM CDT Legal Sex Female 6:36 PM CDT Gender Identity Female 04/21/2022 6:36 PM CDT Sexual Orientation Not on file documented as of this encounter Miscellaneous Notes * Cerner Conversion Note - Historical ProviderMD - 01/02/2020 5:55 PM CDT ED Triage Entered On: 01/02/2020 18:00 EDT Performed On: 01/02/2020 17:56 EDT by Basil Walls RN ED Triage Across the Room Chief Complaint : pt arrives to ed via ems from [place] after having a fall at home. Left ankle fracture that Dr. Wray set today and splinted. She also reports a pressure ulcer under the splint. Hx of DM Triage Date/Time : 01/02/2020 17:56 EDT Basil Walls RN - 01/02/2020 17:56 EDT DCP GENERIC CODE Tracking Acuity : 3 - Urgent Tracking Group : [facility] ED Basil Walls RN - 01/02/2020 17:56 EDT Mode of Arrival : Stretcher Transported to ED by : Ambulance/ALS EMS Service : [place] To Room Via : Stretcher Accompanied By : Unaccompanied ED Vital Signs : Document Height & Weight : Document ED Allergies : Document ED Reason for Visit : Document Basil Walls RN - 01/02/2020 17:56 EDT Infectious Disease History COVID19 Screening : No Physical contact outside [place] in the last 30 days : No Infectious Disease History : Chicken pox/Shingles, Influenza, Mononucleosis, Scarlet fever Tuberculosis Symptoms : None Basil Walls RN - 01/02/2020 17:56 EDT Vital Signs ED Temperature Source : Oral Temperature Mode : Fahrenheit Temperature, Fahrenheit : 98.7 Deg F Clinical Temperature, C : 37.1 Deg C Oxygen Therapy Mode : Room air Peripheral Pulse Rate : 130 bpm (HI) Respiratory Rate : 22 Breaths/Min (HI) Systolic Blood Pressure : 161 mmHg (HI) Diastolic Blood Pressure : 94 mmHg (HI) Oxygen Saturation : 95 % Basil Walls RN - 01/02/2020 17:56 EDT Allergy (As Of: 01/02/2020 18:00:33 EDT) Allergies (Active) penicillin Estimated Onset Date: Unspecified ; Created By: CONTRIBUTOR_SYSTEMCARISSA; Reaction Status: Active ; Category: Drug ; Substance: penicillin ; Type: Allergy ; Updated By: CARISSA PERRY; Reviewed Date: 01/02/2020 17:58 EDT sulfa drugs Estimated Onset Date: Unspecified ; Created By: CARISSA PERRY; Reaction Status: Active ; Category: Drug ; Substance: sulfa drugs ; Type: Allergy ; Updated By: CARISSA PERRY; Reviewed Date: 01/02/2020 17:58 EDT Diagnosis Control ED (As Of: 01/02/2020 18:00:33 EDT) Problems(Active) Ectopic (SNOMED CT :35887686 ) Name of Problem: Ectopic ; Recorder: LANCE HERNANDEZ RN; Confirmation: Confirmed ; Classification: Medical ; Code: [id number] ; Contributor System: Humble Bundle ; Last Updated: 05/17/2015 13:37 EDT ; Life Cycle Date: 05/17/2015 ; Life Cycle Status: Active ; Vocabulary: SNOMED CT Endometriosis (SNOMED CT :8311063047 ) Name of Problem: Endometriosis ; Recorder: LANCE HERNANDEZ RN; Confirmation: Confirmed ; Classification: Medical ; Code: [id number] ; Contributor System: Humble Bundle ; Last Updated: 05/17/2015 13:37 EDT ; Life Cycle Date: 05/17/2015 ; Life Cycle Status: Active ; Vocabulary: SNOMED CT PCO - Polycystic ovaries (SNOMED CT :353366115 ) Name of Problem: PCO - Polycystic ovaries ; Recorder: LANCE HERNANDEZ RN; Confirmation: Confirmed ; Classification: Medical ; Code: [id number] ; Contributor System: Humble Bundle ; Last Updated: 05/17/2015 13:37 EDT ; Life Cycle Date: 05/17/2015 ; Life Cycle Status: Active ; Vocabulary: SNOMED CT Diagnoses(Active) Lower leg pain-swelling Date: 01/02/2020 ; Diagnosis Type: Reason For Visit ; Confirmation: Complaint of ; Clinical Dx: Lower leg pain-swelling ; Classification: Medical ; Clinical Service: Emergency medicine ; Code: PNED ; Probability: 0 ; Diagnosis Code: [id number] ED Height and Weight Height Source : Stated Height Entry Format : Marine Height, Feet : 5 ft(Converted to: 152 cm, 60 Inch) Height, Inches : 3 Inch(Converted to: 0 ft 3 Inch, 7.62 cm) Clinical Height : 160.02 cm Weight Source, ED : Critical estimated dosing weight Weight Entry Format : Marine Weight, Pounds : 168 lb Clinical Dosing Weight : 76.36 kg Body Surface Area (BSA) : 1.8 m2 Body Mass Index : 29.8 kg/m2 (HI) [place] Body Weight (IBW) : 52.02 kg Basil Walls RN - 01/02/2020 17:56 EDT Electronically signed by Bharath Garcia Conversion Garage Door Opener Installer Cerner at 02/12/2023 12:20 PM CDT documented in this encounter Plan of Treatment Not on file documented as of this encounter Visit Diagnoses Not on filedocumented in this encounter
--- OUTSIDE RECORDS SUMMARY | 2025-05-07 11:28 | XMS_ITS | Referral Summary ---
Author Organization [employer] ([place], [place], [place], [place]) Address [address] [place] [address] Care Team Providers Care Corporate Driver Name Role Phone Unavailable Primary Care Provider Unavailabl e Social History Tobacco Use Types Packs/Day Years Used Date Smoking Tobacco: Never Assessed Comments Unknown Sex and Gender Information Value Date Recorded Sex Assigned at Female 04/21/2022 6:36 PM CDT Legal Sex Female 6:36 PM CDT Gender Identity Female 04/21/2022 6:36 PM CDT Sexual Orientation Not on file Plan of Treatment Not on file
--- OUTSIDE RECORDS SUMMARY | 2025-05-07 11:28 | XMS_ITS | Encounter Summary ---
Author Organization [employer] ([place], [place], [place], [place]) Address [address] [place] [address] Care Team Providers Care Spray Gun Striper Name Role Phone Unavailable Primary Care Provider Unavailabl e Encounter Details Date Type Department Care Team (Late st Contact Info) Description 01/02/2020 Transcribed Document [facility] [place] Family Medicine [address] [place] [address] ProviderFlip MD [address], [place] [id number] Social History Tobacco Use Types Packs/Day Years [...] Historical ProviderMD - 01/02/2020 5:55 PM CDT [place] Suicide Severity Rating Scale (C-SSRS) Entered On: 01/02/2020 18:40 EDT Performed On: 01/02/2020 18:39 EDT by Basil Walls RN [place] Suicide Severity Rating Scale (C-SSRS) CSSRS Past Month Wish to be : No CSSRS Past Month Suicidal Thoughts : No CSSRS Lifetime Suicide Behavior : No Suicide Severity Rating Score : 0 Suicide Severity Rating : No Additional Care Required at this time Basil Walls RN - 01/02/2020 18:39 EDT Electronically signed by Bharath Garcia Conversion Forestry And Wildlife Manager Cerner at 02/12/2023 12:18 PM CDT documented in this encounter Plan of Treatment Not on file documented as of this encounter Visit Diagnoses Not on filedocumented in this encounter
--- OUTSIDE RECORDS SUMMARY | 2025-05-07 11:28 | XMS_ITS | Continuity of Care Document ---
Author Organization [facility] Address [address] [address] Care Team Providers Care Distance Education Teacher Name Role Phone ROSA ISELA GONZALEZ Primary Care Provider Assessment No assessment recorded. Plan of Treatment Reminders Order Date Submit Date Provider Last Modified By Organization Details Last Modified Time Details Appointments FOLLOW UP 30 2024 11:30A M ROSA ISELA GONZALEZ NP Not available Not available Not available Lab lipid panel, serum 2024 025 [facility] (Laboratory), [address] [place], [address], 04/18/2025 13:56:21 amylase + lipase, serum 2024 025 [email or web address] [facility] (Laboratory), [address] [place], [address], 04/25/2025 07:03:44 CMP, serum or plasma 2024 025 [facility] (Laboratory), [address] [place], [address], 04/18/2025 13:56:19 CBC w/ auto diff 2024 025 [facility] (Laboratory), [address] [place], [address], 04/18/2025 13:32:00 TSH, serum or plasma 2024 025 [facility] (Laboratory), [address] , [place], [address], 04/18/2025 13:56:18 Referral gastroent erologist referral 2024 CHRISTAL Velazquez MD, [address], [place], [address], 04/18/2025 12:28:53 Procedures None recorded. Surgeries None recorded. Imaging NM, hepatobil iary scan, w/ CCK [email or web address] (Scheduling), [address] , [place], [address], 05/02/2025 09:03:10 Medication Orders atorvasta tin 20 mg tablet 2024 [facility], [address] [place] [address], [id number], 04/18/2025 12:18:04 metoprolo l succinate ER 50 mg tablet,ex tended release 24 hr 2024 025 [facility], [address] [place] [address], [address], 04/18/2025 12:18:04 sertralin e 100 mg tablet 2024 025 [facility], [address] [place] [address], [address], 04/18/2025 12:18:03 gabapenti n 300 mg capsule 2024 025 [facility], [address] [place] [address], [address], 04/18/2025 12:18:06 Patient TargetsNo targets recorded. Patient InstructionsNo instructions recorded. Reason for Referral Satellite Dish Technician Referral for Diarrhea Referring Physician: Rosa Isela Gonzalez, Family Medicine, Encounter Date: 04/18/2025 Problems Name Problem SNOMED Code Status Onset Date Resolution Date Notes Provider Name and Address Organization Details Recorded Time Essential hypertensi on 26865362 Active 2022 Not Available [facility] 3 15:39:14 Diarrhea of presumed infectious origin 37379532 Active 2022 Ajith Vigil null, [place] - [facility] - [place] & [place] 4 11:04:16 Chronic pain 49481257 Active 2022 Ajith Vigil null, [place] [facility] [place] & [place] 4 11:04:13 Irritable bowel syndrome 60838982 Active 2022 Ajith Vigil null, [place] [facility] [place] & [place] 4 11:04:21 Mixed anxiety and depressive disorder 970252724 Active 2022 Ajith Vigil [place], [place] [facility] [place] & [place] 4 11:04:23 Osteoarthr itis of multiple joints 573472034 Active 2022 Ajith Vigil null, [place] [facility] [place] & [place] 4 11:04:25 Hyperglyce belkis 07985807 Active 2023 Ajith Vigil null, [place] [facility] [place] & [place] 4 11:04:18 Vitamin D deficiency 10296561 Active 2023 Ajith Vigil null, [place] [facility] [place] & [place] 4 11:04:29 Taking high risk medication 9527768085423 07 Active 2023 Ajith Vigil null, [place] [facility] [place] & [place] 4 11:04:27 Problem Notes None recorded. Procedures Surgical History Date Name Laterality Status Provider Name and Address Organization Details Recorded Time 08/28/20 24 Most Recent Bone Density completed Di Hoyos [place] [facility] [place] & [place] 01/18/2025 15:20:51 07/21/20 23 Colonoscopy completed Estephania Flores [place] [facility] [place] & [place] 07/23/2023 16:12:35 07/17/20 23 Date of Last Colonoscopy completed Aspen U[place] - [facility] [place] & [place] 09/28/2023 06:54:12 12/24/19 20 arthroplasty of left ankle completed Mayra Calix [facility] & [place] 05/31/2024 14:24:23 excision of cyst completed Mayra Calix [facility] & [place] 05/31/2024 14:22:36 Imaging Results None recorded. Procedure Notes None recorded. Medical Equipment None Reported. Allergies Allergen ID Allergen Name Allergen Category Reaction Reaction Severity Criticality Documentation Date Start Date Code Code System Note Provider Name and Address Organization Details Recorded Time 39039 Substance with sulfonami de structure and antibacte rial mechanism of action (substanc e) medicatio n hives itching moderate moderate Not available 01/25/2023 40339 8003 SNOMED Ajith Vigil [facility] & [place] 3 12:13:51 91818 penicilli n G Not available rash mild low 07/29/2023 7980 RxNorm Nataliia Colon [facility] & [place] 5 13:57:02 Medications Name Sig Start Date [...] 50 mg tablet,exte nded release 24 hr TAKE 1 TABLET BY MOUTH ONCE DAILY active Not Available Not Available No t Available meloxicam 15 mg tablet TAKE 1 TABLET [...] Not Available Gentle Laxative (bisacodyl) 5 mg tablet,ricadra yed release TAKE 2 TABLETS BY MOUTH [...] Arterial blood by Pulse oximetry Heart rate Systolic And Diastolic Provider Name and Address Organization Details Last Updated DateTime 5 149.86 cm 37.6 kg/m2 33126.1 8 g 98.1 [degF] 96 % 96 % 89 /min 128/90 mm[Hg] Yossi Javier garza [facility] & [place] 12:05:27 Social History Question Answer Notes LastModified by Organizat ion Details LastModified Time Tobacco Smoking Status Current Every Day Smoker Aspenher Urbina chiki, [facility] & [place] 07/29/2023 08:30:16 Do You Have An Advance Directive? No Information not available 07/29/2023 If You Are , What Was Your Level Of Alcohol Consumption Prior To ? Occasional [email or web address] Information not available 03/28/2024 Do You Wear A Helmet When Biking? Yes Information not available 03/28/2024 Are You Blind Or Do You Have Difficulty Seeing? No [email or web address] Information not available 07/29/2023 What Is Your Level Of Caffeine Consumption? None [email or web address] Information not available 03/28/2024 In The 14 Days Before Symptom Onset, Have You Had Close Contact With A Laboratory-confir med COVID-19 While That Case Was Ill? No [email or web address] Information not available 03/28/2024 In The 14 Days Before Symptom Onset, Have You Had Close Contact With A Person Who Is Under Investigation For COVID-19 While That Person Was Ill? No [email or web address] Information not available 03/28/2024 Have You Been To An Area Known To Be High Risk For COVID-19? No [email or web address] Information not available 03/28/2024 Are You Deaf Or Do You Have Serious Difficulty Hearing? No [email or web address] Information not available 03/28/2024 What Type Of Diet Are You Following? REGULAR [email or web address] Information not available 04/12/2024 Have You Processed Blood Or Body Fluids From An Ebola Virus Disease Patient Without Appropriate PPE? No [email or web address] Information not available 03/28/2024 Do You Reside In Or Have You Traveled To An Area Where Ebola Virus Transmission Is Active? No Information not available 03/28/2024 Have There Been Any Changes To Your Family Or Social Situation? No [email or web address] Information no t available 09/08/2024 What Is The Fluoride Status Of Your Home? Unknown Information not available 03/28/2024 Are There Any Guns Present In Your Home? No [email or web address] Information not available 03/28/2024 Have You Recently Or Are You Planning To Travel To An Area With Zika Virus? No [email or web address] Information not available 03/28/2024 Do You Use Insect Repellent Routinely? Yes [email or web address] Information not available 03/28/2024 Do You Feel Safe At Home? Yes [email or web address] Information not available 03/28/2024 Do You Have A Medical Power Of Mat Puncher? No [email or web address] Information not available 03/28/2024 What Was The Date Of Your Most Recent Tobacco Screening? 04/18/2025 [email or web address] Information not available 04/18/2025 Do You Have Any Pets? No [email or web address] Information not available 03/28/2024 Do You Use Your Seat Belt Or Car Seat Routinely? Yes [email or web address] Information not available 03/28/2024 Do You Have Smoke And Carbon Monoxide Detectors In Your Home? Yes [email or web address] Information not available 03/28/2024 Are You Passively Exposed To Smoke? No Information no t available 07/29/2023 How Much Tobacco Do You Smoke? 1 PPD [email or web address] Information not available 07/29/2023 Do You Use Sunscreen Routinely? Yes [email or web address] Information not available 03/28/2024 Has Tobacco Cessation Counseling Been Provided? Yes [email or web address] Information not available 04/18/2025 On What Date Was Tobacco Cessation Counseling Provided? 04/18/2025 [email or web address] Information not available 04/18/2025 How Many Years Have You Smoked Tobacco? 29 Information not available 05/31/2024 Do You Have Difficulty Walking Or Climbing Stairs? No Information not available 03/28/2024 Are You Currently In School? No [email or web address] Information not available 03/28/2024 Sex: Female Functional Status Question Answer Note LastModified by Organizat ion Details LastModified Time Do you use any illicit or recreational drugs? No [email or web address] Information not available 07/29/2023 Do you or have you ever used any other forms of tobacco or nicotine? No [email or web address] Information not available 03/28/2024 What is your level of alcohol consumption? Moderate cupsft12 Information not available 07/29/2023 Do you or have you ever used smokeless tobacco? Never used smokeless tobacco jehvpu40 Information not available 09/28/2023 Are you currently employed? No Information not available 03/28/2024 Do you have transportation difficulties? No [email or web address] Information not available 03/28/2024 Are you able to walk? YESWOREST xcrzotsv97 Information not available 03/28/2024 Do you have difficulty doing errands alone? No qgsuvivd20 Information not available 03/28/2024 Are you able to care for yourself? Yes [email or web address] Information n ot available 03/28/2024 Do you have difficulty dressing or bathing? No [email or web address] Information not available 03/28/2024 What is your exercise level? Occasional Information not available 05/31/2024 Mental Status Question Answer Note LastModified by Organizat ion Details LastModified Time Do you feel stressed (tense, restless, nervous, or anxious, or unable to sleep at night)? [id number] Information not available 07/29/2023 Do you have difficulty concentrating, remembering or making decisions? No ixxmabhd31 Information no t available 03/28/2024 Family History [...] Not available 04/2024 14:30:35 Father Hyperlipidem ia [email or web address] Not available 2024 11:54:00 Father Diabetes mellitus [email or web address] Not available 2024 11:54:00 Mother Osteoporosis pt. added direct ly (11/16) CHART_MERGE Not available 04/23/2023 15:39:14 Mother Sleep disorder pt. added direct ly (11/16) CHART_MERGE Not available 04/23/2023 15:39:14 Mother Adenomatous polyp of colon [email or web address] Not available 2024 11:54:00 Mother Asthma gzqofvr59 Not available 04/18/2025 11:54:00 Mother Osteoarthrit is [email or web address] Not available 2024 11:54:00 Sister Malignant tumor of colon Not available 2024 11:54:00 Maternal Grandmother Myocardial infarction [email or web address] Not available [...] 30 mcg/0.3 mL dose 07/02/2021 completed Aspen monet, [place] [facility] [place] & [place] 07/29/2023 08:29:46 COVID-19, mRNA, LNP-S, PF, 30 mcg/0.3 mL dose 07/23/2021 completed Aspen monet, [place] - [facility] - [place] & [place] 07/29/2023 08:29:46 Past Encounters Encounter ID Performer Location Encounter Start Date Encounter Closed Date Diagnosis/Indication Diagnosis SNOMED-CT Code Diagnosis ICD10 Code Diagnosis Note [id number] ROSA ISELA GONZALEZ NP [facility] [address] [id number] 04/18/2025 11:53:46 04/23/2025 07:36:51 Diarrhea 11679480 R19.7 discussed recommenda tions for studies of her gallbladde rrequests GI referraltr y to avoid triggershy drationbri rodrigues lab work Essential hypertension 82720931 I10 educated on goal of less than 130/90advi sed low sodium diet, healthy lifestyle including exercise as ablecontin ue current medication regimen, controlled , refill providedER if any symptoms such as chest pain, shortness of breath Mixed hyperlipidemia 267 111041 E78.2 reinforced healthy diet and exerciseco ntinue atorvastat in therapy Neuropathy 568507121 G62 .9 discussed risk vs benefithas been on for several years with different providers, including Bhaskar Monterroso; will continueun derstands must be seen minimum every 3 monthsdeni es any wounds or ulcers of feet Mixed anxi ety and depressive disorder 686558591 F41.8 controlled denies SI/HIrefil l provided Health Concerns Section Related Observation LastModified by Organization Detai ls LastModified Time None Recorded Concern Status LastModified by Organization Details LastModified Time None Recorded Payers Encounter Date Sequence Insurance Name Policy Number Policy Mcgill Covered Member ID Mcgill Member ID Guarantor Name 04/18/2025 1 [employer] (MEDICAID HMO) [id number] Marie Yelena [id number] Marie Short Notes Date Note Type Note Provider Name and Address Organization Details Recorded Time 04/18/2025 text/html 50 yr old female who presents for follow up/medication refillsComplaints of loose stools with frequency, eats then often has to run to the bathroom, doesnt happen everytime. Denies any abdominal pain. Denies any notable triggers, or anything she has been able to idnetify that makes better or worse. Denies any blood in stool.Does report family history of colon cancer.Reviewed medications. Hasnt taken her metoprolol regularly, but restarted this week when noted her blood pressure was elevated. Uses meloxicam as needed. Atorvastatin for her cholesterol. Requests gabapentin refills. Denies any wounds or ulcers on feet. Mood controlled sertraline. Denies SI/HI ROSA ISELA GONZALEZ NP [address] [place] [address], [phone], [facility] - [facility] - [place] & [place] 04/21/2025 21:02:59 OBGyn Episode No OBEpisode recorded.
--- OUTSIDE RECORDS SUMMARY | 2025-05-07 11:28 | XMS_ITS | Encounter Summary ---
Author Organization [facility] Address [address] [place] [address] Care Team Providers Care Carpet Cleaner Name Role Phone None, None Primary Care Provider [phone] Reason for Referral * Consultation (Routine) - Closed Specialty Diagnoses / Procedures Referred By Glenys barakat Referred To Contact Neurosurgery Diagnoses Other low back pain Radiculopathy, lumbar region Perez Johnson MD [address] [place] [address] Phone: tel: fax: Referral ID Status Reason Start Date Expiration Date V isits Requested Visits Authorized [id number] Closed Specialty Services Required 08/05/2022 02/04/2024 1 1 Encounter Details Date Type Department Care Team (Late st Contact Info) Description 08/05/2022 [facility] [address] [place] [address] Perez Johnson MD [address] [phone] Other low back pain (Primary Dx); Radiculopathy, [...] unspecified documented in this encounter Care Teams Carpet Cleaner Relationship Specialty Start Date End Date None, None [address] [phone] PCP - General NONE FOUND 10/13/22 05/18/24 documented as of this encounter
--- OUTSIDE RECORDS SUMMARY | 2025-05-07 11:28 | XMS_ITS | Encounter Summary ---
Author Organization [employer] ([place], [place], [place], [place]) Address [address] [place] [address] Care Team Providers Care Motor Brakeman Name Role Phone Unavailable Primary Care Provider Unavailabl e Encounter Details Date Type Department Care Team (Late st Contact Info) Description 01/02/2020 Transcribed Document [facility] [place] [address] [place] [address] ProviderFlip MD [address] [place] [address] Social History Tobacco Use Types [...] ProviderMD - 01/02/2020 5:55 PM CDT ED Assessment Entered On: 01/02/2020 18:40 EDT Performed On: 01/02/2020 17:55 EDT by Basil Walls RN ED Quick Look Assessment Level of Consciousness : Alert, Awake Affect/Behavior : Cooperative, Anxious Orientation : Oriented x 4 Basil Walls RN - 01/02/2020 18:39 EDT ED General-Functional Assess Information Obtained From : Patient Preferred Communication Mode : Verbal Communication Barrier : None Primary Language : [place] Any Spiritual/Cultural Needs or Requests : No Currently in Unsafe Situation : No Basil Walls RN - 01/02/2020 18:39 EDT Social Habits Smoking Status : Smoker, current status unknown Smokeless Tobacco Status : Never Desires Tobacco Cessation Medication : No Reason for No Tobacco Cessation Medication : ED/procedural patient only Desires Tobacco Cessation Calc : 1 Basil Walls RN - 01/02/2020 18:39 EDT Social History (As Of: 01/02/2020 18:40:52 EDT) Tobacco: Use in Last 12 Months: Cigarettes. Smoking Status Former smoker. Years of Use: 15. Packs/Tins Daily: 1. Used Tobacco, but Quit No. Second Hand Smoke Exposure: Yes. Smoking Cessation Info Provided: Yes. (Last Updated: 05/17/2015 13:41:05 EDT by LANCE HERNANDEZ RN) Alcohol: Alcohol Use History Yes. Alcohol Use Frequency Socially. (Last Updated: 05/17/2015 13:41:12 EDT by LANCE HERNANDEZ RN) Substance Abuse: Drug Use Hx: No. (Last Updated: 05/17/2015 13:41:36 EDT by LANCE HERNANDEZ RN) Home/Environment: Lives with Father, Mother. (Last Updated: 05/17/2015 13:41:31 EDT by LANCE HERNANDEZ, MICHELLE) Employment/School: Employed (Last Updated: 05/17/2015 13:41:20 EDT by LANCE HERNANDEZ RN) Cardiovascular ASMT, ED Cardiovascular Assessment WDL : [facility] Basil Walls RN - 01/02/2020 18:39 EDT Respiratory Respiratory Assessment WDL : [facility] Basil Walls RN - 01/02/2020 18:39 EDT Musculoskeletal Musculoskeletal Assessment WDL : [facility] with exceptions Musculoskeletal Assessment Comment : Increased LT ankle pain, splint opened and revealed 2 open areas that pt reports are burning. Basil Walls RN - 01/02/2020 18:39 EDT Neurologic ASMT, ED Neurologic Assessment WDL : [facility] Basil Walls RN - 01/02/2020 18:39 EDT Pain Assessment Pain Assessment : Initial assessment Pain Scale Used : 0-10 Scale Basil Walls RN - 01/02/2020 18:39 EDT Pain Scale Intensity : 10 Basil Walls RN - 01/02/2020 18:39 EDT Image 4 - Images currently included in the form version of this document have not been included in the text rendition version of the form. Electronically signed by Bharath Garcia Conversion Bag Loader Machine Operator Tylerner at 02/12/2023 12:18 PM CDT documented in this encounter Plan of Treatment Not on file documented as of this encounter Visit Diagnoses Not on filedocumented in this encounter
--- OUTSIDE RECORDS SUMMARY | 2025-05-07 11:28 | XMS_ITS | Clinical Summary ---
Author Organization [employer] ([place], [place], [place], [place]) Address [address] [place] [address] Care Team Providers Care Emblem Maker Name Role Phone Unavailable Primary Care Provider [...]
--- OUTSIDE RECORDS SUMMARY | 2025-05-07 11:28 | XMS_ITS | Encounter Summary ---
Author Organization [employer] ([place], [place], [place], [place]) Address [address] [place] [address] Care Team Providers Care Credit Verifier Name Role Phone Unavailable Primary Care Provider Unavailabl e Encounter Details Date Type Department Care Team (Late st Contact Info) Description 01/02/2020 Transcribed Document [facility] [place] Family Medicine [address] [place] [address] ProviderFlip MD [address], [place] [phone] Social History Tobacco Use Types Packs/Day Years [...] Conversion Note - Historical ProviderMD - 01/02/2020 6:37 PM CDT Electronically signed by Radha [facility] Conversion Nozzle Cement Sprayer Helper Cerner at 02/12/2023 12:16 PM CDT documented in this encounter Plan of Treatment Not on file documented as of this encounter Visit Diagnoses Not on filedocumented in this encounter
--- OUTSIDE RECORDS SUMMARY | 2025-05-07 11:28 | XMS_ITS | Encounter Summary ---
Author Organization [employer] ([place], [place], [place], [place]) Address [address] [place] [address] Care Team Providers Care Welfare Worker Name Role Phone Unavailable Primary Care Provider Unavailabl e Encounter Details Date Type Department Care Team (Late st Contact Info) Description 01/02/2020 Transcribed Document [facility] [place] [address] [place] [address] ProviderFlip MD [address] [place] [address] Social History Tobacco Use Types [...] Conversion Note - Historical ProviderMD - 01/02/2020 9:30 PM CDT ED Discharge Entered On: 01/02/2020 21:31 EDT Performed On: 01/02/2020 21:30 EDT by Basil Walls RN Discharge Process Patient Disposition : Discharge, Transfer Personal Belongings With Patient : Yes Patient Education Completed : Yes Teaching Evaluation : Verbalizes understanding IV Discontinued : Not applicable Nursing Documentation Completed : Yes Basil Walls RN - 01/02/2020 21:30 EDT ED Discharge Discharge To : Home with ambulatory/outpatient follow-up Mode Of Departure : Ambulance/BLS Accompanied By : Unaccompanied Discharge Instructions Reviewed With, Opportunity For Questions Given : Patient Prescriptions Given to Patient : No Basil Walls RN - 01/02/2020 21:30 EDT documented in this encounter Plan of Treatment Not on file documented as of this encounter Visit Diagnoses Not on filedocumented in this encounter
--- OUTSIDE RECORDS SUMMARY | 2025-05-07 11:28 | XMS_ITS | Data Portability ---
Author Organization [facility] telehealth Address [address] [place] [address] Assessment Encounter Date Assessment Date Assessment LastModified [...] obin A1c), blood 024 07/27/20 24 [facility] ([facility]), [address] [place] [address] [place], [address], 5 05:00:37 lh + FSH, serum 07/27/20 [facility] ([facility]), [address] [place], [address], 4 02:29:36 estradi ol, serum 07/27/20 [facility] ([facility]), [address] [place], [address], 4 02:29:36 dhea-darling lfate, serum 07/27/20 24 [facility] ([facility]), [address] [place] [address], [address], 4 02:29:36 testost erone, total, serum 07/27/20 [facility] ([facility]), [address] [place], [address], 4 02:29:35 Referral None recorde d. Procedures [...] enopa use 7.7 - 58.5 Not Available [facility] ([facility]) [address], [place], [address], 08/01/2024 07:22:49 07/27/20 24 07/28/2024 FSH AND LH FSH 36.90 mIU/m L FSH Refer ence Range Men: 1.5 - 12.4 Women : Folli cular phase 3.5 - 12.5 Ovula tion phase 4.7 - 21.5 Lutea l phase 1.7 - 7.7 Postm enopa use 25.8 - 134.8 Not Available [facility] ([facility]) [address] [place] [address] [address], [place], [address], 08/01/2024 07:22:49 07/27/20 24 07/28/2024 TESTO STERO NE TOTAL testosterone total SEE BELOW NG/dL 8.00-4 8.00 The resul t is outsi de of the repor table range for this metho dolog y. Pleas e refer to Testo stero ne , Total by LC/MS for the resul t. Not Available [facility] ([facility] [employer]) [address] [place] [address] [address], [place], [address], 08/01/2024 07:22:49 07/27/20 24 08/01/2024 TESTO STERO [...] as inves tigat ional or for resea rch. Not Available [facility] ([facility] [employer] [facility]) [address] [place] [address] [address], [place], [address], 08/01/2024 07:22:50 07/27/20 24 07/28/2024 ESTRA DIOL estradiol 13 pg/mL Estra diol Refer ence Range Healt hy women Folli cular phase 12.4 - 233 Ovula tion phase 41.0 - 398 Lutea l phase 22.3 - 341 Postm enopa use <5 - 138 Healt hy pregn ant women 1st trime ster 154 - 3243 2nd trime ster 1561 - 12870 3rd trime ster 8525 - >3000 0 Not Available [facility] ([facility]) [address] [place] [address] [address], [place], [address], 08/01/2024 07:22:50 07/27/20 24 08/01/2024 ESTRA DIOL test cancelled Test Cancel led Speci men not recei [place] in lab Not Available [facility] ([facility]) [address] [place] [address] [address], [place], [address], 08/01/2024 07:22:50 07/27/20 24 07/28/2024 DHEA- SULFA TE DHEA-sulfate 95 ug/dL 35-256 Not Available [facility] ([facility]) [address] [place] [address] [address], [place], [address], 08/01/2024 07:22:51 Result Notes None recorded. Procedures Surgical History Date Name Laterality Status Provider Name and Address Organization Details Recorded Time 07/27/20 24 Non-OB ULS completed Capri Nelson MD [address], [place], [address], [facility] 07/27/2024 13:38:06 10/25/19 [...] Not available Not available Not available 07/27/2024 [id number] 8003 SNOMED [facility] 13:02:58 Medications Name Sig Start Date Stop [...] Body mass index (BMI) Body height Systolic And Diastolic Provider Name and Address Organization Details Last Updated DateTime 07/27/2024 09163.47 g 36.2 kg/m2 149.86 cm 130/80 mm[Hg] [facility] 07/27/2024 13:10:04 Social History Question Answer Notes LastModified by [employer] Details LastModified Time Tobacco Smoking Status Current Every Day Smoker 1 pack a day [facility] 07/27/2024 13:05:58 What Is Your Relationship Status? [email or web address] Information not available 07/27/2024 Are You Sexually Active? No [email or web address] Information not available 07/27/2024 Sex: Female Functional Status Question Answer Note LastModified by [employer] Details LastModified Time Do you use any illicit or recreational drugs? No [email or web address] Information not available 07/27/2024 Do you or have you ever used any other forms of tobacco or nicotine? Yes Information not available 07/27/2024 What is your level of alcohol consumption? Heavy [email or web address] Information not available 07/27/2024 Do you or have you ever used e-cigarettes or vape? Former user of electronic cigarettes [email or web address] Information not available 07/27/2024 Mental Status None [...] SNOMED-CT Code Diagnosis ICD10 Code Diagnosis Note [id number] MD CAPRI De Santiago MD [address] [place] [address] 07/27/2024 12:45:22 07/27/2024 13:51:50 Menopausal symptom 38173209 N95.1 Dyspareunia 97713795 N94 .19 Subserous leiomyoma of uterus 06474578 D25.2 Vaginal discharge 717989 006 N89.8 High hemog lobin A1c level 880050313 R73.09 Irritable bowel syndrome characterized by constipation 305046215 K58.1 Health Concerns Section Related Observation LastModified by Organization Detai ls LastModified Time None Recorded Concern Status LastModified by Organization Details LastModified Time None Recorded Advance Directives Directive None Recorded Payers Insurance Date Sequence Insurance Name Policy Number Policy Mcgill Covered Member ID Mcgill Member ID Guarantor Name 07/27/2024 1 [employer] [place] (MEDICAID HMO) Marie Short [id number] Marie C Short Notes Date Note Type [...] has clotting. Capri Nelson MD [address] , [place], [address], [facility] 07/27/2024 13:51:22 OBGyn Episode No OBEpisode recorded.
--- OUTSIDE RECORDS SUMMARY | 2025-05-07 11:28 | XMS_ITS | Encounter Summary ---
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 Role Phone Unavailable Primary Care Provider Unavailabl e Encounter Details Date Type Department Care Team (Late st Contact Info) Description 01/02/2020 Transcribed Document [facility] [address] [place] [address] ProviderFlip MD [address] [place] [address] Social History Tobacco Use Types [...] Conversion Note - Historical ProviderMD - 01/02/2020 6:10 PM CDT Patient: BRIAN VALENCIA Age: 44 years Sex: Female : 1975 Associated Diagnoses: Ankle pain, left; Ankle fracture, left; Pressure ulcer, ankle Author: GIOVANNI SETH MD Basic Information Additional information: Chief Complaint from Nursing Triage Note : Chief Complaint 01/02/2020 17:56 EDT Chief Complaint pt arrives to ed via ems from [place] after having a fall at home. Left ankle fracture that Dr. Wray set today and splinted. She also reports a pressure ulcer under the splint. Hx of DM . History of Present Illness The patient presents with lower extremity pain. The onset was just prior to arrival. The course/duration of symptoms is constant. Type of injury: fall. Location: Left ankle. The character of symptoms is pain. The degree at present is severe. The exacerbating factor is movement. The relieving factor is immobilization. Pt has a recent fx of her left ankle that will need surgical repair. She was seen by ortho today, they debrieded a small stage 2 ulcer over the medial ankle and splinted the ankle, plan for surgical repair at a future date. When at home she slipped and banged the side of her cast, causing increased pain at the site of the ulcer. No new pain or injury per patient. . Review of Systems Constitutional symptoms: Negative except as documented in HPI. Skin symptoms: Negative except as documented in HPI. Eye symptoms: Negative except as documented in HPI. ENMT symptoms: Negative except as documented in HPI. Respiratory symptoms: Negative except as documented in HPI. Cardiovascular symptoms: Negative except as documented in HPI. Gastrointestinal symptoms: Negative except as documented in HPI. Genitourinary symptoms Musculoskeletal symptoms: Negative except as documented in HPI. Neurologic symptoms: Negative except as documented in HPI. Psychiatric symptoms: Negative except as documented in HPI. Health Status Allergies: Allergic Reactions (Selected) Severity Not Documented Penicillin- No reactions were documented. Sulfa drugs- No reactions were documented.. Medications: (Selected) Inpatient Medications Ordered Dextrose 5% with 0.45% NaCl and KCl 20 mEq/L 1,000 mL: 125 mL/Hr, IntraVENous Haldol: 1 mg, IV Push, 1-Time, PRN: Nausea/Vomiting Mylicon: 80 mg, Oral, QID, PRN: Gas Normal Saline Flush: 10 mL, IV Push, Q12H Normal Saline Flush: 10 mL, IV Push, See Comment, PRN: IV Use Normosol-R 1,000 mL: 100 mL/Hr, IntraVENous PACU HYDROmorphone: 0.5 mg, IV Push, Q5Min, PRN: Pain (Severe 7-10) PACU fentaNYL: 25 mcg, IV Push, Q5Min, PRN: Pain (Mild 1-3) Percocet 5/325 oral tablet: 1 Tab, Oral, 1-Time, PRN: Pain Percocet 5/325 oral tablet: 1 Tab, Oral, Q4H, PRN: Pain (Moderate 4-6) Solu-MEDROL: 125 mg, IV Push, 1-Time Transderm-Scop 1.5 mg transdermal film, extended release: 1 Patch, TransDermal, 1-Time Tylenol: 650 mg, Oral, 1-Time, PRN: Pain (Mild 1-3) Zofran: 4 mg, IV Push, 1-Time, PRN: Nausea/Vomiting acetaminophen-oxyCODONE 325 mg-5 mg oral tablet: 1 Tab, Oral, Q4H, PRN: Abdominal Pain acetaminophen: 1,000 mg, 100 mL, 400 mL/Hr, IV Piggyback, 1-Time albuterol 2.5 mg/3 mL (0.083%) inhalation solution: 3 mL, Nebulized Inhalation, 1-Time, PRN: Wheezing famotidine: 20 mg, Oral, PREOP, PRN: Other (See Comment) fentaNYL: 100 mcg, IntraMuscular, 1-Time fentaNYL: 50 mcg, IV Push, Q5Min, PRN: Pain (Moderate 4-6) ibuprofen: 600 mg, Oral, Q6H, PRN: Pain (Mild 1-3) labetalol: 10 mg, IV Push, Q10Min, PRN: Other (See Comment) lidocaine 1% injectable solution: 0.5 mL, IntraDermal, 1-Time, PRN: Other (See Comment) Documented Medications Documented METFORMIN HCL ER 500 MG TB24: 1 Tab, Oral, BID, 0 Refill(s) Percocet 5/325 oral tablet: 1 Tab, Oral, Q4H, PRN: Pain (Moderate 4-6), 0 Refill(s) Multivitamins oral tablet: 1 Tab, Oral, Daily, 0 Refill(s) ibuprofen 600 mg oral tablet: 1 Tab, Oral, Q6H, PRN: Pain/Fever, 0 Refill(s). Past Medical/ Family/ Social History Surgical history: laparoscopic ovary cyst left removed in 2011 at 37 Years. laparoscopic sx ectopic in 1999 at 25 Years. divinci Dx Lap., Reviewed as documented in chart. Family history: No family history items have been selected or recorded., Reviewed as documented in chart. Social history: Social & Psychosocial Habits Alcohol 05/17/2015 Alcohol Use History, Social Habits Yes Alcohol Use Frequency Socially Employment/School 05/17/2015 Status: Employed Home/Environment 05/17/2015 Lives with: Father, Mother Substance Abuse 05/17/2015 Recreational Drug Use History No Tobacco 05/17/2015 Tobacco Use Within Last Twelve Months Cigarettes Smoking Status Former smoker Years of Tobacco Use 15 Packs/Tins Daily 1 Used Tobacco, but Quit No Second Hand Smoke Exposure Yes Smoking Cessation Information Provided Yes , Reviewed as documented in chart. Problem list: Active Problems (3) Ectopic Endometriosis PCO - Polycystic ovaries , per nurse's notes. Physical Examination Vital Signs Vital Signs/Vital Measures 01/02/2020 17:56 EDT Systolic Blood Pressure 161 mmHg HI Diastolic Blood Pressure 94 mmHg HI Temperature Source Oral Temperature Mode Fahrenheit Temperature, Fahrenheit 98.7 Deg F Clinical Temperature, C 37.1 Deg C Peripheral Pulse Rate 130 bpm HI Respiratory Rate 22 Breaths/Min HI Oxygen Saturation 95 % Oxygen Therapy Mode Room air . Measurements 01/02/2020 17:56 EDT Height Source Stated Height Entry Format Bow Height/Length, MAURITIAN (ft) 5 ft Height/Length MAURITIAN 3 Inch CLINICALHEIGHT 160.02 cm Harvard Body Weight 52.02 kg Weight Source, ED Critical estimated dosing weight Weight Entry Format Bow Weight Burmese lb 168 lb CLINICALWEIGHT 76.36 kg Body Surface Area (BSA) 1.8 m2 Body Mass Index 29.8 kg/m2 HI . Oxygen Saturation 01/02/2020 17:56 EDT Oxygen Saturation 95 % . General: Alert, no acute distress. Skin: Warm. Head: Normocephalic. Neck: Supple. Eye: Sclera: not icteric. Ears, nose, mouth and throat: Oral mucosa moist. Cardiovascular: Regular rate and rhythm, No murmur, Normal peripheral perfusion, No edema. Respiratory: Lungs are clear to auscultation, respirations are non-labored, breath sounds are equal. Chest wall: No tenderness. Back: Nontender. Musculoskeletal: Ankle/foot: Left, ankle in stirup and posterior splint. Splint taken down and ankle examined while kept stable, no open fx. 1cm stage 2 ulcer anteiomedial aspect of the left ankle cover in gauze, well appearing. L foot neuro/vasc intact. . Gastrointestinal: Soft, Nontender, Non distended, Normal bowel sounds. Neurological: No focal neurological deficit observed. Lymphatics: No lymphadenopathy. Psychiatric: Cooperative. Medical Decision Making Documents reviewed: Emergency department nurses' notes. Impression and Plan Diagnosis Ankle pain, left - Discharge, Medical Ankle fracture, left - Discharge, Medical Pressure ulcer, ankle - Discharge, Medical Plan Condition: Improved, Stable. Disposition: Discharged Admit/Transfer/Discharge: Discharge (Order): Start: 01/02/2020 18:15 EDT, Discharge to: Home. Patient was given the following educational materials: Cast or Splint Care, Adult. Follow up with: DARREN FATIMA Within 2 to 3 days; SHAMIKA SANTOS Within 2 to 3 days. Counseled: Patient, Regarding diagnosis, Regarding treatment plan, Patient indicated understanding of instructions. Notes: foot and ankle examined, no new injury, increased pain at site of ulcer after hitting the cast. L foot neuro/vasc intact, no signs of compartment syndrome. Ankle splint rewrapped and DC'd home with ortho f/u for surgical repair and clear return instructions. . documented in this encounter Plan of Treatment Not on file documented as of this encounter Visit Diagnoses Not on filedocumented in this encounter
--- OUTSIDE RECORDS SUMMARY | 2025-05-07 11:28 | XMS_ITS | Clinical Summary ---
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 Role Phone Unavailable Primary Care Provider [...] 2022 Sigmoidoscopy 2022 [facility]-Colorectal Cancer Screening 2022 [id number] Vaccine ( season) 2024 07/23/2021, 07/02/2021 [facility]-Influenza Vaccine (#1) 2025 [facility]-Zoster Vaccines (1 of 2) 2027 [...] Narrative SUNQUEST - 03/24/2012 3:08 PM EDT [facility] MR #: [id number] [facility] [address] [place] [place], [place] [address] 1975 (Age: 36) FW Collect Date: 03/22/2012 00:00 Receipt Date: 03/23/2012 10:25 Page 1 DEPARTMENT OF PATHOLOGY AND LABORATORY MEDICINE CYTOPATHOLOGY REPORT Email: [phone] ATTENDING MD/Practitioner: Alma Womack MD Service: [facility] Location: [facility] Reported: 03/24/2012 15:08 Collected: 03/22/2012 00:00 INTERPRETATION A. THIN PREP (CERVICAL/VAGINAL): NEGATIVE FOR INTRAEPITHELIAL LESION OR MALIGNANCY. SATISFACTORY FOR EVALUATION; ENDOCERVICAL/ TRANSFORMATION ZONE COMPONENT PRESENT. Slide scanned and imaged by [employer] Imaging System with manual review of all selected dorsey. Electronically Signed Out By ROBERTO Vargas (ASCP) ROBERTO Vragas (ASCP) Cervical cytology is a screening test [...] results is suggested (please call Microbiology at [phone] for results). CLINICAL INFORMATION: Menstrual History: Irregular Date of Last Menstrual Period: {Not Provided} Other Clinical Conditions: If ASCUS and > 24 years of age, HPV/DNA testing requested. Abnormal bleeding SPECIMEN DESCRIPTION: A: THIN PREP (CERVICAL/VAGINAL) THIN PREP PROCESS CELLULAR ENHANCEMENT ICD: F: A; DX IMAGE [id number] SNOMED CODES: A; [id number] In cases where a pathologist has signed out the report, the service has been rendered in part by a resident. The signing pathologist has performed and is responsible for the reported pathologic evaluation. us Rica Crandall MD LAB PATHOLOGY ORDERAB LES Final Result SUNQUEST from Last 3 Months or Most Recently Relevant to Health Maintenance Insurance
--- OUTSIDE RECORDS SUMMARY | 2025-05-07 11:28 | XMS_ITS | Encounter Summary ---
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 Name Role Phone Unavailable Primary Care Provider Unavailabl e Encounter Details Date Type Department Care Team (Late st Contact Info) Description 01/02/2020 Transcribed Document [facility] Family Medicine [address] [place] [address] ProviderFlip MD [address] [place] [address] Social History Tobacco Use Types Packs/Day Years Used Date Smoking Tobacco: Never Assessed Comments Unknown Sex and Gender Information Value Date Recorded Sex Assigned at Female 04/21/2022 6:36 PM CDT Legal Sex Female 6:36 PM CDT Gender Identity Female 04/21/2022 6:36 PM CDT Sexual Orientation Not on file documented as of this encounter Miscellaneous Notes * Cerner Conversion Note - Flip Jordan MD - 01/02/2020 8:11 PM CDT [facility] [place] [address] BRIAN VALENCIA :1975 Visit Time:01/02/2020 Your Visit Summary Your Care Team Primary Provider: GIOVANNI SETH Secondary Provider: Your Diagnosis Ankle fracture, left Ankle pain, left Lower leg pain-swelling Pressure ulcer, ankle Medical Information You may obtain a copy of your Emergency Department visit from Medical Records by calling the hospital phone number listed above and asking to be directed to the Medical Records Department. If you had special tests, such as EKG???s or X-rays, the interpretation of your tests given to you by the Emergency Department Physician is a preliminary report. Some fractures and illnesses fail to show up on preliminary tests. These will be reviewed again and we will call you if there are any new suggestions. If your symptoms continue notify your physician. After you leave, you should follow the instructions provided. What to do next Follow-Up Appointments Follow Up with [facility] Resource Center When Only if needed Comments Patient states she does not have a Primary Care Provider Patient was given a list of PCP offices in her area. Please contact the Patient Resource Center at if you need assistance scheduling a Specialist or Primary Care Provider in the future. Follow Up with MILI KIDD When Within 2 to 3 days Comments Call to establish a Primary Care Provider. Call the Patient Resource Center if you need assistance. Where: [address] [place] [address]- Business (1) Follow Up with SHAMIKA SANTOS When Within 2 to 3 days Where: [address] [place] [address]- Business (1) Follow Up with DARREN FATIMA When Within 2 to 3 days Where: [address] [place] [address]- Business (1) Allergies penicillin sulfa drugs Immunizations This Visit No Immunizations Found Medications What How Much When Instructions Next Dose acetaminophen-oxyCODONE (Percocet 5/ 325 oral tablet) 1 Tablet(s) Oral Every 4 Hours as needed for Pain (Moderate 4-6) ibuprofen (ibuprofen 600 mg oral tablet) 1 Tablet(s) Oral Every 6 Hours as needed for Pain/Fever multivitamin, ( Multivitamins oral tablet) 1 Tablet(s) Oral Every Day Non Formulary (METFORMIN HCL ER 500 MG TB24) 1 Tablet(s) Oral Two Times A Day The home medications listed are only as accurate as the information you provided. Please continue taking all of your medications prescribed by your Primary Care Provider unless specifically told to change or discontinue the medication. Please direct any questions regarding your home medications to your Primary Care Provider. Take your medications faithfully. Do NOT skip medication. Do NOT stop taking medications without the direction of a physician. Carry a list of your medications with you at all times, and take this medication list with you to your first follow up visit. Report any side effects. Avoid herbal remedies unless discussed with your physician. As part of your treatment plan, your physician may have prescribed a limited course of a controlled substance. This medication may be given to help people with moderate or severe pain or for other medical conditions, but there are risks involved with treatment. Common side effects may include nausea, constipation, drowsiness, sweating, itching, dry mouth, and rash. More serious side effects may include cognitive and motor impairment, like problems with thinking, concentrating, alertness, and movement (e.g. slowed reflexes), and driving and operating heavy machinery can be dangerous. It is important for you to talk to your physician if you have these side effects or questions. These controlled substances can produce physical dependence and be habit-forming if taken for an extended period of time, which means that the body has gotten used to them and may experience withdrawal symptoms if they are abruptly stopped. Withdrawal symptoms can include runny nose, sweating, goose bumps, diarrhea, abdominal cramping, rapid heartbeat, difficulty sleeping, and nervousness. Please dispose of unused and medications per pharmacy guidance. Test Results Laboratory or Other Results This Visit (last charted value for your 01/02/2020 visit) No Laboratory or Other Results This Visit Education Materials Cast or Splint Care, Adult Casts and splints are supports that are worn to protect broken bones and other injuries. A cast or splint may hold a bone still and in the correct position while it heals. Casts and splints may also help ease pain, swelling, and muscle spasms. A cast is a hardened support that is usually made of fiberglass or plaster. It is custom-fit to the body and it offers more protection than a splint. It cannot be taken off and put back on. A splint is a type of soft support that is usually made from cloth and elastic. It can be adjusted or taken off as needed. You may need a cast or a splint if you: ??? Have a broken bone. ??? Have a soft-tissue injury. ??? Need to keep an injured body part from moving (keep it immobile) after surgery. How is this treated? If you have a cast: ??? Do not stick anything inside the cast to scratch your skin. Sticking something in the cast increases your risk of infection. ??? Check the skin around the cast every day. Tell your health care provider about any concerns. ??? You may put lotion on dry skin around the edges of the cast. Do not put lotion on the skin underneath the cast. ??? Keep the cast clean. ??? If the cast is not waterproof: ? Do not let it get wet. ? Cover it with a watertight covering when you take a bath or a shower. If you have a splint: ??? Wear it as told by your health care provider. Remove it only as told by your health care provider. ??? Loosen the splint if your fingers or toes tingle, become numb, or turn cold and blue. ??? Keep the splint clean. ??? If the splint is not waterproof: ? Do not let it get wet. ? Cover it with a watertight covering when you take a bath or a shower. Bathing ??? Do not take baths or swim until your health care provider approves. Ask your health care provider if you can take showers. You may only be allowed to take sponge baths for bathing. ??? If your cast or splint is not waterproof, cover it with a watertight covering when you take a bath or shower. Managing pain, stiffness, and swelling ??? Move your fingers or toes often to avoid stiffness and to lessen swelling. ??? Raise (elevate) the injured area above the level of your heart while sitting or lying down. Safety ??? Do not use the injured limb to support your body weight until your health care provider says that it is okay. ??? Use crutches or other assistive devices as told by your health care provider. General instructions ??? Do not put pressure on any part of the cast or splint until it is fully hardened. This may take several hours. ??? Return to your normal activities as told by your health care provider. Ask your health care provider what activities are safe for you. ??? Take [id number] and prescription medicines only as told by your health care provider. ??? Keep all follow-up visits as told by your health care provider. This is important. Contact a health care provider if: ??? Your cast or splint gets damaged. ??? The skin around the cast gets red or raw. ??? The skin under the cast is extremely itchy or painful. ??? Your cast or splint feels very uncomfortable. ??? Your cast or splint is too tight or too loose. ??? Your cast becomes wet or it develops a soft spot or area. ??? You get an object stuck under your cast. Get help right away if: ??? Your pain is getting worse. ??? The injured area tingles, becomes numb, or turns cold and blue. ??? The part of your body above or below the cast is swollen and discolored. ??? You cannot feel or move your fingers or toes. ??? There is fluid leaking through the cast. ??? You have severe pain or pressure under the cast. ??? You have trouble breathing. ??? You have shortness of breath. ??? You have chest pain. This information is not intended to replace advice given to you by your health care provider. Make sure you discuss any questions you have with your health care provider. Document Released: 10/08/2001 Document Revised: 05/01/2017 Document Reviewed: 04/03/2017 [employer] Patient Education ?? 2019 [employer] Emergency Awareness and Preventative Care STROKE is an EMERGENCY Every Minute Counts Act FAST and Check for these signs: FACE Does the face look uneven? ARM Does one arm drift down? SPEECH Does their speech sound strange? TIME Call at any sign of stroke Stroke Risk Factors Atrial Fibrillation (irregular heartbeat) Diabetes Family history of stroke Heart Disease Heavy alcohol use High Blood Pressure High Cholesterol Physical inactivity and obesity Smoking Cigarette Smoking The facts are clear, cigarette smoking will shorten your life. Smoking can cause many illnesses along the way. As a healthcare provider, we recommend that you stop smoking. Assistance with quitting is available by contacting 3-835-YSVA-NOW. This is a free resource providing counseling, support, and referral. Or you may contact your personal physician. National Suicide Prevention Lifeline: The National Suicide Prevention Lifeline is a national network of local crisis centers that provides free and confidential emotional support to people in suicidal crisis or emotional distress 24 hours a day, 7 days a week. Don't Wait! Stop a Heart Attack Before it Starts What is a heart attack? A heart attack is damage or to a part of the heart from severely decreased or lack of blood flow to the heart. Over time, arteries can become narrow from the buildup of fat and cholesterol, which is called plaque. The plaque can rupture causing a blood clot to form. When the blood clot forms, the artery can become severely narrowed or completely blocked, causing a heart attack. Heart attack is the leading cause of in the [place]. 85% of muscle damage occurs within the first 2 hours. Delay in the recognition of heart attack symptoms increases the chances of . Know the early symptoms of a heart attack: Nausea Feeling of fullness in chest Jaw Pain Pain that travels down one or both arms Fatigue/being tired Anxiety Back Pain Chest pressure, squeezing, or discomfort Shortness of breath Sweating, or a cold sweat Feeling of impending doom There are unusual signs of a heart attack, too! Women, the elderly, and diabetics may present with atypical symptoms: Fainting/dizziness Weakness Confusion Risk Factors for a Heart Attack Some heart disease risk factors, such as age and family history, cannot be changed. Others, like smoking and lack of exercise, can be changed. Smoking High Cholesterol High Blood Pressure Family History Obesity Age Gender (Males are at higher risk) Lack of Exercise Diabetes Diet Stress Excessive Alcohol Intake If you or someone you know is experiencing the signs and symptoms of a heart attack, DON???T DELAY. Call immediately and seek help. If someone collapses, perform CPR! Do not attempt to drive if you are having symptoms of heart attack. Hands-Only CPR Why Hands-Only CPR? Hands-Only CPR has been shown to be as effective as conventional CPR for cardiac arrests that occur outside of a hospital. Survival depends on immediately receiving CPR from someone nearby. How do you perform Hands-Only CPR? There are two easy steps: Call if you see a teen or adult collapse Push hard and fast in the center of the chest at a beat of 100 beats per minute. Save a life! 4 WAYS TO GET AHEAD OF SEPSIS SEPSIS is a MEDICAL EMERGENCY. Time matters! Infections put you and your family at risk for a life-threatening condition called sepsis. Sepsis is the body's extreme response to an infection. It is life-threatening, and without timely treatment, sepsis can rapidly lead to tissue damage, organ failure, and . Sepsis happens when an infection you already have-in your skin, lungs, urinary tract or somewhere else-triggers a chain reaction throughout your body. 1 PREVENT INFECTIONS Take good care of chronic conditions. Talk to your doctor about getting the recommended vaccines. 2 PRACTICE GOOD HYGIENE Wash your hands frequently. Keep cuts or open sores clean and covered until they are healed. 3 KNOW THE SYMPTOMS Confusion or disorientation Shortness of breath High heart rate Fever, shivering, or feeling very cold Extreme pain or discomfort Clammy or sweaty skin 4 ACT FAST Get medical care IMMEDIATELY if you suspect sepsis or if you have an infection that is not getting better or is getting worse. To learn more about sepsis and how to prevent infections, visit www.cdc.gov/sepsis. The examination and treatment you have received in the Emergency Department has been done to provide an appropriate evaluation and stabilizing treatment on an emergency basis only. Given the limited resources, it is not meant to be a substitute for complete medical care. The follow-up doctor you named will receive a copy of your records and all test reports. IT IS IMPORTANT THAT YOU SCHEDULE A FOLLOW-UP APPOINTMENT AND ARE RE-EVALUATED. You should report any new complaints, symptoms, or remaining problems at that time. IT IS IMPOSSIBLE FOR THE EMERGENCY DEPARTMENT TO RECOGNIZE AND TREAT ALL ELEMENTS OF INJURY OR ILLNESS IN A SINGLE VISIT. If you have been referred to a specialist physician, it means that we believe you may have a condition that requires the expertise of a specialist. These physicians work in partnership with the hospital and have agreed to see referred patients in their office for further evaluation. KEEP IN MIND THAT THE SPECIALIST HAS HIS/HER OWN OFFICE POLICIES WHICH MAY REQUIRE PROPER INSURANCE OR PAYMENT UP FRONT BEFORE THE SPECIALIST WILL SEE YOU. It is your responsibility to call the specialist physician to make an appointment. We do not have the ability to refer patients to specialists/physicians that work with specific insurance companies. Please be advised that all financial charges or billing practices are determined by that practice, not the hospital. If your insurance company requires that you see a specialist from their approved list, it is your responsibility to contact your insurance company to make those arrangements. It is also your responsibility to follow any other requirements of your insurance company necessary to obtain coverage for claims submitted. We will bill your insurance; however, you are responsible today for any co-pay amounts. You will receive a separate bill for any services you may have received including: emergency, radiology, or pathology physicians. Patient Name:BRIAN VALENCIA I have received this information and was given the opportunity to ask questions. Patient/Tag Marker Name: Patient/Tag Marker Signature: Relationship to Patient: Clinician/Hospital Tag Marker Signature: Please Provide a Telephone Number Where You Can Be Reached: Is it Permissible To Leave a Message? Date: Electronically signed by Radha, [facility] Conversion Project Manager Finance Nick at 02/12/2023 12:14 PM CDT documented in this encounter Plan of Treatment Not on file documented as of this encounter Visit Diagnoses Not on filedocumented in this encounter
--- OUTSIDE RECORDS SUMMARY | 2025-05-07 11:29 | XMS_ITS | Data Portability ---
Author Organization [facility] & ROSEANN Aquino ADMIN Address [address] [place] [id number] Care Team Providers Care Weigher And Mixer Name Role Phone ROSA ISELA GONZALEZ Primary Care Provider Assessment No assessment recorded. Plan of Treatment Reminders Order Date Submit Date Provider Last Modified By Organization Details Last Modified Time Details Appointments FOLLOW UP 30 2024 11:30A M ROSA ISELA GONZALEZ NP Not available Not available Not available Lab lipid panel, serum 2024 025 [facility] (Laboratory), [address] [place], [address], 04/18/2025 13:56:21 amylase + lipase, serum 2024 025 [email or web address] [facility] (Laboratory), [address] [place], [address], 04/25/2025 07:03:44 CMP, serum or plasma 2024 025 [facility] (Laboratory), [address] [place], [address], 04/18/2025 13:56:19 CBC w/ auto diff 2024 025 [facility] (Laboratory), [address] [place], [address], 04/18/2025 13:32:00 TSH, serum or plasma 2024 025 [facility] (Laboratory), [address] [place], [address], 04/18/2025 13:56:18 gabapenti n, quantitat mickey, urine 2024 025 [facility] (Laboratory), [address] [place], [address], 01/24/2025 16:17:32 drug screen, urine 2024 025 [facility] (Laboratory), [address] [place], [address], 01/25/2025 07:37:52 vitamin D, 25-hydrox y, total, serum [address] (Laboratory), [address] [place], [address], 08/30/2024 14:17:03 CMP, serum or plasma 2023 024 [facility] (Laboratory), [address] [place], [address], 06/30/2024 14:19:24 CBC w/ auto diff 2023 024 [facility] (Laboratory), [address] [place], [address], 06/30/2024 13:20:55 TSH, serum or plasma 2023 024 [facility] (Laboratory), [address] [place], [address], 06/30/2024 14:18:22 lipid panel, serum 2023 024 [facility] (Laboratory), [address] [place], [address], 06/30/2024 14:19:27 vitamin B12 + folate, serum or blood 2023 024 [email or web address] [facility] (Laboratory), [address] [place], [address], 08/30/2024 14:17:48 gastroint estinal pathogens panel, PCR, stool [address] (Laboratory), [address] [place], [address], 06/28/2024 07:36:56 Referral gastroent erologist referral 2024 025 CHRISTAL Velazquez MD, [address], [place], [address], 04/18/2025 12:28:53 physical therapist referral 2023 024 [place] [address] [facility] [address], [place], [address], 10/09/2024 11:48:08 physical therapist referral 2023 024 [place] [address] [facility] [address], [place], [address], 10/09/2024 11:48:07 physical therapist referral 2023 024 [place] [address] [facility] [address], [place], [address], 10/09/2024 11:48:06 Procedures None recorded. Surgeries None recorded. Imaging NM, hepatobil iary scan, w/ CCK [address] (Scheduling), [address] [place], [address], 05/02/2025 09:03:10 DEXA [address] Centralized Scheduling, [address] [place], [address], 09/25/2024 10:01:05 MAMMO, screening , digital, bilateral 2023 024 [email or web address] [facility] Centralized Scheduling, [address] [place], [address], 07/14/2024 07:23:42 Medication Orders atorvasta tin 20 mg tablet 2024 025 [facility], [address] [place] [address], [address], 04/18/2025 12:18:04 metoprolo l succinate ER 50 mg tablet,ex tended release 24 hr 2024 025 [facility], [address] [place] [address], [address], 04/18/2025 12:18:04 sertralin e 100 mg tablet 2024 025 [facility], [address] [place] [address], [address], 04/18/2025 12:18:03 gabapenti n 300 mg capsule 2024 025 [facility], [address] [place] [address], [address], 04/18/2025 12:18:06 gabapenti n 300 mg capsule 2024 025 [facility], [address] [place] [address], [address], 01/18/2025 15:44:13 metoprolo l succinate ER 50 mg tablet,ex tended release 24 hr 2023 024 [place] [address], [address] [place] [address], [address], 09/11/2024 12:27:44 gabapenti n 300 mg capsule 2023 024 [facility], [address] [place] [address], [address], 06/30/2024 11:52:33 sertralin e 100 mg tablet 2023 024 [facility] [facility], [place], [address], 06/14/2024 09:50:12 Patient TargetsNo targets recorded. Patient InstructionsNo instructions recorded. Reason for Referral Physical Therapist Referral for Pain of bilateral hip joints Referring Physician: Rosa Isela [facility], Encounter Date: 09/08/2024 Physical Therapist Referral for Low back pain Referring Physician: Rosa Isela Gonzalez [facility], Encounter Date: 09/08/2024 Physical Therapist Referral for Thoracic back pain Referring Physician: Rosa Isela Gonzalez [facility], Encounter Date: 09/08/2024 Inter Fold Roll Cutter Referral for Diarrhea Referring Physician: Rosa Isela Gonzalez [facility], Encounter Date: 04/18/2025 Results Created Date Observation Date Name Description Value Unit Range Abnormal Flag Note LastModifiedBy Organization Detail LastModifiedTime 06/30/20 24 06/30/2024 CBC AUTO W DIFF WBC 10.1 10 4.5-11 .5 Not Available [facility] (Lab Registration) [address] [place], [address], 06/30/2024 13:20:55 06/30/20 24 06/30/2024 CBC AUTO W DIFF RBC 3.95 10 4.25-5 .57 low Not Available [facility] (Lab Registration) [address] [place], [address], 06/30/2024 13:20:55 06/30/20 24 06/30/2024 CBC AUTO W DIFF HGB 14.1 g/dL 12.0-1 5.7 Not Available [facility] (Lab Registration) [address] [place], [address], 06/30/2024 13:20:55 06/30/20 24 06/30/2024 CBC AUTO W DIFF HCT 42.0 % 36.0-4 7.0 Not Available [facility] (Lab Registration) [address] [place], [address], 06/30/2024 13:20:55 06/30/20 24 06/30/2024 CBC AUTO W DIFF MCV 106.3 fL 80-95 high Not Available [facility] (Lab Registration) [address] [place], [address], 06/30/2024 13:20:55 06/30/20 24 06/30/2024 CBC AUTO W DIFF MCH 35.7 pg 27.0-3 4.0 high Not Available [facility] (Lab Registration) [address] [place], [address], 06/30/2024 13:20:55 06/30/20 24 06/30/2024 CBC AUTO W DIFF MCHC 33.6 g/dL 32.0-3 6.0 Not Available [facility] (Lab Registration) [address] [place], [address], 06/30/2024 13:20:55 06/30/20 24 06/30/2024 CBC AUTO W DIFF platelet count 253 10 150-45 0 Not Available [facility] (Lab Registration) [address] [place], [address], 06/30/2024 13:20:55 06/30/20 24 06/30/2024 CBC AUTO W DIFF RDW 13.6 % 12.3-1 5.1 Not Available [facility] (Lab Registration) [address] [place], [address], 06/30/2024 13:20:55 06/30/20 24 06/30/2024 CBC AUTO W DIFF MPV 10.4 fL 7.4-10 .4 Not Available [facility] (Lab Registration) [address] [place], [address], 06/30/2024 13:20:55 06/30/20 24 06/30/2024 CBC AUTO W DIFF granulocyte% 68.7 % 40-75 Not Available [facility] (Lab Registration) [address] [place], [address], 06/30/2024 13:20:55 06/30/20 24 06/30/2024 CBC AUTO W DIFF lymphocyte% 21.4 % 15-57 Not Available [facility] (Lab Registration) [address] [place], [address], 06/30/2024 13:20:55 06/30/20 24 06/30/2024 CBC AUTO W DIFF monocyte% 7.7 % 4.0-12 .0 Not Available [facility] (Lab Registration) [address] [place], [address], 06/30/2024 13:20:55 06/30/20 24 06/30/2024 CBC AUTO W DIFF eosinophil% 1.1 % 0.0-4. 0 Not Available [facility] (Lab Registration) [address] [place], [address], 06/30/2024 13:20:55 06/30/20 24 06/30/2024 CBC AUTO W DIFF basophil% 0.5 % 0.0-1. 0 Not Available [facility] (Lab Registration) [address] [place], [address], 06/30/2024 13:20:55 06/30/20 24 06/30/2024 CBC AUTO W DIFF immature granulocytes % 0.6 % 0.0-0. 8 Not Available [facility] (Lab Registration) [address] [place], [address], 06/30/2024 13:20:55 06/30/20 24 06/30/2024 CBC AUTO W DIFF granulocyte# 6.95 10 Not Available [facility] (Lab Registration) [address] [place], [address], 06/30/2024 13:20:55 06/30/20 24 06/30/2024 CBC AUTO W DIFF lymphocyte# 2.17 10 Not Available [facility] (Lab Registration) [address] [place], [address], 06/30/2024 13:20:55 06/30/20 24 06/30/2024 CBC AUTO W DIFF monocyte# 0.78 10 Not Available [facility] (Lab Registration) [address] [place], [address], 06/30/2024 13:20:55 06/30/20 24 06/30/2024 CBC AUTO W DIFF eosinophil# 0.11 10 Not Available [facility] (Lab Registration) [address] [place], [address], 06/30/2024 13:20:55 06/30/20 24 06/30/2024 CBC AUTO W DIFF basophil# 0.05 10 Not Available [facility] (Lab Registration) [address] [place], [address], 06/30/2024 13:20:55 06/30/20 24 06/30/2024 CBC AUTO W DIFF immature granulocytes # 0.06 10 Not Available [facility] (Lab Registration) [address] [place], [address], 06/30/2024 13:20:55 06/30/20 24 06/30/2024 CBC AUTO W DIFF manual differential NO Not Available [facility] (Lab Registration) [address] [place], [address], 06/30/2024 13:20:55 06/30/20 24 06/30/2024 CBC AUTO W DIFF note Unles s other schneider noted testi ng perfo rmed at: [facility] [place] [place] [address] [phone] Jan rossi MD CLIA: [id number] Not Available [facility] (Lab Registration) [address] [place], [address], 06/30/2024 13:20:55 06/30/20 24 06/30/2024 THYRO ID STIMU LATIN G HORMO NE thyroid stimulating hormone 1.08 mIU/m L 0.34-4 .80 Not Available [facility] (Lab Registration) [address], [place], [address], 06/30/2024 14:18:22 06/30/20 24 06/30/2024 THYRO ID STIMU LATIN G HORMO NE note Saritaes s other schneider noted testi ng perfo rmed at: [facility] [address] [place] [address] [phone] Jan rossi MD CLIA: [id number] Not Available [facility] (Lab Registration) [address] [place], [address], 06/30/2024 14:18:22 06/30/20 24 06/30/2024 VITAM IN D TOTAL (D2+D 3) vitamin D25 (D2+D3) 22.6 NG/mL 30-100 low Not Available [facility] (Lab Registration) [address], [place], [address], 06/30/2024 14:18:24 06/30/20 24 06/30/2024 VITAM IN D TOTAL (D2+D 3) note Moshe rossi other schneider noted testi ng perfo rmed at: [facility] [address] [place] [address] [phone] Jan rossi MD CLIA: [id number] Not Available [facility] (Lab Registration) [address] [place], [address], 06/30/2024 14:18:24 06/30/20 24 06/30/2024 VITAM IN B12 vitamin B12 222 pg/mL 193-98 6 Not Available [facility] (Lab Registration) [address] [place], [address], 06/30/2024 14:18:25 06/30/20 24 06/30/2024 VITAM IN B12 folate (folic acid), serum 11.7 NG/mL 8.6-58 .9 Not Available [facility] (Lab Registration) [address] [place], [address], 06/30/2024 14:18:25 06/30/20 24 06/30/2024 VITAM IN B12 note Unles s other schneider noted testi ng perfo rmed at: [facility] 9 [facility] [place] [address] [phone] Jan rossi MD CLIA: [id number] Not Available [facility] (Lab Registration) [address] [place], [address], 06/30/2024 14:18:25 06/30/20 24 06/30/2024 COMP METAB OLIC PANEL sodium 139 mmol/ L 136-14 5 Not Available [facility] (Lab Registration) [address] [place], [address], 06/30/2024 14:19:24 06/30/20 24 06/30/2024 COMP METAB OLIC PANEL potassium 4.2 mmol/ L 3.5-5. 1 Not Available [facility] (Lab Registration) [address] [place], [address], 06/30/2024 14:19:24 06/30/20 24 06/30/2024 COMP METAB OLIC PANEL chloride 102 mmol/ L 98-107 Not Available [facility] (Lab Registration) [address] [place], [address], 06/30/2024 14:19:24 06/30/20 24 06/30/2024 COMP METAB OLIC PANEL carbon dioxide 29 mmol/ L 21-32 Not Available [facility] (Lab Registration) [address] [place], [address], 06/30/2024 14:19:24 06/30/20 24 06/30/2024 COMP METAB OLIC PANEL anion gap 8.0 Not Available [facility] (Lab Registration) [address] [place], [address], 06/30/2024 14:19:24 06/30/20 24 06/30/2024 COMP METAB OLIC PANEL glucose 103 mg/dL 70-110 Not Available [facility] (Lab Registration) [address] [place], [address], 06/30/2024 14:19:24 06/30/20 24 06/30/2024 COMP METAB OLIC PANEL blood urea nitrogen 9 mg/dL 7-18 Not Available [facility] (Lab Registration) [address] [place], [address], 06/30/2024 14:19:24 06/30/20 24 06/30/2024 COMP METAB OLIC PANEL creatinine 0.7 mg/dL 0.6-1. 0 Not Available [facility] (Lab Registration) [address] [place], [address], 06/30/2024 14:19:24 06/30/20 24 06/30/2024 COMP METAB OLIC PANEL BUN/creatini ne ratio 12.9 ratio 9-21 Not Available [facility] (Lab Registration) [address] [place], [address], 06/30/2024 14:19:24 06/30/20 24 06/30/2024 COMP METAB OLIC PANEL estimated glom filtration rate 107 mL/mi n >60- Not Available [facility] (Lab Registration) [address] [place], [address], 06/30/2024 14:19:24 06/30/20 24 06/30/2024 COMP METAB OLIC PANEL total protein 7.2 g/dL 6.4-8. 2 Not Available [facility] (Lab Registration) [address] [place], [address], 06/30/2024 14:19:24 06/30/20 24 06/30/2024 COMP METAB OLIC PANEL albumin 3.3 g/dL 3.4-5. 0 low Not Available [facility] (Lab Registration) [address] [place], [address], 06/30/2024 14:19:24 06/30/20 24 06/30/2024 COMP METAB OLIC PANEL calcium 9.0 mg/dL 8.5-10 .1 Not Available [facility] (Lab Registration) [address] [place], [address], 06/30/2024 14:19:24 06/30/20 24 06/30/2024 COMP METAB OLIC PANEL corrected calcium 9.6 mg/dL 8.5-10 .1 Not Available [facility] (Lab Registration) [address] [place], [address], 06/30/2024 14:19:24 06/30/20 24 06/30/2024 COMP METAB OLIC PANEL bilirubin total 0.4 mg/dL 0.4-1. 5 Not Available [facility] (Lab Registration) [address] [place], [address], 06/30/2024 14:19:24 06/30/20 24 06/30/2024 COMP METAB OLIC PANEL AST (SGOT) 32 U/L 15-37 Not Available [facility] (Lab Registration) [address] [place], [address], 06/30/2024 14:19:24 06/30/20 24 06/30/2024 COMP METAB OLIC PANEL ALT (SGPT) 42 U/L 12-78 Not Available [facility] (Lab Registration) [address] [place], [address], 06/30/2024 14:19:24 06/30/20 24 06/30/2024 COMP METAB OLIC PANEL alk phosphatase 84 U/L 50-120 Not Available [facility] (Lab Registration) [address] [place], [address], 06/30/2024 14:19:24 06/30/20 24 06/30/2024 COMP METAB OLIC PANEL note Unles s other schneider noted testi ng perfo rmed at: [facility] [address] [address] [phone] Jan rossi MD CLIA: [id number] Not Available [facility] (Lab Registration) [address] , [place], [address], 06/30/2024 14:19:24 06/30/20 24 06/30/2024 LIPID PANEL triglyceride 223 mg/dL 20-200 high The Natio nal [employer] t[employer] am (NCEP ) has set the follo wing guide lines for Fasti ng Trigl yceri chavez: LEEANN L: <150 mg/dL BORDE RLINE HIGH: 150 - 199 mg/dL HIGH: 200 - 499 mg/dL VERY HIGH: > or =500 mg/dL Not Available [facility] (Lab Registration) [address] , [place], [address], 06/30/2024 14:19:27 06/30/20 24 06/30/2024 LIPID PANEL cholesterol 178 mg/dL 0-200 The Natio nal [employer] t[employer] am (NCEP ) has set the follo wing guide lines for Fasti ng Khushboo stero l: CONRAD ABLE: <200 mg/dL BORDE RLINE HIGH: 200 - 239 mg/dL HIGH: > or =240 mg/dL Not Available [facility] (Lab Registration) [address] [place], [address], 06/30/2024 14:19:27 06/30/20 24 06/30/2024 LIPID PANEL HDL cholesterol 67 mg/dL 60- The Natio nal [employer]ca t[employer]gr am (NCEP ) has set the follo wing guide lines for Fasti ng HDL Khushboo stero l: LOW HDL: <40 mg/dL LEEANN L: 40 - 60 mg/dL CONRAD ABLE: >60 mg/dL Not Available [facility] (Lab Registration) [address], [place], [address], 06/30/2024 14:19:27 06/30/20 24 06/30/2024 LIPID PANEL [...] > or = 190 mg/dL Not Available [facility] (Lab Registration) [address], [place], [address], 06/30/2024 14:19:27 06/30/20 24 06/30/2024 LIPID PANEL chol/HDL ratio 3 ratio -5 Not Available [facility] (Lab Registration) [address], [place], [address], 06/30/2024 14:19:27 06/30/20 24 06/30/2024 LIPID PANEL note Unles s other schneider noted testi ng perfo rmed at: [facility] [address] [place] [address] [phone] Jan rossi MD CLIA: [id number] Not Available [facility] (Lab Registration) [address], [place], [address], 06/30/2024 14:19:27 09/27/20 24 09/27/2024 GASTR OINTE LEILA L PANEL BY PCR specimen consistency NON-FO RMED STL Not Available [facility] (Lab Registration) [address], [place], [address], 09/27/2024 11:51:59 09/27/20 24 09/27/2024 GASTR OINTE LEILA L PANEL BY PCR campylobacte r NOT DETECT ED not detect ed Not Available [facility] (Lab Registration) [address], [place], [address], 09/27/2024 11:51:59 09/27/20 24 09/27/2024 GASTR OINTE LEILA L PANEL BY PCR clostridium diff. toxin A/B NOT DETECT ED not detect ed Not Available [facility] (Lab Registration) [address], [place], [address], 09/27/2024 11:51:59 09/27/20 24 09/27/2024 GASTR OINTE LEILA L PANEL BY PCR plesiomonas shigelloides NOT DETECT ED not detect ed Not Available [facility] (Lab Registration) [address], [place], [address], 09/27/2024 11:51:59 09/27/20 24 09/27/2024 GASTR OINTE LEILA L PANEL BY PCR salmonella NOT DETECT ED not detect ed Not Available [facility] (Lab Registration) [address], [place], [address], 09/27/2024 11:51:59 09/27/20 24 09/27/2024 GASTR OINTE LEILA L PANEL BY PCR vibrio NOT DETECT ED not detect ed Not Available [facility] (Lab Registration) [address] [place], [address], 09/27/2024 11:51:59 09/27/20 24 09/27/2024 GASTR OINTE LEILA L PANEL BY PCR vibrio cholerae NOT DETECT ED not detect ed Not Available [facility] (Lab Registration) [address] [place], [address], 09/27/2024 11:51:59 09/27/20 24 09/27/2024 GASTR OINTE LEILA L PANEL BY PCR yersinia enterocoliti ca NOT DETECT ED not detect ed Not Available [facility] (Lab Registration) [address] [place], [address], 09/27/2024 11:51:59 09/27/20 24 09/27/2024 GASTR OINTE LEILA L PANEL BY PCR enteroaggreg ative E. coli NOT DETECT ED not detect ed Not Available [facility] (Lab Registration) [address], [place], [address], 09/27/2024 11:51:59 09/27/20 24 09/27/2024 GASTR OINTE LEILA L PANEL BY PCR enteropathog enic E. coli NOT DETECT ED not detect ed Not Available [facility] (Lab Registration) [address], [place], [address], 09/27/2024 11:51:59 09/27/20 24 09/27/2024 GASTR OINTE LEILA L PANEL BY PCR enterotoxige terence E. coli NOT DETECT ED not detect ed Not Available [facility] (Lab Registration) [address], [place], [address], 09/27/2024 11:51:59 09/27/20 24 09/27/2024 GASTR OINTE LEILA L PANEL BY PCR shiga-like toxin-produc E coli NOT DETECT ED not detect ed Not Available [facility] (Lab Registration) [address], [place], [address], 09/27/2024 11:51:59 09/27/20 24 09/27/2024 GASTR OINTE LEILA L PANEL BY PCR E. coli 0157 NOT APPLIC ABLE not detect ed Not Available [facility] (Lab Registration) [address], [place], [address], 09/27/2024 11:51:59 09/27/20 24 09/27/2024 GASTR OINTE LEILA L PANEL BY PCR shigella/ent eroinvasive E coli NOT DETECT ED not detect ed Not Available [facility] (Lab Registration) [address], [place], [address], 09/27/2024 11:51:59 09/27/20 24 09/27/2024 GASTR OINTE LEILA L PANEL BY PCR cryptosporid ium NOT DETECT ED not detect ed Not Available [facility] (Lab Registration) [address], [place], [address], 09/27/2024 11:51:59 09/27/20 24 09/27/2024 GASTR OINTE LEILA L PANEL BY PCR cyclospora cayetanensis NOT DETECT ED not detect ed Not Available [facility] (Lab Registration) [address], [place], [address], 09/27/2024 11:51:59 09/27/20 24 09/27/2024 GASTR OINTE LEILA L PANEL BY PCR entamoeba histolytica NOT DETECT ED not detect ed Not Available [facility] (Lab Registration) [address], [place], [address], 09/27/2024 11:51:59 09/27/20 24 09/27/2024 GASTR OINTE LEILA L PANEL BY PCR giardia lamblia NOT DETECT ED not detect ed Not Available [facility] (Lab Registration) [address], [place], [address], 09/27/2024 11:51:59 09/27/20 24 09/27/2024 GASTR OINTE LEILA L PANEL BY PCR adenovirus F 40/41 NOT DETECT ED not detect ed Not Available [facility] (Lab Registration) [address] [place], [address], 09/27/2024 11:51:59 09/27/20 24 09/27/2024 GASTR OINTE LEILA L PANEL BY PCR astrovirus NOT DETECT ED not detect ed Not Available [facility] (Lab Registration) [address], [place], [address], 09/27/2024 11:51:59 09/27/20 24 09/27/2024 GASTR OINTE [...] the patie nt's disea se. Not Available [facility] (Lab Registration) [address], [place], [address], 09/27/2024 11:51:59 09/27/20 24 09/27/2024 GASTR OINTE LEILA L PANEL BY PCR rotavirus A NOT DETECT ED not detect ed Not Available [facility] (Lab Registration) [address] [place], [address], 09/27/2024 11:51:59 09/27/20 24 09/27/2024 GASTR OINTE LEILA L PANEL BY PCR sapovirus NOT DETECT ED not detect ed Not Available [facility] (Lab Registration) [address], [place], [address], 09/27/2024 11:51:59 09/27/20 24 09/27/2024 GASTR OINTE LEILA L PANEL BY PCR note Unles s other schneider noted testi ng perfo rmed at: [facility] [address] [place] [address] [phone] Jan rossi MD CLIA: [id number] Not Available [facility] (Lab Registration) [address] [place], [address], 09/27/2024 11:51:59 01/19/20 25 01/18/2025 URINE DRUG SCREE N - EXL MAX amphetamine/ metamphetami ne NEGATI VE negati ve Not Available [facility] (Lab Registration) [address] [place], [address], 01/18/2025 16:08:46 01/19/20 25 01/18/2025 URINE DRUG SCREE N - EXL MAX barbiturates NEGATI VE negati ve Not Available [facility] (Lab Registration) [address] [place], [address], 01/18/2025 16:08:46 01/19/20 25 01/18/2025 URINE DRUG SCREE N - EXL MAX benzodiazeph alexandra NEGATI VE negati ve Not Available [facility] (Lab Registration) [address] [place], [address], 01/18/2025 16:08:46 01/19/20 25 01/18/2025 URINE DRUG SCREE N - EXL MAX buprenophine NEGATI VE negati ve Not Available [facility] (Lab Registration) [address] [place], [address], 01/18/2025 16:08:46 01/19/20 25 01/18/2025 URINE DRUG SCREE N - EXL MAX cocaine metabolite NEGATI VE negati ve Not Available [facility] (Lab Registration) [address] [place], [address], 01/18/2025 16:08:46 01/19/20 25 01/18/2025 URINE DRUG SCREE N - EXL MAX methadone NEGATI VE negati ve Not Available [facility] (Lab Registration) [address] [place], [address], 01/18/2025 16:08:46 01/19/20 25 01/18/2025 URINE DRUG SCREE N - EXL MAX opiates NEGATI VE negati ve Not Available [facility] (Lab Registration) [address] [place], [address], 01/18/2025 16:08:46 01/19/20 25 01/18/2025 URINE DRUG SCREE N - EXL MAX oxycodone NEGATI VE negati ve Not Available [facility] (Lab Registration) [address], [place], [address], 01/18/2025 16:08:46 01/19/20 25 01/18/2025 URINE DRUG SCREE N - EXL MAX cannabinoids NEGATI VE negati ve Not Available [facility] (Lab Registration) [address] [place], [address], 01/18/2025 16:08:46 01/19/20 25 01/18/2025 URINE DRUG SCREE N - EXL MAX pcp NEGATI VE negati ve Not Available [facility] (Lab Registration) [address], [place], [address], 01/18/2025 16:08:46 01/19/20 25 01/18/2025 URINE DRUG SCREE N - EXL MAX fentanyl, urine NEGATI VE negati ve Not Available [facility] (Lab Registration) [address] [place], [address], 01/18/2025 16:08:46 01/19/20 25 01/18/2025 URINE DRUG SCREE N - EXL MAX tricyclic antidepressa nts NEGATI VE negati ve Not Available [facility] (Lab Registration) [address], [place], [address], 01/18/2025 16:08:46 01/19/20 25 01/18/2025 URINE DRUG SCREE N - EXL MAX internal control PASS PASS Not Available [facility] (Lab Registration) [address] [place], [address], 01/18/2025 16:08:46 01/19/20 25 01/18/2025 URINE DRUG SCREE N - EXL MAX note Unles s other schneider noted testi ng perfo rmed at: [facility] [address] [place] [address] [phone] Jan rossi MD CLIA: [id number] Not Available [facility] (Lab Registration) [address], [place], [address], 01/18/2025 16:08:46 01/19/20 25 01/18/2025 GABAP ENTIN , URINE note Unles s other schneider noted testi ng perfo rmed at: [facility] [address] [place] [address] [phone] Jan rossi MD CLIA: [id number] Not Available [facility] (Lab Registration) [address], [place], [address], 01/24/2025 16:17:32 01/19/20 25 01/24/2025 GABAP ENTIN , URINE gabapentin, urine >800.0 ug/mL Perfo rmed at: [facility] [address] [place] [address] Lab Direc tor: Janina [facility] , Phone : [phone] Not Available [facility] (Lab Registration) [address], [place], [address], 01/24/2025 16:17:32 04/18/20 25 04/18/2025 CBC AUTO W DIFF WBC 9.1 10 4.5-11 .5 Not Available [facility] (Lab Registration) [address], [place], [address], 04/18/2025 13:32:00 04/18/20 25 04/18/2025 CBC AUTO W DIFF RBC 4.25 10 4.25-5 .57 Not Available [facility] (Lab Registration) [address], [place], [address], 04/18/2025 13:32:00 04/18/20 25 04/18/2025 CBC AUTO W DIFF HGB 14.6 g/dL 12.0-1 5.7 Not Available [facility] (Lab Registration) [address], [place], [address], 04/18/2025 13:32:00 04/18/20 25 04/18/2025 CBC AUTO W DIFF HCT 44.1 % 36.0-4 7.0 Not Available [facility] (Lab Registration) [address] [place], [address], 04/18/2025 13:32:00 04/18/20 25 04/18/2025 CBC AUTO W DIFF MCV 103.8 fL 80-95 high Not Available [facility] (Lab Registration) [address] [place], [address], 04/18/2025 13:32:00 04/18/20 25 04/18/2025 CBC AUTO W DIFF MCH 34.4 pg 27.0-3 4.0 high Not Available [facility] (Lab Registration) [address] [place], [address], 04/18/2025 13:32:00 04/18/20 25 04/18/2025 CBC AUTO W DIFF MCHC 33.1 g/dL 32.0-3 6.0 Not Available [facility] (Lab Registration) [address] [place], [address], 04/18/2025 13:32:00 04/18/20 25 04/18/2025 CBC AUTO W DIFF platelet count 297 10 150-45 0 Not Available [facility] (Lab Registration) [address] [place], [address], 04/18/2025 13:32:00 04/18/20 25 04/18/2025 CBC AUTO W DIFF RDW 13.0 % 12.3-1 5.1 Not Available [facility] (Lab Registration) [address] [place], [address], 04/18/2025 13:32:00 04/18/20 25 04/18/2025 CBC AUTO W DIFF MPV 10.0 fL 7.4-10 .4 Not Available [facility] (Lab Registration) [address] [place], [address], 04/18/2025 13:32:00 04/18/20 25 04/18/2025 CBC AUTO W DIFF granulocyte% 61.1 % 40-75 Not Available [facility] (Lab Registration) [address] [place], [address], 04/18/2025 13:32:00 04/18/20 25 04/18/2025 CBC AUTO W DIFF lymphocyte% 26.7 % 15-57 Not Available [facility] (Lab Registration) [address] [place], [address], 04/18/2025 13:32:00 04/18/20 25 04/18/2025 CBC AUTO W DIFF monocyte% 8.6 % 4.0-12 .0 Not Available [facility] (Lab Registration) [address] [place], [address], 04/18/2025 13:32:00 04/18/20 25 04/18/2025 CBC AUTO W DIFF eosinophil% 2.3 % 0.0-4. 0 Not Available [facility] (Lab Registration) [address] [place], [address], 04/18/2025 13:32:00 04/18/20 25 04/18/2025 CBC AUTO W DIFF basophil% 0.7 % 0.0-1. 0 Not Available [facility] (Lab Registration) [address] [place], [address], 04/18/2025 13:32:00 04/18/20 25 04/18/2025 CBC AUTO W DIFF immature granulocytes % 0.6 % 0.0-0. 8 Not Available [facility] (Lab Registration) [address] [place], [address], 04/18/2025 13:32:00 04/18/20 25 04/18/2025 CBC AUTO W DIFF granulocyte# 5.55 10 Not Available [facility] (Lab Registration) [address] [place], [address], 04/18/2025 13:32:00 04/18/20 25 04/18/2025 CBC AUTO W DIFF lymphocyte# 2.42 10 Not Available [facility] (Lab Registration) [address], [place], [address], 04/18/2025 13:32:00 04/18/20 25 04/18/2025 CBC AUTO W DIFF monocyte# 0.78 10 Not Available [facility] (Lab Registration) [address] [place], [address], 04/18/2025 13:32:00 04/18/20 25 04/18/2025 CBC AUTO W DIFF eosinophil# 0.21 10 Not Available [facility] (Lab Registration) [address] [place], [address], 04/18/2025 13:32:00 04/18/20 25 04/18/2025 CBC AUTO W DIFF basophil# 0.06 10 Not Available [facility] (Lab Registration) [address] [place], [address], 04/18/2025 13:32:00 04/18/20 25 04/18/2025 CBC AUTO W DIFF immature granulocytes # 0.05 10 Not Available [facility] (Lab Registration) [address], [place], [address], 04/18/2025 13:32:00 04/18/20 25 04/18/2025 CBC AUTO W DIFF manual differential NO Not Available [facility] (Lab Registration) [address] [place], [address], 04/18/2025 13:32:00 04/18/20 25 04/18/2025 CBC AUTO W DIFF note Unles s other schneider noted testi ng perfo rmed at: [facility] [address] [place] [address] [phone] Jan rossi MD CLIA: [id number] Not Available [facility] (Lab Registration) [address] [place], [address], 04/18/2025 13:32:00 04/18/20 25 04/18/2025 THYRO ID STIMU LATIN G HORMO NE thyroid stimulating hormone 0.99 mIU/m L 0.34-4 .80 Not Available [facility] (Lab Registration) [address] [place], [address], 04/18/2025 13:56:18 04/18/20 25 04/18/2025 THYRO ID STIMU LATIN G HORMO NE note Unles s other schneider noted testi ng perfo rmed at: [facility] [address] [place] [address] [phone] Jan rossi MD CLIA: [id number] Not Available [facility] (Lab Registration) [address] [place], [address], 04/18/2025 13:56:18 04/18/20 25 04/18/2025 COMP METAB OLIC PANEL sodium 140 mmol/ L 136-14 5 Not Available [facility] (Lab Registration) [address] [place], [address], 04/18/2025 13:56:19 04/18/20 25 04/18/2025 COMP METAB OLIC PANEL potassium 4.3 mmol/ L 3.5-5. 1 Not Available [facility] (Lab Registration) [address] [place], [address], 04/18/2025 13:56:19 04/18/20 25 04/18/2025 COMP METAB OLIC PANEL chloride 102 mmol/ L 98-107 Not Available [facility] (Lab Registration) [address] [place], [address], 04/18/2025 13:56:19 04/18/20 25 04/18/2025 COMP METAB OLIC PANEL carbon dioxide 30 mmol/ L 21-32 Not Available [facility] (Lab Registration) [address] [place], [address], 04/18/2025 13:56:19 04/18/20 25 04/18/2025 COMP METAB OLIC PANEL anion gap 8.0 Not Available [facility] (Lab Registration) [address], [place], [address], 04/18/2025 13:56:19 04/18/20 25 04/18/2025 COMP METAB OLIC PANEL glucose 100 mg/dL 70-110 Not Available [facility] (Lab Registration) [address] [place], [address], 04/18/2025 13:56:19 04/18/20 25 04/18/2025 COMP METAB OLIC PANEL blood urea nitrogen 4 mg/dL 7-18 low Not Available [facility] (Lab Registration) [address] [place], [address], 04/18/2025 13:56:19 04/18/20 25 04/18/2025 COMP METAB OLIC PANEL creatinine 0.6 mg/dL 0.6-1. 0 Not Available [facility] (Lab Registration) [address] [place], [address], 04/18/2025 13:56:19 04/18/20 25 04/18/2025 COMP METAB OLIC PANEL BUN/creatini ne ratio 6.7 9-21 low Not Available [facility] (Lab Registration) [address] [place], [address], 04/18/2025 13:56:19 04/18/20 25 04/18/2025 COMP METAB OLIC PANEL estimated glom filtration rate 111 mL/mi n >60- GFR LIMIT ATION : The eGFR equat ion CKD-E PI 2020 is not appli cable for pedia tric patie nts or great er than 90 years of age. The follo wing condi tions may alter the GFR resul t: extre mes in body size, malnu triti on or obesi ty, skele grace muscl e disea se, parap legia or quadr ipleg ia, veget maye diet or rapid ly rao ing kiney funct ion. Not Available [facility] (Lab Registration) [address], [place], [address], 04/18/2025 13:56:19 04/18/20 25 04/18/2025 COMP METAB OLIC PANEL osmolality (calculated) 288 mOsm/ kg 275-30 1 OSMOL ALITY IS A CALCU LATIO N UTILI ZING THE SERUM /PLAS MA SODIU M, GLUCO SE AND UREA NITRO GEN (BUN) LEVEL S. FOR THE MOST ACCUR ATE RESUL T A MEASU RED SERUM OSMOL ALITY IS SUGGE STED. Not Available [facility] (Lab Registration) [address], [place], [address], 04/18/2025 13:56:19 04/18/20 25 04/18/2025 COMP METAB OLIC PANEL total protein 7.3 g/dL 6.4-8. 2 Not Available [facility] (Lab Registration) [address], [place], [address], 04/18/2025 13:56:19 04/18/20 25 04/18/2025 COMP METAB OLIC PANEL albumin 3.3 g/dL 3.4-5. 0 low Not Available [facility] (Lab Registration) [address] [place], [address], 04/18/2025 13:56:19 04/18/2004/18/2025 COMP METAB OLIC PANEL calcium 9.1 mg/dL 8.5-10 .1 Not Available [facility] (Lab Registration) [address] [place], [address], 04/18/2025 13:56:19 04/18/20 25 04/18/2025 COMP METAB OLIC PANEL corrected calcium 9.7 mg/dL 8.5-10 .1 Not Available [facility] (Lab Registration) [address] [place], [address], 04/18/2025 13:56:19 04/18/20 25 04/18/2025 COMP METAB OLIC PANEL bilirubin total 0.3 mg/dL 0.4-1. 5 low Not Available [facility] (Lab Registration) [address] [place], [address], 04/18/2025 13:56:19 04/18/20 25 04/18/2025 COMP METAB OLIC PANEL AST (SGOT) 39 U/L 15-37 high Not Available [facility] (Lab Registration) [address] [place], [address], 04/18/2025 13:56:19 04/18/20 25 04/18/2025 COMP METAB OLIC PANEL ALT (SGPT) 58 U/L 12-78 Not Available [facility] (Lab Registration) [address] [place], [address], 04/18/2025 13:56:19 04/18/20 25 04/18/2025 COMP METAB OLIC PANEL alk phosphatase 83 U/L 50-120 Not Available [facility] (Lab Registration) [address] [place], [address], 04/18/2025 13:56:19 04/18/20 25 04/18/2025 COMP METAB OLIC PANEL note Unles s other schneider noted testi ng perfo rmed at: [facility] [address] [address] [place] [address] [phone] Jan rossi MD CLIA: [id number] Not Available [facility] (Lab Registration) [address] [place], [address], 04/18/2025 13:56:19 04/18/2004/18/2025 LIPID PANEL triglyceride 240 mg/dL 20-200 high The Natio nal [employer] st[employer] l Educa tion Progr am (NCEP ) has set the follo wing guide lines for Fasti ng Trigl yceri chavez: LEEANN L: <150 mg/dL BORDE RLINE HIGH: 150 - 199 mg/dL HIGH: 200 - 499 mg/dL VERY HIGH: > or =500 mg/dL Not Available [facility] (Lab Registration) [address] [place], [address], 04/18/2025 13:56:21 04/18/20 25 04/18/2025 LIPID PANEL cholesterol 211 mg/dL 0-200 high The Natio nal [employer] st[employer] l [employer]ca tion Progr am (INEP ) has set the follo wing guide lines for Fasti ng Khushboo stero l: CONRAD ABLE: <200 mg/dL BORDE RLINE HIGH: 200 - 239 mg/dL HIGH: > or =240 mg/dL Not Available [facility] (Lab Registration) [address] [place], [address], 04/18/2025 13:56:21 04/18/20 25 04/18/2025 LIPID PANEL HDL cholesterol 45 mg/dL 60- low The Natio nal [employer] l [employer]ca tion Progr am (INEP ) has set the follo wing guide lines for Fasti ng HDL Khushboo stero l: LOW HDL: <40 mg/dL LEEANN L: 40 - 60 mg/dL CONRAD ABLE: >60 mg/dL Not Available [facility] (Lab Registration) [address] [place], [address], 04/18/2025 13:56:21 04/18/20 25 04/18/2025 LIPID PANEL LDL calculated 118 mg/dL 100- The Natio nal [employer] l Educa tion Progr am (INEP ) has set the follo wing guide lines for Fasti ng LDL Khushboo stero l: OPTIM AL: < 100 mg/dL LOW RISK: 100 - 129 mg/dL BORDE RLINE HIGH: 130 - 159 mg/dL HIGH: 160 - 189 mg/dL VERY HIGH: > or = 190 mg/dL Not Available [facility] (Lab Registration) [address] [place], [address], 04/18/2025 13:56:21 04/18/20 25 04/18/2025 LIPID PANEL chol/HDL ratio 5 -5 Not Available [facility] (Lab Registration) [address] [place], [address], 04/18/2025 13:56:21 04/18/20 25 04/18/2025 LIPID PANEL note Unles s other schneider noted testi ng perfo rmed at: [facility] [address] [place] [address] [phone] Jan rossi MD CLIA: [id number] Not Available [facility] (Lab Registration) [address] [place], [address], 04/18/2025 13:56:21 04/18/20 25 04/18/2025 AMYLA SE amylase 39 U/L 25-115 Not Available [facility] (Lab Registration) [address] [place], [address], 04/18/2025 13:56:23 04/18/20 25 04/18/2025 AMYLA SE note Unles s other schneider noted testi ng perfo rmed at: [facility] [address] [place] [phone] Jan rossi MD CLIA: [id number] Not Available [facility] (Lab Registration) [address] [place], [address], 04/18/2025 13:56:23 04/18/20 25 04/18/2025 LIPAS E lipase 34 U/L 16-77 Not Available [facility] (Lab Registration) [address] [place], [address], 04/18/2025 13:56:23 04/18/20 25 04/18/2025 LIPAS E note Unles s other schneider noted testi ng perfo rmed at: [facility] [address] [place] [address] [phone] Jan rossi MD CLIA: [id number] Not Available [facility] (Lab Registration) [address] [place], [address], 04/18/2025 13:56:23 09/14/20 24 09/14/2024 DEXA, [facility] [address] [place] [address] Phone: Fax: Name: KAYLEE KIRK Exam Date: 2023 : [birth year] Age 49 years Gender : F Access ion: [id number] Physic pito: AMBURG EY, TAFFAN Y Facili ty: [facility] Facili ty HSV: Outpat ient Exam: DE DEXA AXIAL EXAMIN ATION: DUAL X-RAY ABSORP TIOMET RY (DXA) FOR BONE MINERA L DENSIT Y. CLINIC AL INDICA TION: 49 years old, Female . Unknow n menopa use status . Z13.82 0. TECHNI QUE: An axial (e.g., hips, spine) and/or append icular (e.g., radius ) exam was perfor med, as approp riate, using [employer] densit ometer . Images are [...] perfor med using the [employer] FRAX calcul ator based on patien t-repo [...] Otoniel Sadler 2023 Thank you for referr ing KAYLEE KIRK to [facility] Hospit [facility]. Legall y authen ticate d by GILL HUSSEIN DO 2023-10 14:11: 37 CC'ed Logic: Orderi ng Provid er: AMBURG EY TAFFAN Y CC Provid er: AMBURG EY TAFFAN Y Attend ing Provid er: AMBURG EY TAFFAN Y Referr ing Provid er: AMBURG EY TAFFAN Y Admitt ing Provid er: AMBURG EY TAFFAN Y [id number] [facility] (Radiology) [address] , [place], [address], 09/15/2024 15:22:35 01/27/20 25 01/25/2025 XR, lumba r spine No observ ation record ed. [facility] [address], [place], [address], 01/28/2025 13:21:32 Result Notes Documentation Provider Name and Address Organization Details Recorded Time Dexa, Axial Skeleton : [address] [place] [address] Name: BRIAN KIRK Exam Date: 09/14/2024 : 1975 Age 49 years Gender: F Physician: ROSA ISELA GONZALEZ Facility: [facility] Facility HSV: Outpatient Exam: DE DEXA AXIAL EXAMINATION: DUAL X-RAY ABSORPTIOMETRY (DXA) FOR BONE MINERAL DENSITY. CLINICAL INDICATION: 49 years old, Female. Unknown menopause status. Z13.820. TECHNIQUE: An axial (e.g., hips, spine) and/or appendicular (e.g., radius) exam was performed, as appropriate, using [employer] densitometer. Images are obtained for bone mineral [...] risk is performed using the [employer] FRAX calculator based on patient-reported risk factors. [...] by: Otoniel Sadler DO 09/14/2024 03:54 PM [facility] Legally authenticated by GILL HUSSEIN DO 2024-09-14 14:11:37 Dictated By: Otoniel Sadler Transcribed By: Transcribed On: 09/14/2024 2:11 PM Electronically signed by: Otoniel Sadler 09/14/2024 Thank you for referring BRIAN KIRK to [facility]. Legally authenticated by GILL HUSSEIN DO 2024-09-14 14:11:37 CC'ed Logic: Ordering Provider: LISA LANDERS CC Provider: LISA LANDERS Attending Provider: LISA LANDERS Referring Provider: LISA LANDERS Admitting Provider: LISA monet, [place] - [facility] - [place] & [place] 09/15/2024 15:22:35 Problems Name Problem SNOMED Code Status Onset Date Resolution Date Notes Provider Name and Address Organization Details Recorded Time Essential hypertensi on 53725787 Active 2022 Not Available [facility] 3 15:39:14 Diarrhea of presumed infectious origin 87384452 Active 2022 Ajith monet, [place] [facility] [place] & [place] 4 11:04:16 Chronic pain 50070120 Active 2022 Ajith monet, [place] [facility] [place] 4 11:04:13 Irritable bowel syndrome 79336307 Active 2022 Ajith monet, [place] [facility] [place] 4 11:04:21 Mixed anxiety and depressive disorder 267726680 Active 2022 Ajith monet, [place] [facility] [place] 4 11:04:23 Osteoarthr itis of multiple joints 268147012 Active 2022 [place] [facility] & [place] 4 11:04:25 Hyperglyce belkis 01128823 Active 2023 Ajith monet, [place] [facility] & [place] 4 11:04:18 Vitamin D deficiency 42722298 Active 2023 Ajith monet, [place] [facility] & [place] 4 11:04:29 Taking high risk medication 1437946962015 07 Active 2023 Ajith monet, [place] [facility] & [place] 4 11:04:27 Problem Notes None recorded. Procedures Surgical History Date Name Laterality Status Provider Name and Address Organization Details Recorded Time 08/28/20 24 Most Recent Bone Density completed Di Hoyos [place] - [facility] & [place] 01/18/2025 15:20:51 07/21/20 23 Colonoscopy completed Estephania Flores [place] [facility] & [place] 07/23/2023 16:12:35 07/17/20 23 Date of Last Colonoscopy completed Aspen Urbina [place] [facility] & [place] 09/28/2023 06:54:12 12/24/19 20 arthroplasty of left ankle completed Mayrajessica Calix [place] [facility] & [place] 05/31/2024 14:24:23 excision of cyst completed Mayra Calix [place] [facility] & [place] 05/31/2024 14:22:36 Imaging Results None recorded. Procedure Notes None recorded. Medical Equipment None Reported. Allergies Allergen ID Allergen Name Allergen Category Reaction Reaction Severity Criticality Documentation Date Start Date Code Code System Note Provider Name and Address Organization Details Recorded Time 00672 Substance with sulfonami de structure and antibacte rial mechanism of action (substanc e) medicatio n hives itching moderate moderate Not available 01/25/2023 51423 8003 SNOMED Ajith monet, [place] [facility] & [place] 3 12:13:51 16339 penicilli n G Not available rash mild low 07/29/2023 7980 RxNorm Nataliia Colon [facility], [place] - [place] - [place] & [place] 5 13:57:02 Medications Name Sig Start Date [...] Pulse oximetry Heart rate Respiratory rate Systolic And Diastolic Provider Name and Address Organization Details Last Updated DateTime 5 149.86 cm 38.1 kg/m2 94143.5 2 g 98.4 [degF] 98 % 98 % 101 /min 16 /min 141/88 mm[Hg] Di Hoyos [facility] & [place] 5 15:20:27 Date Recorded Body height Body mass index (BMI) Body weight Body temperature Oxygen saturation Oxygen saturation in Arterial blood by Pulse oximetry Heart rate Systolic And Diastolic Provider Name and Address Organization Details Last Updated DateTime 5 149.86 cm 37.6 kg/m2 75976.1 8 g 98.1 [degF] 96 % 96 % 89 /min 128/90 mm[Hg] Yossi Herrera greg [facility] & [place] 5 12:05:27 Date Recorded Body height Body mass index (BMI) Body weight Body temperature Oxygen saturation Oxygen saturation in Arterial blood by Pulse oximetry Heart rate Respiratory rate Systolic And Diastolic Provider Name and Address Organization Details Last Updated DateTime 4 149.86 cm 35.5 kg/m2 01934.2 6 g 97.2 [degF] 97 % 97 % 89 /min 18 /min 148/102 mm[Hg] Ajith Mayjulianna CALDERON [facility] & [place] 4 09:45:51 Date Recorded Body height Body mass index (BMI) Body weight Body temperature Oxygen saturation Oxygen saturation in Arterial blood by Pulse oximetry Heart rate Respiratory rate Systolic And Diastolic Provider Name and Address Organization Details Last Updated DateTime 4 149.86 cm 34.9 kg/m2 60542.4 8 g 98.1 [degF] 97 % 97 % 74 /min 18 /min 128/84 mm[Hg] Ajith Mayles [place] [facility] & [place] 4 11:37:57 Date Recorded Body height Body mass index (BMI) Body weight Body temperature Oxygen saturation Oxygen saturation in Arterial blood by Pulse oximetry Heart rate Respiratory rate Systolic And Diastolic Provider Name and Address Organization Details Last Updated DateTime 4 149.86 cm 36.4 kg/m2 44077.6 3 g 98.1 [degF] 98 % 98 % 91 /min 18 /min 127/87 mm[Hg] Ajith Vigil [facility] & [place] 15:34:54 Social History Question Answer Notes LastModified by Organizat ion Details LastModified Time Tobacco Smoking Status Current Every Day Smoker Aspen monet, [facility] & [place] 07/29/2023 08:30:16 Do You Have An Advance Directive? No [email or web address] Information not available 07/29/2023 If You Are , What Was Your Level Of Alcohol Consumption Prior To ? Occasional [email or web address] Information not available 03/28/2024 Do You Wear A Helmet When Biking? Yes Information not available 03/28/2024 Are You Blind Or Do You Have Difficulty Seeing? No [email or web address] Information not available 07/29/2023 What Is Your Level Of Caffeine Consumption? None Information not available 03/28/2024 In The 14 Days Before Symptom Onset, Have You Had Close Contact With A Laboratory-confir med COVID-19 While That Case Was Ill? No [email or web address] Information not available 03/28/2024 In The 14 Days Before Symptom Onset, Have You Had Close Contact With A Person Who Is Under Investigation For COVID-19 While That Person Was Ill? No [email or web address] Information not available 03/28/2024 Have You Been To An Area Known To Be High Risk For COVID-19? No [email or web address] Information not available 03/28/2024 Are You Deaf Or Do You Have Serious Difficulty Hearing? No [email or web address] Information not available 03/28/2024 What Type Of Diet Are You Following? REGULAR [email or web address] Information not available 04/12/2024 Have You Processed Blood Or Body Fluids From An Ebola Virus Disease Patient Without Appropriate PPE? No [email or web address] Information not available 03/28/2024 Do You Reside In Or Have You Traveled To An Area Where Ebola Virus Transmission Is Active? No [email or web address] Information not available 03/28/2024 Have There Been Any Changes To Your Family Or Social Situation? No [email or web address] Information no t available 09/08/2024 What Is The Fluoride Status Of Your Home? Unknown [email or web address] Information not available 03/28/2024 Are There Any Guns Present In Your Home? No [email or web address] Information not available 03/28/2024 Have You Recently Or Are You Planning To Travel To An Area With Zika Virus? No [email or web address] Information not available 03/28/2024 Do You Use Insect Repellent Routinely? Yes [email or web address] Information not available 03/28/2024 Do You Feel Safe At Home? Yes [email or web address] Information not available 03/28/2024 Do You Have A Medical Power Of Medical Front Desk Coordinator? No Information not available 03/28/2024 What Was The Date Of Your Most Recent Tobacco Screening? 04/18/2025 [email or web address] Information not available 04/18/2025 Do You Have Any Pets? No [email or web address] Information not available 03/28/2024 Do You Use Your Seat Belt Or Car Seat Routinely? Yes [email or web address] Information not available 03/28/2024 Do You Have Smoke And Carbon Monoxide Detectors In Your Home? Yes [email or web address] Information not available 03/28/2024 Are You Passively Exposed To Smoke? No [email or web address] Information no t available 07/29/2023 How Much Tobacco Do You Smoke? 1 PPD [email or web address] Information not available 07/29/2023 Do You Use Sunscreen Routinely? Yes [email or web address] Information not available 03/28/2024 Has Tobacco Cessation Counseling Been Provided? Yes [email or web address] Information not available 04/18/2025 On What Date Was Tobacco Cessation Counseling Provided? 04/18/2025 [email or web address] Information not available 04/18/2025 How Many Years Have You Smoked Tobacco? 29 Information not available 05/31/2024 Do You Have Difficulty Walking Or Climbing Stairs? No [email or web address] Information not available 03/28/2024 Are You Currently In School? No [email or web address] Information not available 03/28/2024 Sex: Female Functional Status Question Answer Note LastModified by Organizat ion Details LastModified Time Do you use any illicit or recreational drugs? No [email or web address] Information not available 07/29/2023 Do you or have you ever used any other forms of tobacco or nicotine? No [email or web address] Information not available 03/28/2024 What is your level of alcohol consumption? Moderate [email or web address] Information not available 07/29/2023 Do you or have you ever used smokeless tobacco? Never used smokeless tobacco gxozve27 Information not available 09/28/2023 Are you currently employed? No [email or web address] Information not available 03/28/2024 Do you have transportation difficulties? No [email or web address] Information not available 03/28/2024 Are you able to walk? YESWOREST ryikqhjd79 Information not available 03/28/2024 Do you have difficulty doing errands alone? No [email or web address] Information not available 03/28/2024 Are you able to care for yourself? Yes [email or web address] Information n ot available 03/28/2024 Do you have difficulty dressing or bathing? No [email or web address] Information not available 03/28/2024 What is your exercise level? Occasional Information not available 05/31/2024 Mental Status Question Answer Note LastModified by Organizat ion Details LastModified Time Do you feel stressed (tense, restless, nervous, or anxious, or unable to sleep at night)? [id number] [email or web address] Information not available 07/29/2023 Do you have difficulty concentrating, remembering or making decisions? No [email or web address] Information no t available 03/28/2024 Family History [...] Not available 04/2024 14:30:35 Father Hyperlipidem ia [email or web address] Not available 2024 11:54:00 Father Diabetes mellitus [email or web address] Not available 06/25/ 2025 11:54:00 Mother Osteoporosis pt. added direct ly (11/16) CHART_MERGE Not available 04/23/2023 15:39:14 Mother Sleep disorder pt. added direct ly (11/16) CHART_MERGE Not available 04/23/2023 15:39:14 Mother Adenomatous polyp of colon [email or web address] Not available 2024 11:54:00 Mother Asthma [email or web address] Not available 04/18/2025 11:54:00 Mother Osteoarthrit is [email or web address] Not available 2024 11:54:00 Sister Malignant tumor of colon [email or web address] Not available 2024 11:54:00 Maternal Grandmother Myocardial infarction [email or web address] Not available 05/31 14:25:53 Maternal Grandmother Heart disease [email or web address] Not available 2023 14:29:26 Paternal Grandmother Hypertensive disorder [email or web address] Not available 2023 14:29:35 Medical History Condition Response Other Y Depression Y Spine Problems Y Anxiety Disorder Y Obesity Y Vision or Eye Problems Y Arthritis Y Endometriosis Y High Cholesterol Y Psychiatric/Mental Health Condition Y GI Problems Y Acne Y Osteoporosis/Osteopenia Y Back Problems Y Hypertension Y Gynecological History Statement/Question Response [...] 30 mcg/0.3 mL dose 07/02/2021 completed [facility] [place], [place] - [facility] - [place] & [place] 07/29/2023 08:29:46 COVID-19, mRNA, LNP-S, PF, 30 mcg/0.3 mL dose 07/23/2021 completed [facility] [place], [place] - [facility] - [place] & [place] 07/29/2023 08:29:46 Past Encounters Encounter ID Performer Location Encounter Start Date Encounter Closed Date Diagnosis/Indication Diagnosis SNOMED-CT Code Diagnosis ICD10 Code Diagnosis Note [id number] Rica Monterroso APRN zChYadiel [address] [address] 08/10/2022 14:01:33 08/10/2022 16:46:14 Pain of right shoulder joint [id number] 4330214 M25.511 kenalog and decadron given in clinic todayice and heat therapymon itor for worsening symptomsfo llow up in 2 weeks if no improvemen t in symptoms Neuropathy 460274167 G62 .9 [id number] Rica Monterroso APRN [address] [address] 11/17/2022 11:27:24 11/17/2022 14:03:43 Acute otitis media with effusion 726160597 H65.191 J01.00 R05.1 take medication medication as prescribed increase water intaketyle nol PRNmonitor for worsening symptoms [id number] Rica Monterroso APRN [address] [address] 01/25/2023 12:06:31 01/25/2023 12:30:31 Pain of toe of left foot 5212727345 21863 M79.675 S90.122A ordering xrayice therapyele vate Neuropathy 978723954 G62 .9 UDS today and Ender reviewed. [id number] Rica Monterroso APRN [facility] [address] [facility] [place] [address] 04/20/2023 10:31:13 04/23/2023 09:41:26 Diarrhea 00586642 R19.7 Z80.0 encouraged to keep a food diary to avoid triggering foodsincre ase water intaketake dicyclomin e as prescribed monitor for worsening symptomsfo llow up PRNreferra l made for colonoscop y blood drawn in the right AC by Kisha Buck CMA, patient tolerated well. Chronic pain syndrome 37 7615647 G89.4 M41.9 M19.072 paperwork filled out for antoni martell appts with pain management monitor for worsening symptoms Essential hypertension 96482573 I10 Prediabetes 020359582 R7 3.03 Endocrine/ metabolic screening 087082726 Z13.228 Hyperlipid emia screening 303231025 Z13.220 [id number] Radha Frost NP [facility] [address] [address] 06/30/2023 12:26:32 06/30/2023 13:10:10 Diarrhea of presumed infectious origin 38882900 A09 Hx of diarrhea with worsening symptoms [...] Family his tory of cancer of colon 990519190 Z80.0 Patient's sister diagnosed colon cancer in her 50's. recommend colonoscop y to rule out colorectal cancer, polyps, other. Family his tory of polyp of colon 063635263 Z83.71 patient's mother with history multiple colon polyps. Plan for colonoscop y as above. [id number] Radha Frost NP [facility] [address] [place] [address] 08/25/2023 12:54:58 08/25/2023 13:31:16 History of polyp of colon 704980648 Z86.010 Multiple polyps resected on colonoscop y 07/21/2023 pathology consistent with tubulovill ous adenoma, tubular adenoma as well as serrated adenoma negative for high grade dysplasia. 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 Family his tory of cancer of colon 156831289 Z80.0 Patient's sister diagnosed colon cancer in her 50's. Irritable bowel syndrome 54137137 K58.9 Continues to experience multiple episodes of [...] based on response to simple medication . [id number] Gabe Malone MD [address] [place] [address] 09/30/2023 11:30:54 09/30/2023 12:18:59 Chronic pain 03157281 G89.29 Ender reviewed. Patient is seen. We will continue gabapentin t.i.d. return to clinic in 3 months. continue management with pain management for back and ankle issues. We will refill gabapentin . See back in 3 months. Essential hypertension 67496237 I10 Check blood work blood pressure by my check 136/86. Continue present meds. Osteoarthr itis of multiple joints 987895481 M15.9 Patient is seen by pain management . She would like rheumatolo gy opinion about her arthritis. Patient does have significan t kyphosis of her spine. Mixed anxi ety and depressive disorder 487299430 F41.8 Patient's symptoms are stable continue present meds. [id number] Gabe Malone MD [address] [place] [address] 12/30/2023 11:31:44 12/30/2023 12:14:38 Taking high risk medication 4421097230 91177 Z91.89 general urine drug screen is negative. Gabapentin screen sent to the lab. Prescribe gabapentin . Ender reviewed.S ee back in 3 months. Hyperlipidemia 33887297 E78.5 Patient is back on atorvastat in we will check labs. Refill atorvastat in Essential hypertension 78206228 I10 Check blood work blood pressure by my check 136/86. Continue present meds. Vitamin D deficiency 347 37880 E55.9 patient is taking over-the-c ounter supplement we will recheck level. Hyperglycemia 26056046 R 73.9 Patient does have history of elevated blood sugar. She has been on metformin in the past. Check hemoglobin A1c today. Chronic pain 46925249 G8 9.29 Ender reviewed patient just had ablation done we will refill gabapentin . [id number] Gabe Malone MD [address] [place] [address] 03/28/2024 10:54:46 03/29/2024 09:07:06 Long-term drug therapy 304417538 Z79.899 urine drug screen negative. urine sent testing Essential hypertension 68767757 I10 patient is self referred to Cardiology elevations in blood pressure. She would she is scheduled for stress testing she be treated cardiology pressure Mixed anxi ety and depressive disorder 487953133 F41.8 Patient's symptoms are stable continue present meds. continue present meds refills Osteoarthr itis of multiple joints 161503841 M15.9 symptoms are controlled no changes Hyperlipidemia 01356002 E78.5 recent blood work showed total cholestero l 189, LDL 111 continue present meds no side effects Chronic pain 64287430 G8 9.29 aspirin available patient is due refill prescripti on [id number] Floyd Rolbes MD [address] [place] [address] 04/05/2024 11:00:31 04/05/2024 11:15:00 Injury of head 21266555 S09.90XA patient has been told to monitor her injury. There appears to be no focal neurologic al deficit. Swelling has largely resolved. [id number] ROSA ISELA GONZALEZ NP [address] [place] [address] 04/12/2024 15:09:12 04/13/2024 08:21:07 Injury of great toe 039967971 S99.922A RICEawaiti ng xraysf/u if symptoms persist or worsen [id number] ROSA ISELA GONZALEZ NP [address] [place] [address] 06/30/2024 11:27:24 06/30/2024 12:23:38 Adult health examination 336933145 Z00.00 Patient presented to office today for [...] living. Screening for malignant neoplasm of breast 467356880 Z12.39 Mixed hyperlipidemia 267 867888 E78.2 Continue statin therapy, reinforced healthy lifestyle Essential hypertension 74182468 I10 educated on goal of less than 130/90advi sed low sodium diet, healthy lifestyle including exercise as ablecontin ue current medication regimenER if any symptoms such as chest pain, shortness of breath Vitamin D deficiency 347 70125 E55.9 Neuropathy 237239099 G62 .9 risk versus benefit discussed, refill provided todayneeds updated CSAUDS completed [place] frances turk [id number] Floyd Robles MD [address] [place] [address] 06/14/2024 09:27:53 06/15/2024 08:13:43 Mixed anxiety and depressive disorder 846110271 F41.8 denies SI/HIincre ase Sertraline from 50 to100 mgpatient will make appointmen t with PTIverbali zeenid seeking help if thoughts to arise Diarrhea 36723259 R19.7 recommend GI panelbland dietavoid triggershy drhakan [id number] ROSA ISELA GONZALEZ, JARED [address] [place] [address] 09/08/2024 15:23:54 09/08/2024 16:01:02 Essential hypertension 52305620 I10 educated on goal of less than 130/90advi sed low sodium diet, healthy lifestyle including exercise as ablecontin ue current medication regimen, controlled , refill providedER if any symptoms such as chest pain, shortness of breath Screening for osteoporosis 512370796 Z13.820 Pain of mu ltiple joints 06598162 M25.50 orders placed for physical therapy, continue with pain management as recommende d, see what other options are available for her. Pain of bi lateral hip joints 6541799658 3674546 M25.551 M25.552 Low back pain 063066717 M54.50 Normal bowel and bladder function Thoracic back pain 92727 8004 M54.6 [id number] Folyd Robles MD [address] [place] [address] 01/18/2025 15:02:02 01/18/2025 15:27:09 Long-term current use of drug therapy 592324315 Z79.899 Neuropathy 830649028 G62 .9 patient has a long history of neuropathy . Will refill her gabapentin . [id number] ROSA ISELA GONZALEZ NP [facility] [address] [place] [address] 04/18/2025 11:53:46 04/23/2025 07:36:51 Diarrhea 05753693 R19.7 discussed recommenda tions for studies of her gallbladde rrequests GI referraltr y to avoid triggershy nabila rodrigues lab work Essential hypertension 75191004 I10 educated on goal of less than 130/90advi sed low sodium diet, healthy lifestyle including exercise as ablecontin ue current medication regimen, controlled , refill providedER if any symptoms such as chest pain, shortness of breath Mixed hyperlipidemia 267 027348 E78.2 reinforced healthy diet and exerciseco ntinue atorvastat in therapy Neuropathy 254989183 G62 .9 discussed risk vs benefithas been on for several years with different providers, including Bhaskar Monterroso; will continueun derstands must be seen minimum every 3 monthsdeni es any wounds or ulcers of feet Mixed anxi ety and depressive disorder 903951290 F41.8 controlled denies SI/HIrefil l provided Health Concerns Section Related Observation LastModified by Organization Detai ls LastModified Time None Recorded Concern Status LastModified by Organization Details LastModified Time None Recorded Advance Directives Directive N: Payers Insurance Date Sequence Insurance Name Policy Number Policy Mcgill Covered Member ID Mcgill Member ID Guarantor Name 07/23/2023 1 UNSPECIFIED REMIT PAYOR Brian Kirk 04/23/2025 1 [employer] [id number] (MEDICAID HMO) Q$G Brian Kirk [id number] Brian Kirk 01/13/2022 UNSPECIFIED REMIT PAYOR Brian Kirk Notes Date Note Type Note Provider Name and Address Organization Details Recorded Time 06/14/2024 text/html 49-year-old fema arcenio who presents with complaints of depression. She [...] She is seeing pain clinic for injections. ROSA ISELA GONZALEZ NP [address] [place], [address], [facility] & [place] 06/14/2024 09:55:00 06/30/2024 text/html Patient presents for annual visit.Any falls, fractures surgeries: deniesSpecialist: deniesColonoscopy: 2021 Had 7 polyps removedAnxiety/Depress ion screening: controlled with current sertraline therapy. Denies any SI/HI.Mammogram: NeedsImmunizations: declines vaccines todaysmokes a half a pack per day, occasional alcohol use, daily caffeine use.History of hyperlipidemia. Currently on statin therapy without side effect.History of hypertension. Currently on metoprolol therapy denies any chest pain, shortness of breath, swelling.History of multiple joint pain and neuropathy. Currently on tizanidine, meloxicam and gabapentin therapy. ROSA ISELA GONZALEZ NP [address] [place], [address], [facility] & [place] 07/03/2024 12:54:05 09/08/2024 text/html 49-year-old femarvind rg who presents for follow-up. Needs refill on her metoprolol today. Also requests to have DEXA scan completed.followed by pain management in [place], multiple injections, spine, hips, without improvement,helps for 3 days then pain returns; seen by Dr. Johnson as well and not much more he could do For her chronic pain. Wishes to have physical therapy. Denies any changes in bowel or bladder habits ROSA ISELA GONZALEZ NP [address] [place], [address], [facility] & [place] 09/12/2024 16:11:24 01/18/2025 text/html Patient presents today for medication follow-up. She denies any new issues Floyd Robles MD [address] [place], [address], [facility] & [place] 01/18/2025 15:44:19 04/18/2025 text/html 50 yr old female who [...] sertraline. Denies SI/HI ROSA ISELA GONZALEZ NP [address] [place] [address], [address], [facility] - [facility] 04/21/2025 21:02:59 OBGyn Episode No OBEpisode recorded.
[2025-05-07 11:38] VITALS: BP 121/87; PULSE 95; RESP 14; O2SAT 94; BMI 36.9
--- NOTE | 2025-05-07 12:06 | EXP.PAIN.SOA ---
[facility] Disclaimer: The information contained in this section may have been updated after the patient was seen, as this information can be updated by other users. Medical History Tubal Chronic pain Endometriosis HLD (hyperlipidemia) HTN (hypertension) Surgical History History of ankle surgery H/O removal of cyst Family History Other No significant family history Social History Smoking Status: Current every day smoker tobacco type: cigarettes packs per day: 1 alcohol intake: current alcohol intake frequency: a few times a week (drinks 4 or 5 drinks per night) substance use type: denies use current occupational status: other Travel in the last 8 weeks?: None number of children: 0 PM Subjective & Objective Subjective Subjective:: Patient is a pleasant 50-year-old female who presents today for 1 month follow-up. Today she rates her pain 8 out of 10. Patient is still having her chronic pain they are at her low back and hips primarily. Patient does state that she is still not gotten into see Dr. Elliott fits that they were requesting records from Dr. Johnson and she has not yet called regarding this. Patient states that she is planning to do this soon. Patient would still like to proceed forward with the pump or stimulator option. Patient does have chronic pain and has tried conservative therapy with minimal changes. Patient has also tried injection therapy however it a lot of times was very temporary. Patient is prescribed tizanidine 4 mg twice a day and meloxicam 15 mg daily from our office and gabapentin from an outside provider. She denies any side effects. Her Ender has been reviewed and is appropriate. Review of Systems: General: No recent weight changes, no fever, no sleep disturbances Respiratory: No cough, no shortness of air, no recurring pulmonary infections Cardiovascular/peripheral vascular: No chest pain, no palpitations, no edema, no shortness of breath Gastrointestinal: No new onset incontinence, normal bowel movements reported Genitourinary: No new onset incontinence Musculoskeletal: Chronic back pain, hip pain, upper thigh pain Psychiatric: [Normal mood/affect] Neurological: [Denies weakness in extremities], [denies balance issues] Pain at rest (0-10 scale): 8 Objective Objective:: Physical Exam: General: Alert and oriented x3, no acute distress, pleasant and cooperative Lungs: Respirations even and unlabored, symmetrical chest expansion Eyes: PERRL Musculoskeletal: Flexion and extension of lumbar [spine] somewhat guarded secondary to pain, [antalgic gait noted] Neurological: Speech clear, no gross sensory deficit Has patient had previous pain injection?: No Conservative treatment options previously tried: Home exercise plan Length of treatment: Longer than 12 weeks Meds Home Medications and Allergies Home Medications ?Medication ?Instructions ?Recorded ?Confirmed ?Type gabapentin 300 mg capsule 300 mg PO TID Pain 09/03/22 05/07/25 History hydroxyzine HCl 25 mg tablet 50 mg PO DAILY . 09/03/22 05/07/25 History metformin 500 mg tablet 500 mg PO BID PCOS 09/03/22 05/07/25 History sertraline 50 mg tablet 50 mg PO DAILY MOOD 09/03/22 05/07/25 History spironolactone 100 mg tablet 100 mg PO DAILY Fluid 09/03/22 05/07/25 History diazepam 2 mg tablet 2 mg PO ONCE pain #1 tab 01/13/24 05/07/25 Rx tizanidine 4 mg tablet (Zanaflex) 4 mg PO BID spasms #180 tabs 03/27/25 05/07/25 Rx meloxicam 15 mg tablet 15 mg PO DAILY Pain #30 tabs 04/09/25 05/07/25 Rx New Prescriptions to Start Prescriptions: Allergies Allergy/AdvReac Type Severity Reaction Status Date / Time Penicillins Allergy Verified 02/01/24 10:21 Sulfa (Sulfonamide Allergy Verified 02/01/24 10:21 Antibiotics) Assessment and Plan *Assessment and plan (1) Chronic back pain: Status: Acute Category: Medical Code(s): M54.9 - Dorsalgia, unspecified; G89.29 - Other chronic pain (2) Bilateral sacroiliitis: Status: Acute Category: Medical Code(s): M46.1 - Sacroiliitis, not elsewhere classified (3) Greater trochanteric bursitis of both hips: Status: Acute Category: Medical Code(s): M70.61 - Trochanteric bursitis, right hip; M70.62 - Trochanteric bursitis, left hip (4) Facet arthropathy, lumbar: Status: Acute Category: Medical Code(s): M47.816 - Spondylosis without myelopathy or radiculopathy, lumbar region (5) Degenerative joint disease (DJD) of lumbar spine: Status: Acute Category: Medical Code(s): M47.816 - Spondylosis without myelopathy or radiculopathy, lumbar region Plan I did review over with her regarding her psychological evaluation and she was deemed an appropriate candidate for the spinal cord stimulator however they did have concerns where she does have a few drinks at night regarding the pump option. Patient was counseled that we can still look back at this is a future option however there would need to be some modifications and lifestyle changes made. Patient acknowledges understanding. We did review over the risk and benefits of the spinal cord stimulator which the patient does still have consistent symptoms that would do well with this device. We did give out educational handouts on the spinal cord stimulator. We will proceed forward with this option however are still waiting for her to be seen by neurosurgery. Patient will be given a 1 month tentative follow-up appointment for this. Patient agrees with this plan of care. Patient has been instructed to contact the clinic with any concerns before the next appointment. Dr. Bernard has reviewed this note and agrees with this plan of care. This note was dictated using voice recognition software and make contain errors or omissions. All injections are used with Lidocaine, Bupivacaine and dexamethasone. Occasionally urine drug screen is needed to verify patient's compliance with our office pain contract. This is ordered based off specific treatments related to chronic pain with the potential to abuse certain medications.
== END 2025-05-07 23:59 | disposition home or self-care (01) ==
LOC: SC.PAIN 11:26
PROVIDERS: PCP Nurse Practitioner Family; Visit Provider Nurse Practitioner Family
DX: M46.1 Sacroiliitis, not elsewhere classified (principal); M47.816 Spondylosis without myelopathy or radiculopathy, lumbar region; M70.61 Trochanteric bursitis, right hip; M70.62 Trochanteric bursitis, left hip; G89.29 Other chronic pain; Z79.899 Other long term (current) drug therapy; Z79.1 Long term (current) use of non-steroidal anti-inflammatories (NSAID)
CPT/HCPCS: 99212; G0463

== ENCOUNTER 2025-05-31 13:31 | Day surgery (SDC) | payer MEDICAID, SELFPAY ==
[2025-05-31 14:15] VITALS: BP 146/77; PULSE 78; RESP 18; TEMP 36.6; O2SAT 97; BMI 38.9
--- NOTE | 2025-05-31 14:29 | EXP.HP ---
History of Present Illness *Admission Date: 05/31/25 *Reason for visit:: Personal history of adenomatous colon polyps/family history of colon cancer *History of present illness: Mrs. Kirk is a 50-year-old female who is here for screening/surveillance colonoscopy. She did have a colonoscopy and 2022 and had benign polyps (tubular adenomas x 9) removed. Her father had colon cancer at the age of 84 and her sister had colon cancer at age 53 and another sister with colon cancer at age 52. Her paternal grandmother had colon cancer in her 50s or 60s. The examination is deemed medically necessary for high risk screening colonoscopy. The patient has been seen, interviewed and examined prior to the procedure by both myself and the anesthesia provider. [facility] Disclaimer: The information contained in this section may have been updated after the patient was seen, as this information can be updated by other users. Medical History Tubal Chronic pain Endometriosis HLD (hyperlipidemia) HTN (hypertension) Surgical History History of ankle surgery LEFT H/O removal of cyst Family History Other No significant family history Social History Smoking Status: Current every day smoker tobacco type: cigarettes packs per day: 1 alcohol intake: current alcohol intake frequency: a few times a week (drinks 4 or 5 drinks per night) substance use type: denies use current occupational status: other Travel in the last 8 weeks?: None number of children: 0 Have you lived/traveled outside US in past 30 days?: No Contact w/someone who lives/traveled outside US past 30 days?: No Exposure to someone with infectious disease in past 14 days?: No Do you have a fever (greater than 100.4 F or 38 C)?: No Have you tested positive for COVID-19?: No Exposed to someone with COVID-19 in past 14 days?: No Do you have a sore throat?: No Do you have a cough?: No Do you have any weakness?: No Do you have any diarrhea?: No Are you experiencing any unusual bleeding?: No Do you have any muscle aches/pain?: No Do you have any abdominal pain?: No Are you experiencing loss of taste or smell?: No Other Medical History Have you received the Flu Vaccine for this season: No Have you received the Pneumonia Vaccine: No Review of Systems Review of Systems Review of systems (narrative): Negative *Cardiovascular Comments: Negative *Gastrointestinal Comments: Negative *Genitourinary Comments: Negative *Musculoskeletal Comments: Negative *Neurologic Comments: Negative Meds Home Medications and Allergies Home Medications ?Medication ?Instructions ?Recorded ?Confirmed ?Type gabapentin 300 mg capsule 300 mg PO TID Pain 09/03/22 05/31/25 History sertraline 50 mg tablet 50 mg PO DAILY MOOD 09/03/22 05/31/25 History tizanidine 4 mg tablet (Zanaflex) 4 mg PO BID spasms #180 tabs 03/27/25 05/31/25 Rx meloxicam 15 mg tablet 15 mg PO DAILY Pain #30 tabs 04/09/25 05/31/25 Rx atorvastatin 20 mg tablet 20 mg PO DAILY 05/22/25 05/31/25 History metoprolol succinate 50 mg 50 mg PO DAILY 05/22/25 05/31/25 History tablet,extended release 24 hr New Prescriptions to Start Prescriptions: Allergies Allergy/AdvReac Type Severity Reaction Status Date / Time Penicillins Allergy Rash Verified 05/31/25 14:11 Sulfa (Sulfonamide Allergy Rash Verified 05/31/25 14:11 Antibiotics) Exam Data for Last 24 hours Vital signs and Labs for Last 24 Hours: Temp Pulse Resp BP Pulse Ox O2 Del Method 97.8 F 78 18 146/77 H 97 Room Air 05/31/25 14:15 05/31/25 14:15 05/31/25 14:15 05/31/25 14:15 05/31/25 14:15 05/31/25 14:15 I & O for Last 24 hours: Intake & Output 05/28/25 05/29/25 05/30/25 05/31/25 23:59 23:59 23:59 23:59 Weight 193 lb *Routine HEENT Exam Head: Present normocephalic Eye: Present EOMI and PERRL ENT: Present mucous membranes moist *Routine Neck Exam Neck: Present supple *Routine Respiratory Exam Respiratory: Present CTA bilaterally *Routine Cardiovascular Exam Cardiovascular: Present RRR *Routine Abdominal Exam Abdominal: Present soft and normoactive bowel sounds; Absent tenderness *Routine Rectal Exam Rectal:: deferred *Routine Genitalia Exam Genitalia:: deferred *Routine Extremities Exam Extremities: Absent cyanosis, clubbing or edema *Routine Skin Exam Skin: Present warm; Absent rash *Routine Neurological Exam Neurological: Present alert and oriented X3 Assessment and Plan *Assessment and plan (1) History of adenomatous polyp of colon: Status: Acute Category: Medical Code(s): Z86.0101 - Personal history of adenomatous and serrated colon polyps (2) Family history of colon cancer: Status: Acute Category: Medical Code(s): Z80.0 - Family history of malignant neoplasm of digestive organs Plan A/P: 1. Personal history of multiple adenomatous polyps and very strong family history of colon cancer is the preprocedural diagnosis. The patient will be anesthetized/sedated using MAC sedation. The patient has been seen and examined. Cardiac and lung assessment prior to the examination is stable. Proceed with planned high risk screening colonoscopy.
[2025-05-31 14:46] LABS: Urine Pregnancy, HCG Qual. Negative (Negative)
--- NOTE | 2025-05-31 14:48 | EXP.ANES.CKL ---
[facility] Disclaimer: The information contained in this section may have been updated after the patient was seen, as this information can be updated by other users. Medical History Tubal Chronic pain Endometriosis HLD (hyperlipidemia) HTN (hypertension) Surgical History History of ankle surgery LEFT H/O removal of cyst Family History Other No significant family history Social History Smoking Status: Current every day smoker tobacco type: cigarettes packs per day: 1 alcohol intake: current alcohol intake frequency: a few times a week (drinks 4 or 5 drinks per night) substance use type: denies use current occupational status: other Travel in the last 8 weeks?: None number of children: 0 Have you lived/traveled outside US in past 30 days?: No Contact w/someone who lives/traveled outside US past 30 days?: No Exposure to someone with infectious disease in past 14 days?: No Do you have a fever (greater than 100.4 F or 38 C)?: No Have you tested positive for COVID-19?: No Exposed to someone with COVID-19 in past 14 days?: No Do you have a sore throat?: No Do you have a cough?: No Do you have any weakness?: No Do you have any diarrhea?: No Are you experiencing any unusual bleeding?: No Do you have any muscle aches/pain?: No Do you have any abdominal pain?: No Are you experiencing loss of taste or smell?: No [facility] Anesthesia Checklist Patient Identification Patient Identification: Arm Band Structural Data Admitted From: Home Planned Operative Procedure/s: Colonoscopy Consent for Planned Operative Procedure(s) Verified: Yes Verified Documents: Surgical Consent and History and Physical NPO Status Verified Time NPO: 00:00 Additional verifications Anesthesia Reactions: No Hx Blood Transfusions: No Blood Transfusion Reaction: No Airway Assessment Mallampati Score:: Class II C-Spine Mobility Assessed: Yes TMJ Mobility Assessed: Yes Dentition: Good Dentition Neurological Assessment Level of Consciousness: Awake, Alert and Appropriate Anesthesia Plan Anesthesia Risk discussed: Yes Anesthesia Plan: Verified ASA Class: II Anesthesia Type: MAC
--- NOTE | 2025-05-31 15:00 | HMH.PROCNOTE ---
[facility] Procedure Note Date: 05/31/25 Time: 15:19 Procedure Note:: Colonoscopy Procedure Report: Colonoscopy with cold snare polypectomy and cold biopsies Endoscopist: Martir Velazquez II, MD Referring physician: GRISEL Craig Date of Procedure: May 31, 2025 Equipment: Olympus [id number] adult colonoscope Sedation: MAC sedation Indication: Mrs. Kirk is a 50-year-old female who is here for a high risk screening/surveillance colonoscopy. The patient does state that she had a colonoscopy at [facility] in 2022 and had 9 polyps (tubular adenomas x 9) removed. She does have 2 sisters with colon cancer in their early 50s. Her father was diagnosed with colon cancer at the age of 84. She also has a paternal grandmother with colon cancer in her 50s or 60s. The patient also has had some chronic diarrhea with bowel urgency and loose bowel movements. She can go up to 10 the 15 times daily. She has noted some mucus with her bowel movements but no blood. She does get bloating and some gassiness in the evenings. She reports incomplete defecation with some excessive wiping. She has not yet done the stool studies that were ordered. She has not yet started walking FiberCon. Procedure: Prior to the procedure, a history and physical exam was performed, and patient's medications and allergies were reviewed. The risks, benefits and alternatives of the sedation and procedure were discussed with the patient. All questions were answered and informed consent was obtained. The patient was brought to the procedure room. Patient identification and proposed procedure were verified by the physician and the nurse. The patient was placed in a left lateral decubitus position and the scope was passed under direct vision. Throughout the procedure, the patient's blood pressure, pulse, and oxygen saturations were monitored continuously. The colonoscopy was accomplished without difficulty. The patient tolerated the procedure well. Findings: On digital rectal examination there was normal rectal tone. There were no external hemorrhoids. The colonoscope was introduced through the anal canal to the rectum and advanced to the cecum. The ileocecal valve and appendiceal orifice were identified. The scope was advanced a short distance into the ileum which appeared grossly normal. The scope was then withdrawn into the colon. There were 3 diminutive polyps (cecum x 1 (6 mm), ascending x 1 (2 mm) and rectosigmoid x 1 (4 mm)). These were all removed via cold snare polypectomy. The the remaining cecum, ascending, transverse, descending, sigmoid and rectum were grossly normal. Cold biopsies were taken from the right colon to rule out microscopic colitis. There were no other mucosal abnormalities identified. Upon retroflexion within the rectum there were grade 1 internal hemorrhoids. The preparation was excellent throughout with [place] Preparation Score of 9. The cecal time was 12 minutes. Impression: 1. Diminutive colonic polyps x 3 Plan: I will follow-up the polyp histology and recommend repeat surveillance colonoscopy again in 5 years. I will follow-up the biopsies to rule out microscopic colitis. I would like for her to initiate bulking FiberCon ([id number]) 2 tablets every a.m. and up to twice daily. If her biopsies show no evidence of microscopic colitis, I would then consider Viberzi. I will discuss the findings with the patient and family.
[2025-05-31 15:21] VITALS: BP 115/76; PULSE 98; RESP 18; O2SAT 96
[2025-05-31 15:31] VITALS: BP 116/81; PULSE 91; RESP 16; O2SAT 95
[2025-05-31 15:53] VITALS: BP 115/88; PULSE 90; RESP 16; O2SAT 97
== END 2025-05-31 15:53 | disposition home or self-care (01) ==
PROVIDERS: PCP Nurse Practitioner Family; Visit Provider Internal Medicine Gastroenterology
PROC: 0DJD8ZZ Inspection of Lower Intestinal Tract, Via Natural or Artificial Opening Endoscopic (ICD-10-PCS; CPT 45378; principal; 2025-05-31 15:00)
DX: Z12.11 Encounter for screening for malignant neoplasm of colon (principal); D12.0 Benign neoplasm of cecum; D12.2 Benign neoplasm of ascending colon; K63.5 Polyp of colon; E78.5 Hyperlipidemia, unspecified; I10 Essential (primary) hypertension; F17.210 Nicotine dependence, cigarettes, uncomplicated; Z88.1 Allergy status to other antibiotic agents; Z88.8 Allergy status to other drugs, medicaments and biological substances; Z79.899 Other long term (current) drug therapy; Z80.0 Family history of malignant neoplasm of digestive organs; Z86.0101 Personal history of adenomatous and serrated colon polyps
CPT/HCPCS: 45380; 45385; 81025; J2003; J2704

== ENCOUNTER 2025-06-14 09:27 | Outpatient (POV) | payer MEDICAID, SELFPAY ==
--- OUTSIDE RECORDS SUMMARY | 2025-06-14 09:42 | XMS_ITS | Encounter Summary ---
Author Organization [employer] ([place], [place], [place], [place]) Address [address] [place] [address] Care Team Providers Care Milieu Therapist Name Role Phone Unavailable Primary Care Provider Unavailabl e Encounter Details Date Type Department Care Team (Late st Contact Info) Description 01/02/2020 Transcribed Document [facility] Family Medicine [facility] [place] [address] ProviderFlip MD [address] [place] [address] Social History Tobacco Use Types [...] pt arrives to ed via ems from [place] after having a fall at home. Left ankle fracture that Dr. Wray set today and splinted. She also reports a pressure ulcer under the splint. Hx of DM Triage Date/Time : 01/02/2020 17:56 EDT Basil Walls RN - 01/02/2020 17:56 EDT DCP GENERIC CODE Tracking Acuity : 3 - Urgent Tracking Group : [facility] ED Basil Walls RN - 01/02/2020 17:56 EDT Mode of Arrival : Stretcher Transported to ED by : Ambulance/ALS EMS Service : [place] To Room Via : Stretcher [...] 01/02/2020 18:00:33 EDT) Problems(Active) Ectopic (SNOMED CT :[id number] ) Name of Problem: Ectopic ; Recorder: LANCE HERNANDEZ RN; Confirmation: Confirmed ; Classification: Medical ; Code: [id number] ; Contributor System: Audibase ; Last Updated: 05/17/2015 13:37 EDT ; Life Cycle Date: 05/17/2015 ; Life Cycle Status: Active ; Vocabulary: SNOMED CT Endometriosis (SNOMED CT :4155839129 ) Name of Problem: Endometriosis ; Recorder: LANCE HERNANDEZ RN; Confirmation: Confirmed ; Classification: Medical ; Code: [id number] ; Contributor System: Audibase ; Last Updated: 05/17/2015 13:37 EDT ; Life Cycle Date: 05/17/2015 ; Life Cycle Status: Active ; Vocabulary: SNOMED CT PCO - Polycystic ovaries (SNOMED CT :322443381 ) Name of Problem: PCO - Polycystic ovaries ; Recorder: LANCE HERNANDEZ RN; Confirmation: Confirmed ; Classification: Medical ; Code: [id number] ; Contributor System: Audibase ; Last Updated: 05/17/2015 13:37 EDT ; Life Cycle Date: 05/17/2015 ; Life Cycle Status: Active ; Vocabulary: SNOMED CT Diagnoses(Active) Lower leg pain-swelling Date: 01/02/2020 ; Diagnosis Type: Reason For Visit ; Confirmation: Complaint of ; Clinical Dx: Lower leg pain-swelling ; Classification: Medical ; Clinical Service: Emergency medicine ; Code: PNED ; Probability: 0 ; Diagnosis Code: [id number] ED Height and Weight Height Source : Stated Height Entry Format : [place] Height, Feet : 5 ft(Converted to: 152 cm, 60 Inch) Height, Inches : 3 Inch(Converted to: 0 ft 3 Inch, 7.62 cm) Clinical Height : 160.02 cm Weight Source, ED : Critical estimated dosing weight Weight Entry Format : [place] Weight, Pounds : 168 lb Clinical Dosing Weight : 76.36 kg Body Surface Area (BSA) : 1.8 m2 Body Mass Index : 29.8 kg/m2 (HI) [place] Body Weight (IBW) : 52.02 kg Basil Walls RN - 01/02/2020 17:56 EDT documented in this encounter Plan of Treatment Not on file documented as of this encounter Visit Diagnoses Not on filedocumented in this encounter
--- OUTSIDE RECORDS SUMMARY | 2025-06-14 09:42 | XMS_ITS | Encounter Summary ---
Author Organization [employer] ([place], [place], [place], [place]) Address [address] [place] [address] Care Team Providers Care Inserter Name Role Phone Unavailable Primary Care Provider Unavailabl e Encounter Details Date Type Department Care Team (Late st Contact Info) Description 01/02/2020 Transcribed Document [facility] [place] Family Medicine [address] [place] [address] ProviderFlip MD [address] [place] [address] Social History Tobacco Use Types [...] pt arrives to ed via ems from [facility] after having a fall at home. Left [...] EDT Height Source Stated Height Entry Format [place] Height/Length, AFGHAN (ft) 5 ft Height/Length AFGHAN 3 Inch CLINICALHEIGHT 160.02 cm [place] Body Weight 52.02 kg Weight Source, ED Critical estimated dosing weight Weight Entry Format [place] Weight Malay lb 168 lb CLINICALWEIGHT 76.36 kg Body [...]
--- OUTSIDE RECORDS SUMMARY | 2025-06-14 09:42 | XMS_ITS | Referral Summary ---
Author Organization [employer] ([place], [place], [place], [place]) Address [address] [place] [address] Care Team Providers Care Marine Fire Fighter Name Role Phone Unavailable Primary Care Provider [...]
--- OUTSIDE RECORDS SUMMARY | 2025-06-14 09:42 | XMS_ITS | Clinical Summary ---
Author Organization [facility] Address [address] [place] [address] Care Team Providers Care Print Room Worker Name Role Phone Gabe Malone MD Primary Care Provider + [phone] Allergies Active Allergy Reactions Criticality Noted Date Comments Penicillins Rash Low 04/16/2017 Sulfa Antibiotics Itching Medium 01/04/2019 Medications spironolactone (ALDACTONE) 12.5 MG tablet half tablet Take by mouth Daily. Active atorvastatin (LIPITOR) 20 MG tablet Take 1 tablet by mouth Daily. Active gabapentin (NEURONTIN) 300 MG capsule Take 1 capsule by mouth 3 (Three) Times a Day. Active meloxicam (MOBIC) 15 MG tablet Take 1 tablet by mouth Daily. Active metoprolol succinate XL (TOPROL-XL) 50 MG 24 hr tablet Take 2 tablets by mouth Daily. Active tiZANidine (ZANAFLEX) 4 MG tablet Take 1 tablet by mouth Every 6 (Six) Hours As Needed. Active sertraline (ZOLOFT) 50 MG tablet Take 1 tablet by mouth Daily. Active Cholecalciferol 10 MCG (400 UNIT) tablet Take 1 tablet by mouth Daily. Active nicotine (NICODERM CQ) 21 MG/24HR patchIndications: Cigarette nicotine dependence without complication Place 1 patch on the skin as directed by provider Daily. 28 each 12 4 Active Black Cohosh 20 MG tablet Take by mouth. Active Active Problems Problem Noted Date Diagnosed Date Precordial chest pain 04/20/2024 Assessment & Plan (04/20/2024 4:29 PM EDT): Nuclear stress was low to intermediate risk. Patient reports no recent episode of chest pain. Family history of ischemic heart disease 024 Cigarette nicotine dependenc e with nicotine-induced disorder 04/20/2024 Assessment & Plan (04/20/2024 4:38 PM EDT): Continues to smoke. Has been non-compliant with the nicotine patches. Patient states she plans to restart the patches. Encourage patient that with her family history of heart disease the smoking puts her at a higher risk and smoking cessation advised. Immunizations Immunization Administration Dates Next Due PPD Test 11/15/2016 Family History Medical History Relation Name Comments Diabetes Father Heart attack Father Heart disease Father Hyperlipidemia Father Hypertension Father Stroke Father Asthma Mother Osteoarthritis Mother Relation Name Status Comments Father Alive Mother Alive Social History Tobacco Use Types Packs/Day Years Used Date Smoking Tobacco: Every Day Cigarettes Passive Smoke Exposure: Current Smokeless Tobacco: Never Tobacco Cessation:Ready to Q uit: No; Counseling Given: No Alcohol Use Standard Drinks/Week Comments Yes 0 (1 standard drink = 0.6 oz pur e alcohol) occ. Abuse Screen Answer Date Recorded Unsafe at Home or Work/School Not on file Feels Threatened by Someone? Not on file 06/2023 Does Anyone Keep You from Co ntacting Others or Doint Things Outside the Home? Not on file 08/02/2023 Physical Sign of Abuse Present Not on file 1 Housing Stability Answer Date Recorded Current Living Arrangements Not on file 06/2023 Potentially Unsafe Housing Conditions Not on malathi e 08/02/2023 Family and Community Support Answer Olu e Recorded Help with Day-to-Day Activities Not on file 08/02/2023 Lonely or Isolated Not on file 08/02/2023 Employment Answer Date Recorded Do you want help finding or keeping work or a adam b? Not on file 08/02/2023 Disabilities Answer Date Recorded Concentrating, Remembering, or Making Decisions Difficulty Not on file 08/02/2023 Doing Errands Independently Difficulty Not on fi le 08/02/2023 Education Answer Date Recorded Help with school or training? Not on file Preferred Language Not on file 08/02/2023 Comments No Sex and Gender Information Value Date Recorded Sex Assigned at Not on file Legal Sex Female 12:43 PM EDT Gender Identity Not on file Sexual Orientation Not on file Last Filed Vital Signs Vital Sign Reading Time Taken Comments Blood Pressure 133/93 04/20/2024 2:43 PM EDT Pulse 90 04/20/2024 2:38 PM EDT Temperature 37.1 C (98.8 F) 09/24/2019 12:46 PM EST Respiratory Rate 16 09/24/2019 12:46 PM EST Oxygen Saturation 96% 04/20/2024 2:38 PM EDT Inhaled Oxygen Concentration - - Weight 81.6 kg (180 lb) 04/20/2024 2:43 PM EDT Height 157.5 cm (5' 2 ) 04/20/2024 2:43 PM EDT Body Mass Index 32.92 04/20/2024 2:43 PM EDT Plan of Treatment Health Maintenance Due Date Last Done Comments Annual Gynecologic Pelvic an d Breast Exam 1977 Pneumococcal Vaccine 0-49 (1 of 2 - PCV) 1996 TDAP/TD VACCINES (1 - Tdap) 1996 MAMMOGRAM 2017 ANNUAL PHYSICAL 04/16/2017 HEPATITIS C SCREENING 04/16/2017 COLOGUARD 2022 COLON CANCER SCREENING 5 YEA R SIGMOIDOSCOPY [address] CT COLONOGRAPHY 2022 FECAL OCCULT BLOOD TEST 2022 FIT Testing (1 year) 2022 COVID-19 Vaccine ( season) 2024, 07/02/2021 INFLUENZA VACCINE 07/25/2025 COLONOSCOPY 07/21/2033 07/21/2023, 06/26, 10/25/2022 COLORECTAL CANCER SCREENING 07/21/2033 Insurance [facility] MEDICAID Care Teams Print Room Worker Relationship Specialty Start Date End Date Gabe Malone MD [address] [place] [address] Dr [place], [place] [address] PCP - General Family Medicine 03/06/24
--- OUTSIDE RECORDS SUMMARY | 2025-06-14 09:42 | XMS_ITS | Encounter Summary ---
Author Organization [employer] ([place], [place], [place], [place]) Address [address] [place] [address] Care Team Providers Care Machine Candle Molder Name Role Phone Unavailable Primary Care Provider Unavailabl e Encounter Details Date Type Department Care Team (Late st Contact Info) Description 01/02/2020 Transcribed Document [facility] Family Medicine [address] [place] [address] ProviderFlip MD [address], [place] [id number] Social History Tobacco Use Types Packs/Day Years [...] Historical ProviderMD - 01/02/2020 6:37 PM CDT documented in this encounter Plan of Treatment Not on file documented as of this encounter Visit Diagnoses Not on filedocumented in this encounter
--- OUTSIDE RECORDS SUMMARY | 2025-06-14 09:42 | XMS_ITS | Encounter Summary ---
Author Organization [facility] Address [address] [place] [address] Care Team Providers Care Legal Assistant Name Role Phone None, None Primary Care Provider [phone] Reason for Referral * Consultation (Routine) - Closed Specialty Diagnoses / Procedures Referred By Glenys barakat Referred To Contact Neurosurgery Diagnoses Other low back pain Radiculopathy, lumbar region Perez Johnson MD [address] [place] [address] Phone: tel: fax: Referral ID Status Reason Start Date Expiration Date V isits Requested Visits Authorized [id number] Closed Specialty Services Required 08/05/2022 02/04/2024 1 1 Encounter Details Date Type Department Care Team (Late st Contact Info) Description 08/05/2022 Community [facility] [address] [place] [phone] Perez Johnson MD [address] [phone] Other low back pain (Primary Dx); Radiculopathy, [...] unspecified documented in this encounter Care Teams Legal Assistant Relationship Specialty Start Date End Date None, None [address] [id number] PCP - General NONE FOUND 10/13/22 05/18/24 documented as of this encounter
--- OUTSIDE RECORDS SUMMARY | 2025-06-14 09:42 | XMS_ITS | Encounter Summary ---
Author Organization [employer] ([place], [place], [place], [place]) Address [address] [place] [address] Care Team Providers Care Crane Operator Cab Name Role Phone Unavailable Primary Care Provider Unavailabl e Encounter Details Date Type Department Care Team (Late st Contact Info) Description 01/02/2020 Transcribed Document [facility] [place] [address] [place] [address] ProviderFlip MD [address] [place] [address] Social History Tobacco Use Types [...] Communication Barrier : None Primary Language : [place] Any Spiritual/Cultural Needs or Requests : No [...] Cardiovascular ASMT, ED Cardiovascular Assessment WDL : [facility] Basil Walls RN - 01/02/2020 18:39 EDT Respiratory Respiratory Assessment WDL : [facility] Basil Walls RN - 01/02/2020 18:39 EDT Musculoskeletal Musculoskeletal Assessment WDL : [facility] with exceptions Musculoskeletal Assessment Comment : Increased LT ankle pain, splint opened and revealed 2 open areas that pt reports are burning. Basil Walls RN - 01/02/2020 18:39 EDT Neurologic ASMT, ED Neurologic Assessment WDL : [facility] Basil Walls RN - 01/02/2020 18:39 EDT [...] form. Electronically signed by Bharath Garcia Conversion Credit Collections Analyst Tylerner at 02/12/2023 12:18 PM CDT documented in this encounter Plan of Treatment Not on file documented as of this encounter Visit Diagnoses Not on filedocumented in this encounter
--- OUTSIDE RECORDS SUMMARY | 2025-06-14 09:42 | XMS_ITS | Patient Health Record ---
Author Organization [facility] Address [address] [facility] [address] [place] [address] Care Team Providers Care Caster Helper Name Role Phone Catie Baer Unavailable [phone] Reason For Referral No Information Social History Social History Sexual History: Social Info Question Answer Notes Sexual History Had sex in the past 12 months (vaginal, oral, or anal)? Yes Drugs/Alcohol: Social Info Question Answer Notes Drugs Have you used drugs other than those for medical reasons in the past 12 months? No Alcohol Screen Did you have a drink containing alcohol in the past year? Yes Points 0 Interpretation Negative Tobacco Use: Social Info Question Answer Notes Tobacco Use/Smoking Are you a former smoker Tobacco use other than smoking: Are you an other tobac co user? No Plan Of Treatment No Information
--- OUTSIDE RECORDS SUMMARY | 2025-06-14 09:42 | XMS_ITS | Encounter Summary ---
Author Organization [employer] ([place], [place], [place], [place]) Address [address] [place] [address] Care Team Providers Care Solutions Developer Name Role Phone Unavailable Primary Care Provider Unavailabl e Encounter Details Date Type Department Care Team (Late st Contact Info) Description 01/02/2020 Transcribed Document [facility] Family Medicine [address] [place] [address] ProviderFlip MD [address] [place] [address] Social History Tobacco Use Types [...] Jordan MD - 01/02/2020 8:11 PM CDT [facility] [address] BRIAN VALENCIA :1975 Visit Time:01/02/2020 [...] Center if you need assistance. Where: [address] [place] [address]- Business (1) Follow Up with SHAMIKA SANTOS When Within 2 to 3 days Where: [address] [place] [address]- Business (1) Follow Up with DARREN FATIMA When Within 2 to 3 days Where: [address] [place] [address]- Business (1) Allergies penicillin sulfa drugs Immunizations [...] activities are safe for you. ??? Take mgdt-ydu-ictqgzm and prescription medicines only as told by [...] 10/08/2001 Document Revised: 05/01/2017 Document Reviewed: 04/03/2017 [employer] Patient Education ?? 2019 [employer]. Emergency Awareness and Preventative Care STROKE is [...] Assistance with quitting is available by contacting 8-748-MNYC-NOW. This is a free resource providing counseling, [...] was given the opportunity to ask questions. Patient/Lean Six Sigma Senior Specialist Name: Patient/[employer] Senior Specialist Signature: Relationship to Patient: Clinician/Hospital Le[employer] Senior Specialist Signature: Please Provide a Telephone Number Where You Can Be Reached: Is it Permissible To Leave a Message? Date: documented in this encounter Plan of Treatment Not on file documented as of this encounter Visit Diagnoses Not on filedocumented in this encounter
--- OUTSIDE RECORDS SUMMARY | 2025-06-14 09:42 | XMS_ITS | Encounter Summary ---
Author Organization [employer] ([place], [place], [place], [place]) Address [address] [place] [address] Care Team Providers Care Server Developer Name Role Phone Unavailable Primary Care Provider Unavailabl e Encounter Details Date Type Department Care Team (Late st Contact Info) Description 01/02/2020 Transcribed Document [facility] Family Medicine [address] [place] [address] ProviderFlip MD [address] [place] [address] Social History Tobacco Use Types [...] Basil Walls RN - 01/02/2020 21:30 EDT Electronically signed by Bharath Garcia Conversion Bioprocess Development Engineer Nick at 02/12/2023 12:09 PM CDT documented in this encounter Plan of Treatment Not on file documented as of this encounter Visit Diagnoses Not on filedocumented in this encounter
--- OUTSIDE RECORDS SUMMARY | 2025-06-14 09:42 | XMS_ITS | Clinical Summary ---
Author Organization [facility] Address [address] [place] [address] Care Team Providers Care Palm Gatherer Name Role Phone Unavailable Primary Care Provider [...] Date Last Done Comments [facility]-Depression Screening 1975 [facility]-/Child/Adol SDOH Screenings 1975 [facility]- SDOH Screenings 1995 [facility]-Adult SDOH Screenings 1995 [facility]-DTaP,Tdap,and Td Vaccine s (1 - Tdap) 1996 [facility]-Hepatitis B Vaccines (1 of 3 - 19+ 3-dose series) 1996 [facility]-Pap Smear 03/22/2015 03/22/2012 [facility]-Cervical Cancer Screening 03/22/2017 [facility]-HPV/Cotest 03/22/2017 03/22/2012 CT Colonography 2022 Colonoscopy 2022 FIT-DNA 2022 FIT 2022 FOBT 2022 Sigmoidoscopy 2022 [facility]-Colorectal Cancer Screening 2022 [id number] Vaccine ( season) 2024 07/23/2021, 07/02/2021 [facility]-Influenza [...] Narrative SUNQUEST - 03/24/2012 3:08 PM EDT [facility] MR #: [id number] [facility] [place]RI[place], [place] [address] 1975 (Age: 36) FW Collect Date: 03/22/2012 00:00 Receipt Date: 03/23/2012 10:25 Page 1 DEPARTMENT OF PATHOLOGY AND LABORATORY MEDICINE CYTOPATHOLOGY REPORT Email: [email or web address] [phone] ATTENDING MD/Practitioner: Alma Womack MD Service: [facility] Location: [facility] Reported: 03/24/2012 15:08 Collected: 03/22/2012 00:00 INTERPRETATION A. THIN PREP (CERVICAL/VAGINAL): NEGATIVE FOR INTRAEPITHELIAL LESION OR MALIGNANCY. SATISFACTORY FOR EVALUATION; ENDOCERVICAL/ TRANSFORMATION ZONE COMPONENT PRESENT. Slide scanned and imaged by [employer] ThinPrep Imaging System with manual review of [...] results is suggested (please call Microbiology at [phone] for results). CLINICAL INFORMATION: Menstrual History: Irregular Date of Last Menstrual Period: {Not Provided} Other Clinical Conditions: If ASCUS and > 24 years of age, HPV/DNA testing requested. Abnormal bleeding SPECIMEN DESCRIPTION: A: THIN PREP (CERVICAL/VAGINAL) THIN PREP PROCESS CELLULAR ENHANCEMENT ICD: F: A; DX IMAGE [id number] SNOMED CODES: A; [id number] In cases where a pathologist has signed out the report, the service has been rendered in part by a resident. The signing pathologist has performed and is responsible for the reported pathologic evaluation. us Rica Crandall MD LAB PATHOLOGY ORDERAB LES Final Result SUNQUEST from Last 3 Months or Most Recently Relevant to Health Maintenance Insurance
--- OUTSIDE RECORDS SUMMARY | 2025-06-14 09:42 | XMS_ITS | Encounter Summary ---
Author Organization [employer] ([place], [place], [place], [place]) Address [address] [place] [address] Care Team Providers Care Liner Roll Changer Name Role Phone Unavailable Primary Care Provider Unavailabl e Encounter Details Date Type Department Care Team (Late st Contact Info) Description 01/02/2020 Transcribed Document [facility] Family Medicine [address] [place] [address] ProviderFlip MD [address] [place], [place] [id number] Social History Tobacco Use Types Packs/Day Years [...] Historical ProviderMD - 01/02/2020 5:55 PM CDT [place] Suicide Severity Rating Scale (C-SSRS) Entered On: 01/02/2020 18:40 EDT Performed On: 01/02/2020 18:39 EDT by Basil Walls RN [place] Suicide Severity Rating Scale (C-SSRS) CSSRS Past Month Wish to be : No CSSRS Past Month Suicidal Thoughts : No CSSRS Lifetime Suicide Behavior : No Suicide Severity Rating Score : 0 Suicide Severity Rating : No Additional Care Required at this time Basil Walls RN - 01/02/2020 18:39 EDT documented in this encounter Plan of Treatment Not on file documented as of this encounter Visit Diagnoses Not on filedocumented in this encounter
--- OUTSIDE RECORDS SUMMARY | 2025-06-14 09:42 | XMS_ITS | Clinical Summary ---
Author Organization [employer] ([place], [place], [place], [place]) Address [address] [place] [address] Care Team Providers Care Medical Administrator Name Role Phone Unavailable Primary Care Provider [...]
--- NOTE | 2025-06-14 10:35 | EXP.PAIN.SOA ---
[facility] Disclaimer: The information contained in this section may have been updated after the patient was seen, as this information can be updated by other users. Medical History Tubal Chronic pain Endometriosis HLD (hyperlipidemia) HTN (hypertension) Surgical History History of ankle surgery LEFT H/O removal of cyst Family History Other No significant family history Social History Smoking Status: Current every day smoker tobacco type: cigarettes packs per day: 1 alcohol intake: current alcohol intake frequency: a few times a week (drinks 4 or 5 drinks per night) substance use type: denies use current occupational status: other Travel in the last 8 weeks?: None number of children: 0 PM Subjective & Objective Subjective Subjective:: Patient is a pleasant 50-year-old female who presents today for worsening pain in her right hip. She rates it a 9 out of 10. Patient does state that it is that same pain that we have treated her in the past for and that she has gotten significant relief with the bursa injections. Patient does state that she would like to see about proceeding forward with this option as it is really interfering with her ability perform activities of daily living such as cooking and cleaning. Patient does feel like she tosses and turns at night due to the worsening symptoms. Patient is currently prescribed tizanidine 4 mg twice a day and meloxicam 15 mg daily from our office. She denies any side effects. Her Ender has been reviewed and is appropriate. Review of Systems: General: No recent weight changes, no fever, no sleep disturbances Respiratory: No cough, no shortness of air, no recurring pulmonary infections Cardiovascular/peripheral vascular: No chest pain, no palpitations, no edema, no shortness of breath Gastrointestinal: No new onset incontinence, normal bowel movements reported Genitourinary: No new onset incontinence Musculoskeletal: Right hip pain Psychiatric: [Normal mood/affect] Neurological: [Denies weakness in extremities], [denies balance issues] Pain at rest (0-10 scale): 9 Objective Objective:: Physical Exam: General: Alert and oriented x3, no acute distress, pleasant and cooperative Lungs: Respirations even and unlabored, symmetrical chest expansion Eyes: PERRL Musculoskeletal: Flexion and extension of right hip somewhat guarded secondary to pain, [antalgic gait noted] point tenderness along right greater trochanteric bursa Neurological: Speech clear, no gross sensory deficit Has patient had previous pain injection?: No Conservative treatment options previously tried: Home exercise plan Length of treatment: Longer than 12 weeks Meds Home Medications and Allergies Home Medications ?Medication ?Instructions ?Recorded ?Confirmed ?Type gabapentin 300 mg capsule 300 mg PO TID Pain 09/03/22 05/31/25 History sertraline 50 mg tablet 50 mg PO DAILY MOOD 09/03/22 05/31/25 History tizanidine 4 mg tablet (Zanaflex) 4 mg PO BID spasms #180 tabs 03/27/25 05/31/25 Rx meloxicam 15 mg tablet 15 mg PO DAILY Pain #30 tabs 04/09/25 05/31/25 Rx atorvastatin 20 mg tablet 20 mg PO DAILY 05/22/25 05/31/25 History metoprolol succinate 50 mg 50 mg PO DAILY 05/22/25 05/31/25 History tablet,extended release 24 hr Viberzi 100 mg tablet (eluxadoline) 100 mg PO BID #60 tabs 06/07/25 Rx New Prescriptions to Start Prescriptions: Allergies Allergy/AdvReac Type Severity Reaction Status Date / Time Penicillins Allergy Rash Verified 05/31/25 14:11 Sulfa (Sulfonamide Allergy Rash Verified 05/31/25 14:11 Antibiotics) Assessment and Plan *Assessment and plan (1) Trochanteric bursitis of right hip: Status: Acute Category: Medical Code(s): M70.61 - Trochanteric bursitis, right hip Plan Patient is experiencing worsening pain in her right hip with tenderness along her right greater trochanteric bursa. Risk and benefits were discussed with the patient regarding repeat bursa injection and she would like to proceed forward with this plan of care. Patient has tried and failed conservative therapy including oral medication, heat and ice, topicals, physical therapy and continued at home stretching exercise that was physician guided for longer than 12 weeks. Patient has had these injections in the past With her last injections in February that did provide 85% improvement and has lasted up until the last couple of weeks. Patient would get improved function and overall decreased pain with these interventions. We will schedule the patient for a right greater trochanteric bursa injection under fluoroscopy. I will also refill her tizanidine and change it to 3 times a day. Patient has been instructed to contact the clinic with any concerns before the next appointment. Dr. Bernard has reviewed this note and agrees with this plan of care. This note was dictated using voice recognition software and make contain errors or omissions. All injections are used with Lidocaine, Bupivacaine and dexamethasone. Occasionally urine drug screen is needed to verify patient's compliance with our office pain contract. This is ordered based off specific treatments related to chronic pain with the potential to abuse certain medications.
[2025-06-14 11:03] VITALS: BP 135/90; PULSE 101; RESP 18; O2SAT 94; BMI 36.9
== END 2025-06-14 23:59 | disposition home or self-care (01) ==
PROVIDERS: PCP Nurse Practitioner Family; Visit Provider Nurse Practitioner Family
DX: M70.61 Trochanteric bursitis, right hip (principal); Z79.899 Other long term (current) drug therapy; Z79.1 Long term (current) use of non-steroidal anti-inflammatories (NSAID)
CPT/HCPCS: 99212; G0463

== ENCOUNTER 2025-08-07 10:35 | Day surgery (SDC) | payer MEDICAID, SELFPAY ==
[2025-08-07 10:48] VITALS: BP 131/87; PULSE 87; RESP 18; O2SAT 97; BMI 36.3
[2025-08-07 10:50] VITALS: BP 139/99; PULSE 98; RESP 18; O2SAT 100
[2025-08-07 10:51] VITALS: BP 131/80; PULSE 86; RESP 16; O2SAT 97
[2025-08-07] MEDS: DEXAMETHASONE 10MG/ML 1ML VIAL 10 MG (10:51)
--- NOTE | 2025-08-07 10:53 | P.PCN_ITS ---
Procedure Date: 08/07/25 Time: 10:50 Anesthesiologist:: Wade Arriaga CRNA Complications:: None Pre-procedure Diagnosis:: Right trochanteric bursitis Post-procedure Diagnosis:: Same Indications for Procedure:: Patient is a very pleasant 50-year-old female comes our clinic today for right trochanteric bursa injection of cortisone local anesthetic. Patient describes right lateral hip pain as constant, dull, aching, sharp, stabbing. She is having difficulty with ambulation due to the right lateral hip pain. Difficulty lying on her right side. She rates her pain 8/10. Procedure Details:: Procedure: Right trochanteric bursa injection under fluoroscopy We then moved to the right trochanteric bursa.~ C-arm fluoroscopy was used to view the left greater trochanter.~ The skin and subcutaneous tissues overlying the right greater trochanter were anesthetized using lidocaine, 1.5% and a 25- gauge needle.~ After this, a 22-gauge spinal needle was inserted and advanced until it contacted the right greater trochanter.~ Dye was injected and good spread was seen throughout the right trochanteric bursa. After this, approximately 5 mL of bupivacaine, 0.25% and dexamethasone 10 mg was incrementally injected into the right right trochanteric bursa.~ The patient tolerated the procedure well with no complications. Plan and Disposition:: Patient was discharged without incident.
== END 2025-08-07 10:51 | disposition home or self-care (01) ==
PROVIDERS: PCP Nurse Practitioner Family; Visit Provider Nurse Anesthetist, Certified Registered
DX: M70.61 Trochanteric bursitis, right hip (principal); E78.5 Hyperlipidemia, unspecified; I10 Essential (primary) hypertension; F17.210 Nicotine dependence, cigarettes, uncomplicated; Z88.0 Allergy status to penicillin; Z88.2 Allergy status to sulfonamides; Z79.899 Other long term (current) drug therapy
CPT/HCPCS: 20610; 77002; G0260; J1100